=== PATIENT | male | born 1945 | race Caucasian/White ===

== ENCOUNTER → 2020-08-04 11:26 | Outpatient (CLI) | payer OTHER, SELFPAY ==
--- NOTE | ~2020-08-04 | XR_ITS ---
XR knee RT 2V, XR knee LT 2V 08/04/2020 11:50 Indication: Bilateral knee pain Procedure: 2 views of each knee Comparison: No prior studies for comparison. Findings: There is moderate-severe bilateral tricompartment osteoarthritis, most advanced in the medi al compartments. No acute fracture or traumatic malalignment. No significant joint effusion. No radio paque foreign bodies. Impression: 1: Moderate-severe bilateral tricompartment osteoarthritis of the knees. Reviewed, dictated and finalized at location B. Impression: 1: Moderate-severe bilateral tricompartment osteoarthritis of the knees. Impression: 1: Moderate-severe bilateral tricompartment osteoarthritis of the knees.
== END ==
PROVIDERS: PCP Internal Medicine; Visit Provider Internal Medicine
DX: M17.0 Bilateral primary osteoarthritis of knee (principal)
CPT/HCPCS: 73560

== ENCOUNTER 2021-02-13 09:23 | Outpatient (CLI) | payer OTHER, SELFPAY ==
--- NOTE | 2021-02-13 | ECHO_ITS ---
Patient Info Name: Juan Alberto Herndon Age: 75 years : 1945 Gender: Male Ht: 69 in Wt: 192 lbs BSA: 2.08 m2 HR: 73 bpm BP: 129 / 65 mmHg Heart Rhythm: Sinus Rhythm Technical Quality: Good Exam Date: 02/13/2021 10:00 AM Exam Location: [facility] Patient Status: Outpatient Admit Date: 02/13/2021 Staff Ordering Physician: Víctor, Veda Montero MD Auto Design Detailer: Sary Titus RDCS Attending Provider: Víctor, Veda Montero MD Referring Physician: Víctor PANIAGUA; Exam Type: CA echo doppler color flow Study Info Indications - SOB Complete two-dimensional, color flow and Doppler transthoracic echocardiogram is performed. Summary 1. Complete two-dimensional, color flow and Doppler transthoracic echocardiogram is performed. 2. Left ventricular chamber dimension is normal. 3. Left ventricular systolic function is normal, estimated at 50-55%. 4. The left ventricular diastolic function is grade II diastolic dysfunction. 5. Left atrial chamber dimension is mildly enlarged. 6. There is mild to moderate aortic valve stenosis with a peak velocity of 264 cm/s, mean gradient of 16 mmHg, and aortic valve area of 1.4 cm2. Left Ventricle Left ventricular chamber dimension is normal. Left ventricular systolic function is normal, estimated at 50-55%. There is mild concentric increased left ventricular wall thickness. The left ventricular diastolic function is grade II diastolic dysfunction. Right Ventricle Right ventricular chamber dimension is normal. Left Atria Left atrial chamber dimension is mildly enlarged. Right Atria Right atrial chamber dimension is normal. Aortic Valve The aortic valve is trileaflet. There is moderate aortic valve sclerosis. There is mild to moderate aortic valve stenosis with a peak velocity of 264 cm/s, mean gradient of 16 mmHg, and aortic valve area of 1.4 cm2. Pulmonic Valve The pulmonic valve is not well visualized. Mitral Valve The mitral valve has normal leaflets. The mitral valve annulus is mildly calcified. Tricuspid Valve The tricuspid valve leaflets are normal. Pericardium/Pleural The pericardium appears normal. Aorta The aortic root size at the sinus of Valsalva is normal. Left Ventricular Outflow Tract Name Value Normal LVOT 2D LVOT Diameter 2.0 cm LVOT Doppler LVOT Peak Gradient 6 mmHg LVOT Mean Gradient 4 mmHg LVOT VTI 29 cm LVOT VTI/AV VTI Ratio 0.5 LVOT Stroke Volume 87 ml LVOT CO 17.5 l/min LVOT CI 8.4 l/min/m2 Pulmonic Valve Name Value Normal PV Doppler PV Peak Gradient 3 mmHg Mitral Valve
== END 2021-02-13 09:24 | disposition home or self-care (01) ==
PROVIDERS: PCP Internal Medicine; Visit Provider Internal Medicine
DX: R06.02 Shortness of breath (principal)
CPT/HCPCS: 93306

== ENCOUNTER 2024-10-21 17:27 | Inpatient (IN) | payer OTHER, SELFPAY ==
[2024-10-21] VITALS (17 sets, daily range): BP systolic 90–135; BP diastolic 46–98; PULSE 46–67; RESP 16–20; TEMP 35.7–36.4; O2SAT 7–100; BMI 25.7
--- NOTE | ~2024-10-21 | XR_ITS ---
EXAMINATION: XR chest 1V portable DATE: 10/25/2024 05:45 INDICATION: Respiratory failure. TECHNIQUE: A single frontal view of the chest was obtained. COMPARISON: Chest single view 10/24/24 FINDINGS: There is no pneumonia, pleural effusion, or pneumothorax. The heart size is normal. The augustin ogastric tube tip is in the stomach. The endotracheal tube tip is 3.1 cm above the clovis. A right in ternal jugular central venous catheter is seen with tip in the superior vena cava. There is a pacer l ead in right ventricle. IMPRESSION: 1. No acute cardiopulmonary disease. Reviewed, dictated and finalized at location A. ASOUND TECHNOL
--- NOTE | ~2024-10-21 | XR_ITS ---
Portable chest x-ray Comparison: 10/28/2024 Clinical History: Fever Findings: Right IJ line in place. Possible minimal central pulmonary edema unchanged. No consolidati on or pleural effusion otherwise. Cardiomediastinal silhouette is stable. Bones and soft tissues are unremarkable. Impression: Possible minimal central pulmonary edema. Right IJ line. Reviewed, dictated and finalized at [facility]. ATCHER SERVICE CHIEF Impression: Possible minimal central pulmonary edema. Right IJ line.
--- NOTE | ~2024-10-21 | XR_ITS ---
EXAMINATION: XR chest 1V portable DATE: 10/24/2024 05:21 INDICATION: Respiratory failure. TECHNIQUE: A single frontal view of the chest was obtained. COMPARISON: Chest single view 10/23/2024 FINDINGS: A calcified left lung nodule is consistent with old granulomatous disease. No pleural effus ion or pneumothorax. Cardiomegaly is noted. The endotracheal tube tip is 6.2 cm above the clovis. The nasogastric tube tip is in the stomach. There is a pacer wire in right ventricle. A right internal j ugular central venous catheter is seen with tip in the superior vena cava. IMPRESSION: 1. Cardiomegaly. Reviewed, dictated and finalized at location A. ROBE CONSULTANT IMPRESSION: 1. Cardiomegaly.
--- NOTE | ~2024-10-21 | XR_ITS ---
XR abdomen gastric tube rechec Ordering provider: Koko Diaz MD History: . NG tube placement . Comparison: None. FINDINGS/impression: BOWEL: Nasogastric and ET tube and the gastroesophageal junction. Advancement advised. Nonobstructive bowel gas pattern. Reviewed, dictated and finalized at location A. DRIER
--- NOTE | ~2024-10-21 | XR_ITS ---
EXAMINATION: XR chest 1V portable DATE: 10/31/2024 11:48 INDICATION: Shortness of breath TECHNIQUE: frontal view of the chest was obtained. COMPARISON: Chest radiograph dated 10/29/2024 FINDINGS: Eventration along the right hemidiaphragm. Small calcified nodule at the lateral left lower lung zone consistent with old granulomatous disease. No other airspace opacities, pulmonary edema, pleural eff usion or pneumothorax. Heart size is normal accounting for AP technique with small left pericardial f at pad. IMPRESSION: 1. No acute cardiopulmonary disease. Reviewed, dictated and finalized at location A. T SHIPPER
--- NOTE | ~2024-10-21 | XR_ITS ---
XR chest ET placement Ordering provider: Koko Diaz MD History: 79 years Male with . ETT placement . Comparison: None. FINDINGS: MEDIASTINUM: The cardiac silhouette is slightly enlarged. Endotracheal tube is seen with the tip abov e the clovis by about 1.4 cm. Retraction by 2 cm is advised. Nasogastric tube is seen with the tip at the gastroesophageal junction. Advancement is advised. Prominent kim. LUNGS: No effusions or pneumothorax. Prominent bronchovascular markings in the lower lobes which may indicate atelectasis versus pneumonia. Follow-up advised. OTHER: No free air under the diaphragm. Degenerative changes of the spine. IMPRESSION: Endotracheal tube needs to be retracted by about 2 cm. Nasogastric tube needs to be advanced. Bibasilar prominent bronchovascular markings which may indicate atelectasis versus early pneumonia. F ollow-up advised. Reviewed, dictated and finalized at location A. ENT ACCOUNT REPRESENTATIVE IMPRESSION: Endotracheal tube needs to be retracted by about 2 cm. Nasogastric tube needs t o be advanced. Bibasilar prominent bronchovascular markings which may indicate atelectasis kory stefania early pneumonia. Follow-up advised.
--- NOTE | ~2024-10-21 | XR_ITS ---
XR chest port-a-cath/central Ordering provider: Koko Diaz MD History: 79 years Male with . Central line placement . Comparison: None. FINDINGS: MEDIASTINUM: The cardiac silhouette is slightly enlarged. Endotracheal tube and nasogastric tube are in good position. Right central line with the tip overlying superior vena cava. LUNGS: No effusions or pneumothorax. Bibasilar Opacification with bilateral interstitial changes. OTHER: No free air under the diaphragm. IMPRESSION: Support lines in good position. Bibasilar opacification with bilateral interstitial changes. Reviewed, dictated and finalized at location A. RAL OFFICE WORKER
--- NOTE | ~2024-10-21 | CT_ITS ---
CT brain wo con Ordering provider: Nuno Moser MD History: 79 years Male with . AMS . Comparison: October 21, 2024 Technique: CT of the head without contrast. Radiation reduction technique utilized.The dose-length pr oduct was 681 mGy-cm. FINDINGS: Endotracheal tube is seen. BRAIN PARENCHYMA AND CSF SPACES: Severe leukoaraiosis and diffuse cortical atrophy. Severe atheromato us disease. No midline shift, mass effect or hemorrhage. The brain parenchyma and CSF spaces are otherwise norm al. VISUALIZED PARANASAL SINUSES: Well aerated. MASTOIDS: Well aerated. BONES: The bones appear intact. SOFT TISSUES: Visualized nasopharynx is normal. Superficial soft tissues are normal. IMPRESSION: No acute intracranial findings. Reviewed, dictated and finalized at location A. ETARIUM SKY SHOW TECHNICIAN
--- NOTE | ~2024-10-21 | CT_ITS ---
CT brain wo con Ordering provider: Koko Diaz MD History: 79 years Male with . Cardiac arrest . Comparison: None. Technique: CT of the head without contrast. Radiation reduction technique utilized. The dose-length p roduct was 756.67 mGy-cm. FINDINGS: BRAIN PARENCHYMA AND CSF SPACES: Moderate leukoaraiosis and diffuse cortical atrophy. Moderate athero matous disease. No midline shift, mass effect or hemorrhage. The brain parenchyma and CSF spaces are otherwise normal. VISUALIZED PARANASAL SINUSES: Well aerated. MASTOIDS: Well aerated. BONES: The bones appear intact. SOFT TISSUES: Visualized nasopharynx is normal. Superficial soft tissues are normal. IMPRESSION: No acute intracranial findings. Reviewed, dictated and finalized at location A. SHER HAND
--- NOTE | ~2024-10-21 | XR_ITS ---
Portable chest x-ray Comparison: 10/21/2024 Clinical History: Tube placement Findings: Endotracheal tube, NG tube, and right IJ line are in satisfactory positions. Possible mini mal central congestive change. Lungs are otherwise clear. Cardiomediastinal silhouette is stable. [place] jose and soft tissues are unremarkable. Impression: Support tubes, as above. Possible minimal central congestive change. Reviewed, dictated and finalized at location . SING ROOM ATTENDANT Impression: Support tubes, as above. Possible minimal central congestive change.
--- NOTE | ~2024-10-21 | US_ITS ---
BILATERAL LOWER EXTREMITY VENOUS ULTRASOUND Ordering provider: Jesus Mclean MD History: . fevers . Comparison: None. FINDINGS: RIGHT LOWER EXTREMITY VEINS: --COMMON FEMORAL: Patent and free of thrombus. Normal compressibility, phasic flow and augmentation. --PROXIMAL SUPERFICIAL FEMORAL: Patent and free of thrombus. Normal compressibility, phasic flow and augmentation. --DISTAL SUPERFICIAL FEMORAL: Patent and free of thrombus. Normal compressibility, phasic flow and au gmentation. --POPLITEAL: Patent and free of thrombus. Normal compressibility, phasic flow and augmentation. --POSTERIOR TIBIAL: Patent and free of thrombus. Normal compressibility, phasic flow and augmentation . LEFT LOWER EXTREMITY VEINS: --COMMON FEMORAL: Patent and free of thrombus. Normal compressibility, phasic flow and augmentation. --PROXIMAL SUPERFICIAL FEMORAL: Patent and free of thrombus. Normal compressibility, phasic flow and augmentation. --DISTAL SUPERFICIAL FEMORAL: Patent and free of thrombus. Normal compressibility, phasic flow and au gmentation. --POPLITEAL: Patent and free of thrombus. Normal compressibility, phasic flow and augmentation. --POSTERIOR TIBIAL: Patent and free of thrombus. Normal compressibility, phasic flow and augmentation . IMPRESSION: Negative bilateral lower extremity venous US. No deep vein thrombosis. Reviewed, dictated and finalized at location A. TRUCTION SAFETY MANAGER
--- NOTE | ~2024-10-21 | XR_ITS ---
Portable chest x-ray Comparison: 10/22/2024 Clinical History: Tube placement Findings: Endotracheal tube, NG tube, and right IJ line remain in place. Lungs are clear, without fo lilli consolidation or pleural effusion. Cardiomediastinal silhouette is stable. Bones and soft tissue s are unremarkable. Impression: Clear lungs. Support tubes, as above. Reviewed, dictated and finalized at location M. INTEGRATED Impression: Clear lungs. Support tubes, as above.
--- NOTE | ~2024-10-21 | XR_ITS ---
Portable chest x-ray Comparison: 10/25/2024 Clinical History: Respiratory failure Findings: Endotracheal tube, NG tube, and right IJ line are in place. Lungs are clear, without focal consolidation or pleural effusion. Cardiomediastinal silhouette is stable. Bones and soft tissues a re unremarkable. Impression: Clear lungs. Support tubes, as above. Reviewed, dictated and finalized at location . HELPER Impression: Clear lungs. Support tubes, as above.
--- NOTE | ~2024-10-21 | XR_ITS ---
MODIFIED ESOPHAGRAM HISTORY: Aspiration TECHNIQUE: Modified barium esophagram was performed on 10/29/2024. I administered fluoroscopy and per formed the exam with speech pathologist. Patient was seated for lateral fluoroscopic imaging for ing estion of thin liquids, pudding, solids and quantified amounts, followed by thin liquids in uncontrol led amounts. This was recorded on tape. A single fluoroscopic spot image was also recorded. The DAP f or this procedure was 1.513 Gycm2. The amount of fluoroscopy time used during this procedure was 2.2 minutes. FINDINGS: Oral stage: Adequate function. Pharyngeal stage: There is reduced laryngeal elevation and adduction. Is also markedly reduced tongue base retraction. There is residue in the piriform sinuses and longer duration at the vallecula. Ther e is laryngeal penetration with silent aspiration. Cervical/esophageal stage: Adequate function. IMPRESSION: Pharyngeal dysphagia with silent laryngeal penetration and aspiration. Please correlate with speech pathologist findings and specific feeding recommendations. Reviewed, dictated and finalized at location A. EL TRUCK DRIVER IMPRESSION: Pharyngeal dysphagia with silent laryngeal penetration and aspirati on. Please correlate with speech pathologist findings and specific feeding rec ommendations.
--- NOTE | ~2024-10-21 | XR_ITS ---
XR abdomen gastric tube insert Ordering provider: Koko Diaz MD History: . OG PLACEMENT . Comparison: None. FINDINGS impression: BOWEL: Nasogastric tube is seen with the tip in the stomach. Nonobstructive bowel gas pattern. Reviewed, dictated and finalized at location A. TRICAL MAINTENANCE TECHNICIAN
--- NOTE | ~2024-10-21 | XR_ITS ---
XR chest ET placement Ordering provider: Koko Diaz MD History: 79 years Male with . ETT placement . Comparison: October 21, 2024 FINDINGS: MEDIASTINUM: The cardiac silhouette is slightly enlarged. Endotracheal tube is seen above the clovis by about 4 cm. Nasogastric tube seen with the tip in the stomach. Right central line with the tip overlying the superior vena cava. LUNGS: No effusions or pneumothorax. Minimal opacification the lung bases. OTHER: No free air under the diaphragm. IMPRESSION: Support lines are in good position. Bibasilar opacification unchanged. Reviewed, dictated and finalized at location A. STILL OPERATOR
--- NOTE | ~2024-10-21 | XR_ITS ---
XR abdomen gastric tube insert Ordering provider: Koko Diaz MD History: . OG PLACEMENT . Comparison: None. FINDINGS: BOWEL: Nasogastric tube with the tip at the gastroesophageal junction. Advancement is advised. Nonobs tructive bowel gas pattern. ORGANOMEGALY: None. SIGNIFICANT PATHOLOGIC CALCIFICATIONS: None. OTHER: No free air is seen under the diaphragm. Degenerative the spine. IMPRESSION: NO ACUTE ABDOMINAL FINDINGS. Nasogastric tube needs to be advanced. Reviewed, dictated and finalized at location A. ME POLISHER
--- NOTE | 2024-10-21 17:45 | PC.NURSE ---
MD Diaz at bedside preparing for central line placement. No consent required d/t emergent procedure.
--- NOTE | 2024-10-21 17:47 | PC.NURSE ---
MD Diaz at bedside performing Right IJ central line. Patient, procedure and site confirmed. Timeout completed prior to procedure.
--- NOTE | 2024-10-21 18:01 | ECG_ITS ---
Test Date: 2024-10-21 17:29:51 Measurements Intervals [place] Rate: 75 P: 0 [place]: 0 QRS: 6 QRSD: 94 T: 0 QT: 405 QTc: 453 Interpretive Statements Sinus Rhythm with 3rd degree AVB JUNCTIONAL ESCAPE RHYTHM NONSPECIFIC ST & T-WAVE ABNORMALITY ABNORMAL RHYTHM ECG No previous ECG available for comparison Electronically Signed On 10-22-2024 09:49:09 [employer] by Bowen Camarillo M.D.
--- NOTE | 2024-10-21 18:11 | PCCCNOTE ---
[id number]-Spoke with the , gained the pt's identification. Stated they were at [employer] in [facility] and almost done eating when the pt just lost consciousness and fell over in his chair. Stated the pt has had an RI before, LISA. Shared this information with the treating provider. is outreaching the family for transportation options if not CM will provider taxi to the home if needed. is unable to drive herself and is very tearful.-adam.
--- NOTE | 2024-10-21 18:12 | ECG_ITS ---
Test Date: 2024-10-21 18:43:13 Measurements Intervals [place] Rate: 46 P: 0 [place]: 0 QRS: -2 QRSD: 116 T: 88 QT: 476 QTc: 418 Interpretive Statements SINUS RHYTHM COMPLETE AV BLOCK, A-RATE JUNCTIONAL ESCAPE RHYTHM NONSPECIFIC ST & T-WAVE ABNORMALITY ABNORMAL RHYTHM ECG Compared to ECG 10/21/2024 17:29:51 Intraventricular conduction delay now present Sinus rhythm no longer present Junctional rhythm no longer present T-wave abnormality still present Electronically Signed On 10-22-2024 09:50:04 [employer] by Bowen Camarillo M.D.
[2024-10-21 18:15] LABS: Alveolar/Arterial O2 Gradient 185.4 mmHg; Arterial Blood Gas PEEP 5 cmH2O; Arterial Blood Gas Tidal Volume 450 ml; Arterial Blood Gas Vent Mode CMV; Arterial Blood Gas Ventilator rate 20 /MIN; Base Excess ABG -6.2 mEq/l (+/-2.0); Device VENTILATOR; Fractional Inspired Oxygen 100 %; HCO3 ABG 18.6 mEq/l (22.0-26.0); Oxygen Saturation ABG 99.9 % (95.0-100.0); Oxyhemoglobin 99.3 % THb (90.0-100.0); PCO2 ABG 34.5 mmHg (35.0-45.0); PO2 ABG 493.1 mmHg (80.0-100.0); PO2 FiO2 Ratio Arterial Blood 4.93 %; Site Drawn LEFT BRACHIAL; Total Hemoglobin 11.2 g/dL (12.0-18.0)
[2024-10-21 18:23] LABS: Basophils Absolute Auto 0.1 K/mm3 (0.0-0.1); Basophils Percent Auto 0.6 % (0.2-1.2); Eosinophils Absolute Auto 0.1 K/mm3 (0-0.3); Eosinophils Percent Auto 0.8 % (0-4.4); Hematocrit 36.4 % (42.0-52.0); Hemoglobin 11.8 g/dL (14.0-18.0); Immature Granulocyte Absolute 0.28 K/mm3 (0.00-0.031); Immature Granulocyte Percent A 1.7 % (0-0.5); Lymphocytes Absolute Auto 5.31 K/mm3 (0.9-3.2); Lymphocytes Percent Auto 32.9 % (18.3-44.2); Mean Corpuscular HGB Conc 32.4 g/dl (32-36); Mean Corpuscular Hemoglobin 30.4 pg (26-34); Mean Corpuscular Volume 93.8 fl (80-100); Mean Platelet Volume 11.2 fl (7.4-10.4); Monocytes Absolute Auto 0.6 K/mm3 (0.1-0.6); Monocytes Percent Auto 3.5 % (2.6-8.5); Neutrophils Absolute Auto 9.8 K/mm3 (1.3-6.7); Neutrophils Percent Auto 60.5 % (45.5-73.1); Platelet Count Result 321 k/mm3 (150-375); Red Blood Count 3.88 M/mm3 (4.6-6.20); Red Cell Distribution Width 15.1 % (11.5-14.5); White Blood Count 16.1 K/mm3 (4.5-10.0)
[2024-10-21 18:35] LABS: Alanine Aminotransferase 115 U/L (6-50); Albumin Level 3.5 g/dL (3.5-5.1); Alkaline Phosphatase 88 U/L (38-126); Anion Gap 13 mmol/L (4-12); Aspartate Amino Transferase 262 U/L (17-59); Bilirubin,Total 0.9 mg/dL (0.2-1.3); Blood Urea Nitrogen 10 mg/dL (9-20); Calcium 8.1 mg/dL (8.4-10.2); Carbon Dioxide 18 mmol/L (22-30); Chloride 110 mmol/L (98-107); Estimated Glomerular Filt Rate 49; Glucose 216 mg/dL (65-110); Magnesium 2.1 mg/dL (1.6-2.3); Sodium 141 mmol/L (137-145)
[2024-10-21 18:38] LABS: Lactic Acid Reflex 7.7 mmol/L (0.7-2.0)
--- NOTE | 2024-10-21 18:41 | PCCCNOTE ---
184-Updated the pt's POLST form to full code. Pt's daughter is now in the room and will provide transportation to the .-adam.
[2024-10-21 18:45] LABS: Troponin I 0.023 ng/mL (0.000-0.034)
[2024-10-21 18:46] LABS: Acetaminophen < 10 ug/mL (10-30); Ethanol < 10 mg/dL (<10); Salicylate 1.8 mg/dL (2-20)
--- NOTE | 2024-10-21 18:49 | PC.NURSE ---
Pt. and daughter brought to bedside. Care coordination at bedside. All questions answered.
--- NOTE | 2024-10-21 18:53 | ED_ITS ---
HPI - CPR General Chief Complaint: Cardiac Arrest/CPR Stated Complaint: cardiac arrest Source: family and EMS Mode of arrival: EMS Limitations: clinical condition History of Present Illness HPI narrative: HPI limited due to patient's critical condition This is an 79-year-old male, with reported history of coronary artery disease, brought in by EMS from a local restaurant after cardiac arrest. EMS reports the patient was eating and lost consciousness. CPR was started at the scene. On arrival initial rhythm was reported as PE a. EMS reports they gave 2 amps of epinephrine and shocked twice for VFib followed by a 300 mg a IV dose of amiodarone. Afterwards they states they achieved ROSC with an initial blood pressure in the 110s. Fingerstick glucose reported in the 200s. The patient was intubated in the field. Related Data Home Medications Medication Instructions Recorded Confirmed albuterol sulfate 90 mcg/actuation 1 inh inhalation Q4-6H PRN 02/26/22 10/21/24 breath activated powder inhaler allopurinol 100 mg tablet 100 mg PO DAILY 02/26/22 10/21/24 amlodipine 10 mg tablet 10 mg PO DAILY 02/26/22 10/21/24 atorvastatin 20 mg tablet 20 mg PO DAILY 02/26/22 10/21/24 ondansetron HCl 4 mg tablet 4 mg PO Q6H PRN nausea and vomiting 02/26/22 10/21/24 pantoprazole 40 mg tablet,delayed 40 mg PO QAM 02/26/22 10/21/24 release buprenorphine HCl 75 mcg buccal 75 mcg buccal Q12H 10/21/24 10/21/24 film (Belbuca) doxazosin 2 mg tablet 2 mg PO QHS 10/21/24 10/21/24 finasteride 5 mg tablet 5 mg PO DAILY 10/21/24 10/21/24 gabapentin 300 mg capsule 300 mg PO BID 10/21/24 10/21/24 losartan 50 mg tablet 50 mg PO DAILY 10/21/24 10/21/24 montelukast 10 mg tablet 10 mg PO DAILY 10/21/24 10/21/24 tadalafil 20 mg tablet 20 mg PO DAILY PRN 10/21/24 10/21/24 trazodone 100 mg tablet 100 mg PO QHS PRN 10/21/24 10/21/24 Allergies Allergy/AdvReac Type Severity Reaction Status Date / Time aspirin Allergy Unknown Dizziness Verified 10/21/24 14:02 metoclopramide Allergy Unknown unknown Verified 10/21/24 14:02 Review of Systems Review of Systems: ROS unobtainable: Yes unobtainable due to medical condition PMFSH Past Medical History Medical History Anemia Anxiety Arthritis Constipation Degenerative joint disease of knee Dizziness DJD of left shoulder Hearing loss Hypertension Kidney stones Left shoulder pain Osteoarthritis of left knee Osteoarthritis of right knee Rectal cancer Rotator cuff arthropathy Sleep disorder SOB (shortness of breath) Surgical History Surgical History History of rectal surgery Family History Family History Father Diabetes mellitus Mother Esophageal cancer Social History Social History Years smoked: 16 Smoking status: Former smoker Smoking end date: 11/18/01 Alcohol intake: never Exam Narrative: GENERAL: Well-developed, well-nourished, Unresponsive, intubated with bagging ongoing HEAD: Normocephalic, atraumatic. EYES: Pupils 3 mm and sluggishly reactive bilaterally ENT: Nares clear, no rhinorrhea or epistaxis. Mucous membranes moist. endotracheal tube in place NECK: Supple. CHEST: Clear to auscultation with bilateral breath sounds on bagging. tra nsmitted upper airway sounds HEART: bradycardic with regular rhythm. No murmur heard. Normal peripheral pulses. ABDOMEN: Soft, nondistended, normal active bowel sounds. EXTREMITIES: There is an IO in place in the right tibia No edema. SKIN: Warm, dry, no rash. NEURO: unresponsive, no spontaneous movement noted= Course Course Emergency Course: 17:45 - Bedside ultrasound performed by me demonstrates good ePSS with no noted pericardial fluid. There are no noted B-lines. Right IJ central line placed by me. EKG was not concerning for ischemia, though demonstrates changes consistent with third-degree heart block. Will place pacers and begin epinephrine for pressors. During central line placement, the patient was seen when sitting. He has also seen chewing at the ET tube. 18:25 - I discussed the current findings and processes with the patient's spouse who voiced understanding. She wishes the patient to remain full code. 18:59 - The patient's ET tube was retracted 2 cm at recommendation of from a radiology. NG tube was advanced and was found to be in good position. Central l ine appears to be in appropriate position with no noted pneumothorax. Chemistries demonstrate hypokalemia potassium of 3.0, creatinine elevation of 1.4 mild lactic acid elevation of 7.7 and hypocalcemia with calcium of 8.1. Magnesium within normal limits. Initial troponin negative at 0.023. ABG d emonstrates normal pH with pCO2 of 34.5 and PO2 of 493 with a 5-100%. Respiratory therapy to decrease this to 60%. CBC demonstrates white blood cell count elevation of 16.1 with hemoglobin of 11.8 and platelets of 321. 19:06 - I discussed the patient with drupal developer, Dr. Camarillo who request activation of the ballistics laboratory gunsmith for emergent pacemaker placement. Vital Signs Vital signs: Vital Signs Temperature 97.6 F 10/21/24 17:23 Pulse Rate 67 10/21/24 17:23 Respiratory Rate 20 10/21/24 17:23 Blood Pressure 122/64 10/21/24 17:23 Pulse Oximetry 100 10/21/24 17:23 Oxygen Delivery Mechanical Ventilation 10/21/24 17:23 Temperature 97.6 F 10/21/24 17:23 Pulse Rate 46 L 10/21/24 19:03 Respiratory Rate 20 10/21/24 19:03 Blood Pressure 110/46 L 10/21/24 19:03 Pulse Oximetry 100 10/21/24 19:03 Oxygen Delivery Mechanical Ventilation 10/21/24 18:27 Fraction of Inspired Oxygen 60 10/21/24 18:27 Procedures Central Line Placement Right IJ: Central Line Date: 10/21/24 Central Line Time: 17:45 Performed Emergently - Given emergent patient condition, temporal constraints may have precluded informed consent.: Yes Time Out Performed: Yes Patient Placed on Monitor/Pulse Ox: Yes Max. Sterile Barrier Technique: Caps, large sterile sheet and hand hygiene Central Line Prep: 2% chlorhexidine scrub Technique: US-Guided Local Anesthetic: none Ultrasound Used for Placement: Yes Central Line Lumen Inserted: triple Post Procedure: sutured in place, good blood return, all ports aspirated, flushed, capped and sterile dressing applied Post Procedure X-Ray: tip of catheter in good position and no pneumothorax seen Patient Tolerated Procedure: no complications Complications: none MDM - Cardiac Arrest/CPR MDM Narrative Medical decision making narrative: Plan: ACLS, EKG, central line placement, vasopressors, labs, IV fluids, imaging, reassess Differential Diagnosis Differential diagnosis: Likely other ( ACS, arrhythmia, metabolic abnormality, sepsis, drug/alcohol intoxication, hypothyroidism) Lab Data 10/21/24 18:15 10/21/24 18:15 Labs: Lab Results 10/21/24 10/21/24 10/21/24 Range/Units 18:03 18:10 18:15 WBC 16.1 H (4.5-10.0) K/mm3 RBC 3.88 L (4.6-6.20) M/mm3 Hgb 11.8 L (14.0-18.0) g/dL Hct 36.4 L (42.0-52.0) % MCV 93.8 (80-100) fl MCH 30.4 (26-34) pg MCHC 32.4 (32-36) g/dl RDW 15.1 H (11.5-14.5) % Plt Count 321 (150-375) k/mm3 MPV 11.2 H (7.4-10.4) fl Immature Gran % (Auto) 1.7 H (0-0.5) % Neut % (Auto) 60.5 (45.5-73.1) % Lymph % (Auto) 32.9 (18.3-44.2) % [place] % (Auto) 3.5 (2.6-8.5) % Eos % (Auto) 0.8 (0-4.4) % Baso % (Auto) 0.6 (0.2-1.2) % Lymph # (Auto) 5.31 H (0.9-3.2) K/mm3 [place] # (Auto) 0.6 (0.1-0.6) K/mm3 Eos # (Auto) 0.1 (0-0.3) K/mm3 Baso # (Auto) 0.1 (0.0-0.1) K/mm3 Abs Immat Gran (auto) 0.28 H (0.00-0.031) K/mm3 Absolute Neuts (auto) 9.8 H (1.3-6.7) K/mm3 Absolute Nucleated RBC 0.000 (0.0-0.012) K/mm3 Nucleated RBC % 0.0 (0.0-0.2) % Minute Volume Not Reportable Vent Mode Cmv Tidal Volume 450 ml PEEP 5 cmH2O Peak Inspir Pressure Not Reportable Pressure Support Not Reportable Sodium 141 (137-145) mmol/L Potassium 3.0 L (3.4-5.0) mmol/L Chloride 110 H (98-107) mmol/L Carbon Dioxide 18 L (22-30) mmol/L Anion Gap 13 H (4-12) mmol/L BUN 10 (9-20) mg/dL Creatinine 1.40 H (0.7-1.3) mg/dL Estim Creat Clear Calc Not Reportable Estimated GFR 49 L (59 - ) Glucose 216 H (65-110) mg/dL Lactic Acid 7.7 H* (0.7-2.0) mmol/L Calcium 8.1 L (8.4-10.2) mg/dL Magnesium 2.1 (1.6-2.3) mg/dL Total Bilirubin 0.9 (0.2-1.3) mg/dL AST 262 H (17-59) U/L ALT 115 H (6-50) U/L Alkaline Phosphatase 88 (38-126) U/L Troponin I 0.023 (0.000-0.034) ng/mL Total Protein 6.0 L (6.3-8.2) g/dL Albumin 3.5 (3.5-5.1) g/dL TSH 7.230 H (0.465-4.680) uIU/mL Salicylates 1.8 L (2-20) mg/dL Acetaminophen < 10 L (10-30) ug/mL Ethyl Alcohol < 10 (<10) mg/dL ABG Data ABG results: 10/21/24 18:03 Puncture Site Left brachial ABG pH 7.350 ABG pCO2 34.5 L ABG pO2 493.1 H ABG PO2/FiO2 Ratio 4.93 ABG HCO3 18.6 L ABG O2 Saturation 99.9 ABG O2 Content 17.0 ABG Base Excess -6.2 A-a Gradient 185.4 Oxyhemoglobin 99.3 Total Hemoglobin 11.2 L O2 Delivery Device Ventilator O2 Liters/Min Not Reportable Vent Rate 20 FiO2 100 ECG Data EKG #1: Attestation: I personally reviewed and interpreted this ECG as follows: ECG completion date: 10/21/24 ECG completion time: 17:29 Prior ECG tracings: not available for review Interpretation: third-degree AV block, ventricular rate 75, normal axis, no ST segment elevations concerning for ischemia, T-wave flattening in lead 1, lead 2, aVL otherwise normal intervals with QTC of 434. EKG #2: Attestation: I personally reviewed and interpreted this ECG as follows: ECG completion date: 10/21/24 ECG completion time: 18:43 Prior ECG tracings: available for review Interpretation: Third-degree AV block, rate 46, normal axis, no ST segment elevations concerning for ischemia, T-wave flattening in lead 1, lead 2 and aVL. Otherwise normal intervals with QTC of 418. Compared to EKG done at 17:29, the patient's heart rate has decreased. Critical Care Time Critical Care Time Critical Care Time: Yes Total Critical Care Time: 60 Discharge Plan Discharge Clinical Impression: Cardiac arrest, Heart block AV third degree, Acute hypokalemia, Hypocalcemia Patient Disposition: Still a Patient Condition: Critical Prescriptions: No Action doxazosin 2 mg tablet 2 mg PO QHS finasteride 5 mg tablet 5 mg PO DAILY gabapentin 300 mg capsule 300 mg PO BID losartan 50 mg tablet 50 mg PO DAILY montelukast 10 mg tablet 10 mg PO DAILY tadalafil 20 mg tablet 20 mg PO DAILY PRN Rx Instructions: administer approximately 30min before sexual activity; do not use more than 1 dose per 24hrs trazodone 100 mg tablet 100 mg PO QHS PRN methocarbamol 500 mg tablet 500 mg PO QHS Qty: 30 0RF buprenorphine HCl [Belbuca] 75 mcg film 75 mcg buccal Q12H amlodipine 10 mg tablet 10 mg PO DAILY ondansetron HCl 4 mg tablet 4 mg PO Q6H PRN (Reason: nausea and vomiting) allopurinol 100 mg tablet 100 mg PO DAILY pantoprazole 40 mg tablet,delayed release (DR/EC) 40 mg PO QAM atorvastatin 20 mg tablet 20 mg PO DAILY albuterol sulfate 90 mcg/actuation aerosol powdr breath activated 1 inh inhalation Q4-6H PRN Follow-up/Referrals: Hannah Sabillon DO [Primary Care Provider] - Time of Disposition: 19:07
[2024-10-21] MEDS: EPINEPHrine INJ 1 MG in DEXTROSE 5% IN WATER 250 ML 15.06 MG IV CONT (19:01)
--- NOTE | 2024-10-21 19:03 | PC.NURSE ---
Per MD Diaz, start epi infusion.
--- NOTE | 2024-10-21 19:18 | PC.NURSE ---
Pt. to CT on a monitor and [place] with this RN and RT at bedside.
--- NOTE | 2024-10-21 19:38 | P.HP_ITS ---
H&P: HPI History of Present Illness Date/Time: 10/21/24 19:38 Chief Complaint: Cardiac Arrest with ROSC Narrative: 79-year-old male patient past history of coronary artery disease admitted to the ICU after out of hospital cardiac arrest. EMS was able to regain [place] after 2 rounds of epinephrine 2 shocks for VFib and 300 mg amiodarone. EMS intubated patient in the field. On arrival to the emergency department EKG showed third- degree heart block without a STEMI. Patient was taken by Cardiology to the cardiac quality lab technician for emergent placement of transvenous pacer through the right groin. Prior to this procedure patient was hypotensive and on an epinephrine drip which failed to increase heart rate enough to forego pacing at this time. On arrival to the ICU patient is intubated nonresponsive. Family no longer present at the hospital for further information. HPI based on ER notes and report from ICU nursing staff. ROS unable to be obtained Review of Systems Review of Systems: ROS unobtainable: Yes unobtainable due to endotracheal tube, unobtainable due to medical condition and unobtainable due to mental status PMFSH Past Medical History Medical History Anemia Anxiety Arthritis Constipation Degenerative joint disease of knee Dizziness DJD of left shoulder Hearing loss Hypertension Kidney stones Left shoulder pain Osteoarthritis of left knee Osteoarthritis of right knee Rectal cancer Rotator cuff arthropathy Sleep disorder SOB (shortness of breath) Surgical History Surgical History History of rectal surgery Family History Family History Father Diabetes mellitus Mother Esophageal cancer Social History Social History Years smoked: 16 Smoking status: Former smoker Smoking end date: 11/18/01 Alcohol intake: never Meds Home Medications and Allergies Home Medications Medication Instructions Recorded Confirmed Type albuterol sulfate 90 mcg/actuation 1 inh inhalation Q4-6H PRN 02/26/22 10/21/24 History breath activated powder inhaler allopurinol 100 mg tablet 100 mg PO DAILY 02/26/22 10/21/24 History amlodipine 10 mg tablet 10 mg PO DAILY 02/26/22 10/21/24 History atorvastatin 20 mg tablet 20 mg PO DAILY 02/26/22 10/21/24 History pantoprazole 40 mg tablet,delayed 40 mg PO QAM 02/26/22 10/21/24 History release buprenorphine HCl 75 mcg buccal 75 mcg buccal Q12H 10/21/24 10/21/24 History film ([place]) doxazosin 2 mg tablet 2 mg PO QHS 10/21/24 10/21/24 History finasteride 5 mg tablet 5 mg PO DAILY 10/21/24 10/21/24 History gabapentin 300 mg capsule 300 mg PO BID 10/21/24 10/21/24 History losartan 50 mg tablet 50 mg PO DAILY 10/21/24 10/21/24 History methocarbamol 500 mg tablet 500 mg PO Q8H PRN Spasms 10/21/24 10/21/24 History montelukast 10 mg tablet 10 mg PO DAILY 10/21/24 10/21/24 History trazodone 100 mg tablet 100 mg PO QHS PRN Insomnia 10/21/24 10/21/24 History Allergies Allergy/AdvReac Type Severity Reaction Status Date / Time aspirin Allergy Unknown Dizziness Verified 10/21/24 14:02 metoclopramide Allergy Unknown unknown Verified 10/21/24 14:02 Vital Signs Vital Signs - 24 hr 10/21/24 17:25 10/21/24 18:12 10/21/24 18:27 Pulse Rate 63 Respiratory Rate Blood Pressure Pulse Oximetry 100 100 Oxygen Delivery Mechanical Ventilation Mechanical Ventilation Mechanical Ventilation Fraction of Inspired Oxygen 100 100 60 10/21/24 18:17 10/21/24 18:51 10/21/24 19:01 Pulse Rate 47 L 48 L Respiratory Rate 20 Blood Pressure 90/71 L 110/46 L Pulse Oximetry 100 100 Oxygen Delivery Mechanical Ventilation Fraction of Inspired Oxygen 100 10/21/24 19:03 Pulse Rate 46 L Respiratory Rate 20 Blood Pressure 110/46 L Pulse Oximetry 100 Oxygen Delivery Fraction of Inspired Oxygen Exam Narrative: GENERAL: Well-developed, well-nourished, Unresponsive and intubated without sedation HEAD: Normocephalic, atraumatic. EYES: Pupils 1-2 mm and eyes roving back and forth in rhythmic pattern ENT: Nares clear, no rhinorrhea or epistaxis. Mucous membranes moist. Endotracheal tube in place and OG tube in place NECK: Supple. CHEST: Clear to auscultation with bilateral breath sounds on ventilator HEART: Paced regular rhythm. No murmur heard. Normal peripheral pulses. ABDOMEN: Soft, nondistended, normal active bowel sounds. EXTREMITIES: Sporadically twitching, no purposeful movement. No edema. SKIN: Cool, dry, pale NEURO: unresponsive, eyes looking rhythmically back and forth with small pupils H&P: Results Labs Labs: Short CBC 10/21/24 Range/Units 18:15 WBC 16.1 H (4.5-10.0) K/mm3 Hgb 11.8 L (14.0-18.0) g/dL Hct 36.4 L (42.0-52.0) % Plt Count 321 (150-375) k/mm3 BMP 10/21/24 18:15 Sodium 141 Potassium 3.0 L Chloride 110 H Carbon Dioxide 18 L BUN 10 Creatinine 1.40 H Glucose 216 H Calcium 8.1 L Cardiac Enzymes 10/21/24 Range/Units 18:15 Troponin I 0.023 (0.000-0.034) ng/mL Liver Function 10/21/24 Range/Units 18:15 Total Bilirubin 0.9 (0.2-1.3) mg/dL AST 262 H (17-59) U/L ALT 115 H (6-50) U/L Alkaline Phosphatase 88 (38-126) U/L Albumin 3.5 (3.5-5.1) g/dL ABG ABG results: PH 7.328 pCO2 33.0 PO2 63.2 HC03 16.9 ABG O2 saturation 91% and base excess of - 8. Settings: FiO2 40 tidal volume 450 peep of 5, 20 respirations per minute. Interpretation: Incompletely compensated metabolic acidosis ECG Attestation: I personally reviewed and interpreted this ECG as follows: ECG completion date: 10/21/24 ECG completion time: 18:43 Prior ECG tracings: not available for review Interpretation: Third-degree heart block rate of 46 QRS duration 116 QTC 418 QRS axis -2? no STEMI Imaging Chest x-ray: Radiologist's impression: XR chest port-a-cath/central Ordering provider: Koko Diaz MD History: 79 years Male with . Central line placement . Comparison: None. FINDINGS: MEDIASTINUM: The cardiac silhouette is slightly enlarged. Endotracheal tube and nasogastric tube are in good position. Right central line with the tip overlying superior vena cava. LUNGS: No effusions or pneumothorax. Bibasilar Opacification with bilateral interstitial changes. OTHER: No free air under the diaphragm. IMPRESSION: Support lines in good position. Bibasilar opacification with bilateral interstitial changes. Reviewed, dictated and finalized at location [facility] Abdominal x-ray: Radiologist's impression: XR abdomen gastric tube insert Ordering provider: Koko Diaz MD History: . OG PLACEMENT . Comparison: None. FINDINGS impression: BOWEL: Nasogastric tube is seen with the tip in the stomach. Nonobstructive bowel gas pattern. Reviewed, dictated and finalized at location [facility] CT scan - head: Radiologist's impression: CT brain wo con Ordering provider: Koko Diaz MD History: 79 years Male with . Cardiac arrest . Comparison: None. Technique: CT of the head without contrast. Radiation reduction technique utilized. The dose-length product was 756.67 mGy-cm. FINDINGS: BRAIN PARENCHYMA AND CSF SPACES: Moderate leukoaraiosis and diffuse cortical atrophy. Moderate atheromatous disease. No midline shift, mass effect or hemorrhage. The brain parenchyma and CSF spaces are otherwise normal. VISUALIZED PARANASAL SINUSES: Well aerated. MASTOIDS: Well aerated. BONES: The bones appear intact. SOFT TISSUES: Visualized nasopharynx is normal. Superficial soft tissues are normal. IMPRESSION: No acute intracranial findings. Reviewed, dictated and finalized at location [facility] Assessment and Plan Assessment and plan (1) Cardiac arrest: Code(s): I46.9 - Cardiac arrest, cause unspecified Status: Acute Assessment and Plan: -EMS obtained ROSC after CPR, 2 shocks, 2 epinephrine and 150 mg of amiodarone -Report of sudden arrest while out to dinner, CPR by bystander before EMS arrival -Initial rhythm reported PEA then V-fib then Complete Heart Block -Was hypotensive so on epinephrine drip prior to quality lab technician -Patient to [facility]inking Machine Operator for insertion of Transvenous Pacer then to ICU -Not requiring sedation at time of exam, Cooling initiated. -Epinephrine drip off on arrival to ICU (2) Acute hypoxic respiratory failure: Code(s): J96.01 - Acute respiratory failure with hypoxia Status: Acute Assessment and Plan: -Intubated by EMS, repositioned in ER after initial CXR -Titrating down FiO2 -Repeat ABG at 2200 and 0600 (3) Heart block AV third degree: Code(s): I44.2 - Atrioventricular block, complete Status: Acute Assessment and Plan: -Post arrest ROSC with Third Degree Heart Block with junctional escape beats -IV epinephrine drip at 1 mcg/min did not help heart rate -Dr. Camarillo took patient to [facility] for insertion of Transvenous Pacer, right groin (4) Acute hypokalemia: Code(s): E87.6 - Hypokalemia Status: Acute Assessment and Plan: -Potassium 3.0 on ER labs, IV replacement ordered but never started in ER -Potassium 3.5 in ICU (5) Hypocalcemia: Code(s): E83.51 - Hypocalcemia Status: Acute Assessment and Plan: -Calcium 8.1 in ER, patient received 1 gram IV Calcium Gluconate and on repeat r emains 8.1 -Monitor with labs (6) Hyperglycemia: Code(s): R73.9 - Hyperglycemia, unspecified Status: Acute Assessment and Plan: -Noted blood sugar 216 in ER and 193 in ICU -No personal history of diabetes, likely stress response -Run A1c with next labs (7) Metabolic acidosis: Code(s): E87.20 - Acidosis, unspecified Status: Acute Assessment and Plan: -2200 ABG showed HCO3 of 16.9 with pH 7.328 -Base excess was -8 -Ordered 1 liter bolus LR plus LR at 100 mL/hr -Consider sodium bicarb if no improvement or continued worsening -Lactic acidosis has resolved, likely pyruvic acidosis from decreased blood flow in Cardiac arrest state Plan Per patient's , Full Code status Initiate Cooling protocol as patient has not regained purposeful neurologic status Quality VTE Prophylaxis VTE prophylaxis: mechanical ordered Due to a high probability of clinically significant, life threatening deterioration, the patient required my highest level of preparedness to intervene emergently and I personally spent this critical care time directly and personally managing the patient. This critical care time included obtaining a history; examining the patient; pulse oximetry; ordering and review of studies; arranging urgent treatment with development of a management plan; evaluation of patient's response to treatment; frequent reassessment; and discussions with other providers. It was exclusive of separately billable procedures and treating other patients and teaching time. Please see Assessment and Plan section and the rest of the note for further information on patient assessment and treatment. Critical Care time: 75 minutes Hospitalist MIPS Advance Care Plan I have confirmed that the patient's Advanced Care Plan is present, code status is documented, or surrogate decision maker is listed in patient medical record.: Yes Medication Reconciliation I have utilized all available resources to obtain, update and review the patients current medications (includes all prescriptions, OTC, herbals, cannabis, and nutritional supplements).: Yes
--- NOTE | 2024-10-21 19:42 | PC.NURSE ---
Pt. returned to room from CT. No change in pt. condition during scan.
--- NOTE | 2024-10-21 20:06 | PC.NURSE ---
1723: Pt. arrives to ED. Femoral pulse present. Pt intubated en route with a 7.0 ETT, 24 at the lip. 1727: Pt. placed on monitor and AED pads. 172: EKG performed. 1735: N.S. 1,000 mg bolus started. 18 turkmen OG placed. vitals: BP 116/62, RR 23, HR 69, 02 100% on vent at 60% 1805: Per x-ray results and MD Diaz, OG not inserted far enough. OG removed and replaced d/t difficulty advancing. 1825: Per x-ray, ETT retracted to 23 at the lip by Md Diaz. BP 105/65, HR 48, 02 100% on vent at 60%, RR 20
--- NOTE | 2024-10-21 20:13 | WPDHPUPDATE1 ---
History and Physical Update Update Date/Time: 10/21/24 20:13 History and Physical has been reviewed, including an updated exam of the patient. There are NO changes in the patient's condition. Risks, benefits, and alternatives have been discussed and questions answered with patient's decision maker as he is intubated. Patient's decision maker agrees to proceed with procedure.
--- NOTE | 2024-10-21 20:14 | P.SEDATION_ITS ---
Moderate Sedation Note-Pt Data Patient Data Allergies Allergy/AdvReac Type Severity Reaction Status Date / Time aspirin Allergy Unknown Dizziness Verified 10/21/24 14:02 metoclopramide Allergy Unknown unknown Verified 10/21/24 14:02 Home Medications Medication Instructions Recorded Confirmed Type albuterol sulfate 90 mcg/actuation 1 inh inhalation Q4-6H PRN 02/26/22 10/21/24 History breath activated powder inhaler allopurinol 100 mg tablet 100 mg PO DAILY 02/26/22 10/21/24 History amlodipine 10 mg tablet 10 mg PO DAILY 02/26/22 10/21/24 History atorvastatin 20 mg tablet 20 mg PO DAILY 02/26/22 10/21/24 History ondansetron HCl 4 mg tablet 4 mg PO Q6H PRN nausea and vomiting 02/26/22 10/21/24 History pantoprazole 40 mg tablet,delayed 40 mg PO QAM 02/26/22 10/21/24 History release buprenorphine HCl 75 mcg buccal 75 mcg buccal Q12H 10/21/24 10/21/24 History film ([place]) doxazosin 2 mg tablet 2 mg PO QHS 10/21/24 10/21/24 History finasteride 5 mg tablet 5 mg PO DAILY 10/21/24 10/21/24 History gabapentin 300 mg capsule 300 mg PO BID 10/21/24 10/21/24 History losartan 50 mg tablet 50 mg PO DAILY 10/21/24 10/21/24 History methocarbamol 500 mg tablet 500 mg PO QHS #30 tabs 10/21/24 10/21/24 Rx montelukast 10 mg tablet 10 mg PO DAILY 10/21/24 10/21/24 History tadalafil 20 mg tablet 20 mg PO DAILY PRN 10/21/24 10/21/24 History trazodone 100 mg tablet 100 mg PO QHS PRN 10/21/24 10/21/24 History Current Medications: Active Medications Acetaminophen (Acetaminophen 650 Mg Suppository) 650 mg RECTAL Q6H PRN PRN Reason: Mild Pain (1-3) or Fever Epinephrine HCl 1 mg/ Dextrose 251 mls @ 15.06 mls/hr IV CONT .[id number] STA; Protocol Stop: 10/22/24 10:19 Last Admin: 10/21/24 19:01 Dose: 1 mcg/min, 15.06 mls/hr Potassium Chloride (Kcl 40 Meq/Water 100 Ml) 100 mls @ 25 mls/hr IVPB ONCE STA Stop: 10/21/24 23:14 Pantoprazole Sodium (Pantoprazole Sodium Iv 40 Mg Vial) 40 mg IV PUSH Q12HR ALEJANDRO Sedation/Anesthesia: No previous sedation/anesthesia problems (including family history). [facility] Past Medical History Medical History Anemia Anxiety Arthritis Constipation Degenerative joint disease of knee Dizziness DJD of left shoulder Hearing loss Hypertension Kidney stones Left shoulder pain Osteoarthritis of left knee Osteoarthritis of right knee Rectal cancer Rotator cuff arthropathy Sleep disorder SOB (shortness of breath) Surgical History Surgical History History of rectal surgery Family History Family History Father Diabetes mellitus Mother Esophageal cancer Social History Social History Years smoked: 16 Smoking status: Former smoker Smoking end date: 11/18/01 Alcohol intake: never Mod Sed Physical Exam Physical Exam Pre Procedural Exam: Variation: Heart Rate Hours since solid foods: 8 Hours since liquid intake: 8 Mallampati Classification: class II Internal Medicine - PN: Obj Da Vital Signs Vital Signs: Vital Signs - 24 hr 10/21/24 17:25 10/21/24 18:12 10/21/24 18:27 Temperature Pulse Rate 63 Respiratory Rate Blood Pressure Pulse Oximetry 100 100 Oxygen Delivery Mechanical Ventilation Mechanical Ventilation Mechanical Ventilation Fraction of Inspired Oxygen 100 100 60 10/21/24 18:17 10/21/24 18:51 10/21/24 19:01 Temperature Pulse Rate 47 L 48 L Respiratory Rate 20 Blood Pressure 90/71 L 110/46 L Pulse Oximetry 100 100 Oxygen Delivery Mechanical Ventilation Fraction of Inspired Oxygen 100 10/21/24 19:03 10/21/24 17:23 Temperature 36.4 C Pulse Rate 46 L 67 Respiratory Rate 20 20 Blood Pressure 110/46 L 122/64 Pulse Oximetry 100 100 Oxygen Delivery Mechanical Ventilation Fraction of Inspired Oxygen Meds/Results Medications: Active Medications Generic Name Dose Route Start Last Admin Trade Name Freq PRN Reason Stop Dose Admin Acetaminophen 650 mg 10/21/24 19:26 Acetaminophen 650 Mg Suppository RECTAL Q6H PRN Mild Pain (1-3) or Fever Epinephrine HCl 1 mg/ Dextrose 251 mls @ 15.06 mls/hr 10/21/24 17:40 10/21/24 19:01 IV CONT 10/22/24 10:19 1 mcg/min .[id number] STA 15.06 mls/hr Administration Protocol 1 MCG/MIN Potassium Chloride 100 mls @ 25 mls/hr 10/21/24 19:15 Kcl 40 Meq/Water 100 Ml IVPB 10/21/24 23:14 ONCE STA Pantoprazole Sodium 40 mg 10/21/24 21:00 Pantoprazole Sodium Iv 40 Mg Vial IV PUSH Q12HR ALEJANDRO Radiology Results: ITS Impressions Chest X-Ray 10/21/24 19:04 IMPRESSION: Support lines in good position. Bibasilar opacification with bilateral interstitial changes. Head CT 10/21/24 19:53 IMPRESSION: No acute intracranial findings. Labs 10/21/24 18:15 10/21/24 18:15 Labs: Laboratory Results - last 24 hr 10/21/24 10/21/24 10/21/24 18:03 18:10 18:15 WBC 16.1 H RBC 3.88 L Hgb 11.8 L Hct 36.4 L MCV 93.8 MCH 30.4 MCHC 32.4 RDW 15.1 H Plt Count 321 MPV 11.2 H Immature Gran % (Auto) 1.7 H Neut % (Auto) 60.5 Lymph % (Auto) 32.9 [place] % (Auto) 3.5 Eos % (Auto) 0.8 Baso % (Auto) 0.6 Lymph # (Auto) 5.31 H [place] # (Auto) 0.6 Eos # (Auto) 0.1 Baso # (Auto) 0.1 Abs Immat Gran (auto) 0.28 H Absolute Neuts (auto) 9.8 H Absolute Nucleated RBC 0.000 Nucleated RBC % 0.0 Puncture Site Left brachial ABG pH 7.350 ABG pCO2 34.5 L ABG pO2 493.1 H ABG PO2/FiO2 Ratio 4.93 ABG HCO3 18.6 L ABG O2 Saturation 99.9 ABG O2 Content 17.0 ABG Base Excess -6.2 A-a Gradient 185.4 Oxyhemoglobin 99.3 Total Hemoglobin 11.2 L O2 Delivery Device Ventilator O2 Liters/Min Not Reportable Minute Volume Not Reportable Vent Rate 20 Vent Mode Cmv FiO2 100 Tidal Volume 450 PEEP 5 Peak Inspir Pressure Not Reportable Pressure Support Not Reportable Sodium 141 Potassium 3.0 L Chloride 110 H Carbon Dioxide 18 L Anion Gap 13 H BUN 10 Creatinine 1.40 H Estim Creat Clear Calc Not Reportable Estimated GFR 49 L Glucose 216 H Lactic Acid 7.7 H* Calcium 8.1 L Magnesium 2.1 Total Bilirubin 0.9 AST 262 H ALT 115 H Alkaline Phosphatase 88 Troponin I 0.023 Total Protein 6.0 L Albumin 3.5 TSH 7.230 H Salicylates 1.8 L Acetaminophen < 10 L Ethyl Alcohol < 10 ASA Classification/Sedation ASA Classification/Sedation ASA Class: III Emergent: Yes Risks: Risks, benefits and alternatives explained and patient/family accepted plan for sedation. Patient re-evaluated immediately prior to sedation.
--- NOTE | 2024-10-21 20:17 | P.CONCA_ITS ---
Assessment and Plan Assessment and plan (1) Heart block AV third degree: Code(s): I44.2 - Atrioventricular block, complete Status: Acute (2) Cardiac arrest: Code(s): I46.9 - Cardiac arrest, cause unspecified Status: Acute Plan 79-year-old man with CAD, hypertension, and hyperlipidemia who presented to the emergency room post cardiac arrest post ROSC 3rd degree AV block with junctional escape rhythm - given patient's requirement for epinephrine drip as well as initial lactate of 7.7, transvenous pacing was off for to the patient's decision maker who agreed to proceed forward as patient is full code - obtain transthoracic echocardiogram the patient has meaningful neurological recovery, then consider permanent pacemaker discussion at that time Hypertension - currently requiring epinephrine drip with electrical instability - continue holding antihypertensives Hyperlipidemia - atorvastatin 20mg qhs History of Present Illness History of Present Illness Consult date/time: 10/21/24 20:17 Requesting physician: Koko Diaz MD Reason For Visit: Cardiac arrest Narrative: 79-year-old man with CAD, hypertension, and hyperlipidemia who presented to the emergency room post cardiac arrest post ROSC. History was obtained from chart review and discussion with the emergency room as well as telephone interview with the patient's significant other Jennyfer Berumen. He reportedly lost consciousness without any preceding symptoms of chest pain. Moderate EMS arrival, he was found to have a rhythm of PEA for which he was given 2 amps of epinephrine and subsequently his rhythm deteriorated to ventricular fibrillation for which she received 2 defibrillations followed by 300 mg IV amiodarone. In addition he was intubated in the field for airway protection. Currently he is not responsive on epinephrine drip of 1 elsa per minute which was initiated for decreasing blood pressure. His initial EKG showed sinus rhythm with complete heart block with a junctional escape rhythm. His initial lactate was 7.7 Review of Systems Review of Systems: ROS unobtainable: Yes unobtainable due to endotracheal tube PMFSH Past Medical History Medical History Anemia Anxiety Arthritis Constipation Degenerative joint disease of knee Dizziness DJD of left shoulder Hearing loss Hypertension Kidney stones Left shoulder pain Osteoarthritis of left knee Osteoarthritis of right knee Rectal cancer Rotator cuff arthropathy Sleep disorder SOB (shortness of breath) Surgical History Surgical History History of rectal surgery Family History Family History Father Diabetes mellitus Mother Esophageal cancer Social History Social History Years smoked: 16 Smoking status: Former smoker Smoking end date: 11/18/01 Alcohol intake: never Meds Home Medications and Allergies Home Medications Medication Instructions Recorded Confirmed Type albuterol sulfate 90 mcg/actuation 1 inh inhalation Q4-6H PRN 02/26/22 10/21/24 History breath activated powder inhaler allopurinol 100 mg tablet 100 mg PO DAILY 02/26/22 10/21/24 History amlodipine 10 mg tablet 10 mg PO DAILY 02/26/22 10/21/24 History atorvastatin 20 mg tablet 20 mg PO DAILY 02/26/22 10/21/24 History ondansetron HCl 4 mg tablet 4 mg PO Q6H PRN nausea and vomiting 02/26/22 10/21/24 History pantoprazole 40 mg tablet,delayed 40 mg PO QAM 02/26/22 10/21/24 History release buprenorphine HCl 75 mcg buccal 75 mcg buccal Q12H 10/21/24 10/21/24 History film ([place]) doxazosin 2 mg tablet 2 mg PO QHS 10/21/24 10/21/24 History finasteride 5 mg tablet 5 mg PO DAILY 10/21/24 10/21/24 History gabapentin 300 mg capsule 300 mg PO BID 10/21/24 10/21/24 History losartan 50 mg tablet 50 mg PO DAILY 10/21/24 10/21/24 History methocarbamol 500 mg tablet 500 mg PO QHS #30 tabs 10/21/24 10/21/24 Rx montelukast 10 mg tablet 10 mg PO DAILY 10/21/24 10/21/24 History tadalafil 20 mg tablet 20 mg PO DAILY PRN 10/21/24 10/21/24 History trazodone 100 mg tablet 100 mg PO QHS PRN 10/21/24 10/21/24 History Allergies Allergy/AdvReac Type Severity Reaction Status Date / Time aspirin Allergy Unknown Dizziness Verified 10/21/24 14:02 metoclopramide Allergy Unknown unknown Verified 10/21/24 14:02 Vital Signs Vital Signs - 24 hr 10/21/24 17:25 10/21/24 18:12 10/21/24 18:27 Temperature Pulse Rate 63 Respiratory Rate Blood Pressure Pulse Oximetry 100 100 Oxygen Delivery Mechanical Ventilation Mechanical Ventilation Mechanical Ventilation Fraction of Inspired Oxygen 100 100 60 10/21/24 18:17 10/21/24 18:51 10/21/24 19:01 Temperature Pulse Rate 47 L 48 L Respiratory Rate 20 Blood Pressure 90/71 L 110/46 L Pulse Oximetry 100 100 Oxygen Delivery Mechanical Ventilation Fraction of Inspired Oxygen 100 10/21/24 19:03 10/21/24 17:23 Temperature 36.4 C Pulse Rate 46 L 67 Respiratory Rate 20 20 Blood Pressure 110/46 L 122/64 Pulse Oximetry 100 100 Oxygen Delivery Mechanical Ventilation Fraction of Inspired Oxygen Exam Const: Other: intubated and unresponsive Eyes: Other: pupils are equal Neck: Neck: no JVD GI: GI Palp: Yes Soft to palpation Results Labs and Meds 10/21/24 18:15 10/21/24 18:15 Lab results: Cardiac Enzymes 10/21/24 Range/Units 18:15 AST 262 H (17-59) U/L Troponin I 0.023 (0.000-0.034) ng/mL CBC 10/21/24 Range/Units 18:15 WBC 16.1 H (4.5-10.0) K/mm3 RBC 3.88 L (4.6-6.20) M/mm3 Hgb 11.8 L (14.0-18.0) g/dL Hct 36.4 L (42.0-52.0) % Plt Count 321 (150-375) k/mm3 Lymph # (Auto) 5.31 H (0.9-3.2) K/mm3 [place] # (Auto) 0.6 (0.1-0.6) K/mm3 Eos # (Auto) 0.1 (0-0.3) K/mm3 Baso # (Auto) 0.1 (0.0-0.1) K/mm3 Comprehensive Metabolic Panel 10/21/24 Range/Units 18:15 Sodium 141 (137-145) mmol/L Potassium 3.0 L (3.4-5.0) mmol/L Chloride 110 H (98-107) mmol/L Carbon Dioxide 18 L (22-30) mmol/L BUN 10 (9-20) mg/dL Creatinine 1.40 H (0.7-1.3) mg/dL Glucose 216 H (65-110) mg/dL Calcium 8.1 L (8.4-10.2) mg/dL AST 262 H (17-59) U/L ALT 115 H (6-50) U/L Alkaline Phosphatase 88 (38-126) U/L Total Protein 6.0 L (6.3-8.2) g/dL Albumin 3.5 (3.5-5.1) g/dL Patient Weight 10/21/24 23:59 Weight 83 kg
--- NOTE | 2024-10-21 20:19 | PC.NURSE ---
Report called to Rigoberto EQUINE DENTIST. All questions answered.
--- NOTE | 2024-10-21 20:28 | WPDCARDPROC ---
Cardiac Cath Procedure Note Date of procedure:: 10/21/24 Performing physician:: A 6French sheath was advanced into the femoral vein under ultrasound guidance via modified seldinger technique and through the sheath, a 5Fr transvenous pacer was advanced under fluoroscopy into the right ventricular septal wall. Pacemaker Test Threshold: 1mA Sensitivitiy: 3mV Pacer settings: Mode: VVI 60bpm Output: 6mA Sensitivity: 3mV Recommendations: Turn off epinephrine drip If there is meaningful neurological recovery, will consider PPM Obtain TTE
--- NOTE | 2024-10-21 20:38 | PCRCNOTE ---
STAT Abg ordered in ER at 19:48 not completed due to patient being transported to CT then to [employer] for a pacemaker insertion.
[2024-10-21 21:15] LABS: Hematocrit 35.2 % (42.0-52.0); Hemoglobin 11.6 g/dL (14.0-18.0); Mean Corpuscular Hemoglobin 30.1 pg (26-34); Mean Corpuscular Volume 91.4 fl (80-100); Mean Platelet Volume 10.4 fl (7.4-10.4); Platelet Count Result 327 k/mm3 (150-375); Red Blood Count 3.85 M/mm3 (4.6-6.20)
[2024-10-21 21:19] LABS: Reflex Lactic Acid Yes or No Add Lactic
[2024-10-21 21:28] LABS: Alanine Aminotransferase 138 U/L (6-50); Albumin Level 3.5 g/dL (3.5-5.1); Alkaline Phosphatase 98 U/L (38-126); Anion Gap 4 mmol/L (4-12); Aspartate Amino Transferase 268 U/L (17-59); Bilirubin,Total 1.1 mg/dL (0.2-1.3); Blood Urea Nitrogen 13 mg/dL (9-20); Calcium 8.1 mg/dL (8.4-10.2); Carbon Dioxide 24 mmol/L (22-30); Chloride 111 mmol/L (98-107); Estimated Glomerular Filt Rate 49; Glucose 193 mg/dL (65-110); Magnesium 1.9 mg/dL (1.6-2.3); Phosphorus 3.4 mg/dL (2.5-4.5); Potassium 3.5 mmol/L (3.4-5.0); Sodium 139 mmol/L (137-145)
[2024-10-21 21:42] LABS: Troponin I 0.546 ng/mL (0.000-0.034)
[2024-10-21 22:26] LABS: Alveolar/Arterial O2 Gradient 184.1 mmHg; Carboxyhemoglobin 0.4 % THb (0-2.0); Fractional Inspired Oxygen 40 %; HCO3 ABG 16.9 mEq/l (22.0-26.0); Methemoglobin ABG 0.2 %THb (0-1.5); Oxygen Content ABG 16.9 %vol (16.0-22.0); Oxyhemoglobin 92.2 % THb (90.0-100.0); PO2 ABG 63.2 mmHg (80.0-100.0); PO2 FiO2 Ratio Arterial Blood 1.58 %; Reduced Hemoglobin 7.2 %THb (0-5.0); pH ABG 7.328 (7.350-7.450)
[2024-10-21] MEDS: PANTOPRAZOLE SODIUM IV 40 MG VIAL IV PUSH (22:30)
[2024-10-21] MEDS: ATORVASTATIN 20 MG TABLET FEED TUBE (22:30)
[2024-10-21 22:34] LABS: Arterial Blood Gas PEEP 5 cmH2O; Arterial Blood Gas Tidal Volume 450 ml; Arterial Blood Gas Vent Mode CMV; Arterial Blood Gas Ventilator rate 20 /MIN; Device VENTILATOR; Site Drawn LEFT BRACHIAL
[2024-10-21] MEDS: FENTANYL 2,500MCG/NS250ML(*CRX 2,500 MCG/250 ML BAG IV CONT (23:15)
[2024-10-21] MEDS: MIDAZOLAM 100MG/NS 100ML(*CRX) 100 MG/100 ML BAG IV CONT (23:15)
[2024-10-21] MEDS: LACTATED RINGERS 1,000 ML 999 ML IV CONT (23:20)
[2024-10-21 23:48] LABS: Creatine Kinase 220 U/L (55-170)
[2024-10-22] VITALS (42 sets, daily range): BP systolic 108–180; BP diastolic 45–95; PULSE 53–106; RESP 16–20; TEMP 34.7–36.9; O2SAT 97–100; BMI 25.7
--- NOTE | 2024-10-22 | ECHO_ITS ---
Patient Info Name: Juan Alberto Herndon Age: 79 years : 1945 Gender: Male Ht: 69 in Wt: 173 lbs BSA: 1.96 m2 HR: 79 bpm BP: 168 / 70 mmHg Technical Quality: Good Exam Date: 10/22/2024 12:16 PM Exam Location: Echo Lab Exam Room: ICU 9 Patient Status: Inpatient Admit Date: 10/21/2024 Staff Ordering Physician: Nuno Moser MD Heavy Equipment Sales Manager: Attending Provider: Jed Villegas MD Exam Type: CA echo doppler color flow Study Info Complete two-dimensional, color flow and Doppler transthoracic echocardiogram is performed. Summary 1. Complete two-dimensional, color flow and Doppler transthoracic echocardiogram is performed. 2. Technically difficult study with limited views. 3. The left ventricle is normal in size with mildly reduced systolic function. The left ventricular ejection fraction is visually estimated to be 40-45%. 4. The aortic valve is not well visualized however did gradients across the valve suggests moderate aortic stenosis. 5. There is small pericardial effusion. 6. Dilated inferior vena cava with <50% collapse upon inspiration consistent with significantly elevated right atrial pressure, 15 mmHg. Left Ventricle The left ventricle is normal in size with mildly reduced systolic function. The left ventricular ejection fraction is visually estimated to be 40-45%. Right Ventricle The right ventricle is normal in size and systolic function. Left Atria The left atrial is mildly dilated. Right Atria The right atria is normal size. Atrial Septum The atrial septum is not well visualized. Aortic Valve The aortic valve is not well visualized however did gradients across the valve suggests moderate aortic stenosis. Pulmonic Valve The pulmonic valve is not well visualized. Mitral Valve The mitral valve is sclerotic. There is trace mitral regurgitation. Tricuspid Valve The tricuspid valve is grossly normal. There is trace tricuspid regurgitation. Pericardium/Pleural There is small pericardial effusion. Inferior Vena Cava Dilated inferior vena cava with <50% collapse upon inspiration consistent with significantly elevated right atrial pressure, 15 mmHg. Aorta The aortic root at the level of the sinus of Valsalva measures 3.0 cm in diameter. Left Ventricular Outflow Tract Name Value Normal LVOT 2D LVOT Diameter 2.2 cm LVOT Doppler LVOT Peak Gradient 5 mmHg LVOT Mean Gradient 3 mmHg LVOT VTI 28 cm LVOT VTI/AV VTI Ratio 0.4 LVOT Stroke Volume 103 ml LVOT CO 6.9 l/min LVOT CI 3.5 l/min/m2 Pulmonic Valve Name Value Normal PV Doppler PV Peak Gradient 5 mmHg Mitral Valve Name Value Normal MV Doppler MV Peak Gradient 7 mmHg MV Mean Gradient 2 mmHg MV Decel [place] 292 cm/s2 MV PHT 73 ms MV Area (PHT) 3.0 cm2 4.0-5.0 MV Area (Cont Eq VTI) 2.3 cm2 MV Regurgitation Doppler MR Peak Gradient 100 mmHg MV Diastolic Function MV E Peak Velocity 74 cm/s MV A Peak Velocity 122 cm/s MV E/A 0.6 MV Decel Time 253 ms MV Annular TDI MV E/e' (Septal) 16.8 <=8.0 MV E/e' (Lateral) 12.6 <=8.0 MV E/e' (Average) 14.7 Tricuspid Valve Name Value Normal TV Regurgitation Doppler TR Peak Velocity 342 cm/s TR Peak Gradient 47 mmHg Estimated PAP/RSVP RA Pressure 15 mmHg <=5 PA Systolic Pressure 62 mmHg <36 RV Systolic Pressure 62 mmHg <36 Aorta Name Value Normal Ascending Aorta Ao Root Diameter (MM) 3.4 cm Ao Root Diam Index (MM) 1.7 cm/m2 Ao Root Diameter (2D) 3.3 cm Ao Root Diam Index (2D) 1.7 cm/m2 Aortic Valve Name Value Normal AV Doppler AV Peak Velocity 285 cm/s AV Peak Gradient 27 mmHg AV Mean Gradient 15 mmHg AV VTI 66 cm AV Area (Cont Eq VTI) 1.6 cm2 >=3.0 AV Area (Cont Eq [place]) 1.1 cm2 AV Regurgitation 2D LVOT Area 3.7 cm2 AV Regurgitation Doppler AR Decel Time 1,915 ms AR Decel [place] 97 cm/s2 AR PHT 555 ms Ventricles Name Value Normal LV Dimensions 2D/MM IVS Diastolic Thickness (2D) 0.9 cm 0.6-1.0 LVID Diastole (2D) 5.7 cm 4.2-5.8 LVIW Diastolic Thickness (2D) 0.8 cm 0.6-1.0 LVID Systole (2D) 4.3 cm 2.5-4.0 LVOT Diameter 2.2 cm LV Mass (2D Cubed) 178.68 g 88.00-224.00 LV Mass Index (2D Cubed) 91 g/m2 49-115 Relative Wall Thickness (2D) 0.29 LV Fractional Shortening/Ejection Fraction 2D/MM LV Fractional Shortening (2D) 25 % 25-43 LV EF (2D Teicholz) 48 % 52-72 LV Diastolic Volume (4C MOD) 101 ml LV EF (4C MOD) 29 % LV Diastolic Volume (2C MOD) 147 ml LV EF (2C MOD) 55 % LV Diastolic Volume (BP MOD) 124 ml 62-150 LV Diastolic Volume Index (BP MOD) 63 ml/m2 34-74 LV Systolic Volume (BP MOD) 70 ml 21-61 LV Systolic Volume Index (BP MOD) 36 ml/m2 11-31 LV EF (BP MOD) 44 % 52-72 LV Diastolic Length (4C) 8.0 cm LV Systolic Length (4C) 7.3 cm LV Stroke Volume (4C MOD) 30 ml Atria Name Value Normal LA Dimensions LA Dimension (2D) 4.4 cm 3.0-4.1 LA Dimen Index (2D) 2.2 cm/m2 LA Dimension (MM) 4.3 cm 3.0-4.1 LA Volume (4C A-L) 64 ml LA Volume (BP A-L) 63 ml RA Dimensions RA Area (4C) 17.0 cm2 <=18.0 Report Signatures
[2024-10-22 00:04] LABS: Add Urine Microscopic? YES; Appearance Urine Turbid (Clear); Bacteria Urine 1+ /hpf; Bilirubin Urine Negative (Negative); Blood Urine 3+ (Negative); Color Urine Dark Yellow (Yellow); Glucose Urine UA Negative (Negative); Ketones Urine Negative (Negative); Leukocyte Esterase Ur 2+ LEU/UL (Negative); Need Manual Microscopic Reviewed; Nitrate Urine Negative (Negative); Non Pathogenic Casts >20; Protein Urine 3+ mg/dL (Negative); RBC Urine >100 /hpf (0-2); Specific Grav Ur 1.022 (1.001-1.035); Squamous Epithelial Cell Urine Moderate /hpf (Few); WBC Urine >100 /hpf (0-3)
[2024-10-22 00:05] LABS: Barbiturate Screen Urine Negative (Negative); Benzodiazepines Screen Urine Negative (Negative)
[2024-10-22 00:06] LABS: Amphetamine Screen Urine Negative (Negative); Cannabinoid Screen Urine Negative (Negative); Cocaine Screen Urine Negative (Negative); Methadone Screen Urine Negative (Negative); Opiate Screen Urine Negative (Negative)
[2024-10-22 00:24] LABS: Phencyclidine Screen Urine Negative (Negative)
[2024-10-22] MEDS: LACTATED RINGERS 1,000 ML 125 ML IV CONT (01:39)
[2024-10-22 03:22] LABS: Basophils Absolute Auto 0.1 K/mm3 (0.0-0.1); Basophils Percent Auto 0.2 % (0.2-1.2); Hematocrit 36.5 % (42.0-52.0); Hemoglobin 11.8 g/dL (14.0-18.0); Immature Granulocyte Absolute 0.22 K/mm3 (0.00-0.031); Immature Granulocyte Percent A 0.7 % (0-0.5); Lymphocytes Absolute Auto 1.13 K/mm3 (0.9-3.2); Lymphocytes Percent Auto 3.6 % (18.3-44.2); Mean Corpuscular HGB Conc 32.3 g/dl (32-36); Mean Corpuscular Volume 92.9 fl (80-100); Mean Platelet Volume 10.2 fl (7.4-10.4); Monocytes Absolute Auto 2.1 K/mm3 (0.1-0.6); Monocytes Percent Auto 6.8 % (2.6-8.5); Neutrophils Absolute Auto 27.6 K/mm3 (1.3-6.7); Neutrophils Percent Auto 88.7 % (45.5-73.1); Platelet Count Result 339 k/mm3 (150-375); Red Blood Count 3.93 M/mm3 (4.6-6.20); White Blood Count 31.1 K/mm3 (4.5-10.0)
[2024-10-22 03:25] LABS: Hemoglobin A1C 5.2 % (<5.7)
[2024-10-22 03:37] LABS: Albumin Level 3.8 g/dL (3.5-5.1); Alkaline Phosphatase 80 U/L (38-126); Anion Gap 11 mmol/L (4-12); Aspartate Amino Transferase 234 U/L (17-59); Bilirubin,Total 1.7 mg/dL (0.2-1.3); Blood Urea Nitrogen 14 mg/dL (9-20); Calcium 8.6 mg/dL (8.4-10.2); Carbon Dioxide 21 mmol/L (22-30); Chloride 111 mmol/L (98-107); Creatine Kinase 561 U/L (55-170); Estimated CRCL calculation 40 ml/min; Estimated Glomerular Filt Rate 53; Glucose 185 mg/dL (65-110); Magnesium 1.8 mg/dL (1.6-2.3); Phosphorus 4.7 mg/dL (2.5-4.5); Potassium 4.2 mmol/L (3.4-5.0); Sodium 143 mmol/L (137-145)
--- NOTE | 2024-10-22 03:46 | ECG_ITS ---
Test Date: 2024-10-22 03:46:12 Measurements Intervals [place] Rate: 98 P: 0 PA: 0 QRS: 99 QRSD: 127 T: -80 QT: 369 QTc: 472 Interpretive Statements SUSPECT SINUS RHYTHM WITH FREQUENT ECTOPY, PVCS INTRAVENTRICULAR CONDUCTION DELAY WARNING: DATA QUALITY MAY AFFECT INTERPRETATION Compared to ECG 10/21/2024 18:43:13 AV block, complete (third-degree) no longer present Electronically Signed On 10-23-2024 12:24:00 SENIOR TREASURY ANALYST by Matthew Cabrera M.D.
[2024-10-22 03:48] LABS: Alanine Aminotransferase 122 U/L (6-50)
[2024-10-22 03:51] LABS: Troponin I 0.848 ng/mL (0.000-0.034)
[2024-10-22] MEDS: CISATRACURIUM BESYLATE 20 MG/10 ML VIAL 12.5 MG IV PUSH (03:57)
[2024-10-22] MEDS: MAGNESIUM SULF 1 GM/D5W 100 ML 1 GM/100 ML BAG IVPB (03:57)
[2024-10-22] MEDS: CISATRACURIUM BESYLATE 200 MG in DEXTROSE 5% 80 ML 7.47 ML IV CONT (04:03)
--- NOTE | 2024-10-22 04:15 | ADMGEN ---
This patient, Juan Alberto Herndon, was admitted to Intensive Care Unit-9. Patient/family oriented to hospital policies and general routines including ID bracelet, bed and alarms, visiting hours, pain management, procedures, bathroom and other care routines, personal items, smoking policy, room service/diet, and visiting hours. Information on how to activate the Rapid Response Team has been discussed. Patient/Family are encouraged to report perceived risks to care and to ask questions if they do not understand what they are told or what they should do.
[2024-10-22 04:32] LABS: MRSA (PCR) NOT DETECTED (NOT DETECTE)
[2024-10-22 05:20] LABS: Alveolar/Arterial O2 Gradient 114.4 mmHg; Base Excess ABG -4.1 mEq/l (+/-2.0); Fractional Inspired Oxygen 40 %; HCO3 ABG 18.3 mEq/l (22.0-26.0); Oxygen Saturation ABG 99.1 % (95.0-100.0); Oxyhemoglobin 98.9 % THb (90.0-100.0); PCO2 ABG 26.2 mmHg (35.0-45.0); PO2 ABG 151.2 mmHg (80.0-100.0); PO2 FiO2 Ratio Arterial Blood 3.78 %; pH ABG 7.463 (7.350-7.450)
[2024-10-22 05:24] LABS: Device VENTILATOR; Modified Allen's Test Pass; Site Drawn LEFT RADIAL
[2024-10-22 05:25] LABS: Arterial Blood Gas PEEP 5 cmH2O; Arterial Blood Gas Tidal Volume 450 ml; Arterial Blood Gas Vent Mode CMV; Arterial Blood Gas Ventilator rate 20 /MIN
[2024-10-22 05:51] LABS: Glucose Point of Care 202 mg/dl (65-105)
[2024-10-22] MEDS: INSULIN ASPART (*BKC) 100 UNITS/ML SUB-Q (06:06)
[2024-10-22] MEDS: PIPERACILLIN/TAZ 2.25G/NS 50ML 2.25 GM/50 ML BAG IVPB ×2 (06:06)
[2024-10-22] MEDS: fentaNYL CITRATE INJ (*CRX) 100 MCG/2 ML VIAL (06:15)
[2024-10-22] MEDS: MIDAZOLAM HCL (*CRX) 2 MG/2 ML VIAL (06:15)
--- NOTE | 2024-10-22 08:00 | PC.NURSE ---
Dr. Camarillo at bedside; decreased rate on temporary pacer to 50
[2024-10-22] MEDS: PANTOPRAZOLE SODIUM IV 40 MG VIAL IV PUSH ×2 (08:49→20:43)
[2024-10-22] MEDS: MAGNESIUM SULF 2 GM/WATER 50ML 2 GM/50 ML BAG IVPB (08:49)
[2024-10-22] MEDS: ENOXAPARIN 40 MG/0.4 ML SYRINGE SUB-Q (08:49)
[2024-10-22] MEDS: MINERAL OIL/WHITE PETROLATUM OINTMENT 1 APPLIC EACH EYE ×2 (08:49→20:43)
--- NOTE | 2024-10-22 08:50 | PM.PNCARD ---
Progress Note: A&P Assessment and Plan (1) Heart block AV third degree: Code(s): I44.2 - Atrioventricular block, complete Status: Acute Plan 79-year-old man with CAD, hypertension, and hyperlipidemia who presented to the emergency room post cardiac arrest post ROSC 3rd degree AV block with junctional escape rhythm -status post TVP -requires backup pacing for the majority of evening -backup pacing lowered to 50 beats per minute -appears to have high-degree AV block on lower back up pacing -currently on hypothermic protocol Subjective Date/time seen: 10/22/24 08:50 Interval history: Patient placed on hypothermia protocol and is currently sedated and paralyzed Review of Systems Review of Systems: ROS unobtainable: Yes unobtainable due to endotracheal tube Exam Const: Other: Intubated, sedated, paralyzed Neck: Neck: no JVD Resp: Auscultation: rhonchi Cardio: Rate: regular rate Rhythm: regular rhythm Heart sounds: no murmurs GI: GI Palp: Yes Soft to palpation Objective Data Vital Signs Vital Signs: Vital Signs - 24 hr 10/21/24 17:25 10/21/24 18:12 10/21/24 18:27 Temperature Pulse Rate 63 Respiratory Rate Blood Pressure Pulse Oximetry 100 100 Oxygen Delivery Mechanical Ventilation Mechanical Ventilation Mechanical Ventilation Fraction of Inspired Oxygen 100 100 60 10/21/24 18:17 10/21/24 18:51 10/21/24 19:01 Temperature Pulse Rate 47 L 48 L Respiratory Rate 20 Blood Pressure 90/71 L 110/46 L Pulse Oximetry 100 100 Oxygen Delivery Mechanical Ventilation Fraction of Inspired Oxygen 100 10/21/24 19:03 10/21/24 17:23 10/21/24 19:30 Temperature 36.4 C Pulse Rate 46 L 67 55 L Respiratory Rate 20 20 Blood Pressure 110/46 L 122/64 Pulse Oximetry 100 100 100 Oxygen Delivery Mechanical Ventilation Mechanical Ventilation Fraction of Inspired Oxygen 60 10/21/24 21:15 10/21/24 22:00 10/21/24 22:48 Temperature 35.7 C L 35.7 C L Pulse Rate 65 61 60 Respiratory Rate 16 20 Blood Pressure 133/98 H 135/68 Pulse Oximetry 100 97 97 Oxygen Delivery Mechanical Ventilation Fraction of Inspired Oxygen 60 10/21/24 22:48 10/21/24 22:00 10/21/24 22:15 Temperature 35.7 C L 35.7 C L Pulse Rate 61 61 Respiratory Rate 20 20 Blood Pressure 129/74 133/98 H Pulse Oximetry 97 7 L Oxygen Delivery Fraction of Inspired Oxygen 60 10/21/24 23:00 10/22/24 00:00 10/22/24 00:00 Temperature 35.7 C L 36.2 C L Pulse Rate 61 60 60 Respiratory Rate 20 20 20 Blood Pressure 124/49 L 129/59 L Pulse Oximetry 99 98 98 Oxygen Delivery Mechanical Ventilation Fraction of Inspired Oxygen 60 10/22/24 00:00 10/22/24 00:00 10/22/24 00:00 Temperature 36.3 C L Pulse Rate 60 60 Respiratory Rate 20 Blood Pressure 126/59 L Pulse Oximetry 98 Oxygen Delivery Fraction of Inspired Oxygen 60 10/21/24 22:30 10/21/24 23:30 10/22/24 01:00 Temperature 35.7 C L 35.7 C L 36.6 C Pulse Rate 61 61 65 Respiratory Rate 20 20 20 Blood Pressure 114/86 135/92 H 143/45 H Pulse Oximetry 98 98 97 Oxygen Delivery Fraction of Inspired Oxygen 10/21/24 23:15 10/21/24 23:15 10/22/24 00:00 Temperature Pulse Rate 61 61 60 Respiratory Rate 20 20 20 Blood Pressure Pulse Oximetry Oxygen Delivery Fraction of Inspired Oxygen 10/22/24 00:00 10/22/24 02:00 10/22/24 02:00 Temperature 36.6 C Pulse Rate 60 68 65 Respiratory Rate 20 20 Blood Pressure 130/81 Pulse Oximetry Oxygen Delivery Fraction of Inspired Oxygen 10/22/24 02:00 10/22/24 02:10 10/21/24 23:10 Temperature Pulse Rate 68 68 61 Respiratory Rate 20 20 Blood Pressure Pulse Oximetry 91 Oxygen Delivery Mechanical Ventilation Fraction of Inspired Oxygen 40 10/22/24 02:15 10/22/24 03:00 10/22/24 04:03 Temperature 36.1 C L Pulse Rate 83 90 103 H Respiratory Rate 20 20 Blood Pressure 151/94 H 163/58 H Pulse Oximetry 98 98 Oxygen Delivery Mechanical Ventilation Fraction of Inspired Oxygen 40 10/22/24 04:17 10/22/24 04:18 10/22/24 04:00 Temperature 35.3 C L Pulse Rate 104 H 104 H 104 H Respiratory Rate 20 20 20 Blood Pressure 163/58 H Pulse Oximetry 100 Oxygen Delivery Fraction of Inspired Oxygen 10/22/24 04:00 10/22/24 04:00 10/22/24 04:00 Temperature Pulse Rate 104 H 104 H Respiratory Rate 20 Blood Pressure Pulse Oximetry 99 Oxygen Delivery Mechanical Ventilation Fraction of Inspired Oxygen 40 40 10/22/24 04:00 10/22/24 03:45 10/22/24 05:15 Temperature 35.3 C L 35.3 C L Pulse Rate 104 H 106 H 60 Respiratory Rate 20 20 Blood Pressure 163/58 H 157/68 H Pulse Oximetry 99 99 99 Oxygen Delivery Mechanical Ventilation Mechanical Ventilation Fraction of Inspired Oxygen 40 10/22/24 05:00 10/22/24 05:00 10/22/24 06:00 Temperature 36.1 C L 36.1 C L Pulse Rate 65 65 95 Respiratory Rate 20 20 20 Blood Pressure 141/54 H 141/54 H 180/93 H Pulse Oximetry 99 99 Oxygen Delivery Fraction of Inspired Oxygen 10/22/24 06:00 10/22/24 06:00 10/22/24 06:00 Temperature 36.1 C L Pulse Rate 95 85 93 Respiratory Rate 20 20 20 Blood Pressure 180/93 H Pulse Oximetry 100 Oxygen Delivery Fraction of Inspired Oxygen 10/22/24 06:00 10/22/24 06:30 10/22/24 06:15 Temperature 36.1 C L Pulse Rate 85 73 89 Respiratory Rate 20 20 Blood Pressure 152/71 H Pulse Oximetry 100 Oxygen Delivery Fraction of Inspired Oxygen 10/22/24 07:15 10/22/24 08:07 10/22/24 08:00 Temperature 35.4 C L Pulse Rate 89 67 61 Respiratory Rate 20 20 Blood Pressure 132/65 Pulse Oximetry 100 100 Oxygen Delivery Mechanical Ventilation Fraction of Inspired Oxygen 40 Intake/Output Intake/Output: Intake & Output 10/19/24 10/20/24 10/21/24 10/22/24 23:59 23:59 23:59 23:59 Intake Total 1259.9 Output Total 600 440 Balance -600 819.9 Meds/Results Medications: Active Medications Generic Name Dose Route Start Last Admin Trade Name Freq PRN Reason Stop Dose Admin Acetaminophen 650 mg 10/21/24 19:26 Acetaminophen 650 Mg Suppository RECTAL Q6H PRN Mild Pain (1-3) or Fever Albuterol/Ipratropium 3 ml 10/22/24 08:35 Ipratropium 0.5 Mg/Albuterol Sulfate 2.5 Mg Ampul.Neb 3 Ml INHALATION Q6HRT PRN Wheezing Atorvastatin Calcium 20 mg 10/21/24 21:40 10/21/24 22:30 Atorvastatin 20 Mg Tablet FEED TUBE 20 mg HS ALEJANDRO Administration Dextrose 12.5 gm 10/21/24 22:44 Dextrose 50% 25 Gm/50 Ml Syringe IV PUSH PRN PRN Hypoglycemia Protocol Enoxaparin Sodium 40 mg 10/22/24 09:00 10/22/24 08:49 Enoxaparin 40 Mg/0.4 Ml Syringe SUB-Q 40 mg DAILY ALEJANDRO Administration Glucagon 1 mg 10/21/24 22:44 Glucagon For Inj 1 Mg Vial IM PRN PRN Hypoglycemia Protocol Glucose 15 gm 10/21/24 22:44 Glucose Oral Gel 15 Gm Of Glucse In 37.5 Gm Tube PO PRN PRN Hypoglycemia Protocol Fentanyl Citrate 2,500 mcg in 250 mls @ 7.5 mls/hr 10/21/24 22:35 10/22/24 07:15 Fentanyl 2,500 Mcg/Ns 250 Ml IV CONT 75 mcg/hr .[id number] ALEJANDRO 7.5 mls/hr Titration Protocol 75 MCG/HR Midazolam HCl 100 mg in 100 mls @ 3 mls/hr 10/21/24 22:35 10/22/24 06:15 Versed 100 Mg/Ns 100 Ml IV CONT 3 mg/hr .[id number] ALEJANDRO 3 mls/hr Titration Protocol 3 MG/HR Dextrose 1,000 mls @ 100 mls/hr 10/21/24 22:44 Dextrose 5% 1,000 Ml IVPB PRN PRN Hypoglycemia Protocol Cisatracurium Besylate 200 mg/ 100 mls @ 4.98 mls/hr 10/22/24 03:25 10/22/24 06:00 Dextrose IV CONT 2 mcg/kg/min .[id number] ALEJANDRO 4.98 mls/hr Titration Protocol 2 MCG/KG/MIN Piperacillin/Tazobactam/Dextrose 3.375 gm in 50 mls @ 100 mls/hr 10/22/24 12:00 Zosyn 3.375 Gm/Ns 50 Ml IVPB Q6HR ALEJANDRO Magnesium Sulfate 2 gm in 50 mls @ 25 mls/hr 10/22/24 08:31 10/22/24 08:49 Magnesium Sulf 2 Gm/Water 50ml IVPB 10/22/24 10:30 25 mls/hr ONCE ONE Administration Insulin Aspart 2 - 5 units 10/22/24 06:00 10/22/24 06:06 Insulin Aspart (*Bkc) 100 Units/Ml SUB-Q 2 units Q6HR ALEJANDRO Administration Protocol Multi-Ingred Cream/Lotion/Oil/Oint 1 applic 10/22/24 09:00 10/22/24 08:49 Mineral Oil/White Petrolatum Ointment EACH EYE 1 applic Q12HR ALEJANDRO Administration Pantoprazole Sodium 40 mg 10/21/24 21:00 10/22/24 08:49 Pantoprazole Sodium Iv 40 Mg Vial IV PUSH 40 mg Q12HR ALEJANDRO Administration Perflutren Lipid Microsphere 0 ml 10/22/24 08:36 Perflutren Lipid Microspheres 1.5 Ml Vial Diluted To 10 Ml Total Volume IV PUSH 10/25/24 08:36 ONCE PRN adequate visualization Protocol Sodium Chloride 10 ml 10/22/24 14:00 Central Line Flush IV PUSH Q8HR ALEJANDRO Sodium Chloride 20 ml 10/22/24 07:50 Central Line Flush IV PUSH PRN PRN after blood draws Radiology Results: ITS Impressions Head CT 10/21/24 19:53 IMPRESSION: No acute intracranial findings. Chest X-Ray 10/22/24 07:13 Impression: Support tubes, as above. Possible minimal central congestive change. Labs Labs: Laboratory Results - last 24 hr 10/21/24 10/21/24 10/21/24 18:03 18:10 18:15 WBC 16.1 H RBC 3.88 L Hgb 11.8 L Hct 36.4 L MCV 93.8 MCH 30.4 MCHC 32.4 RDW 15.1 H Plt Count 321 MPV 11.2 H Immature Gran % (Auto) 1.7 H Neut % (Auto) 60.5 Lymph % (Auto) 32.9 [place] % (Auto) 3.5 Eos % (Auto) 0.8 Baso % (Auto) 0.6 Lymph # (Auto) 5.31 H [place] # (Auto) 0.6 Eos # (Auto) 0.1 Baso # (Auto) 0.1 Abs Immat Gran (auto) 0.28 H Absolute Neuts (auto) 9.8 H Absolute Nucleated RBC 0.000 Nucleated RBC % 0.0 Puncture Site Left brachial ABG pH 7.350 ABG pCO2 34.5 L ABG pO2 493.1 H ABG PO2/FiO2 Ratio 4.93 ABG HCO3 18.6 L ABG O2 Saturation 99.9 ABG O2 Content 17.0 ABG Base Excess -6.2 A-a Gradient 185.4 Oxyhemoglobin 99.3 Carboxyhemoglobin Methemoglobin Reduced Hemoglobin Total Hemoglobin 11.2 L O2 Delivery Device Ventilator O2 Liters/Min Not Reportable Minute Volume Not Reportable Vent Rate 20 Vent Mode Cmv FiO2 100 Tidal Volume 450 PEEP 5 Peak Inspir Pressure Not Reportable Pressure Support Not Reportable Sodium 141 Potassium 3.0 L Chloride 110 H Carbon Dioxide 18 L Anion Gap 13 H BUN 10 Creatinine 1.40 H Estim Creat Clear Calc Not Reportable Estimated GFR 49 L Glucose 216 H POC Capillary Glucose Hemoglobin A1c Lactic Acid 7.7 H* Calcium 8.1 L Phosphorus Magnesium 2.1 Total Bilirubin 0.9 AST 262 H ALT 115 H Alkaline Phosphatase 88 Total Creatine Kinase Troponin I 0.023 Total Protein 6.0 L Albumin 3.5 TSH 7.230 H Urine Color Urine Appearance Urine pH Ur Specific [place] Urine Protein Urine Glucose (UA) Urine Ketones Ur Blood (Man) Urine Nitrate Urine Bilirubin Urine Urobilinogen Add Ur Microanalysis Leukocyte Esterase Rfl Urine RBC Urine WBC Ur Squamous Epith Cells Urine Bacteria Urine Casts Nasal MRSA (PCR) Salicylates 1.8 L Urine Opiates Screen Urine Methadone Screen Acetaminophen < 10 L Ur Barbiturates Screen Ur Phencyclidine Scrn Ur Amphetamine Screen U Benzodiazepines Scrn Urine Cocaine Screen U Cannabinoids Screen Ethyl Alcohol < 10 10/21/24 10/21/24 10/21/24 21:07 22:16 23:31 WBC 23.0 H RBC 3.85 L Hgb 11.6 L Hct 35.2 L MCV 91.4 MCH 30.1 MCHC 33.0 RDW 15.0 H Plt Count 327 MPV 10.4 Immature Gran % (Auto) Neut % (Auto) Lymph % (Auto) [place] % (Auto) Eos % (Auto) Baso % (Auto) Lymph # (Auto) [place] # (Auto) Eos # (Auto) Baso # (Auto) Abs Immat Gran (auto) Absolute Neuts (auto) Absolute Nucleated RBC Nucleated RBC % Puncture Site Left brachial ABG pH 7.328 L ABG pCO2 33.0 L ABG pO2 63.2 L ABG PO2/FiO2 Ratio 1.58 ABG HCO3 16.9 L ABG O2 Saturation 91.0 L ABG O2 Content 16.9 ABG Base Excess -8.0 A-a Gradient 184.1 Oxyhemoglobin 92.2 Carboxyhemoglobin 0.4 Methemoglobin 0.2 Reduced Hemoglobin 7.2 H Total Hemoglobin 13.0 O2 Delivery Device Ventilator O2 Liters/Min Not Reportable Minute Volume Not Reportable Vent Rate 20 Vent Mode Cmv FiO2 40 [place]idal Volume 450 PEEP 5 Peak Inspir Pressure Not Reportable Pressure Support Not Reportable Sodium 139 Potassium 3.5 Chloride 111 H Carbon Dioxide 24 Anion Gap 4 BUN 13 Creatinine 1.40 H Estim Creat Clear Calc Not Reportable Estimated GFR 49 L Glucose 193 H POC Capillary Glucose Hemoglobin A1c 5.2 Lactic Acid 2.0 Calcium 8.1 L Phosphorus 3.4 Magnesium 1.9 Total Bilirubin 1.1 AST 268 H ALT 138 H Alkaline Phosphatase 98 Total Creatine Kinase 220 H Troponin I 0.546 H* D Total Protein 6.0 L Albumin 3.5 TSH Urine Color Dark yellow Urine Appearance Turbid H Urine pH 5.0 Ur Specific [place] 1.022 Urine Protein 3+ H Urine Glucose (UA) Negative Urine Ketones Negative Ur Blood (Man) 3+ H Urine Nitrate Negative Urine Bilirubin Negative Urine Urobilinogen 1.0 Add Ur Microanalysis Reviewed Leukocyte Esterase Rfl 2+ H Urine RBC >100 H Urine WBC >100 H Ur Squamous Epith Cells Moderate Urine Bacteria 1+ H Urine Casts >20 Nasal MRSA (PCR) Salicylates Urine Opiates Screen Negative Urine Methadone Screen Negative Acetaminophen Ur Barbiturates Screen Negative Ur Phencyclidine Scrn Negative Ur Amphetamine Screen Negative U Benzodiazepines Scrn Negative Urine Cocaine Screen Negative U Cannabinoids Screen Negative Ethyl Alcohol 10/22/24 10/22/24 10/22/24 03:14 05:10 05:48 WBC 31.1 H RBC 3.93 L Hgb 11.8 L Hct 36.5 L MCV 92.9 MCH 30.0 MCHC 32.3 RDW 15.0 H Plt Count 339 MPV 10.2 Immature Gran % (Auto) 0.7 H Neut % (Auto) 88.7 H Lymph % (Auto) 3.6 L [place] % (Auto) 6.8 Eos % (Auto) 0.0 Baso % (Auto) 0.2 Lymph # (Auto) 1.13 [place] # (Auto) 2.1 H Eos # (Auto) 0.0 Baso # (Auto) 0.1 Abs Immat Gran (auto) 0.22 H Absolute Neuts (auto) 27.6 H Absolute Nucleated RBC 0.000 Nucleated RBC % 0.0 Puncture Site Left radial ABG pH 7.463 H ABG pCO2 26.2 L ABG pO2 151.2 H ABG PO2/FiO2 Ratio 3.78 ABG HCO3 18.3 L ABG O2 Saturation 99.1 ABG O2 Content 17.0 ABG Base Excess -4.1 A-a Gradient 114.4 Oxyhemoglobin 98.9 Carboxyhemoglobin Methemoglobin Reduced Hemoglobin Total Hemoglobin 12.0 O2 Delivery Device Ventilator O2 Liters/Min Not Reportable Minute Volume Not Reportable Vent Rate 20 Vent Mode Cmv FiO2 40 Tidal Volume 450 PEEP 5 Peak Inspir Pressure Not Reportable Pressure Support Not Reportable Sodium 143 Potassium 4.2 Chloride 111 H Carbon Dioxide 21 L Anion Gap 11 BUN 14 Creatinine 1.30 Estim Creat Clear Calc 40 Estimated GFR 53 L Glucose 185 H POC Capillary Glucose 202 H Hemoglobin A1c Lactic Acid Calcium 8.6 Phosphorus 4.7 H Magnesium 1.8 Total Bilirubin 1.7 H AST 234 H ALT 122 H Alkaline Phosphatase 80 Total Creatine Kinase 561 H Troponin I 0.848 H* D Total Protein 7.0 Albumin 3.8 TSH Urine Color Urine Appearance Urine pH Ur Specific [place] Urine Protein Urine Glucose (UA) Urine Ketones Ur Blood (Man) Urine Nitrate Urine Bilirubin Urine Urobilinogen Add Ur Microanalysis Leukocyte Esterase Rfl Urine RBC Urine WBC Ur Squamous Epith Cells Urine Bacteria Urine Casts Nasal MRSA (PCR) Not detected Salicylates Urine Opiates Screen Urine Methadone Screen Acetaminophen Ur Barbiturates Screen Ur Phencyclidine Scrn Ur Amphetamine Screen U Benzodiazepines Scrn Urine Cocaine Screen U Cannabinoids Screen Ethyl Alcohol
--- NOTE | 2024-10-22 09:16 | P.CONIN_ITS ---
Assessment and Plan Assessment and plan (1) Acute respiratory failure: Code(s): J96.00 - Acute respiratory failure, unspecified whether with hypoxia or hypercapnia Status: Acute Assessment and Plan: Acute Respiratory failure secondary to cardiac arrest, pulmonary edema, questionable aspiration pneumonia Continue full mechanical ventilation support to prevent hypoxemia/hypercarbia and end organ damage. ABG reviewed. Decrease rate to 16 Chest x-ray reviewed Low tidal volume ventilation strategy to prevent volutrauma Weaning will depend on improvement in neurological cardiac status Add Bronchodilators (2) Cardiac arrest: Code(s): I46.9 - Cardiac arrest, cause unspecified Status: Acute Assessment and Plan: PE a cardiac arrest which converted to VFib and later patient was and complete heart block Status post temporary transvenous pacemaker placement Mild elevation of troponin likely secondary to cardiac arrest and respiratory failure Continue statin. Patient is allergic to aspirin. Will discuss with patient's family regarding nature of allergy Echo is ordered and pending Cardiology is following Hold ARB due to low blood pressure (3) Sepsis: Code(s): A41.9 - Sepsis, unspecified organism Status: Acute Assessment and Plan: Patient met criteria for sepsis. Chest x-ray was clear and did not show any sign of aspiration. CT scan has been delayed due to patient being unstable on presentation His UA was abnormal Blood and urine cultures have been ordered and are pending Continue Zosyn at this time empirically to cover for aspiration pneumonia and UTI (4) Heart block AV third degree: Code(s): I44.2 - Atrioventricular block, complete Status: Acute Assessment and Plan: Status post transvenous pacemaker placement (5) Anoxic brain injury: Code(s): G93.1 - Anoxic brain damage, not elsewhere classified Status: Acute Assessment and Plan: Patient was comatose post resuscitation Head CT was negative for any acute intracranial change Patient had a PEA arrest which later converted to VFib and on arrival was bradycardic and hypotensive Patient started on TTM protocol and reached target temperature at 9:30 p.m. will continue for 24 hours Currently sedated and chemically paralyzed for excessive shivering Patient will be re-evaluated once off of sedation paralytics (6) Acute hypokalemia: Code(s): E87.6 - Hypokalemia Status: Acute Assessment and Plan: Potassium was replaced and now in normal range (7) Congestive heart failure: Code(s): I50.9 - Heart failure, unspecified Status: Acute Assessment and Plan: Bilateral pitting edema on exam. Check BNP and echo Hold diuretics at this time due to hypotension (8) Hypotension: Code(s): I95.9 - Hypotension, unspecified Status: Acute Assessment and Plan: Patient was initially hypertensive likely secondary to bradycardia and was on epinephrine drip which was weaned off. Continue to monitor Patient received IV fluids but will hold either fluids further at this point due to concern of congestive heart failure patient has bilateral pitting edema (9) Metabolic acidosis: Code(s): E87.20 - Acidosis, unspecified Status: Acute Assessment and Plan: Hyperchloremic metabolic acidosis. Will discontinue LR (10) Hyperglycemia: Code(s): R73.9 - Hyperglycemia, unspecified Status: Acute Assessment and Plan: Sliding scale insulin ordered (11) Hypertension: Code(s): I10 - Essential (primary) hypertension Status: Acute Assessment and Plan: Patient has history of hypertension but now blood pressure is soft on sedation. Hold antihypertensive medications Plan DVT prophylaxis -Lovenox Stress ulcer prophylaxis -PPI Nutrition - npo Code Status - Full Code Total Critical Care Time - 40 minutes Due to a high probability of clinically significant, life threatening deterioration, the patient required my highest level of preparedness to intervene emergently and I personally spent this critical care time directly and personally managing the patient. This critical care time included obtaining a history; examining the patient; pulse oximetry; ordering and review of studies; arranging urgent treatment with development of a management plan; evaluation of patient's response to treatment; frequent reassessment; and discussions with other providers. It was exclusive of separately billable procedures and treating other patients and teaching time. Please see Assessment and Plan section and the rest of the note for further information on patient assessment and treatment Forwarder Operator Consult Note Consult date: 10/22/24 Reason for consult: Cardiac arrest, acute respiratory failure, bradycardia, shock HPI: Juan Alberto Herndon is a 79 year old male with past medical history of hypertension and coronary disease was brought by EMS from a local restaurant after sustaining a cardiac arrest while eating food. As per reports given to the ER patient was eating and then immediately lost consciousness. CPR was started the seen by the bystanders. On arrival of EMS patient was in PEA. Patient received 2 amps of epinephrine along with CPR and went into VFib and was defibrillated twice and was given IV amiodarone and ROSC was achieved. Patient was brought into the ER being ventilated with Ambu bag. His blood sugar was adequate at the time. In ER patient was intubated. EKG showed patient was in complete heart block and bradycardia. UTI was suggestive of UTI. Patient was hypotensive and started on an epinephrine infusion. Patient was taken to cardiac catheterization lab and a transvenous pacemaker was placed. After intubation patient was comatose and once patient arrived to ICU after transvenous pacemaker he was started on TTM protocol. This leads to tachycardia and hypertension and patient was started on sedation. Despite sedation patient was having tachycardia ectopic and shivering and patient was started on neuromuscular sheree. This morning on my evaluation patient is now off of vasopressors but is sedated and chemically paralyzed. He is being paced intermittently. History was obtained from ER physician sign-out and chart review. Patient unable to provide any further history Review of Systems Review of Systems: ROS unobtainable: Yes unobtainable due to endotracheal tube, unobtainable due to medical condition and unobtainable due to mental status [facility] Past Medical History Medical History (Updated 10/22/24 @ 09:22 by Nuno Moser MD) Anemia Anxiety Arthritis Constipation Degenerative joint disease of knee Dizziness DJD of left shoulder Hearing loss Hypertension Kidney stones Left shoulder pain Osteoarthritis of left knee Osteoarthritis of right knee Rectal cancer Rotator cuff arthropathy Sleep disorder SOB (shortness of breath) Surgical History Surgical History History of rectal surgery Family History Family History Father Diabetes mellitus Mother Esophageal cancer Social History Social History Smoking packs per day: 1 Smoking cigarettes per day: 20.0 Years smoked: 16 Smoking pack-years: 16.00 Smoking status: Former smoker Tobacco type: cigarettes Smoking end date: 11/18/01 Alcohol intake: former Substance use: never Spiritual care concerns: No Meds Home Medications and Allergies Home Medications Medication Instructions Recorded Confirmed Type albuterol sulfate 90 mcg/actuation 1 inh inhalation Q4-6H PRN 02/26/22 10/22/24 History breath activated powder inhaler Shortness Of Breath Or Wheezing allopurinol 100 mg tablet 100 mg PO DAILY 02/26/22 10/21/24 History amlodipine 10 mg tablet 10 mg PO DAILY 02/26/22 10/22/24 History atorvastatin 20 mg tablet 20 mg PO DAILY 02/26/22 10/21/24 History pantoprazole 40 mg tablet,delayed 40 mg PO QAM 02/26/22 10/21/24 History release buprenorphine HCl 75 mcg buccal 75 mcg buccal Q12H 10/21/24 10/21/24 History film ([place]) finasteride 5 mg tablet 5 mg PO DAILY 10/21/24 10/21/24 History gabapentin 300 mg capsule 300 mg PO BID 10/21/24 10/21/24 History losartan 50 mg tablet 50 mg PO DAILY 10/21/24 10/21/24 History methocarbamol 500 mg tablet 500 mg PO Q8H PRN Spasms 10/21/24 10/21/24 History montelukast 10 mg tablet 10 mg PO DAILY 10/21/24 10/21/24 History trazodone 100 mg tablet 100 mg PO QHS PRN Insomnia 10/21/24 10/21/24 History doxazosin 2 mg tablet 2 mg PO QHS 10/22/24 10/22/24 History Allergies Allergy/AdvReac Type Severity Reaction Status Date / Time aspirin Allergy Unknown Dizziness Verified 10/21/24 14:02 metoclopramide Allergy Unknown unknown Verified 10/21/24 14:02 Vital Signs Vital Signs - 24 hr 10/21/24 17:25 10/21/24 18:12 10/21/24 18:27 Temperature Pulse Rate 63 Respiratory Rate Blood Pressure Pulse Oximetry 100 100 Oxygen Delivery Mechanical Ventilation Mechanical Ventilation Mechanical Ventilation Fraction of Inspired Oxygen 100 100 60 10/21/24 18:17 10/21/24 18:51 10/21/24 19:01 Temperature Pulse Rate 47 L 48 L Respiratory Rate 20 Blood Pressure 90/71 L 110/46 L Pulse Oximetry 100 100 Oxygen Delivery Mechanical Ventilation Fraction of Inspired Oxygen 100 10/21/24 19:03 10/21/24 17:23 10/21/24 19:30 Temperature 36.4 C Pulse Rate 46 L 67 55 L Respiratory Rate 20 20 Blood Pressure 110/46 L 122/64 Pulse Oximetry 100 100 100 Oxygen Delivery Mechanical Ventilation Mechanical Ventilation Fraction of Inspired Oxygen 60 10/21/24 21:15 10/21/24 22:00 10/21/24 22:48 Temperature 35.7 C L 35.7 C L Pulse Rate 65 61 60 Respiratory Rate 16 20 Blood Pressure 133/98 H 135/68 Pulse Oximetry 100 97 97 Oxygen Delivery Mechanical Ventilation Fraction of Inspired Oxygen 60 10/21/24 22:48 10/21/24 22:00 10/21/24 22:15 Temperature 35.7 C L 35.7 C L Pulse Rate 61 61 Respiratory Rate 20 20 Blood Pressure 129/74 133/98 H Pulse Oximetry 97 7 L Oxygen Delivery Fraction of Inspired Oxygen 60 10/21/24 23:00 10/22/24 00:00 10/22/24 00:00 Temperature 35.7 C L 36.2 C L Pulse Rate 61 60 60 Respiratory Rate 20 20 20 Blood Pressure 124/49 L 129/59 L Pulse Oximetry 99 98 98 Oxygen Delivery Mechanical Ventilation Fraction of Inspired Oxygen 60 10/22/24 00:00 10/22/24 00:00 10/22/24 00:00 Temperature 36.3 C L Pulse Rate 60 60 Respiratory Rate 20 Blood Pressure 126/59 L Pulse Oximetry 98 Oxygen Delivery Fraction of Inspired Oxygen 60 10/21/24 22:30 10/21/24 23:30 10/22/24 01:00 Temperature 35.7 C L 35.7 C L 36.6 C Pulse Rate 61 61 65 Respiratory Rate 20 20 20 Blood Pressure 114/86 135/92 H 143/45 H Pulse Oximetry 98 98 97 Oxygen Delivery Fraction of Inspired Oxygen 10/21/24 23:15 10/21/24 23:15 10/22/24 00:00 Temperature Pulse Rate 61 61 60 Respiratory Rate 20 20 20 Blood Pressure Pulse Oximetry Oxygen Delivery Fraction of Inspired Oxygen 10/22/24 00:00 10/22/24 02:00 10/22/24 02:00 Temperature 36.6 C Pulse Rate 60 68 65 Respiratory Rate 20 20 Blood Pressure 130/81 Pulse Oximetry Oxygen Delivery Fraction of Inspired Oxygen 10/22/24 02:00 10/22/24 02:10 10/21/24 23:10 Temperature Pulse Rate 68 68 61 Respiratory Rate 20 20 Blood Pressure Pulse Oximetry 91 Oxygen Delivery Mechanical Ventilation Fraction of Inspired Oxygen 40 10/22/24 02:15 10/22/24 03:00 10/22/24 04:03 Temperature 36.1 C L Pulse Rate 83 90 103 H Respiratory Rate 20 20 Blood Pressure 151/94 H 163/58 H Pulse Oximetry 98 98 Oxygen Delivery Mechanical Ventilation Fraction of Inspired Oxygen 40 10/22/24 04:17 10/22/24 04:18 10/22/24 04:00 Temperature 35.3 C L Pulse Rate 104 H 104 H 104 H Respiratory Rate 20 20 20 Blood Pressure 163/58 H Pulse Oximetry 100 Oxygen Delivery Fraction of Inspired Oxygen 10/22/24 04:00 10/22/24 04:00 10/22/24 04:00 Temperature Pulse Rate 104 H 104 H Respiratory Rate 20 Blood Pressure Pulse Oximetry 99 Oxygen Delivery Mechanical Ventilation Fraction of Inspired Oxygen 40 40 10/22/24 04:00 10/22/24 03:45 10/22/24 05:15 Temperature 35.3 C L 35.3 C L Pulse Rate 104 H 106 H 60 Respiratory Rate 20 20 Blood Pressure 163/58 H 157/68 H Pulse Oximetry 99 99 99 Oxygen Delivery Mechanical Ventilation Mechanical Ventilation Fraction of Inspired Oxygen 40 10/22/24 05:00 10/22/24 05:00 10/22/24 06:00 Temperature 36.1 C L 36.1 C L Pulse Rate 65 65 95 Respiratory Rate 20 20 20 Blood Pressure 141/54 H 141/54 H 180/93 H Pulse Oximetry 99 99 Oxygen Delivery Fraction of Inspired Oxygen 10/22/24 06:00 10/22/24 06:00 10/22/24 06:00 Temperature 36.1 C L Pulse Rate 95 85 93 Respiratory Rate 20 20 20 Blood Pressure 180/93 H Pulse Oximetry 100 Oxygen Delivery Fraction of Inspired Oxygen 10/22/24 06:00 10/22/24 06:30 10/22/24 06:15 Temperature 36.1 C L Pulse Rate 85 73 89 Respiratory Rate 20 20 Blood Pressure 152/71 H Pulse Oximetry 100 Oxygen Delivery Fraction of Inspired Oxygen 10/22/24 07:15 10/22/24 08:07 10/22/24 08:00 Temperature 35.4 C L Pulse Rate 89 67 61 Respiratory Rate 20 20 Blood Pressure 132/65 Pulse Oximetry 100 100 Oxygen Delivery Mechanical Ventilation Fraction of Inspired Oxygen 40 Exam Narrative: General: Pt is sedated, intubated, chemically paralyzed and on mechanical ventilation Lungs/Chest: Trachea central clear BS B/L, No crackles or wheezing. Cardiac: RRR. Normal S1 S2. No murmurs Circulation: Pedal pulses are intact and symmetrical but weak Abdomen: Present bowel sounds. Soft. NT. ND. Rectal tube in place Extremities: No clubbing, cyanosis, Warm. Bilateral pitting edema present : Romero in place Neurologic: Unable to assess due to sedation and chemical paralysis. PERRL Results Labs 10/22/24 03:14 10/22/24 03:14 Labs: Impressions Chest X-Ray 10/21/24 18:05 IMPRESSION: Endotracheal tube needs to be retracted by about 2 cm. Nasogastric tube needs to be advanced. Bibasilar prominent bronchovascular markings which may indicate atelectasis versus early pneumonia. Follow-up advised. Abdomen X-Ray 10/21/24 18:09 IMPRESSION: NO ACUTE ABDOMINAL FINDINGS. Nasogastric tube needs to be advanced. Chest X-Ray 10/21/24 19:02 IMPRESSION: Support lines are in good position. Bibasilar opacification unchanged. Chest X-Ray 10/21/24 19:04 IMPRESSION: Support lines in good position. Bibasilar opacification with bilateral interstitial changes. Head CT 10/21/24 19:53 IMPRESSION: No acute intracranial findings. Chest X-Ray 10/22/24 07:13 Impression: Support tubes, as above. Possible minimal central congestive change. Short CBC 10/21/24 10/21/24 10/22/24 Range/Units 18:15 21:07 03:14 WBC 16.1 H 23.0 H 31.1 H (4.5-10.0) K/mm3 Hgb 11.8 L 11.6 L 11.8 L (14.0-18.0) g/dL Hct 36.4 L 35.2 L 36.5 L (42.0-52.0) % Plt Count 321 327 339 (150-375) k/mm3 BMP 10/21/24 10/21/24 10/22/24 18:15 21:07 03:14 Sodium 141 139 143 Potassium 3.0 L 3.5 4.2 Chloride 110 H 111 H 111 H Carbon Dioxide 18 L 24 21 L BUN 10 13 14 Creatinine 1.40 H 1.40 H 1.30 Glucose 216 H 193 H 185 H Calcium 8.1 L 8.1 L 8.6 Cardiac Enzymes 10/21/24 10/21/24 10/22/24 Range/Units 18:15 21:07 03:14 Total Creatine Kinase 220 H 561 H (55-170) U/L Troponin I 0.023 0.546 H* D 0.848 H* D (0.000-0.034) ng/mL Liver Function 10/21/24 10/21/24 10/22/24 Range/Units 18:15 21:07 03:14 Total Bilirubin 0.9 1.1 1.7 H (0.2-1.3) mg/dL AST 262 H 268 H 234 H (17-59) U/L ALT 115 H 138 H 122 H (6-50) U/L Alkaline Phosphatase 88 98 80 (38-126) U/L Albumin 3.5 3.5 3.8 (3.5-5.1) g/dL Urine 10/21/24 Range/Units 23:31 Urine Color Dark yellow (Yellow) Urine Appearance Turbid H (Clear) Urine pH 5.0 (5.0-9.0) Ur Specific [place] 1.022 (1.001-1.035) Urine Protein 3+ H (Negative) mg/dL Urine Glucose (UA) Negative (Negative) mg/dL ECG Interpretation: Bradycardia with complete heart block Hospitalist MIPS Advance Care Plan I have confirmed that the patient's Advanced Care Plan is present, code status is documented, or surrogate decision maker is listed in patient medical record.: Yes Medication Reconciliation I have utilized all available resources to obtain, update and review the patients current medications (includes all prescriptions, OTC, herbals, cannabis, and nutritional supplements).: Yes
--- NOTE | 2024-10-22 09:29 | PC.NURSE ---
Dr. Moser increased rate of temporary pacer back to 60
[2024-10-22 10:34] LABS: NT Pro B Type Natriuretic Pept 7340 pg/mL (19.9-100)
[2024-10-22 12:10] LABS: Glucose Point of Care 143 mg/dl (65-105)
[2024-10-22] MEDS: PIPERACILLN/TAZ 3.375GM/NS50ML 3.375 GM/50 ML BAG IVPB ×2 (13:17→18:00)
[2024-10-22] MEDS: CENTRAL LINE FLUSH 10 ML IV PUSH ×2 (13:18→20:43)
[2024-10-22 16:34] LABS: Alanine Aminotransferase 112 U/L (6-50); Albumin Level 3.3 g/dL (3.5-5.1); Alkaline Phosphatase 81 U/L (38-126); Anion Gap 4 mmol/L (4-12); Aspartate Amino Transferase 125 U/L (17-59); Bilirubin,Total 1.9 mg/dL (0.2-1.3); Blood Urea Nitrogen 12 mg/dL (9-20); Calcium 8.4 mg/dL (8.4-10.2); Carbon Dioxide 26 mmol/L (22-30); Chloride 110 mmol/L (98-107); Estimated CRCL calculation 56 ml/min; Estimated Glomerular Filt Rate > 60; Glucose 110 mg/dL (65-110); Magnesium 2.4 mg/dL (1.6-2.3); Potassium 3.4 mmol/L (3.4-5.0); Sodium 140 mmol/L (137-145)
[2024-10-22 18:20] LABS: Glucose Point of Care 109 mg/dl (65-105)
[2024-10-22] MEDS: ATORVASTATIN 20 MG TABLET FEED TUBE (21:16)
[2024-10-22 21:36] LABS: Alanine Aminotransferase 103 U/L (6-50); Albumin Level 3.3 g/dL (3.5-5.1); Alkaline Phosphatase 75 U/L (38-126); Anion Gap 6 mmol/L (4-12); Aspartate Amino Transferase 113 U/L (17-59); Bilirubin,Total 2.2 mg/dL (0.2-1.3); Blood Urea Nitrogen 13 mg/dL (9-20); Calcium 8.2 mg/dL (8.4-10.2); Carbon Dioxide 25 mmol/L (22-30); Chloride 108 mmol/L (98-107); Estimated CRCL calculation 56 ml/min; Estimated Glomerular Filt Rate > 60; Glucose 106 mg/dL (65-110); Magnesium 2.3 mg/dL (1.6-2.3); Potassium 3.4 mmol/L (3.4-5.0); Sodium 139 mmol/L (137-145)
[2024-10-23] VITALS (36 sets, daily range): BP systolic 118–186; BP diastolic 53–107; PULSE 69–111; RESP 16–26; TEMP 35.2–38.6; O2SAT 74–100
[2024-10-23 00:23] LABS: Glucose Point of Care 130 mg/dl (65-105)
[2024-10-23] MEDS: CISATRACURIUM BESYLATE 200 MG in DEXTROSE 5% 80 ML IV CONT (00:23)
[2024-10-23] MEDS: PIPERACILLN/TAZ 3.375GM/NS50ML 3.375 GM/50 ML BAG IVPB ×4 (00:28→17:56)
[2024-10-23 05:05] LABS: Hematocrit 37.8 % (42.0-52.0); Hemoglobin 12.8 g/dL (14.0-18.0); Mean Corpuscular HGB Conc 33.9 g/dl (32-36); Mean Corpuscular Hemoglobin 30.2 pg (26-34); Mean Corpuscular Volume 89.2 fl (80-100); Mean Platelet Volume 10.5 fl (7.4-10.4); Platelet Count Result 281 k/mm3 (150-375); Red Blood Count 4.24 M/mm3 (4.6-6.20); Red Cell Distribution Width 15.6 % (11.5-14.5); White Blood Count 21.8 K/mm3 (4.5-10.0)
[2024-10-23 05:16] LABS: Alveolar/Arterial O2 Gradient 90.9 mmHg; Base Excess ABG -2.2 mEq/l (+/-2.0); Carboxyhemoglobin 0.2 % THb (0-2.0); Fractional Inspired Oxygen 40 %; HCO3 ABG 21.2 mEq/l (22.0-26.0); Methemoglobin ABG 0.1 %THb (0-1.5); Oxygen Saturation ABG 99.2 % (95.0-100.0); Oxyhemoglobin 99.1 % THb (90.0-100.0); PCO2 ABG 32.2 mmHg (35.0-45.0); PO2 ABG 170.9 mmHg (80.0-100.0); PO2 FiO2 Ratio Arterial Blood 4.27 %; Reduced Hemoglobin 0.6 %THb (0-5.0); Total Hemoglobin 13.4 g/dL (12.0-18.0); pH ABG 7.436 (7.350-7.450)
[2024-10-23 05:18] LABS: Alanine Aminotransferase 103 U/L (6-50); Albumin Level 3.5 g/dL (3.5-5.1); Alkaline Phosphatase 82 U/L (38-126); Anion Gap 5 mmol/L (4-12); Aspartate Amino Transferase 96 U/L (17-59); Bilirubin,Total 2.2 mg/dL (0.2-1.3); Blood Urea Nitrogen 12 mg/dL (9-20); Calcium 8.4 mg/dL (8.4-10.2); Carbon Dioxide 25 mmol/L (22-30); Chloride 108 mmol/L (98-107); Creatine Kinase 564 U/L (55-170); Estimated CRCL calculation 56 ml/min; Estimated Glomerular Filt Rate > 60; Glucose 124 mg/dL (65-110); Magnesium 2.2 mg/dL (1.6-2.3); Phosphorus 3.1 mg/dL (2.5-4.5); Potassium 3.6 mmol/L (3.4-5.0); Sodium 138 mmol/L (137-145)
[2024-10-23 05:22] LABS: Device VENTILATOR; Modified Allen's Test Pass; Site Drawn LEFT RADIAL
[2024-10-23 05:23] LABS: Arterial Blood Gas PEEP 5 cmH2O; Arterial Blood Gas Tidal Volume 450 ml; Arterial Blood Gas Vent Mode CMV; Arterial Blood Gas Ventilator rate 16 /MIN
[2024-10-23] MEDS: CENTRAL LINE FLUSH 10 ML IV PUSH ×3 (06:38→21:29)
[2024-10-23] MEDS: ENOXAPARIN 40 MG/0.4 ML SYRINGE SUB-Q (08:28)
[2024-10-23] MEDS: MINERAL OIL/WHITE PETROLATUM OINTMENT 1 APPLIC EACH EYE ×2 (08:28→21:21)
[2024-10-23] MEDS: PANTOPRAZOLE SODIUM IV 40 MG VIAL IV PUSH ×2 (08:28→21:18)
[2024-10-23] MEDS: POTASSIUM BICARBONATE 25 MEQ TABEF 50 MEQ FEED TUBE (08:28)
--- NOTE | 2024-10-23 10:53 | P.PNCA_ITS ---
Progress Note: A&P Assessment and Plan (1) Heart block AV third degree: Code(s): I44.2 - Atrioventricular block, complete Status: Acute Assessment and Plan: S/p transvenous pacer placement on 10/21. Will need to assess his neurologic status once his sedation and paralytics have been off. If he has meaningful neurological recovery, then will consider permanent pacemaker at that time. Will keep Dr. Alonzo updated in regards to patient's case and need for possible permanent pacemaker placement. (2) Cardiac arrest: Code(s): I46.9 - Cardiac arrest, cause unspecified Status: Acute Assessment and Plan: Had PEA cardiac arrest which propagated to VFIB and then subsequently was in complete heart block. S/p transvenous pacer placement on 10/21. Complete hypothermia protocol on 10/22 at 9:30PM. (3) Acute hypoxic respiratory failure: Code(s): J96.01 - Acute respiratory failure with hypoxia Status: Acute Assessment and Plan: Remains on mechanical ventilation. Ventilator management as per ICU team. (4) Sepsis: Code(s): A41.9 - Sepsis, unspecified organism Status: Acute Assessment and Plan: Management as per ICU team. (5) Anoxic brain injury: Code(s): G93.1 - Anoxic brain damage, not elsewhere classified Status: Acute Assessment and Plan: Concern for possible anoxic brain injury as he was noted to be comatose post resuscitation. Will need to re-evaluate his neurologic status once he is off s edation and paralytics. (6) Congestive heart failure: Code(s): I50.9 - Heart failure, unspecified Status: Acute Assessment and Plan: Echocardiogram shows LVEF 40-45%, which appears to be a new diagnosis of cardiomyopathy for the patient. In setting of PEA cardiac arrest. Will need to optimize heart failure GDMT once he is more clinically stable. (7) Hypertension: Code(s): I10 - Essential (primary) hypertension Status: Acute Assessment and Plan: Stable. Plan Recommendations and plan discussed with [employer]. Subjective Date/time seen: 10/23/24 10:53 Interval history: Reason for visit: PEA cardiac arrest, complete heart block HPI: 79-year-old man with CAD, hypertension, and hyperlipidemia who presented to the emergency room post cardiac arrest post ROSC. History was obtained from chart review and discussion with the emergency room as well as telephone interview with the patient's significant other Jennyfer Berumen. He reportedly lost consciousness without any preceding symptoms of chest pain. Moderate EMS arrival, he was found to have a rhythm of PEA for which he was given 2 amps of epinephrine and subsequently his rhythm deteriorated to ventricular fibrillation for which she received 2 defibrillations followed by 300 mg IV amiodarone. In addition he was intubated in the field for airway protection. Currently he is not responsive on epinephrine drip of 1 elsa per minute which was initiated for decreasing blood pressure. His initial EKG showed sinus rhythm with complete heart block with a junctional escape rhythm. His initial lactate was 7.7 Date of service 10/22: Patient placed on hypothermia protocol and is currently sedated and paralyzed. Date of service 10/23: Sedation and paralytics stopped this morning. Telemetry shows sinus rhythm with frequent ectopy. Transvenous pacer set at a rate of 60bpm. No family at bedside. Review of Systems Review of Systems: All systems reviewed & are unremarkable except as noted in HPI and below (HPI) Exam Const: Other: Elderly male, intubated. HENMT: Other: OETT in place Resp: Other: On mechanical ventilation Cardio: Rate: regular rate Rhythm: regular rhythm and abnormal rhythm with ectopic beats Skin: General skin exam: normal color Objective Data Vital Signs Vital Signs: Vital Signs - 24 hr 10/22/24 11:00 10/22/24 11:00 10/22/24 11:52 Temperature 36.9 C Pulse Rate 60 60 68 Respiratory Rate 16 16 Blood Pressure 149/57 H 149/57 H Pulse Oximetry 100 99 Oxygen Delivery Mechanical Ventilation Fraction of Inspired Oxygen 40 10/22/24 12:00 10/22/24 12:00 10/22/24 12:00 Temperature 36.2 C L Pulse Rate 71 71 71 Respiratory Rate 16 16 16 Blood Pressure 171/68 H 171/68 H Pulse Oximetry 100 Oxygen Delivery Fraction of Inspired Oxygen 10/22/24 12:00 10/22/24 12:00 10/22/24 12:00 Temperature Pulse Rate 71 84 Respiratory Rate 16 Blood Pressure Pulse Oximetry 100 Oxygen Delivery Mechanical Ventilation Fraction of Inspired Oxygen 40 10/22/24 12:00 10/22/24 13:00 10/22/24 13:00 Temperature 35.2 C L Pulse Rate 81 79 Respiratory Rate 16 16 Blood Pressure 174/72 H 174/72 H Pulse Oximetry 100 Oxygen Delivery Fraction of Inspired Oxygen 40 10/22/24 14:00 10/22/24 13:43 10/22/24 14:00 Temperature Pulse Rate 64 73 64 Respiratory Rate 16 16 Blood Pressure 137/56 L Pulse Oximetry 100 Oxygen Delivery Mechanical Ventilation Fraction of Inspired Oxygen 40 10/22/24 14:00 10/22/24 14:00 10/22/24 14:00 Temperature 34.7 C L Pulse Rate 64 64 64 Respiratory Rate 16 16 Blood Pressure 137/56 L Pulse Oximetry 100 Oxygen Delivery Fraction of Inspired Oxygen 10/22/24 15:00 10/22/24 15:00 10/22/24 16:00 Temperature 35.3 C L 35.5 C L Pulse Rate 68 68 73 Respiratory Rate 16 16 16 Blood Pressure 161/85 H 161/85 H 150/86 H Pulse Oximetry 100 100 Oxygen Delivery Fraction of Inspired Oxygen 10/22/24 16:00 10/22/24 16:00 10/22/24 16:00 Temperature Pulse Rate 73 73 73 Respiratory Rate 16 16 16 Blood Pressure 150/86 H Pulse Oximetry Oxygen Delivery Fraction of Inspired Oxygen 10/22/24 16:00 10/22/24 16:00 10/22/24 16:00 Temperature Pulse Rate 71 Respiratory Rate Blood Pressure Pulse Oximetry 100 Oxygen Delivery Mechanical Ventilation Fraction of Inspired Oxygen 40 40 10/22/24 17:00 10/22/24 17:00 10/22/24 17:48 Temperature 35.4 C L Pulse Rate 70 70 66 Respiratory Rate 16 16 Blood Pressure 145/63 H 145/63 H Pulse Oximetry 100 100 Oxygen Delivery Mechanical Ventilation Fraction of Inspired Oxygen 40 10/22/24 18:00 10/22/24 18:00 10/22/24 18:00 Temperature 35.4 C L Pulse Rate 64 64 64 Respiratory Rate 16 16 Blood Pressure 145/70 H Pulse Oximetry 100 Oxygen Delivery Fraction of Inspired Oxygen 10/22/24 18:00 10/22/24 18:00 10/22/24 19:00 Temperature 35.6 C L Pulse Rate 64 64 68 Respiratory Rate 16 16 16 Blood Pressure 145/70 H 154/66 H Pulse Oximetry 100 Oxygen Delivery Fraction of Inspired Oxygen 10/22/24 19:59 10/22/24 20:00 10/22/24 20:00 Temperature 35.7 C L 35.7 C L Pulse Rate 80 72 72 Respiratory Rate 16 16 Blood Pressure 142/69 H 142/69 H Pulse Oximetry 100 99 99 Oxygen Delivery Mechanical Ventilation Fraction of Inspired Oxygen 40 10/22/24 19:00 10/22/24 20:00 10/22/24 20:00 Temperature Pulse Rate 68 72 72 Respiratory Rate 16 16 16 Blood Pressure 154/66 H 142/69 H Pulse Oximetry Oxygen Delivery Fraction of Inspired Oxygen 10/22/24 20:00 10/22/24 19:00 10/22/24 19:00 Temperature Pulse Rate 72 68 68 Respiratory Rate 16 16 16 Blood Pressure Pulse Oximetry Oxygen Delivery Fraction of Inspired Oxygen 10/22/24 21:00 10/22/24 21:00 10/22/24 21:00 Temperature Pulse Rate 81 81 81 Respiratory Rate 16 16 16 Blood Pressure 168/67 H Pulse Oximetry Oxygen Delivery Fraction of Inspired Oxygen 10/22/24 21:00 10/22/24 20:00 10/22/24 20:00 Temperature 35.9 C L Pulse Rate 81 Respiratory Rate 16 Blood Pressure 168/67 H Pulse Oximetry 98 Oxygen Delivery Mechanical Ventilation Fraction of Inspired Oxygen 40 40 10/22/24 22:00 10/22/24 22:00 10/22/24 22:00 Temperature 35.2 C L Pulse Rate 79 79 79 Respiratory Rate 16 16 16 Blood Pressure 159/74 H 159/74 H Pulse Oximetry 99 Oxygen Delivery Fraction of Inspired Oxygen 10/22/24 22:00 10/22/24 21:30 10/22/24 20:00 Temperature 35.7 C L Pulse Rate 79 87 62 Respiratory Rate 16 16 Blood Pressure 162/95 H Pulse Oximetry 98 Oxygen Delivery Fraction of Inspired Oxygen 10/22/24 23:00 10/22/24 22:00 10/22/24 23:00 Temperature 35.1 C L 35.1 C L Pulse Rate 73 79 73 Respiratory Rate 16 16 Blood Pressure 134/65 134/65 Pulse Oximetry 99 99 Oxygen Delivery Fraction of Inspired Oxygen 10/22/24 23:00 10/22/24 23:00 10/22/24 23:00 Temperature Pulse Rate 73 73 73 Respiratory Rate 16 16 16 Blood Pressure 134/65 Pulse Oximetry Oxygen Delivery Fraction of Inspired Oxygen 10/22/24 23:17 10/23/24 00:00 10/23/24 00:00 Temperature 36.2 C L 36.2 C L Pulse Rate 73 69 69 Respiratory Rate 16 16 Blood Pressure 181/71 H 181/71 H Pulse Oximetry 99 97 99 Oxygen Delivery Mechanical Ventilation Fraction of Inspired Oxygen 40 10/23/24 00:00 10/23/24 00:00 10/23/24 00:00 Temperature Pulse Rate 69 69 69 Respiratory Rate 16 16 16 Blood Pressure 181/71 H Pulse Oximetry Oxygen Delivery Fraction of Inspired Oxygen 10/23/24 00:23 10/23/24 00:23 10/23/24 01:00 Temperature 36.4 C L Pulse Rate 80 80 95 Respiratory Rate 16 16 16 Blood Pressure 153/74 H 153/74 H 165/90 H Pulse Oximetry 99 Oxygen Delivery Fraction of Inspired Oxygen 10/23/24 01:00 10/23/24 00:00 10/23/24 01:00 Temperature 36.4 C L Pulse Rate 95 95 Respiratory Rate 16 16 Blood Pressure 165/90 H Pulse Oximetry 99 Oxygen Delivery Fraction of Inspired Oxygen 40 10/23/24 01:00 10/23/24 01:00 10/23/24 02:11 Temperature Pulse Rate 95 95 84 Respiratory Rate 16 16 Blood Pressure 165/90 H Pulse Oximetry 100 Oxygen Delivery Mechanical Ventilation Fraction of Inspired Oxygen 40 10/23/24 00:00 10/23/24 00:00 10/23/24 02:00 Temperature 35.2 C L Pulse Rate 88 82 Respiratory Rate 16 Blood Pressure 160/77 H Pulse Oximetry 99 Oxygen Delivery Mechanical Ventilation Fraction of Inspired Oxygen 40 10/23/24 02:00 10/23/24 02:00 10/23/24 02:00 Temperature 35.2 C L Pulse Rate 82 82 82 Respiratory Rate 16 16 Blood Pressure 160/77 H Pulse Oximetry 99 Oxygen Delivery Fraction of Inspired Oxygen 10/23/24 03:00 10/23/24 02:00 10/23/24 02:00 Temperature Pulse Rate 71 82 82 Respiratory Rate 16 16 16 Blood Pressure 160/77 H Pulse Oximetry Oxygen Delivery Fraction of Inspired Oxygen 10/23/24 03:00 10/23/24 03:00 10/23/24 03:00 Temperature 35.8 C L Pulse Rate 71 71 71 Respiratory Rate 16 16 16 Blood Pressure 118/81 118/81 Pulse Oximetry 100 Oxygen Delivery Fraction of Inspired Oxygen 10/23/24 03:00 10/23/24 04:00 10/23/24 04:00 Temperature 35.8 C L Pulse Rate 71 90 90 Respiratory Rate 16 16 16 Blood Pressure 118/81 Pulse Oximetry 100 Oxygen Delivery Fraction of Inspired Oxygen 10/23/24 04:00 10/23/24 04:00 10/23/24 04:00 Temperature 36.6 C 36.6 C Pulse Rate 90 90 90 Respiratory Rate 16 16 16 Blood Pressure 152/87 H 152/87 H 152/87 H Pulse Oximetry 99 99 Oxygen Delivery Fraction of Inspired Oxygen 10/23/24 04:00 10/23/24 04:00 10/23/24 05:10 Temperature Pulse Rate 88 Respiratory Rate Blood Pressure Pulse Oximetry 99 Oxygen Delivery Mechanical Ventilation Mechanical Ventilation Fraction of Inspired Oxygen 40 40 40 10/23/24 05:33 10/23/24 05:00 10/23/24 05:00 Temperature 35.6 C L 35.6 C L Pulse Rate 88 85 85 Respiratory Rate 16 16 Blood Pressure 167/73 H 167/73 H Pulse Oximetry 99 99 99 Oxygen Delivery Mechanical Ventilation Fraction of Inspired Oxygen 30 10/23/24 06:00 10/23/24 05:00 10/23/24 06:00 Temperature 35.2 C L Pulse Rate 83 85 83 Respiratory Rate 16 16 16 Blood Pressure 151/70 H Pulse Oximetry 98 Oxygen Delivery Fraction of Inspired Oxygen 10/23/24 05:00 10/23/24 06:00 10/23/24 05:00 Temperature Pulse Rate 85 83 85 Respiratory Rate 16 16 16 Blood Pressure 167/73 H Pulse Oximetry Oxygen Delivery Fraction of Inspired Oxygen 10/23/24 06:00 10/23/24 06:00 10/23/24 07:00 Temperature 35.2 C L 35.3 C L Pulse Rate 83 83 74 Respiratory Rate 16 16 16 Blood Pressure 151/70 H 151/70 H 139/68 Pulse Oximetry 98 74 L Oxygen Delivery Fraction of Inspired Oxygen 10/23/24 07:21 10/23/24 04:00 10/23/24 06:00 Temperature Pulse Rate 82 88 88 Respiratory Rate Blood Pressure Pulse Oximetry 98 Oxygen Delivery Mechanical Ventilation Fraction of Inspired Oxygen 30 10/23/24 07:57 10/23/24 07:00 10/23/24 08:00 Temperature 35.3 C L 35.6 C L Pulse Rate 86 81 83 Respiratory Rate 16 17 18 Blood Pressure 150/78 H 139/68 143/87 H Pulse Oximetry 98 98 Oxygen Delivery Fraction of Inspired Oxygen 10/23/24 08:00 10/23/24 08:00 10/23/24 08:30 Temperature Pulse Rate 87 87 82 Respiratory Rate 16 16 16 Blood Pressure Pulse Oximetry Oxygen Delivery Fraction of Inspired Oxygen 10/23/24 08:30 10/23/24 08:00 10/23/24 09:12 Temperature Pulse Rate 87 111 H Respiratory Rate 16 Blood Pressure Pulse Oximetry 97 Oxygen Delivery Mechanical Ventilation Fraction of Inspired Oxygen 40 30 10/23/24 10:00 10/23/24 08:00 10/23/24 10:00 Temperature 37.2 C Pulse Rate 79 86 79 Respiratory Rate 18 Blood Pressure 156/55 H Pulse Oximetry 96 Oxygen Delivery Fraction of Inspired Oxygen Intake/Output Intake/Output: Intake & Output 10/20/24 10/21/24 10/22/24 10/23/24 23:59 23:59 23:59 23:59 Intake Total 2584.5 263.9 Output Total 600 2760 815 Balance -600 -175.5 -551.1 Meds/Results Medications: Active Medications Generic Name Dose Route Start Last Admin Trade Name Freq PRN Reason Stop Dose Admin Acetaminophen 650 mg 10/21/24 19:26 Acetaminophen 650 Mg Suppository RECTAL Q6H PRN Mild Pain (1-3) or Fever Albuterol/Ipratropium 3 ml 10/22/24 08:35 Ipratropium 0.5 Mg/Albuterol Sulfate 2.5 Mg Ampul.Neb 3 Ml INHALATION Q6HRT PRN Wheezing Atorvastatin Calcium 20 mg 10/21/24 21:40 10/22/24 21:16 Atorvastatin 20 Mg Tablet FEED TUBE 20 mg HS ALEJANDRO Administration Dextrose 12.5 gm 10/21/24 22:44 Dextrose 50% 25 Gm/50 Ml Syringe IV PUSH PRN PRN Hypoglycemia Protocol Enoxaparin Sodium 40 mg 10/22/24 09:00 10/23/24 08:28 Enoxaparin 40 Mg/0.4 Ml Syringe SUB-Q 40 mg DAILY ALEJANDRO Administration Glucagon 1 mg 10/21/24 22:44 Glucagon For Inj 1 Mg Vial IM PRN PRN Hypoglycemia Protocol Glucose 15 gm 10/21/24 22:44 Glucose Oral Gel 15 Gm Of Glucse In 37.5 Gm Tube PO PRN PRN Hypoglycemia Protocol Fentanyl Citrate 2,500 mcg in 250 mls @ 0 mls/hr 10/21/24 22:35 10/23/24 08:30 Fentanyl 2,500 Mcg/Ns 250 Ml IV CONT 0 mcg/hr .Q0M ALEJANDRO 0 mls/hr Titration Protocol Midazolam HCl 100 mg in 100 mls @ 0 mls/hr 10/21/24 22:35 10/23/24 08:30 Versed 100 Mg/Ns 100 Ml IV CONT 0 mg/hr .Q0M ALEJANDRO 0 mls/hr Titration Protocol Dextrose 1,000 mls @ 100 mls/hr 10/21/24 22:44 Dextrose 5% 1,000 Ml IVPB PRN PRN Hypoglycemia Protocol Cisatracurium Besylate 200 mg/ 100 mls @ 0 mls/hr 10/22/24 03:25 10/23/24 07:57 Dextrose IV CONT 0 mcg/kg/min .Q0M ALEJANDRO 0 mls/hr Titration Protocol Piperacillin/Tazobactam/Dextrose 3.375 gm in 50 mls @ 100 mls/hr 10/22/24 12:00 10/23/24 07:06 Zosyn 3.375 Gm/Ns 50 Ml IVPB Infused Q6HR [facility] Infusion Insulin Aspart 2 - 5 units 10/22/24 06:00 10/23/24 06:38 Insulin Aspart (*Bkc) 100 Units/Ml SUB-Q Not Given Q6HR [facility] Protocol Multi-Ingred Cream/Lotion/Oil/Oint 1 applic 10/22/24 09:00 10/23/24 08:28 Mineral Oil/White Petrolatum Ointment EACH EYE 1 applic Q12HR ALEJANDRO Administration Pantoprazole Sodium 40 mg 10/21/24 21:00 10/23/24 08:28 Pantoprazole Sodium Iv 40 Mg Vial IV PUSH 40 mg Q12HR ALEJANDRO Administration Perflutren Lipid Microsphere 0 ml 10/22/24 08:36 Perflutren Lipid Microspheres 1.5 Ml Vial Diluted To 10 Ml Total Volume IV PUSH 10/25/24 08:36 ONCE PRN adequate visualization Protocol Sodium Chloride 10 ml 10/22/24 14:00 10/23/24 06:38 Central Line Flush IV PUSH 10 ml Q8HR ALEJANDRO Administration Sodium Chloride 20 ml 10/22/24 07:50 Central Line Flush IV PUSH PRN PRN after blood draws Radiology Results: ITS Impressions Head CT 10/21/24 19:53 IMPRESSION: No acute intracranial findings. Chest X-Ray 10/23/24 06:46 Impression: Clear lungs. Support tubes, as above. Labs Labs: Laboratory Results - last 24 hr 10/22/24 10/22/24 10/22/24 09:55 12:05 16:14 WBC RBC Hgb Hct MCV MCH MCHC RDW Plt Count MPV Puncture Site ABG pH ABG pCO2 ABG pO2 ABG PO2/FiO2 Ratio ABG HCO3 ABG O2 Saturation ABG O2 Content ABG Base Excess A-a Gradient Oxyhemoglobin Carboxyhemoglobin Methemoglobin Reduced Hemoglobin Total Hemoglobin O2 Delivery Device O2 Liters/Min Minute Volume Vent Rate Vent Mode FiO2 Tidal Volume PEEP Peak Inspir Pressure Pressure Support Sodium 140 Potassium 3.4 Chloride 110 H Carbon Dioxide 26 Anion Gap 4 BUN 12 Creatinine 0.90 Estim Creat Clear Calc 56 Estimated GFR > 60 Glucose 110 POC Capillary Glucose 143 H Calcium 8.4 Phosphorus Magnesium 2.4 H Total Bilirubin 1.9 H AST 125 H ALT 112 H Alkaline Phosphatase 81 Total Creatine Kinase Total Protein 6.0 L Albumin 3.3 L Free T4 1.30 10/22/24 10/22/24 10/23/24 17:57 20:53 00:15 WBC RBC Hgb Hct MCV MCH MCHC RDW Plt Count MPV Puncture Site ABG pH ABG pCO2 ABG pO2 ABG PO2/FiO2 Ratio ABG HCO3 ABG O2 Saturation ABG O2 Content ABG Base Excess A-a Gradient Oxyhemoglobin Carboxyhemoglobin Methemoglobin Reduced Hemoglobin Total Hemoglobin O2 Delivery Device O2 Liters/Min Minute Volume Vent Rate Vent Mode FiO2 Tidal Volume PEEP Peak Inspir Pressure Pressure Support Sodium 139 Potassium 3.4 Chloride 108 H Carbon Dioxide 25 Anion Gap 6 BUN 13 Creatinine 0.90 Estim Creat Clear Calc 56 Estimated GFR > 60 Glucose 106 POC Capillary Glucose 109 H 130 H Calcium 8.2 L Phosphorus Magnesium 2.3 Total Bilirubin 2.2 H AST 113 H ALT 103 H Alkaline Phosphatase 75 Total Creatine Kinase Total Protein 7.0 Albumin 3.3 L Free T4 10/23/24 04:53 WBC 21.8 H RBC 4.24 L Hgb 12.8 L Hct 37.8 L MCV 89.2 MCH 30.2 MCHC 33.9 RDW 15.6 H Plt Count 281 MPV 10.5 H Puncture Site Left radial ABG pH 7.436 ABG pCO2 32.2 L ABG pO2 170.9 H ABG PO2/FiO2 Ratio 4.27 ABG HCO3 21.2 L ABG O2 Saturation 99.2 ABG O2 Content 19.0 ABG Base Excess -2.2 A-a Gradient 90.9 Oxyhemoglobin 99.1 Carboxyhemoglobin 0.2 Methemoglobin 0.1 Reduced Hemoglobin 0.6 Total Hemoglobin 13.4 O2 Delivery Device Ventilator O2 Liters/Min Not Reportable Minute Volume Not Reportable Vent Rate 16 Vent Mode Cmv FiO2 40 Tidal Volume 450 PEEP 5 Peak Inspir Pressure Not Reportable Pressure Support Not Reportable Sodium 138 Potassium 3.6 Chloride 108 H Carbon Dioxide 25 Anion Gap 5 BUN 12 Creatinine 0.90 Estim Creat Clear Calc 56 Estimated GFR > 60 Glucose 124 H POC Capillary Glucose Calcium 8.4 Phosphorus 3.1 Magnesium 2.2 Total Bilirubin 2.2 H AST 96 H ALT 103 H Alkaline Phosphatase 82 Total Creatine Kinase 564 H Total Protein 7.0 Albumin 3.5 Free T4
--- NOTE | 2024-10-23 10:59 | P.PNINT_ITS ---
Progress Note: A&P Assessment and Plan (1) Acute respiratory failure: Code(s): J96.00 - Acute respiratory failure, unspecified whether with hypoxia or hypercapnia Status: Acute Assessment and Plan: Acute Respiratory failure secondary to cardiac arrest, pulmonary edema, questionable aspiration pneumonia Continue full mechanical ventilation support to prevent hypoxemia/hypercarbia and end organ damage. ABG reviewed. Decrease tidal volume to 400 Chest x-ray reviewed Low tidal volume ventilation strategy to prevent volutrauma Weaning will depend on improvement in neurological cardiac status Add Bronchodilators (2) Cardiac arrest: Code(s): I46.9 - Cardiac arrest, cause unspecified Status: Acute Assessment and Plan: PE a cardiac arrest which converted to VFib and later patient was and complete heart block Status post temporary transvenous pacemaker placement Mild elevation of troponin likely secondary to cardiac arrest and respiratory failure Continue statin. Patient is allergic to aspirin. Will discuss with patient's family regarding nature of allergy Echo reviewed Cardiology is following Hold ARB due to low blood pressure (3) Sepsis: Code(s): A41.9 - Sepsis, unspecified organism Status: Acute Assessment and Plan: Patient met criteria for sepsis. Chest x-ray was clear and did not show any sign of aspiration. CT scan has been delayed due to patient being unstable on presentation His UA was abnormal Blood and urine cultures have been ordered and are pending Continue Zosyn at this time empirically to cover for aspiration pneumonia and UTI (4) Heart block AV third degree: Code(s): I44.2 - Atrioventricular block, complete Status: Acute Assessment and Plan: Status post transvenous pacemaker placement which is currently on standby patient's rate is above set pacemaker rate (5) Anoxic brain injury: Code(s): G93.1 - Anoxic brain damage, not elsewhere classified Status: Acute Assessment and Plan: Patient was comatose post resuscitation Head CT was negative for any acute intracranial change Patient had a PEA arrest which later converted to VFib and on arrival was bradycardic and hypotensive Patient started on TTM protocol has completed 24 hours. He was started rewarming last night and is now the wound I have discontinued Nimbex infusion and sedation this morning Continue neurological monitoring and exam (6) Acute hypokalemia: Code(s): E87.6 - Hypokalemia Status: Acute Assessment and Plan: Potassium replacement ordered (7) Congestive heart failure: Code(s): I50.9 - Heart failure, unspecified Status: Acute Assessment and Plan: Bilateral pitting edema on exam. Hold diuretics at this time due to hypotension Summary 1. Complete two-dimensional, color flow and Doppler transthoracic echocardiogram is performed. 2. Technically difficult study with limited views. 3. The left ventricle is normal in size with mildly reduced systolic function. The left ventricular ejection fraction is visually estimated to be 40-45%. 4. The aortic valve is not well visualized however did gradients across the valve suggests moderate aortic stenosis. 5. There is small pericardial effusion. 6. Dilated inferior vena cava with <50% collapse upon inspiration consistent with significantly elevated right atrial pressure, 15 mmHg. (8) Hypotension: Code(s): I95.9 - Hypotension, unspecified Status: Acute Assessment and Plan: Patient was initially hypertensive likely secondary to bradycardia and was on epinephrine drip which was weaned off. Continue to monitor Patient received IV fluids but will hold either fluids further at this point due to concern of congestive heart failure patient has bilateral pitting edema (9) Metabolic acidosis: Code(s): E87.20 - Acidosis, unspecified Status: Acute Assessment and Plan: Hyperchloremic metabolic acidosis. Off IV fluids now (10) Hyperglycemia: Code(s): R73.9 - Hyperglycemia, unspecified Status: Acute Assessment and Plan: Sliding scale insulin ordered (11) Hypertension: Code(s): I10 - Essential (primary) hypertension Status: Acute Assessment and Plan: Patient has history of hypertension but now blood pressure is soft on sedation. Hold antihypertensive medications Plan DVT prophylaxis -Lovenox Stress ulcer prophylaxis -PPI Nutrition -start tube feeds today Code Status - Full Code I spoke to patient's stepdaughter Olivia by phone and updated her with patient's current status including respiratory failure, cardiac arrest, complete heart block requiring transvenous pacemaker, anoxic brain injury. I also answer question updated with current treatment plan including holding sedation and re- evaluating his neurological status over next 24-48 hours. She is going to discuss with her mother regarding goals of care and code status. She told me that patient does not have any biological children and his has limited cognitive ability due to dementia Total Critical Care Time - 40 minutes Due to a high probability of clinically significant, life threatening deterioration, the patient required my highest level of preparedness to inte rvene emergently and I personally spent this critical care time directly and personally managing the patient. This critical care time included obtaining a history; examining the patient; pulse oximetry; ordering and review of studies; arranging urgent treatment with development of a management plan; evaluation of patient's response to treatment; frequent reassessment; and discussions with other providers. It was exclusive of separately billable procedures and treating other patients and teaching time. Please see Assessment and Plan section and the rest of the note for further information on patient assessment and treatment Subjective Date/time seen: 10/23/24 Overnight events reviewed. Patient completed his hypothermia last night and was removed overnight Continues to be on mechanical ventilation 30% FiO2 Off vasopressors He had a bowel movement Continues to be sedated with Versed fentanyl and paralyzed with Nimbex infusion Other Vitals acceptable Telemetry shows sinus rhythm with intermittent paced beats Good urine output npo Review of Systems Review of Systems: ROS unobtainable: Yes unobtainable due to endotracheal tube, unobtainable due to medical condition and unobtainable due to mental status Exam Narrative: General: Pt is sedated, intubated, chemically paralyzed and on mechanical ventilation Lungs/Chest: Trachea central clear BS B/L, No crackles or wheezing. Cardiac: RRR. Normal S1 S2. No murmurs Circulation: Pedal pulses are intact and symmetrical but weak Abdomen: Present bowel sounds. Soft. NT. ND. Rectal tube in place Extremities: No clubbing, cyanosis, Warm. Bilateral pitting edema present : Romero in place Neurologic: Unable to assess due to sedation and chemical paralysis. PERRL Objective Data Vital Signs Vital Signs: Vital Signs - 24 hr 10/22/24 11:00 10/22/24 11:00 10/22/24 11:52 Temperature 36.9 C Pulse Rate 60 60 68 Respiratory Rate 16 16 Blood Pressure 149/57 H 149/57 H Pulse Oximetry 100 99 Oxygen Delivery Mechanical Ventilation Fraction of Inspired Oxygen 40 10/22/24 12:00 10/22/24 12:00 10/22/24 12:00 Temperature 36.2 C L Pulse Rate 71 71 71 Respiratory Rate 16 16 16 Blood Pressure 171/68 H 171/68 H Pulse Oximetry 100 Oxygen Delivery Fraction of Inspired Oxygen 10/22/24 12:00 10/22/24 12:00 10/22/24 12:00 Temperature Pulse Rate 71 84 Respiratory Rate 16 Blood Pressure Pulse Oximetry 100 Oxygen Delivery Mechanical Ventilation Fraction of Inspired Oxygen 40 10/22/24 12:00 10/22/24 13:00 10/22/24 13:00 Temperature 35.2 C L Pulse Rate 81 79 Respiratory Rate 16 16 Blood Pressure 174/72 H 174/72 H Pulse Oximetry 100 Oxygen Delivery Fraction of Inspired Oxygen 40 10/22/24 14:00 10/22/24 13:43 10/22/24 14:00 Temperature Pulse Rate 64 73 64 Respiratory Rate 16 16 Blood Pressure 137/56 L Pulse Oximetry 100 Oxygen Delivery Mechanical Ventilation Fraction of Inspired Oxygen 40 10/22/24 14:00 10/22/24 14:00 10/22/24 14:00 Temperature 34.7 C L Pulse Rate 64 64 64 Respiratory Rate 16 16 Blood Pressure 137/56 L Pulse Oximetry 100 Oxygen Delivery Fraction of Inspired Oxygen 10/22/24 15:00 10/22/24 15:00 10/22/24 16:00 Temperature 35.3 C L 35.5 C L Pulse Rate 68 68 73 Respiratory Rate 16 16 16 Blood Pressure 161/85 H 161/85 H 150/86 H Pulse Oximetry 100 100 Oxygen Delivery Fraction of Inspired Oxygen 10/22/24 16:00 10/22/24 16:00 10/22/24 16:00 Temperature Pulse Rate 73 73 73 Respiratory Rate 16 16 16 Blood Pressure 150/86 H Pulse Oximetry Oxygen Delivery Fraction of Inspired Oxygen 10/22/24 16:00 10/22/24 16:00 10/22/24 16:00 Temperature Pulse Rate 71 Respiratory Rate Blood Pressure Pulse Oximetry 100 Oxygen Delivery Mechanical Ventilation Fraction of Inspired Oxygen 40 40 10/22/24 17:00 10/22/24 17:00 10/22/24 17:48 Temperature 35.4 C L Pulse Rate 70 70 66 Respiratory Rate 16 16 Blood Pressure 145/63 H 145/63 H Pulse Oximetry 100 100 Oxygen Delivery Mechanical Ventilation Fraction of Inspired Oxygen 40 10/22/24 18:00 10/22/24 18:00 10/22/24 18:00 Temperature 35.4 C L Pulse Rate 64 64 64 Respiratory Rate 16 16 Blood Pressure 145/70 H Pulse Oximetry 100 Oxygen Delivery Fraction of Inspired Oxygen 10/22/24 18:00 10/22/24 18:00 10/22/24 19:00 Temperature 35.6 C L Pulse Rate 64 64 68 Respiratory Rate 16 16 16 Blood Pressure 145/70 H 154/66 H Pulse Oximetry 100 Oxygen Delivery Fraction of Inspired Oxygen 10/22/24 19:59 10/22/24 20:00 10/22/24 20:00 Temperature 35.7 C L 35.7 C L Pulse Rate 80 72 72 Respiratory Rate 16 16 Blood Pressure 142/69 H 142/69 H Pulse Oximetry 100 99 99 Oxygen Delivery Mechanical Ventilation Fraction of Inspired Oxygen 40 10/22/24 19:00 10/22/24 20:00 10/22/24 20:00 Temperature Pulse Rate 68 72 72 Respiratory Rate 16 16 16 Blood Pressure 154/66 H 142/69 H Pulse Oximetry Oxygen Delivery Fraction of Inspired Oxygen 10/22/24 20:00 10/22/24 19:00 10/22/24 19:00 Temperature Pulse Rate 72 68 68 Respiratory Rate 16 16 16 Blood Pressure Pulse Oximetry Oxygen Delivery Fraction of Inspired Oxygen 10/22/24 21:00 10/22/24 21:00 10/22/24 21:00 Temperature Pulse Rate 81 81 81 Respiratory Rate 16 16 16 Blood Pressure 168/67 H Pulse Oximetry Oxygen Delivery Fraction of Inspired Oxygen 10/22/24 21:00 10/22/24 20:00 10/22/24 20:00 Temperature 35.9 C L Pulse Rate 81 Respiratory Rate 16 Blood Pressure 168/67 H Pulse Oximetry 98 Oxygen Delivery Mechanical Ventilation Fraction of Inspired Oxygen 40 40 10/22/24 22:00 10/22/24 22:00 10/22/24 22:00 Temperature 35.2 C L Pulse Rate 79 79 79 Respiratory Rate 16 16 16 Blood Pressure 159/74 H 159/74 H Pulse Oximetry 99 Oxygen Delivery Fraction of Inspired Oxygen 10/22/24 22:00 10/22/24 21:30 10/22/24 20:00 Temperature 35.7 C L Pulse Rate 79 87 62 Respiratory Rate 16 16 Blood Pressure 162/95 H Pulse Oximetry 98 Oxygen Delivery Fraction of Inspired Oxygen 10/22/24 23:00 10/22/24 22:00 10/22/24 23:00 Temperature 35.1 C L 35.1 C L Pulse Rate 73 79 73 Respiratory Rate 16 16 Blood Pressure 134/65 134/65 Pulse Oximetry 99 99 Oxygen Delivery Fraction of Inspired Oxygen 10/22/24 23:00 10/22/24 23:00 10/22/24 23:00 Temperature Pulse Rate 73 73 73 Respiratory Rate 16 16 16 Blood Pressure 134/65 Pulse Oximetry Oxygen Delivery Fraction of Inspired Oxygen 10/22/24 23:17 10/23/24 00:00 10/23/24 00:00 Temperature 36.2 C L 36.2 C L Pulse Rate 73 69 69 Respiratory Rate 16 16 Blood Pressure 181/71 H 181/71 H Pulse Oximetry 99 97 99 Oxygen Delivery Mechanical Ventilation Fraction of Inspired Oxygen 40 10/23/24 00:00 10/23/24 00:00 10/23/24 00:00 Temperature Pulse Rate 69 69 69 Respiratory Rate 16 16 16 Blood Pressure 181/71 H Pulse Oximetry Oxygen Delivery Fraction of Inspired Oxygen 10/23/24 00:23 10/23/24 00:23 10/23/24 01:00 Temperature 36.4 C L Pulse Rate 80 80 95 Respiratory Rate 16 16 16 Blood Pressure 153/74 H 153/74 H 165/90 H Pulse Oximetry 99 Oxygen Delivery Fraction of Inspired Oxygen 10/23/24 01:00 10/23/24 00:00 10/23/24 01:00 Temperature 36.4 C L Pulse Rate 95 95 Respiratory Rate 16 16 Blood Pressure 165/90 H Pulse Oximetry 99 Oxygen Delivery Fraction of Inspired Oxygen 40 10/23/24 01:00 10/23/24 01:00 10/23/24 02:11 Temperature Pulse Rate 95 95 84 Respiratory Rate 16 16 Blood Pressure 165/90 H Pulse Oximetry 100 Oxygen Delivery Mechanical Ventilation Fraction of Inspired Oxygen 40 10/23/24 00:00 10/23/24 00:00 10/23/24 02:00 Temperature 35.2 C L Pulse Rate 88 82 Respiratory Rate 16 Blood Pressure 160/77 H Pulse Oximetry 99 Oxygen Delivery Mechanical Ventilation Fraction of Inspired Oxygen 40 10/23/24 02:00 10/23/24 02:00 10/23/24 02:00 Temperature 35.2 C L Pulse Rate 82 82 82 Respiratory Rate 16 16 Blood Pressure 160/77 H Pulse Oximetry 99 Oxygen Delivery Fraction of Inspired Oxygen 10/23/24 03:00 10/23/24 02:00 10/23/24 02:00 Temperature Pulse Rate 71 82 82 Respiratory Rate 16 16 16 Blood Pressure 160/77 H Pulse Oximetry Oxygen Delivery Fraction of Inspired Oxygen 10/23/24 03:00 10/23/24 03:00 10/23/24 03:00 Temperature 35.8 C L Pulse Rate 71 71 71 Respiratory Rate 16 16 16 Blood Pressure 118/81 118/81 Pulse Oximetry 100 Oxygen Delivery Fraction of Inspired Oxygen 10/23/24 03:00 10/23/24 04:00 10/23/24 04:00 Temperature 35.8 C L Pulse Rate 71 90 90 Respiratory Rate 16 16 16 Blood Pressure 118/81 Pulse Oximetry 100 Oxygen Delivery Fraction of Inspired Oxygen 10/23/24 04:00 10/23/24 04:00 10/23/24 04:00 Temperature 36.6 C 36.6 C Pulse Rate 90 90 90 Respiratory Rate 16 16 16 Blood Pressure 152/87 H 152/87 H 152/87 H Pulse Oximetry 99 99 Oxygen Delivery Fraction of Inspired Oxygen 10/23/24 04:00 10/23/24 04:00 10/23/24 05:10 Temperature Pulse Rate 88 Respiratory Rate Blood Pressure Pulse Oximetry 99 Oxygen Delivery Mechanical Ventilation Mechanical Ventilation Fraction of Inspired Oxygen 40 40 40 10/23/24 05:33 10/23/24 05:00 10/23/24 05:00 Temperature 35.6 C L 35.6 C L Pulse Rate 88 85 85 Respiratory Rate 16 16 Blood Pressure 167/73 H 167/73 H Pulse Oximetry 99 99 99 Oxygen Delivery Mechanical Ventilation Fraction of Inspired Oxygen 30 10/23/24 06:00 10/23/24 05:00 10/23/24 06:00 Temperature 35.2 C L Pulse Rate 83 85 83 Respiratory Rate 16 16 16 Blood Pressure 151/70 H Pulse Oximetry 98 Oxygen Delivery Fraction of Inspired Oxygen 10/23/24 05:00 10/23/24 06:00 10/23/24 05:00 Temperature Pulse Rate 85 83 85 Respiratory Rate 16 16 16 Blood Pressure 167/73 H Pulse Oximetry Oxygen Delivery Fraction of Inspired Oxygen 10/23/24 06:00 10/23/24 06:00 10/23/24 07:00 Temperature 35.2 C L 35.3 C L Pulse Rate 83 83 74 Respiratory Rate 16 16 16 Blood Pressure 151/70 H 151/70 H 139/68 Pulse Oximetry 98 74 L Oxygen Delivery Fraction of Inspired Oxygen 10/23/24 07:21 10/23/24 04:00 10/23/24 06:00 Temperature Pulse Rate 82 88 88 Respiratory Rate Blood Pressure Pulse Oximetry 98 Oxygen Delivery Mechanical Ventilation Fraction of Inspired Oxygen 30 10/23/24 07:57 12/06/24 07:00 10/23/24 08:00 Temperature 35.3 C L 35.6 C L Pulse Rate 86 81 83 Respiratory Rate 16 17 18 Blood Pressure 150/78 H 139/68 143/87 H Pulse Oximetry 98 98 Oxygen Delivery Fraction of Inspired Oxygen 10/23/24 08:00 10/23/24 08:00 10/23/24 08:30 Temperature Pulse Rate 87 87 82 Respiratory Rate 16 16 16 Blood Pressure Pulse Oximetry Oxygen Delivery Fraction of Inspired Oxygen 10/23/24 08:30 10/23/24 08:00 10/23/24 09:12 Temperature Pulse Rate 87 111 H Respiratory Rate 16 Blood Pressure Pulse Oximetry 97 Oxygen Delivery Mechanical Ventilation Fraction of Inspired Oxygen 40 30 10/23/24 10:00 10/23/24 08:00 10/23/24 10:00 Temperature 37.2 C Pulse Rate 79 86 79 Respiratory Rate 18 Blood Pressure 156/55 H Pulse Oximetry 96 Oxygen Delivery Fraction of Inspired Oxygen Intake/Output Intake/Output: Intake & Output 10/20/24 10/21/24 10/22/24 10/23/24 23:59 23:59 23:59 23:59 Intake Total 2584.5 263.9 Output Total 600 2760 815 Balance -600 -175.5 -551.1 Meds/Results Medications: Active Medications Generic Name Dose Route Start Last Admin Trade Name Freq PRN Reason Stop Dose Admin Acetaminophen 650 mg 10/21/24 19:26 Acetaminophen 650 Mg Suppository RECTAL Q6H PRN Mild Pain (1-3) or Fever Albuterol/Ipratropium 3 ml 10/22/24 08:35 Ipratropium 0.5 Mg/Albuterol Sulfate 2.5 Mg Ampul.Neb 3 Ml INHALATION Q6HRT PRN Wheezing Atorvastatin Calcium 20 mg 10/21/24 21:40 10/22/24 21:16 Atorvastatin 20 Mg Tablet FEED TUBE 20 mg HS ALEJANDRO Administration Dextrose 12.5 gm 10/21/24 22:44 Dextrose 50% 25 Gm/50 Ml Syringe IV PUSH PRN PRN Hypoglycemia Protocol Enoxaparin Sodium 40 mg 10/22/24 09:00 10/23/24 08:28 Enoxaparin 40 Mg/0.4 Ml Syringe SUB-Q 40 mg DAILY ALEJANDRO Administration Glucagon 1 mg 10/21/24 22:44 Glucagon For Inj 1 Mg Vial IM PRN PRN Hypoglycemia Protocol Glucose 15 gm 10/21/24 22:44 Glucose Oral Gel 15 Gm Of Glucse In 37.5 Gm Tube PO PRN PRN Hypoglycemia Protocol Fentanyl Citrate 2,500 mcg in 250 mls @ 0 mls/hr 10/21/24 22:35 10/23/24 08:30 Fentanyl 2,500 Mcg/Ns 250 Ml IV CONT 0 mcg/hr .Q0M ALEJANDRO 0 mls/hr Titration Protocol Midazolam HCl 100 mg in 100 mls @ 0 mls/hr 10/21/24 22:35 10/23/24 08:30 Versed 100 Mg/Ns 100 Ml IV CONT 0 mg/hr .Q0M ALEJANDRO 0 mls/hr Titration Protocol Dextrose 1,000 mls @ 100 mls/hr 10/21/24 22:44 Dextrose 5% 1,000 Ml IVPB PRN PRN Hypoglycemia Protocol Cisatracurium Besylate 200 mg/ 100 mls @ 0 mls/hr 10/22/24 03:25 10/23/24 07:57 Dextrose IV CONT 0 mcg/kg/min .Q0M ALEJANDRO 0 mls/hr Titration Protocol Piperacillin/Tazobactam/Dextrose 3.375 gm in 50 mls @ 100 mls/hr 10/22/24 12:00 10/23/24 07:06 Zosyn 3.375 Gm/Ns 50 Ml IVPB Infused Q6HR ALEJANDRO Infusion Insulin Aspart 2 - 5 units 10/22/24 06:00 10/23/24 06:38 Insulin Aspart (*Bkc) 100 Units/Ml SUB-Q Not Given Q6HR [facility] Protocol Multi-Ingred Cream/Lotion/Oil/Oint 1 applic 10/22/24 09:00 10/23/24 08:28 Mineral Oil/White Petrolatum Ointment EACH EYE 1 applic Q12HR ALEJANDRO Administration Pantoprazole Sodium 40 mg 10/21/24 21:00 10/23/24 08:28 Pantoprazole Sodium Iv 40 Mg Vial IV PUSH 40 mg Q12HR ALEJANDRO Administration Perflutren Lipid Microsphere 0 ml 10/22/24 08:36 Perflutren Lipid Microspheres 1.5 Ml Vial Diluted To 10 Ml Total Volume IV PUSH 10/25/24 08:36 ONCE PRN adequate visualization Protocol Sodium Chloride 10 ml 10/22/24 14:00 12/06/24 06:38 Central Line Flush IV PUSH 10 ml Q8HR ALEJANDRO Administration Sodium Chloride 20 ml 10/22/24 07:50 Central Line Flush IV PUSH PRN PRN after blood draws Radiology Results: ITS Impressions Head CT 10/21/24 19:53 IMPRESSION: No acute intracranial findings. Chest X-Ray 10/23/24 06:46 Impression: Clear lungs. Support tubes, as above. Labs Labs: Laboratory Results - last 24 hr 10/22/24 10/22/24 10/22/24 09:55 12:05 16:14 WBC RBC Hgb Hct MCV MCH MCHC RDW Plt Count MPV Puncture Site ABG pH ABG pCO2 ABG pO2 ABG PO2/FiO2 Ratio ABG HCO3 ABG O2 Saturation ABG O2 Content ABG Base Excess A-a Gradient Oxyhemoglobin Carboxyhemoglobin Methemoglobin Reduced Hemoglobin Total Hemoglobin O2 Delivery Device O2 Liters/Min Minute Volume Vent Rate Vent Mode FiO2 Tidal Volume PEEP Peak Inspir Pressure Pressure Support Sodium 140 Potassium 3.4 Chloride 110 H Carbon Dioxide 26 Anion Gap 4 BUN 12 Creatinine 0.90 Estim Creat Clear Calc 56 Estimated GFR > 60 Glucose 110 POC Capillary Glucose 143 H Calcium 8.4 Phosphorus Magnesium 2.4 H Total Bilirubin 1.9 H AST 125 H ALT 112 H Alkaline Phosphatase 81 Total Creatine Kinase Total Protein 6.0 L Albumin 3.3 L Free T4 1.30 10/22/24 10/22/24 10/23/24 17:57 20:53 00:15 WBC RBC Hgb Hct MCV MCH MCHC RDW Plt Count MPV Puncture Site ABG pH ABG pCO2 ABG pO2 ABG PO2/FiO2 Ratio ABG HCO3 ABG O2 Saturation ABG O2 Content ABG Base Excess A-a Gradient Oxyhemoglobin Carboxyhemoglobin Methemoglobin Reduced Hemoglobin Total Hemoglobin O2 Delivery Device O2 Liters/Min Minute Volume Vent Rate Vent Mode FiO2 Tidal Volume PEEP Peak Inspir Pressure Pressure Support Sodium 139 Potassium 3.4 Chloride 108 H Carbon Dioxide 25 Anion Gap 6 BUN 13 Creatinine 0.90 Estim Creat Clear Calc 56 Estimated GFR > 60 Glucose 106 POC Capillary Glucose 109 H 130 H Calcium 8.2 L Phosphorus Magnesium 2.3 Total Bilirubin 2.2 H AST 113 H ALT 103 H Alkaline Phosphatase 75 Total Creatine Kinase Total Protein 7.0 Albumin 3.3 L Free T4 12/06/24 04:53 WBC 21.8 H RBC 4.24 L Hgb 12.8 L Hct 37.8 L MCV 89.2 MCH 30.2 MCHC 33.9 RDW 15.6 H Plt Count 281 MPV 10.5 H Puncture Site Left radial ABG pH 7.436 ABG pCO2 32.2 L ABG pO2 170.9 H ABG PO2/FiO2 Ratio 4.27 ABG HCO3 21.2 L ABG O2 Saturation 99.2 ABG O2 Content 19.0 ABG Base Excess -2.2 A-a Gradient 90.9 Oxyhemoglobin 99.1 Carboxyhemoglobin 0.2 Methemoglobin 0.1 Reduced Hemoglobin 0.6 Total Hemoglobin 13.4 O2 Delivery Device Ventilator O2 Liters/Min Not Reportable Minute Volume Not Reportable Vent Rate 16 Vent Mode Cmv FiO2 40 Tidal Volume 450 PEEP 5 Peak Inspir Pressure Not Reportable Pressure Support Not Reportable Sodium 138 Potassium 3.6 Chloride 108 H Carbon Dioxide 25 Anion Gap 5 BUN 12 Creatinine 0.90 Estim Creat Clear Calc 56 Estimated GFR > 60 Glucose 124 H POC Capillary Glucose Calcium 8.4 Phosphorus 3.1 Magnesium 2.2 Total Bilirubin 2.2 H AST 96 H ALT 103 H Alkaline Phosphatase 82 Total Creatine Kinase 564 H Total Protein 7.0 Albumin 3.5 Free T4
--- NOTE | 2024-10-23 11:29 | PCNFU ---
Nutrition Follow-Up Complete: Suboptimal Energy Intake as related to mechanical ventilation as evidenced by NPO. Goal: Meet estimated nutritional needs. Patient is progressing towards goal. We will continue current goal. Pt current nutrition is Vital AF 1.2. Nutrition recommendation: 20 ml/hr advance by 10 ml q 4 hours to goal rate of 55 ml/hr. Last recorded weight is 78.9 kg, stable Bowel Motility:FMS Labs Reviewed:Glu 124, Hct 37.8, Hgb 12.8 Meds Noted:Lovenox, Protonix, Zosyn Skin: WNL Additional Notes: Patient remains on mechanical vent. Tube feedings are being started today of Vital AF at 20 ml/hr. Goal rate at 55 ml/hr providing 1452 kcal/91 gm protein/ 981 ml water. Flush 30 ml q 4 hours. Tube feedings meeting 74% kcal needs at 25 kcal/kg and 96% protein needs at 1.2-1.4 gm/kg. Agree with diet orders at this time. Will monitor weight, labs, skin, oral intake, meds every Saturday and Saturday.
[2024-10-23 11:51] LABS: Glucose Point of Care 123 mg/dl (65-105)
[2024-10-23] MEDS: ACETAMINOPHEN ELIXIR 325 MG/10.15 ML UDC 650 MG PO (12:01)
[2024-10-23 17:55] LABS: Glucose Point of Care 125 mg/dl (65-105)
[2024-10-23] MEDS: ATORVASTATIN 20 MG TABLET FEED TUBE (21:18)
[2024-10-24] VITALS (36 sets, daily range): BP systolic 140–181; BP diastolic 51–84; PULSE 73–101; RESP 20–28; TEMP 38.1–38.8; O2SAT 94–100
[2024-10-24] MEDS: PIPERACILLN/TAZ 3.375GM/NS50ML 3.375 GM/50 ML BAG IVPB ×4 (00:19→17:41)
[2024-10-24 04:42] LABS: Glucose Point of Care 146 mg/dl (65-105)
[2024-10-24 05:12] LABS: Alveolar/Arterial O2 Gradient 74.4 mmHg; Base Excess ABG 1.2 mEq/l (+/-2.0); Carboxyhemoglobin 0.2 % THb (0-2.0); Fractional Inspired Oxygen 30 %; HCO3 ABG 24.7 mEq/l (22.0-26.0); Methemoglobin ABG 0.1 %THb (0-1.5); Oxygen Content ABG 17.6 %vol (16.0-22.0); Oxygen Saturation ABG 97.8 % (95.0-100.0); Oxyhemoglobin 97.7 % THb (90.0-100.0); PCO2 ABG 35.6 mmHg (35.0-45.0); PO2 ABG 97.7 mmHg (80.0-100.0); PO2 FiO2 Ratio Arterial Blood 3.26 %; Total Hemoglobin 12.7 g/dL (12.0-18.0); pH ABG 7.459 (7.350-7.450)
[2024-10-24 05:13] LABS: Device VENTILATOR; Modified Allen's Test Pass; Site Drawn RIGHT RADIAL
[2024-10-24 05:14] LABS: Arterial Blood Gas PEEP 5 cmH2O; Arterial Blood Gas Tidal Volume 400 ml; Arterial Blood Gas Vent Mode CMV; Arterial Blood Gas Ventilator rate 16 /MIN
[2024-10-24 05:34] LABS: T3 Free 2.9 pg/mL (2.3-4.2)
[2024-10-24 06:22] LABS: Hematocrit 35.8 % (42.0-52.0); Hemoglobin 11.7 g/dL (14.0-18.0); Mean Corpuscular HGB Conc 32.7 g/dl (32-36); Mean Corpuscular Hemoglobin 30.1 pg (26-34); Platelet Count Result 322 k/mm3 (150-375); Red Blood Count 3.89 M/mm3 (4.6-6.20); Red Cell Distribution Width 15.8 % (11.5-14.5); White Blood Count 25.5 K/mm3 (4.5-10.0)
[2024-10-24 06:34] LABS: Alanine Aminotransferase 62 U/L (6-50); Albumin Level 3.5 g/dL (3.5-5.1); Alkaline Phosphatase 78 U/L (38-126); Anion Gap 5 mmol/L (4-12); Aspartate Amino Transferase 58 U/L (17-59); Bilirubin,Total 1.4 mg/dL (0.2-1.3); Blood Urea Nitrogen 25 mg/dL (9-20); Calcium 8.7 mg/dL (8.4-10.2); Carbon Dioxide 27 mmol/L (22-30); Chloride 108 mmol/L (98-107); Creatine Kinase 520 U/L (55-170); Estimated CRCL calculation 40 ml/min; Estimated Glomerular Filt Rate 53; Glucose 144 mg/dL (65-110); Magnesium 2.4 mg/dL (1.6-2.3); Phosphorus 3.1 mg/dL (2.5-4.5); Sodium 140 mmol/L (137-145)
[2024-10-24] MEDS: CENTRAL LINE FLUSH 10 ML IV PUSH ×3 (06:38→20:04)
[2024-10-24 08:31] LABS: Triglycerides 122 mg/dL (<150)
[2024-10-24] MEDS: LACTATED RINGERS 1,000 ML 100 ML IV CONT (08:31)
[2024-10-24] MEDS: PANTOPRAZOLE SODIUM IV 40 MG VIAL IV PUSH ×2 (08:31→20:04)
[2024-10-24] MEDS: MINERAL OIL/WHITE PETROLATUM OINTMENT 1 APPLIC EACH EYE ×2 (08:32→20:05)
[2024-10-24] MEDS: ENOXAPARIN 40 MG/0.4 ML SYRINGE SUB-Q (08:32)
[2024-10-24] MEDS: PROPOFOL IV EMULSION 100 ML 2.33 MG IV CONT (08:32)
--- NOTE | 2024-10-24 08:54 | P.PNINT_ITS ---
Progress Note: A&P Assessment and Plan (1) Acute respiratory failure: Code(s): J96.00 - Acute respiratory failure, unspecified whether with hypoxia or hypercapnia Status: Acute Assessment and Plan: Acute Respiratory failure secondary to cardiac arrest, pulmonary edema, questionable aspiration pneumonia Continue full mechanical ventilation support to prevent hypoxemia/hypercarbia and end organ damage. ABG reviewed. Chest x-ray reviewed. Advance ET tube by 2 cm Low tidal volume ventilation strategy to prevent volutrauma Weaning will depend on improvement in neurological cardiac status Add Bronchodilators (2) Cardiac arrest: Code(s): I46.9 - Cardiac arrest, cause unspecified Status: Acute Assessment and Plan: PE a cardiac arrest which converted to VFib and later patient was and complete heart block Status post temporary transvenous pacemaker placement Mild elevation of troponin likely secondary to cardiac arrest and respiratory failure Continue statin. Patient is allergic to aspirin. No information available from family regarding the nature of allergy Echo reviewed Cardiology is following Hold ARB due to low blood pressure (3) Sepsis: Code(s): A41.9 - Sepsis, unspecified organism Status: Acute Assessment and Plan: Patient met criteria for sepsis. Chest x-ray was clear and did not show any sign of aspiration. CT scan has been delayed due to patient being unstable on presentation His UA was abnormal Blood and urine cultures have been ordered and are pending Continue Zosyn at this time empirically to cover for aspiration pneumonia and UTI (4) Heart block AV third degree: Code(s): I44.2 - Atrioventricular block, complete Status: Acute Assessment and Plan: Status post transvenous pacemaker placement which is currently on standby patient's rate is above set pacemaker rate (5) Anoxic brain injury: Code(s): G93.1 - Anoxic brain damage, not elsewhere classified Status: Acute Assessment and Plan: Patient was comatose post resuscitation Head CT was negative for any acute intracranial change Patient had a PEA arrest which later converted to VFib and on arrival was bradycardic and hypotensive Patient started on TTM protocol has completed 24 hours. He was has been rewa rming He has been off of sedation for last 24 hours At this time patient is tachypneic and asynchronous with the ventilator. Exam as above. I will start low-dose propofol for safe mechanical ventilation and periodically reassess patient by holding propofol Continue neurological monitoring and exam Will order further workup including EEG and repeat CT scanned pending on how he progresses (6) Acute hypokalemia: Code(s): E87.6 - Hypokalemia Status: Acute Assessment and Plan: Potassium improved after placement (7) Congestive heart failure: Code(s): I50.9 - Heart failure, unspecified Status: Acute Assessment and Plan: Bilateral pitting edema on exam. Hold diuretics at this time Summary 1. Complete two-dimensional, color flow and Doppler transthoracic echocardiogram is performed. 2. Technically difficult study with limited views. 3. The left ventricle is normal in size with mildly reduced systolic function. The left ventricular ejection fraction is visually estimated to be 40-45%. 4. The aortic valve is not well visualized however did gradients across the valve suggests moderate aortic stenosis. 5. There is small pericardial effusion. 6. Dilated inferior vena cava with <50% collapse upon inspiration consistent with significantly elevated right atrial pressure, 15 mmHg. (8) Hypotension: Code(s): I95.9 - Hypotension, unspecified Status: Acute Assessment and Plan: Patient was initially hypertensive likely secondary to bradycardia and was on epinephrine drip which was weaned off. Continue to monitor (9) Metabolic acidosis: Code(s): E87.20 - Acidosis, unspecified Status: Acute Assessment and Plan: Hyperchloremic metabolic acidosis. Improving. Monitor (10) Hyperglycemia: Code(s): R73.9 - Hyperglycemia, unspecified Status: Acute Assessment and Plan: Sliding scale insulin ordered (11) Hypertension: Code(s): I10 - Essential (primary) hypertension Status: Acute Assessment and Plan: Patient has history of hypertension but now blood pressure is soft on sedation. Hold antihypertensive medications Plan DVT prophylaxis -Lovenox Stress ulcer prophylaxis -PPI Nutrition -continue tube feeds Code Status - Full Code 10/23 I spoke to patient's stepdaughter Olivia by phone and updated her with erna weber's current status including respiratory failure, cardiac arrest, complete heart block requiring transvenous pacemaker, anoxic brain injury. I also answer question updated with current treatment plan including holding sedation and re- evaluating his neurological status over next 24-48 hours. She is going to discuss with her mother regarding goals of care and code status. She told me that patient does not have any biological children and his has limited cognitive ability due to dementia Total Critical Care Time - 32 minutes Due to a high probability of clinically significant, life threatening deterioration, the patient required my highest level of preparedness to intervene emergently and I personally spent this critical care time directly and personally managing the patient. This critical care time included obtaining a history; examining the patient; pulse oximetry; ordering and review of studies; arranging urgent treatment with development of a management plan; evaluation of patient's response to treatment; frequent reassessment; and discussions with other providers. It was exclusive of separately billable procedures and treating other patients and teaching time. Please see Assessment and Plan section and the rest of the note for further information on patient assessment and treatment Subjective Date/time seen: 10/24/24 Overnight events reviewed. febrile Continues to be on mechanical ventilation 30% FiO2 Off of pressors and sedatives Acceptable Tolerating tube feeds Eyes are open, he withdraws to pain, he has cough and gag reflex but is not responsive to commands or regards examiner Ventilated Sinus rhythm with intermittent pacing Review of Systems Review of Systems: ROS unobtainable: Yes unobtainable due to endotracheal tube, unobtainable due to medical condition and unobtainable due to mental status Exam Narrative: General: Pt is sedated, intubated, chemically paralyzed and on mechanical ventilation Lungs/Chest: Trachea central clear BS B/L, No crackles or wheezing. Cardiac: RRR. Normal S1 S2. No murmurs Circulation: Pedal pulses are intact and symmetrical but weak Abdomen: Present bowel sounds. Soft. NT. ND. Rectal tube in place Extremities: No clubbing, cyanosis, Warm. Bilateral pitting edema present : Romero in place Neurologic: Eyes are open, he withdraws to pain, he has cough and gag reflex but is not responsive to commands or regards examiner PERRL Objective Data Vital Signs Vital Signs: Vital Signs - 24 hr 10/23/24 09:12 10/23/24 10:00 10/23/24 10:00 Temperature 37.2 C Pulse Rate 111 H 79 79 Respiratory Rate 18 Blood Pressure 156/55 H Pulse Oximetry 97 96 Oxygen Delivery Mechanical Ventilation Fraction of Inspired Oxygen 30 10/23/24 10:00 10/23/24 10:00 10/23/24 11:12 Temperature Pulse Rate 79 79 80 Respiratory Rate 18 18 Blood Pressure Pulse Oximetry 97 Oxygen Delivery Mechanical Ventilation Fraction of Inspired Oxygen 30 10/23/24 12:01 10/23/24 12:00 10/23/24 13:01 Temperature 38.3 C H 38.3 C H 38.5 C H Pulse Rate 82 Respiratory Rate 20 Blood Pressure 161/107 H Pulse Oximetry 97 Oxygen Delivery Fraction of Inspired Oxygen 10/23/24 12:00 10/23/24 12:00 10/23/24 12:00 Temperature Pulse Rate 82 82 Respiratory Rate 20 20 Blood Pressure Pulse Oximetry Oxygen Delivery Mechanical Ventilation Fraction of Inspired Oxygen 30 10/23/24 12:00 10/23/24 12:00 10/23/24 14:00 Temperature Pulse Rate 88 89 Respiratory Rate Blood Pressure Pulse Oximetry Oxygen Delivery Fraction of Inspired Oxygen 40 10/23/24 14:00 10/23/24 14:00 10/23/24 14:00 Temperature 38.5 C H Pulse Rate 89 89 89 Respiratory Rate 26 H 26 H 26 H Blood Pressure 149/59 H Pulse Oximetry 98 Oxygen Delivery Fraction of Inspired Oxygen 10/23/24 13:53 10/23/24 16:00 10/23/24 16:00 Temperature 38.6 C H Pulse Rate 86 87 87 Respiratory Rate 19 18 Blood Pressure 160/83 H Pulse Oximetry 97 97 Oxygen Delivery Mechanical Ventilation Fraction of Inspired Oxygen 30 10/23/24 16:00 10/23/24 16:00 10/23/24 16:00 Temperature Pulse Rate 87 Respiratory Rate 18 Blood Pressure Pulse Oximetry Oxygen Delivery Mechanical Ventilation Fraction of Inspired Oxygen 30 40 10/23/24 16:00 10/23/24 18:00 10/23/24 18:04 Temperature Pulse Rate 89 93 93 Respiratory Rate 20 20 Blood Pressure Pulse Oximetry Oxygen Delivery Fraction of Inspired Oxygen 10/23/24 18:00 10/23/24 17:04 10/23/24 18:00 Temperature 38.4 C H Pulse Rate 87 92 93 Respiratory Rate 20 Blood Pressure 169/92 H Pulse Oximetry 97 96 Oxygen Delivery Mechanical Ventilation Fraction of Inspired Oxygen 30 10/23/24 20:40 10/23/24 21:31 10/23/24 22:48 Temperature 38.4 C H Pulse Rate 96 87 90 Respiratory Rate 20 Blood Pressure 161/53 H Pulse Oximetry 97 95 97 Oxygen Delivery Mechanical Ventilation Mechanical Ventilation Fraction of Inspired Oxygen 30 30 10/23/24 20:00 10/23/24 22:01 10/23/24 22:31 Temperature 38.4 C H 38.4 C H Pulse Rate 92 105 H Respiratory Rate 20 24 H Blood Pressure 186/58 H 175/71 H Pulse Oximetry 95 96 Oxygen Delivery Fraction of Inspired Oxygen 40 10/23/24 23:01 10/23/24 20:00 10/23/24 20:00 Temperature 38.5 C H Pulse Rate 81 105 H Respiratory Rate 20 Blood Pressure 173/58 H Pulse Oximetry 96 Oxygen Delivery Mechanical Ventilation Fraction of Inspired Oxygen 30 10/23/24 22:00 10/24/24 02:34 10/24/24 00:00 Temperature Pulse Rate 91 90 95 Respiratory Rate 22 H Blood Pressure Pulse Oximetry 95 96 Oxygen Delivery Mechanical Ventilation Mechanical Ventilation Fraction of Inspired Oxygen 30 30 10/24/24 00:00 10/24/24 00:00 10/24/24 00:00 Temperature 38.4 C H Pulse Rate 95 95 Respiratory Rate 22 H Blood Pressure 170/84 H Pulse Oximetry 96 Oxygen Delivery Fraction of Inspired Oxygen 30 10/24/24 02:00 10/24/24 01:01 10/24/24 02:02 Temperature 38.3 C H 38.4 C H Pulse Rate 93 99 93 Respiratory Rate 28 H 24 H Blood Pressure 181/83 H 173/53 H Pulse Oximetry 99 98 Oxygen Delivery Fraction of Inspired Oxygen 10/24/24 03:01 10/24/24 04:05 10/24/24 05:06 Temperature 38.4 C H 38.3 C H Pulse Rate 100 101 H 94 Respiratory Rate 24 H 20 Blood Pressure 174/51 H 180/69 H Pulse Oximetry 95 97 Oxygen Delivery Mechanical Ventilation Fraction of Inspired Oxygen 30 10/24/24 04:00 10/24/24 04:00 10/24/24 04:00 Temperature Pulse Rate 101 H 101 H Respiratory Rate 20 Blood Pressure Pulse Oximetry 95 Oxygen Delivery Mechanical Ventilation Fraction of Inspired Oxygen 30 30 10/24/24 06:00 10/24/24 06:00 10/24/24 08:14 Temperature 38.4 C H Pulse Rate 100 73 Respiratory Rate 27 H Blood Pressure 172/59 H Pulse Oximetry 94 97 Oxygen Delivery Mechanical Ventilation Fraction of Inspired Oxygen 30 10/24/24 08:32 10/24/24 08:00 Temperature 38.5 C H Pulse Rate 98 90 Respiratory Rate 28 H 27 H Blood Pressure 164/69 H Pulse Oximetry 95 Oxygen Delivery Fraction of Inspired Oxygen Intake/Output Intake/Output: Intake & Output 12/0410/22/24 10/23/24 10/24/24 23:59 23:59 23:59 23:59 Intake Total 2584.5 789.9 693 Output Total 600 2760 1015 700 Balance -600 -175.5 -225.1 -7 Meds/Results Medications: Active Medications Generic Name Dose Route Start Last Admin Trade Name Freq PRN Reason Stop Dose Admin Acetaminophen 650 mg 10/23/24 11:38 10/23/24 12:01 Acetaminophen Elixir 325 Mg/10.15 Ml Udc PO 650 mg Q6H PRN Administration Mild Pain (1-3) or Fever Albuterol/Ipratropium 3 ml 10/22/24 08:35 Ipratropium 0.5 Mg/Albuterol Sulfate 2.5 Mg Ampul.Neb 3 Ml INHALATION Q6HRT PRN Wheezing Atorvastatin Calcium 20 mg 10/21/24 21:40 10/23/24 21:18 Atorvastatin 20 Mg Tablet FEED TUBE 20 mg HS ALEJANDRO Administration Dextrose 12.5 gm 10/21/24 22:44 Dextrose 50% 25 Gm/50 Ml Syringe IV PUSH PRN PRN Hypoglycemia Protocol Enoxaparin Sodium 40 mg 10/22/24 09:00 10/24/24 08:32 Enoxaparin 40 Mg/0.4 Ml Syringe SUB-Q 40 mg DAILY ALEJANDRO Administration Glucagon 1 mg 10/21/24 22:44 Glucagon For Inj 1 Mg Vial IM PRN PRN Hypoglycemia Protocol Glucose 15 gm 10/21/24 22:44 Glucose Oral Gel 15 Gm Of Glucse In 37.5 Gm Tube PO PRN PRN Hypoglycemia Protocol Dextrose 1,000 mls @ 100 mls/hr 10/21/24 22:44 Dextrose 5% 1,000 Ml IVPB PRN PRN Hypoglycemia Protocol Piperacillin/Tazobactam/Dextrose 3.375 gm in 50 mls @ 100 mls/hr 10/22/24 12:00 10/24/24 07:03 Zosyn 3.375 Gm/Ns 50 Ml IVPB Infused Q6HR ALEJANDRO Infusion Lactated Ringer's 1,000 mls @ 100 mls/hr 10/24/24 08:00 10/24/24 08:31 Lr - Lactated Ringers Iv IV CONT 10/24/24 17:59 100 mls/hr .Q10H ALEJANDRO Administration Propofol 100 mls @ 2.331 mls/hr 10/24/24 08:00 10/24/24 08:32 Diprivan IV CONT 5 mcg/kg/min .[id number] ALEJANDRO 2.33 mls/hr Administration Protocol 5 MCG/KG/MIN Insulin Aspart 2 - 5 units 10/22/24 06:00 10/24/24 06:39 Insulin Aspart (*Bkc) 100 Units/Ml SUB-Q Not Given Q6HR ALEJANDRO Protocol Multi-Ingred Cream/Lotion/Oil/Oint 1 applic 10/22/24 09:00 10/24/24 08:32 Mineral Oil/White Petrolatum Ointment EACH EYE 1 applic Q12HR ALEJANDRO Administration Pantoprazole Sodium 40 mg 10/21/24 21:00 10/24/24 08:31 Pantoprazole Sodium Iv 40 Mg Vial IV PUSH 40 mg Q12HR ALEJANDRO Administration Perflutren Lipid Microsphere 0 ml 10/22/24 08:36 Perflutren Lipid Microspheres 1.5 Ml Vial Diluted To 10 Ml Total Volume IV PUSH 10/25/24 08:36 ONCE PRN adequate visualization Protocol Sodium Chloride 10 ml 10/22/24 14:00 10/24/24 06:38 Central Line Flush IV PUSH 10 ml Q8HR ALEJANDRO Administration Sodium Chloride 20 ml 10/22/24 07:50 Central Line Flush IV PUSH PRN PRN after blood draws Radiology Results: ITS Impressions Head CT 10/21/24 19:53 IMPRESSION: No acute intracranial findings. Chest X-Ray 10/24/24 05:51 IMPRESSION: 1. Cardiomegaly. Labs Labs: Laboratory Results - last 24 hr 10/22/24 10/23/24 10/23/24 09:55 11:45 17:50 WBC RBC Hgb Hct MCV MCH MCHC RDW Plt Count MPV Puncture Site ABG pH ABG pCO2 ABG pO2 ABG PO2/FiO2 Ratio ABG HCO3 ABG O2 Saturation ABG O2 Content ABG Base Excess A-a Gradient Oxyhemoglobin Carboxyhemoglobin Methemoglobin Reduced Hemoglobin Total Hemoglobin O2 Delivery Device O2 Liters/Min Minute Volume Vent Rate Vent Mode FiO2 Tidal Volume PEEP Peak Inspir Pressure Pressure Support Sodium Potassium Chloride Carbon Dioxide Anion Gap BUN Creatinine Estim Creat Clear Calc Estimated GFR Glucose POC Capillary Glucose 123 H 125 H Calcium Phosphorus Magnesium Total Bilirubin AST ALT Alkaline Phosphatase Total Creatine Kinase Total Protein Albumin Triglycerides Free T3 pg/mL 2.9 10/24/24 10/24/24 10/24/24 00:06 04:59 06:05 WBC 25.5 H RBC 3.89 L Hgb 11.7 L Hct 35.8 L MCV 92.0 MCH 30.1 MCHC 32.7 RDW 15.8 H Plt Count 322 MPV 11.0 H Puncture Site Right radial ABG pH 7.459 H ABG pCO2 35.6 ABG pO2 97.7 ABG PO2/FiO2 Ratio 3.26 ABG HCO3 24.7 ABG O2 Saturation 97.8 ABG O2 Content 17.6 ABG Base Excess 1.2 A-a Gradient 74.4 Oxyhemoglobin 97.7 Carboxyhemoglobin 0.2 Methemoglobin 0.1 Reduced Hemoglobin 2.0 Total Hemoglobin 12.7 O2 Delivery Device Ventilator O2 Liters/Min Not Reportable Minute Volume Not Reportable Vent Rate 16 Vent Mode Cmv FiO2 30 Tidal Volume 400 PEEP 5 Peak Inspir Pressure Not Reportable Pressure Support Not Reportable Sodium 140 Potassium 4.0 Chloride 108 H Carbon Dioxide 27 Anion Gap 5 BUN 25 H D Creatinine 1.30 Estim Creat Clear Calc 40 Estimated GFR 53 L Glucose 144 H POC Capillary Glucose 146 H Calcium 8.7 Phosphorus 3.1 Magnesium 2.4 H Total Bilirubin 1.4 H AST 58 ALT 62 H Alkaline Phosphatase 78 Total Creatine Kinase 520 H Total Protein 7.0 Albumin 3.5 Triglycerides 122 Free T3 pg/mL Quality VTE Prophylaxis VTE prophylaxis: mechanical ordered
[2024-10-24] MEDS: ACETAMINOPHEN ELIXIR 325 MG/10.15 ML UDC 650 MG PO ×2 (09:20→16:13)
[2024-10-24 13:08] LABS: Glucose Point of Care 134 mg/dl (65-105)
[2024-10-24 17:46] LABS: Glucose Point of Care 142 mg/dl (65-105)
--- NOTE | 2024-10-24 18:26 | PM.IMPN ---
Progress Note: A&P Assessment and Plan (1) Cardiac arrest: Code(s): I46.9 - Cardiac arrest, cause unspecified Status: Acute Assessment and Plan: Patient admitted to the ICU after out of hospital cardiac arrest. EMS was able to regain [place] after 2 rounds of epi then 2 shocks for VFib and 300 mg amiodarone. Patient intubated patient in the field. In the ED, EKG showed third-degree AVB. Patient was HoTN and epinephrine drip started but he remained bradycardic. Patient taken to the cardiac geophysical laboratory director for emergent placement of transvenous pacer through the right groin. Status post temporary transvenous pacemaker placement but now on hold since HR above threshold and not capturing well Mild elevation of troponin likely secondary to cardiac arrest and respiratory failure Echo was technically difficult with normal LV size but reduced EF 40-45%, moderate , small pericardial effusion and eelvated RAP. Cardiology consulted and appreciate their input. Holding ARB due to low blood pressure Continue statin. Patient is allergic to aspirin. Consider Plavix but permanent PM being considered. (2) Acute respiratory failure: Code(s): J96.00 - Acute respiratory failure, unspecified whether with hypoxia or hypercapnia Status: Acute Assessment and Plan: Patient with cardiac arrest and subsequent acute respiratory failure requiring intubation in the filed. CXR (10/21) showing bibasilar prominent bronchovascular markings which may indicate atelectasis versus early PNA ABG on admission 7.35/35/493 on MV. Continue full mechanical ventilation support. Weaning will depend on improvement in neurological cardiac status Appreciate travel ticketing reviewer input. (3) Sepsis: Code(s): A41.9 - Sepsis, unspecified organism Status: Acute Assessment and Plan: Patient met criteria for sepsis. Admission CXR as above. Repeat CXR today was clear Continued to have fevers. MRSA nasal swab negative. WBC elevated on admission and was up to 31K. WBC now up/down. BCx NGTD UCx growing enterococcus >100K colonies sensitive to Ampicillin. Zosyn started. Sepsis related to UTI? Cerebral event? Check for influenza. Continue Zosyn. Consider adding broader coverage with meropenem if continues to have fevers. Check PCT and CRP. (4) Heart block AV third degree: Code(s): I44.2 - Atrioventricular block, complete Status: Acute Assessment and Plan: As above. Patient with 3rd degree AVB status post transvenous pacemaker placement 10/21. Patient's heart rate was exceeding the set rate and also not capturing so turning off. Sheath stil in place. Being managed by cardiology. PM was being being considered but may hold if heart rate remains stable. Has AFib/Flutter now. Add anticoagulation when more stable. (5) Anoxic brain injury: Code(s): G93.1 - Anoxic brain damage, not elsewhere classified Status: Acute Assessment and Plan: Patient was comatose post resuscitation. Head CT was negative for any acute intracranial change Patient had a PEA arrest which later converted to VFib and on arrival was bradycardic due to heart block and hypotensive Patient was started on TTM protocol. He completed 24 hours and was rewarmed Sedation held and he became tachypneic and asynchronous with the ventilator. Propofol added Continue neurological monitoring and exam Will order further workup including EEG and repeat CT scanned pending on how he progresses (6) Hypotension: Code(s): I95.9 - Hypotension, unspecified Status: Acute Assessment and Plan: Patient was initially hypotensive likely secondary to bradycardia and was placed on epinephrine drip. Epi drip has since been weaned off. Patient has become hypertensive at times Continue to monitor (7) Congestive heart failure: Code(s): I50.9 - Heart failure, unspecified Status: Acute Assessment and Plan: Patient with bilateral pitting edema on exam. Echo as above. Low EF and mild edema related to cardiac arrrest. CXR clear. He will need GDMT when/if able. (8) Hyperglycemia: Code(s): R73.9 - Hyperglycemia, unspecified Status: Acute Assessment and Plan: A1c 5.2%. Patient hyperglycemic related to above. Sliding scale insulin ordered (9) Hypertension: Code(s): I10 - Essential (primary) hypertension Status: Acute Assessment and Plan: Patient has history of hypertension. As above Monitor Plan DVT prophylaxis -Lovenox Stress ulcer prophylaxis -PPI Nutrition -continue tube feeds Code Status - Full Code Subjective Date/time seen: 10/24/24 18:26 Interval history: 79yo male with hx of HTN, CAD and rectal cancer admitted to the ICU after out of hospital cardiac arrest. Assuming care. Chart reviewed. Patient is intubated and sedated. PM not capturing so turned off earlier today. Noted to have increased secretions. On 30%, PEEP 5. Sedation held and he became more responsive but not following commands. Review of Systems Review of Systems: ROS unobtainable: Yes unobtainable due to endotracheal tube Exam Narrative: Tm 102 100.8 145/55 77 25 99% MV Gen - intubated and sedated HEENT - PERRL. ETT and OGT secured Neck - Rt IJ TLC in place. no surrounding crepitus Chest - clear anteriorly CV - irregularly iregular. Rate controlled. Tele showing AFib/AFlutter Abd - Soft, ND, +BS - Romero secured draining clear yellow urine. Fecal cont system secured with brown liquid stool in bag Ext - periankle pedal edema Neuro - opens eyes to voice but does not regard. Psych - unable to assess Skin - Warm and dry Objective Data Vital Signs Vital Signs: Vital Signs - 24 hr 10/23/24 20:40 10/23/24 21:31 10/23/24 22:48 Temperature 101.1 F H Pulse Rate 96 87 90 Pulse Rate [Bilateral Pedal (Dorsalis Pedis) Palpation] Respiratory Rate 20 Blood Pressure 161/53 H Pulse Oximetry 97 95 97 Oxygen Delivery Mechanical Ventilation Mechanical Ventilation Fraction of Inspired Oxygen 30 30 10/23/24 20:00 10/23/24 22:01 10/23/24 22:31 Temperature 101.1 F H 101.2 F H Pulse Rate 92 105 H Pulse Rate [Bilateral Pedal (Dorsalis Pedis) Palpation] Respiratory Rate 20 24 H Blood Pressure 186/58 H 175/71 H Pulse Oximetry 95 96 Oxygen Delivery Fraction of Inspired Oxygen 40 10/23/24 23:01 10/23/24 20:00 10/23/24 20:00 Temperature 101.3 F H Pulse Rate 81 105 H Pulse Rate [Bilateral Pedal (Dorsalis Pedis) Palpation] Respiratory Rate 20 Blood Pressure 173/58 H Pulse Oximetry 96 Oxygen Delivery Mechanical Ventilation Fraction of Inspired Oxygen 30 10/23/24 22:00 10/24/24 02:34 10/24/24 00:00 Temperature Pulse Rate 91 90 95 Pulse Rate [Bilateral Pedal (Dorsalis Pedis) Palpation] Respiratory Rate 22 H Blood Pressure Pulse Oximetry 95 96 Oxygen Delivery Mechanical Ventilation Mechanical Ventilation Fraction of Inspired Oxygen 30 30 10/24/24 00:00 10/24/24 00:00 10/24/24 00:00 Temperature 101.1 F H Pulse Rate 95 95 Pulse Rate [Bilateral Pedal (Dorsalis Pedis) Palpation] Respiratory Rate 22 H Blood Pressure 170/84 H Pulse Oximetry 96 Oxygen Delivery Fraction of Inspired Oxygen 30 10/24/24 02:00 10/24/24 01:01 10/24/24 02:02 Temperature 101.0 F H 101.1 F H Pulse Rate 93 99 93 Pulse Rate [Bilateral Pedal (Dorsalis Pedis) Palpation] Respiratory Rate 28 H 24 H Blood Pressure 181/83 H 173/53 H Pulse Oximetry 99 98 Oxygen Delivery Fraction of Inspired Oxygen 10/24/24 03:01 10/24/24 04:05 10/24/24 05:06 Temperature 101.1 F H 101.0 F H Pulse Rate 100 101 H 94 Pulse Rate [Bilateral Pedal (Dorsalis Pedis) Palpation] Respiratory Rate 24 H 20 Blood Pressure 174/51 H 180/69 H Pulse Oximetry 95 97 Oxygen Delivery Mechanical Ventilation Fraction of Inspired Oxygen 30 10/24/24 04:00 10/24/24 04:00 10/24/24 04:00 Temperature Pulse Rate 101 H 101 H Pulse Rate [Bilateral Pedal (Dorsalis Pedis) Palpation] Respiratory Rate 20 Blood Pressure Pulse Oximetry 95 Oxygen Delivery Mechanical Ventilation Fraction of Inspired Oxygen 30 30 10/24/24 06:00 10/24/24 06:00 10/24/24 08:14 Temperature 101.1 F H Pulse Rate 100 73 Pulse Rate [Bilateral Pedal (Dorsalis Pedis) Palpation] Respiratory Rate 27 H Blood Pressure 172/59 H Pulse Oximetry 94 97 Oxygen Delivery Mechanical Ventilation Fraction of Inspired Oxygen 30 10/24/24 08:32 10/24/24 08:00 10/24/24 09:20 Temperature 101.3 F H 101.8 F H Pulse Rate 98 90 Pulse Rate [Bilateral Pedal (Dorsalis Pedis) Palpation] Respiratory Rate 28 H 27 H Blood Pressure 164/69 H Pulse Oximetry 95 Oxygen Delivery Fraction of Inspired Oxygen 10/24/24 08:40 10/24/24 08:00 10/24/24 08:00 Temperature Pulse Rate 90 Pulse Rate [Bilateral Pedal (Dorsalis Pedis) Palpation] 91 Respiratory Rate 27 H Blood Pressure Pulse Oximetry Oxygen Delivery Fraction of Inspired Oxygen 30 10/24/24 11:36 10/24/24 12:00 10/24/24 14:38 Temperature Pulse Rate 88 80 Pulse Rate [Bilateral Pedal (Dorsalis Pedis) Palpation] Respiratory Rate Blood Pressure Pulse Oximetry 98 98 Oxygen Delivery Mechanical Ventilation Mechanical Ventilation Fraction of Inspired Oxygen 30 30 30 10/24/24 16:12 10/24/24 16:13 10/24/24 09:00 Temperature 101.8 F H 101.2 F H Pulse Rate 78 Pulse Rate [Bilateral Pedal (Dorsalis Pedis) Palpation] Respiratory Rate 24 H Blood Pressure Pulse Oximetry Oxygen Delivery Fraction of Inspired Oxygen 10/24/24 10:00 10/24/24 11:00 10/24/24 12:00 Temperature Pulse Rate 80 88 89 Pulse Rate [Bilateral Pedal (Dorsalis Pedis) Palpation] Respiratory Rate 24 H 26 H 24 H Blood Pressure Pulse Oximetry Oxygen Delivery Fraction of Inspired Oxygen 10/24/24 14:00 10/24/24 16:00 10/24/24 10:00 Temperature 102 F H Pulse Rate 76 77 80 Pulse Rate [Bilateral Pedal (Dorsalis Pedis) Palpation] Respiratory Rate 20 25 H 24 H Blood Pressure 143/78 H Pulse Oximetry 97 Oxygen Delivery Fraction of Inspired Oxygen 10/24/24 12:00 10/24/24 14:00 10/24/24 16:00 Temperature 101.4 F H 101.2 F H 101.2 F H Pulse Rate 89 76 77 Pulse Rate [Bilateral Pedal (Dorsalis Pedis) Palpation] Respiratory Rate 24 H 20 25 H Blood Pressure 140/65 151/66 H 161/69 H Pulse Oximetry 97 96 99 Oxygen Delivery Fraction of Inspired Oxygen 10/24/24 12:30 10/24/24 16:00 10/24/24 08:00 Temperature Pulse Rate 98 Pulse Rate [Bilateral Pedal (Dorsalis Pedis) Palpation] 85 Respiratory Rate Blood Pressure Pulse Oximetry Oxygen Delivery Fraction of Inspired Oxygen 30 10/24/24 10:00 10/24/24 12:00 10/24/24 14:00 Temperature Pulse Rate 84 82 82 Pulse Rate [Bilateral Pedal (Dorsalis Pedis) Palpation] Respiratory Rate Blood Pressure Pulse Oximetry Oxygen Delivery Fraction of Inspired Oxygen 10/24/24 16:00 10/24/24 08:00 10/24/24 12:00 Temperature Pulse Rate 92 Pulse Rate [Bilateral Pedal (Dorsalis Pedis) Palpation] Respiratory Rate Blood Pressure Pulse Oximetry 95 97 Oxygen Delivery Mechanical Ventilation Mechanical Ventilation Fraction of Inspired Oxygen 30 30 10/24/24 16:00 10/24/24 16:00 10/24/24 17:18 Temperature Pulse Rate 74 Pulse Rate [Bilateral Pedal (Dorsalis Pedis) Palpation] 77 Respiratory Rate Blood Pressure Pulse Oximetry 99 98 Oxygen Delivery Mechanical Ventilation Mechanical Ventilation Fraction of Inspired Oxygen 30 30 10/24/24 17:13 10/24/24 17:42 10/24/24 18:00 Temperature 100.9 F H Pulse Rate 80 74 Pulse Rate [Bilateral Pedal (Dorsalis Pedis) Palpation] Respiratory Rate 26 H Blood Pressure Pulse Oximetry Oxygen Delivery Fraction of Inspired Oxygen 10/24/24 18:00 Temperature 100.8 F H Pulse Rate 77 Pulse Rate [Bilateral Pedal (Dorsalis Pedis) Palpation] Respiratory Rate 25 H Blood Pressure 145/55 H Pulse Oximetry 99 Oxygen Delivery Fraction of Inspired Oxygen Intake/Output Intake/Output: Intake & Output 10/21/24 10/22/24 10/23/24 10/24/24 23:59 23:59 23:59 23:59 Intake Total 2584.5 789.9 805.8 Output Total 600 2760 1015 700 Balance -600 -175.5 -225.1 105.8 Meds/Results Medications: Active Medications Generic Name Dose Route Start Last Admin Trade Name Freq PRN Reason Stop Dose Admin Acetaminophen 650 mg 10/23/24 11:38 10/24/24 16:13 Acetaminophen Elixir 325 Mg/10.15 Ml Udc PO 650 mg Q6H PRN Administration Mild Pain (1-3) or Fever Albuterol/Ipratropium 3 ml 10/22/24 08:35 Ipratropium 0.5 Mg/Albuterol Sulfate 2.5 Mg Ampul.Neb 3 Ml INHALATION Q6HRT PRN Wheezing Atorvastatin Calcium 20 mg 10/21/24 21:40 10/23/24 21:18 Atorvastatin 20 Mg Tablet FEED TUBE 20 mg HS ALEJANDRO Administration Dextrose 12.5 gm 10/21/24 22:44 Dextrose 50% 25 Gm/50 Ml Syringe IV PUSH PRN PRN Hypoglycemia Protocol Enoxaparin Sodium 40 mg 10/22/24 09:00 10/24/24 08:32 Enoxaparin 40 Mg/0.4 Ml Syringe SUB-Q 40 mg DAILY ALEJANDRO Administration Glucagon 1 mg 10/21/24 22:44 Glucagon For Inj 1 Mg Vial IM PRN PRN Hypoglycemia Protocol Glucose 15 gm 10/21/24 22:44 Glucose Oral Gel 15 Gm Of Glucse In 37.5 Gm Tube PO PRN PRN Hypoglycemia Protocol Dextrose 1,000 mls @ 100 mls/hr 10/21/24 22:44 Dextrose 5% 1,000 Ml IVPB PRN PRN Hypoglycemia Protocol Piperacillin/Tazobactam/Dextrose 3.375 gm in 50 mls @ 100 mls/hr 10/22/24 12:00 10/24/24 17:41 Zosyn 3.375 Gm/Ns 50 Ml IVPB 100 mls/hr Q6HR LAEJANDRO Administration Propofol 100 mls @ 9.324 mls/hr 10/24/24 08:00 10/24/24 17:42 Diprivan IV CONT 20 mcg/kg/min .[id number] ALEJANDRO 9.32 mls/hr Titration Protocol 20 MCG/KG/MIN Insulin Aspart 2 - 5 units 10/22/24 06:00 10/24/24 17:41 Insulin Aspart (*Bkc) 100 Units/Ml SUB-Q Not Given Q6HR ALEJANDRO Protocol Multi-Ingred Cream/Lotion/Oil/Oint 1 applic 10/22/24 09:00 10/24/24 08:32 Mineral Oil/White Petrolatum Ointment EACH EYE 1 applic Q12HR ALEJANDRO Administration Pantoprazole Sodium 40 mg 10/21/24 21:00 10/24/24 08:31 Pantoprazole Sodium Iv 40 Mg Vial IV PUSH 40 mg Q12HR ALEJANDRO Administration Perflutren Lipid Microsphere 0 ml 10/22/24 08:36 Perflutren Lipid Microspheres 1.5 Ml Vial Diluted To 10 Ml Total Volume IV PUSH 10/25/24 08:36 ONCE PRN adequate visualization Protocol Sodium Chloride 10 ml 10/22/24 14:00 10/24/24 13:05 Central Line Flush IV PUSH 10 ml Q8HR ALEJANDRO Administration Sodium Chloride 20 ml 10/22/24 07:50 Central Line Flush IV PUSH PRN PRN after blood draws Radiology Results: ITS Impressions Head CT 10/21/24 19:53 IMPRESSION: No acute intracranial findings. Chest X-Ray 10/24/24 05:51 IMPRESSION: 1. Cardiomegaly. Labs Labs: Laboratory Results - last 24 hr 10/22/24 10/24/24 10/24/24 09:55 00:06 04:59 WBC RBC Hgb Hct MCV MCH MCHC RDW Plt Count MPV Puncture Site Right radial ABG pH 7.459 H ABG pCO2 35.6 ABG pO2 97.7 ABG PO2/FiO2 Ratio 3.26 ABG HCO3 24.7 ABG O2 Saturation 97.8 ABG O2 Content 17.6 ABG Base Excess 1.2 A-a Gradient 74.4 Oxyhemoglobin 97.7 Carboxyhemoglobin 0.2 Methemoglobin 0.1 Reduced Hemoglobin 2.0 Total Hemoglobin 12.7 O2 Delivery Device Ventilator O2 Liters/Min Not Reportable Minute Volume Not Reportable Vent Rate 16 Vent Mode Cmv FiO2 30 Tidal Volume 400 PEEP 5 Peak Inspir Pressure Not Reportable Pressure Support Not Reportable Sodium Potassium Chloride Carbon Dioxide Anion Gap BUN Creatinine Estim Creat Clear Calc Estimated GFR Glucose POC Capillary Glucose 146 H Calcium Phosphorus Magnesium Total Bilirubin AST ALT Alkaline Phosphatase Total Creatine Kinase Total Protein Albumin Triglycerides Free T3 pg/mL 2.9 10/24/24 10/24/24 10/24/24 06:05 13:03 17:39 WBC 25.5 H RBC 3.89 L Hgb 11.7 L Hct 35.8 L MCV 92.0 MCH 30.1 MCHC 32.7 RDW 15.8 H Plt Count 322 MPV 11.0 H Puncture Site ABG pH ABG pCO2 ABG pO2 ABG PO2/FiO2 Ratio ABG HCO3 ABG O2 Saturation ABG O2 Content ABG Base Excess A-a Gradient Oxyhemoglobin Carboxyhemoglobin Methemoglobin Reduced Hemoglobin Total Hemoglobin O2 Delivery Device O2 Liters/Min Minute Volume Vent Rate Vent Mode FiO2 Tidal Volume PEEP Peak Inspir Pressure Pressure Support Sodium 140 Potassium 4.0 Chloride 108 H Carbon Dioxide 27 Anion Gap 5 BUN 25 H D Creatinine 1.30 Estim Creat Clear Calc 40 Estimated GFR 53 L Glucose 144 H POC Capillary Glucose 134 H 142 H Calcium 8.7 Phosphorus 3.1 Magnesium 2.4 H Total Bilirubin 1.4 H AST 58 ALT 62 H Alkaline Phosphatase 78 Total Creatine Kinase 520 H Total Protein 7.0 Albumin 3.5 Triglycerides 122 Free T3 pg/mL
[2024-10-24] MEDS: PROPOFOL IV EMULSION 100 ML 9.32 MG IV CONT (19:52)
[2024-10-24] MEDS: ATORVASTATIN 20 MG TABLET FEED TUBE (20:04)
[2024-10-24 21:04] LABS: Influenza A QL RT-PCR Negative (Negative); Influenza B QL RT-PCR Negative (Negative); RSV RNA, RT-PCR Negative (Negative); SARS-CoV-2 RNA PCR Negative (Negative)
[2024-10-25] VITALS (38 sets, daily range): BP systolic 147–176; BP diastolic 47–95; PULSE 66–112; RESP 24–59; TEMP 37.9–38.4; O2SAT 94–100
[2024-10-25 00:37] LABS: Glucose Point of Care 126 mg/dl (65-105)
[2024-10-25] MEDS: PIPERACILLN/TAZ 3.375GM/NS50ML 3.375 GM/50 ML BAG IVPB ×5 (00:57→23:29)
[2024-10-25] MEDS: ACETAMINOPHEN ELIXIR 325 MG/10.15 ML UDC 650 MG PO ×3 (01:49→19:15)
[2024-10-25 03:59] LABS: Hemoglobin 10.5 g/dL (14.0-18.0); Mean Corpuscular HGB Conc 32.8 g/dl (32-36); Mean Corpuscular Volume 91.4 fl (80-100); Mean Platelet Volume 10.4 fl (7.4-10.4); Platelet Count Result 300 k/mm3 (150-375); Red Cell Distribution Width 15.6 % (11.5-14.5); White Blood Count 21.2 K/mm3 (4.5-10.0)
[2024-10-25 04:12] LABS: Alanine Aminotransferase 43 U/L (6-50); Albumin Level 3.1 g/dL (3.5-5.1); Alkaline Phosphatase 68 U/L (38-126); Anion Gap 3 mmol/L (4-12); Aspartate Amino Transferase 45 U/L (17-59); Blood Urea Nitrogen 25 mg/dL (9-20); CRP 8.3 mg/dL (<1.0); Calcium 8.5 mg/dL (8.4-10.2); Carbon Dioxide 29 mmol/L (22-30); Chloride 111 mmol/L (98-107); Creatine Kinase 252 U/L (55-170); Estimated CRCL calculation 43 ml/min; Estimated Glomerular Filt Rate 58; Glucose 126 mg/dL (65-110); Magnesium 2.4 mg/dL (1.6-2.3); Phosphorus 3.2 mg/dL (2.5-4.5); Potassium 3.8 mmol/L (3.4-5.0); Sodium 143 mmol/L (137-145)
[2024-10-25 04:47] LABS: Procalcitonin 0.2 ng/mL
[2024-10-25 05:21] LABS: Alveolar/Arterial O2 Gradient 61.4 mmHg; Base Excess ABG 1.6 mEq/l (+/-2.0); Carboxyhemoglobin 0.3 % THb (0-2.0); Device VENTILATOR; Fractional Inspired Oxygen 30 %; HCO3 ABG 25.1 mEq/l (22.0-26.0); Modified Allen's Test Pass; Oxygen Content ABG 16.2 %vol (16.0-22.0); Oxygen Saturation ABG 98.3 % (95.0-100.0); Oxyhemoglobin 98.2 % THb (90.0-100.0); PCO2 ABG 35.8 mmHg (35.0-45.0); PO2 ABG 110.4 mmHg (80.0-100.0); PO2 FiO2 Ratio Arterial Blood 3.68 %; Reduced Hemoglobin 1.5 %THb (0-5.0); Site Drawn RIGHT RADIAL; Total Hemoglobin 11.6 g/dL (12.0-18.0); pH ABG 7.464 (7.350-7.450)
[2024-10-25 05:22] LABS: Arterial Blood Gas PEEP 5 cmH2O; Arterial Blood Gas Tidal Volume 400 ml; Arterial Blood Gas Vent Mode CMV; Arterial Blood Gas Ventilator rate 16 /MIN
[2024-10-25] MEDS: CENTRAL LINE FLUSH 10 ML IV PUSH ×3 (05:35→20:06)
[2024-10-25] MEDS: PROPOFOL IV EMULSION 100 ML 9.32 MG IV CONT (05:42)
[2024-10-25 05:52] LABS: Glucose Point of Care 140 mg/dl (65-105)
[2024-10-25] MEDS: MINERAL OIL/WHITE PETROLATUM OINTMENT 1 APPLIC EACH EYE ×2 (08:44→20:05)
[2024-10-25] MEDS: ENOXAPARIN 40 MG/0.4 ML SYRINGE SUB-Q (08:44)
[2024-10-25] MEDS: PANTOPRAZOLE SODIUM IV 40 MG VIAL IV PUSH ×2 (08:44→20:05)
--- NOTE | 2024-10-25 08:48 | P.PNINT_ITS ---
Progress Note: A&P Assessment and Plan (1) Acute respiratory failure: Code(s): J96.00 - Acute respiratory failure, unspecified whether with hypoxia or hypercapnia Status: Acute Assessment and Plan: Acute Respiratory failure secondary to cardiac arrest, pulmonary edema, questionable aspiration pneumonia Continue full mechanical ventilation support to prevent hypoxemia/hypercarbia and end organ damage. ABG reviewed. Decrease tidal volume to 360 Chest x-ray reviewed. Low tidal volume ventilation strategy to prevent volutrauma Weaning will depend on improvement in neurological cardiac status Add Bronchodilators (2) Cardiac arrest: Code(s): I46.9 - Cardiac arrest, cause unspecified Status: Acute Assessment and Plan: PE a cardiac arrest which converted to VFib and later patient was and complete heart block Status post temporary transvenous pacemaker placement Mild elevation of troponin likely secondary to cardiac arrest and respiratory failure Continue statin. Patient is allergic to aspirin. No information available from family regarding the nature of allergy Echo reviewed Cardiology is following Resume ARB Patient not requiring pacing at this time. (3) Sepsis: Code(s): A41.9 - Sepsis, unspecified organism Status: Acute Assessment and Plan: Patient met criteria for sepsis. Chest x-ray was clear and did not show any sign of aspiration. CT scan has been delayed due to patient being unstable on presentation His UA was abnormal Blood cultures negative Urine culture is growing Enterococcus which is pansensitive Continue Zosyn at this time empirically to cover for aspiration pneumonia and UTI (4) Heart block AV third degree: Code(s): I44.2 - Atrioventricular block, complete Status: Acute Assessment and Plan: Status post transvenous pacemaker placement which is currently on standby patient's rate is above set pacemaker rate (5) Anoxic brain injury: Code(s): G93.1 - Anoxic brain damage, not elsewhere classified Status: Acute Assessment and Plan: Patient was comatose post resuscitation Head CT was negative for any acute intracranial change Patient had a PEA arrest which later converted to VFib and on arrival was bradycardic and hypotensive Patient completed TTM protocol and now has been reviewed 09/24 patient was tachypneic and asynchronous with the ventilator. He was started low-dose propofol for safe mechanical ventilation 09/25 on holding sedation patient is still not following commands or doing purposeful movements. He does withdraw to pain. He turns around this had and has a blank stare. Continue to hold sedation and monitor neurological status Check EEG Consult neurology (6) Acute hypokalemia: Code(s): E87.6 - Hypokalemia Status: Acute Assessment and Plan: Potassium replacement ordered (7) Congestive heart failure: Code(s): I50.9 - Heart failure, unspecified Status: Acute Assessment and Plan: Bilateral pitting edema on exam. Good urine output Summary 1. Complete two-dimensional, color flow and Doppler transthoracic echocardiogram is performed. 2. Technically difficult study with limited views. 3. The left ventricle is normal in size with mildly reduced systolic function. The left ventricular ejection fraction is visually estimated to be 40-45%. 4. The aortic valve is not well visualized however did gradients across the valve suggests moderate aortic stenosis. 5. There is small pericardial effusion. 6. Dilated inferior vena cava with <50% collapse upon inspiration consistent with significantly elevated right atrial pressure, 15 mmHg. (8) Hypotension: Code(s): I95.9 - Hypotension, unspecified Status: Acute Assessment and Plan: Patient was initially hypertensive likely secondary to bradycardia and was on epinephrine drip which was weaned off. Continue to monitor (9) Metabolic acidosis: Code(s): E87.20 - Acidosis, unspecified Status: Acute Assessment and Plan: Hyperchloremic metabolic acidosis. Improving. Monitor (10) Hyperglycemia: Code(s): R73.9 - Hyperglycemia, unspecified Status: Acute Assessment and Plan: Sliding scale insulin ordered (11) Hypertension: Code(s): I10 - Essential (primary) hypertension Status: Acute Assessment and Plan: Patient has history of hypertension but now blood pressure is soft on sedation. P.r.n. hydralazine Plan DVT prophylaxis -Lovenox Stress ulcer prophylaxis -PPI Nutrition -continue tube feeds Code Status - Full Code 10/23 I spoke to patient's stepdaughter Olivia by phone and updated her with jackie anderson's current status including respiratory failure, cardiac arrest, complete heart block requiring transvenous pacemaker, anoxic brain injury. I also answer question updated with current treatment plan including holding sedation and re- evaluating his neurological status over next 24-48 hours. She is going to discuss with her mother regarding goals of care and code status. She told me that patient does not have any biological children and his has limited cognitive ability due to dementia Total Critical Care Time - 32 minutes Due to a high probability of clinically significant, life threatening deterioration, the patient required my highest level of preparedness to intervene emergently and I personally spent this critical care time directly and personally managing the patient. This critical care time included obtaining a history; examining the patient; pulse oximetry; ordering and review of studies; arranging urgent treatment with development of a management plan; evaluation of patient's response to treatment; frequent reassessment; and discussions with other providers. It was exclusive of separately billable procedures and treating other patients and teaching time. Please see Assessment and Plan section and the rest of the note for further information on patient assessment and treatment Subjective Date/time seen: 10/25/24 Overnight events reviewed. febrile Continues to be on mechanical ventilation 30% FiO2 Not on any vasopressors Continues to be sedated with propofol Good urine output. Tolerating tube feeds Review of Systems Review of Systems: ROS unobtainable: Yes unobtainable due to endotracheal tube, unobtainable due to medical condition and unobtainable due to mental status Exam Narrative: General: Pt is sedated, intubated, chemically paralyzed and on mechanical ventilation Lungs/Chest: Trachea central clear BS B/L, No crackles or wheezing. Tachypneic of sedation Cardiac: RRR. Normal S1 S2. No murmurs Circulation: Pedal pulses are intact and symmetrical but weak Abdomen: Present bowel sounds. Soft. NT. ND. Rectal tube in place Extremities: No clubbing, cyanosis, Warm. Bilateral pitting edema present : Romero in place Neurologic: On holding sedation his Eyes are open and he turns his head to either side with a blank stare, he withdraws to pain, he has cough and gag reflex but is not responsive to commands or regards examiner PERRL Objective Data Vital Signs Vital Signs: Vital Signs - 24 hr 10/24/24 09:20 10/24/24 11:36 10/24/24 12:00 Temperature 38.8 C H Pulse Rate 88 Pulse Rate [Bilateral Pedal (Dorsalis Pedis) Palpation] Respiratory Rate Blood Pressure Pulse Oximetry 98 Oxygen Delivery Mechanical Ventilation Fraction of Inspired Oxygen 30 30 10/24/24 14:38 10/24/24 16:12 10/24/24 16:13 Temperature 38.8 C H 38.4 C H Pulse Rate 80 Pulse Rate [Bilateral Pedal (Dorsalis Pedis) Palpation] Respiratory Rate Blood Pressure Pulse Oximetry 98 Oxygen Delivery Mechanical Ventilation Fraction of Inspired Oxygen 30 10/24/24 09:00 10/24/24 10:00 10/24/24 11:00 Temperature Pulse Rate 78 80 88 Pulse Rate [Bilateral Pedal (Dorsalis Pedis) Palpation] Respiratory Rate 24 H 24 H 26 H Blood Pressure Pulse Oximetry Oxygen Delivery Fraction of Inspired Oxygen 10/24/24 12:00 10/24/24 14:00 10/24/24 16:00 Temperature Pulse Rate 89 76 77 Pulse Rate [Bilateral Pedal (Dorsalis Pedis) Palpation] Respiratory Rate 24 H 20 25 H Blood Pressure Pulse Oximetry Oxygen Delivery Fraction of Inspired Oxygen 10/24/24 10:00 10/24/24 12:00 10/24/24 14:00 Temperature 38.8 C H 38.6 C H 38.4 C H Pulse Rate 80 89 76 Pulse Rate [Bilateral Pedal (Dorsalis Pedis) Palpation] Respiratory Rate 24 H 24 H 20 Blood Pressure 143/78 H 140/65 151/66 H Pulse Oximetry 97 97 96 Oxygen Delivery Fraction of Inspired Oxygen 10/24/24 16:00 10/24/24 12:30 10/24/24 16:00 Temperature 38.4 C H Pulse Rate 77 Pulse Rate [Bilateral Pedal (Dorsalis Pedis) Palpation] 85 Respiratory Rate 25 H Blood Pressure 161/69 H Pulse Oximetry 99 Oxygen Delivery Fraction of Inspired Oxygen 30 10/24/24 10:00 10/24/24 12:00 10/24/24 14:00 Temperature Pulse Rate 84 82 82 Pulse Rate [Bilateral Pedal (Dorsalis Pedis) Palpation] Respiratory Rate Blood Pressure Pulse Oximetry Oxygen Delivery Fraction of Inspired Oxygen 10/24/24 16:00 10/24/24 12:00 10/24/24 16:00 Temperature Pulse Rate 92 Pulse Rate [Bilateral Pedal (Dorsalis Pedis) Palpation] Respiratory Rate Blood Pressure Pulse Oximetry 97 99 Oxygen Delivery Mechanical Ventilation Mechanical Ventilation Fraction of Inspired Oxygen 30 30 10/24/24 16:00 10/24/24 17:18 10/24/24 17:13 Temperature 38.3 C H Pulse Rate 74 Pulse Rate [Bilateral Pedal (Dorsalis Pedis) Palpation] 77 Respiratory Rate Blood Pressure Pulse Oximetry 98 Oxygen Delivery Mechanical Ventilation Fraction of Inspired Oxygen 30 10/24/24 17:42 10/24/24 18:00 10/24/24 18:00 Temperature 38.2 C H Pulse Rate 80 74 77 Pulse Rate [Bilateral Pedal (Dorsalis Pedis) Palpation] Respiratory Rate 26 H 25 H Blood Pressure 145/55 H Pulse Oximetry 99 Oxygen Delivery Fraction of Inspired Oxygen 10/24/24 19:52 10/24/24 19:52 10/24/24 20:00 Temperature Pulse Rate 76 76 76 Pulse Rate [Bilateral Pedal (Dorsalis Pedis) Palpation] Respiratory Rate 24 H 24 H 26 H Blood Pressure Pulse Oximetry Oxygen Delivery Fraction of Inspired Oxygen 10/24/24 20:00 10/24/24 20:00 10/24/24 20:00 Temperature 38.1 C H Pulse Rate 76 Pulse Rate [Bilateral Pedal (Dorsalis Pedis) Palpation] 76 Respiratory Rate 26 H Blood Pressure 159/68 H Pulse Oximetry 98 Oxygen Delivery Fraction of Inspired Oxygen 30 10/24/24 20:00 10/24/24 20:33 10/24/24 20:00 Temperature Pulse Rate 74 83 Pulse Rate [Bilateral Pedal (Dorsalis Pedis) Palpation] Respiratory Rate Blood Pressure Pulse Oximetry 98 100 Oxygen Delivery Mechanical Ventilation Mechanical Ventilation Fraction of Inspired Oxygen 30 30 10/24/24 20:55 10/24/24 22:47 10/25/24 00:00 Temperature Pulse Rate 74 84 Pulse Rate [Bilateral Pedal (Dorsalis Pedis) Palpation] 81 Respiratory Rate 28 H Blood Pressure Pulse Oximetry 99 Oxygen Delivery Mechanical Ventilation Fraction of Inspired Oxygen 30 10/24/24 22:00 10/25/24 00:00 10/25/24 00:30 Temperature Pulse Rate 80 81 89 Pulse Rate [Bilateral Pedal (Dorsalis Pedis) Palpation] Respiratory Rate 24 H 24 H 36 H Blood Pressure Pulse Oximetry Oxygen Delivery Fraction of Inspired Oxygen 10/24/24 22:00 10/24/24 22:00 10/25/24 00:00 Temperature 38.1 C H 38.2 C H Pulse Rate 80 80 81 Pulse Rate [Bilateral Pedal (Dorsalis Pedis) Palpation] Respiratory Rate 24 H 24 H Blood Pressure 162/66 H 147/95 H Pulse Oximetry 98 98 Oxygen Delivery Fraction of Inspired Oxygen 10/25/24 00:00 10/25/24 00:00 10/25/24 00:00 Temperature Pulse Rate 82 Pulse Rate [Bilateral Pedal (Dorsalis Pedis) Palpation] Respiratory Rate Blood Pressure Pulse Oximetry 98 Oxygen Delivery Mechanical Ventilation Fraction of Inspired Oxygen 30 30 10/25/24 01:49 10/25/24 02:00 10/25/24 02:00 Temperature 38.4 C H 38.3 C H Pulse Rate 91 78 Pulse Rate [Bilateral Pedal (Dorsalis Pedis) Palpation] Respiratory Rate 24 H Blood Pressure 165/72 H Pulse Oximetry 100 Oxygen Delivery Fraction of Inspired Oxygen 10/25/24 02:00 10/25/24 02:14 10/25/24 03:25 Temperature 38.3 C H Pulse Rate 90 82 Pulse Rate [Bilateral Pedal (Dorsalis Pedis) Palpation] Respiratory Rate 24 H Blood Pressure Pulse Oximetry 100 Oxygen Delivery Mechanical Ventilation Fraction of Inspired Oxygen 30 10/25/24 04:00 10/25/24 04:00 10/25/24 05:27 Temperature 38.2 C H Pulse Rate 81 81 Pulse Rate [Bilateral Pedal (Dorsalis Pedis) Palpation] Respiratory Rate 24 H 24 H Blood Pressure 158/84 H Pulse Oximetry 100 97 Oxygen Delivery Mechanical Ventilation Fraction of Inspired Oxygen 30 10/25/24 05:42 10/25/24 05:42 10/25/24 04:00 Temperature Pulse Rate 94 94 Pulse Rate [Bilateral Pedal (Dorsalis Pedis) Palpation] 87 Respiratory Rate 28 H 28 H Blood Pressure Pulse Oximetry Oxygen Delivery Fraction of Inspired Oxygen 10/25/24 04:00 10/25/24 06:00 10/25/24 04:00 Temperature Pulse Rate 87 75 Pulse Rate [Bilateral Pedal (Dorsalis Pedis) Palpation] Respiratory Rate Blood Pressure Pulse Oximetry Oxygen Delivery Fraction of Inspired Oxygen 30 10/25/24 06:00 10/25/24 04:00 10/25/24 07:50 Temperature 38.0 C H Pulse Rate 89 94 Pulse Rate [Bilateral Pedal (Dorsalis Pedis) Palpation] Respiratory Rate 30 H 31 H Blood Pressure 157/87 H Pulse Oximetry 99 99 Oxygen Delivery Mechanical Ventilation Fraction of Inspired Oxygen 30 Intake/Output Intake/Output: Intake & Output 10/22/24 10/23/24 10/24/24 10/25/24 23:59 23:59 23:59 23:59 Intake Total 2584.5 789.9 2500.3 961.8 Output Total 2760 1015 1350 750 Balance -175.5 -225.1 1150.3 211.8 Meds/Results Medications: Active Medications Generic Name Dose Route Start Last Admin Trade Name Freq PRN Reason Stop Dose Admin Acetaminophen 650 mg 10/23/24 11:38 10/25/24 01:49 Acetaminophen Elixir 325 Mg/10.15 Ml Udc PO 650 mg Q6H PRN Administration Mild Pain (1-3) or Fever Albuterol/Ipratropium 3 ml 10/22/24 08:35 Ipratropium 0.5 Mg/Albuterol Sulfate 2.5 Mg Ampul.Neb 3 Ml INHALATION Q6HRT PRN Wheezing Atorvastatin Calcium 20 mg 10/21/24 21:40 10/24/24 20:04 Atorvastatin 20 Mg Tablet FEED TUBE 20 mg HS ALEJANDRO Administration Dextrose 12.5 gm 10/21/24 22:44 Dextrose 50% 25 Gm/50 Ml Syringe IV PUSH PRN PRN Hypoglycemia Protocol Enoxaparin Sodium 40 mg 10/22/24 09:00 10/25/24 08:44 Enoxaparin 40 Mg/0.4 Ml Syringe SUB-Q 40 mg DAILY ALEJANDRO Administration Glucagon 1 mg 10/21/24 22:44 Glucagon For Inj 1 Mg Vial IM PRN PRN Hypoglycemia Protocol Glucose 15 gm 10/21/24 22:44 Glucose Oral Gel 15 Gm Of Glucse In 37.5 Gm Tube PO PRN PRN Hypoglycemia Protocol Dextrose 1,000 mls @ 100 mls/hr 10/21/24 22:44 Dextrose 5% 1,000 Ml IVPB PRN PRN Hypoglycemia Protocol Piperacillin/Tazobactam/Dextrose 3.375 gm in 50 mls @ 100 mls/hr 10/22/24 12:00 10/25/24 06:05 Zosyn 3.375 Gm/Ns 50 Ml IVPB Infused Q6HR ALEJANDRO Infusion Propofol 100 mls @ 0 mls/hr 10/24/24 08:00 10/25/24 07:50 Diprivan IV CONT 0 mcg/kg/min .Q0M ALEJANDRO 0 mls/hr Titration Protocol 0 MCG/KG/MIN Insulin Aspart 2 - 5 units 10/22/24 06:00 10/25/24 05:34 Insulin Aspart (*Bkc) 100 Units/Ml SUB-Q Not Given Q6HR ALEJANDRO Protocol Multi-Ingred Cream/Lotion/Oil/Oint 1 applic 10/22/24 09:00 10/25/24 08:44 Mineral Oil/White Petrolatum Ointment EACH EYE 1 applic Q12HR ALEJANDRO Administration Pantoprazole Sodium 40 mg 10/21/24 21:00 10/25/24 08:44 Pantoprazole Sodium Iv 40 Mg Vial IV PUSH 40 mg Q12HR ALEJANDRO Administration Sodium Chloride 10 ml 10/22/24 14:00 10/25/24 05:35 Central Line Flush IV PUSH 10 ml Q8HR ALEJANDRO Administration Sodium Chloride 20 ml 10/22/24 07:50 Central Line Flush IV PUSH PRN PRN after blood draws Radiology Results: ITS Impressions Head CT 10/21/24 19:53 IMPRESSION: No acute intracranial findings. Chest X-Ray 10/25/24 06:22 IMPRESSION: 1. No acute cardiopulmonary disease. Labs Labs: Laboratory Results - last 24 hr 10/24/24 10/24/24 10/24/24 13:03 17:39 20:13 WBC RBC Hgb Hct MCV MCH MCHC RDW Plt Count MPV Puncture Site ABG pH ABG pCO2 ABG pO2 ABG PO2/FiO2 Ratio ABG HCO3 ABG O2 Saturation ABG O2 Content ABG Base Excess A-a Gradient Oxyhemoglobin Carboxyhemoglobin Methemoglobin Reduced Hemoglobin Total Hemoglobin O2 Delivery Device O2 Liters/Min Minute Volume Vent Rate Vent Mode FiO2 Tidal Volume PEEP Peak Inspir Pressure Pressure Support Sodium Potassium Chloride Carbon Dioxide Anion Gap BUN Creatinine Estim Creat Clear Calc Estimated GFR Glucose POC Capillary Glucose 134 H 142 H Calcium Phosphorus Magnesium Total Bilirubin AST ALT Alkaline Phosphatase Total Creatine Kinase C-Reactive Protein Total Protein Albumin Procalcitonin Influenza A (RT-PCR) Negative Influenza B (RT-PCR) Negative RSV (RT-PCR) Negative SARS-CoV-2 RNA (RT-PCR) Negative 10/25/24 10/25/24 10/25/24 00:27 03:55 05:06 WBC 21.2 H RBC 3.50 L Hgb 10.5 L Hct 32.0 L MCV 91.4 MCH 30.0 MCHC 32.8 RDW 15.6 H Plt Count 300 MPV 10.4 Puncture Site Right radial ABG pH 7.464 H ABG pCO2 35.8 ABG pO2 110.4 H ABG PO2/FiO2 Ratio 3.68 ABG HCO3 25.1 ABG O2 Saturation 98.3 ABG O2 Content 16.2 ABG Base Excess 1.6 A-a Gradient 61.4 Oxyhemoglobin 98.2 Carboxyhemoglobin 0.3 Methemoglobin 0.0 Reduced Hemoglobin 1.5 Total Hemoglobin 11.6 L O2 Delivery Device Ventilator O2 Liters/Min Not Reportable Minute Volume Not Reportable Vent Rate 16 Vent Mode Cmv FiO2 30 Tidal Volume 400 PEEP 5 Peak Inspir Pressure Not Reportable Pressure Support Not Reportable Sodium 143 Potassium 3.8 Chloride 111 H Carbon Dioxide 29 Anion Gap 3 L BUN 25 H Creatinine 1.20 Estim Creat Clear Calc 43 Estimated GFR 58 L Glucose 126 H POC Capillary Glucose 126 H Calcium 8.5 Phosphorus 3.2 Magnesium 2.4 H Total Bilirubin 1.0 AST 45 ALT 43 Alkaline Phosphatase 68 Total Creatine Kinase 252 H C-Reactive Protein 8.3 H Total Protein 6.0 L Albumin 3.1 L Procalcitonin 0.2 Influenza A (RT-PCR) Influenza B (RT-PCR) RSV (RT-PCR) SARS-CoV-2 RNA (RT-PCR) 10/25/24 05:33 WBC RBC Hgb Hct MCV MCH MCHC RDW Plt Count MPV Puncture Site ABG pH ABG pCO2 ABG pO2 ABG PO2/FiO2 Ratio ABG HCO3 ABG O2 Saturation ABG O2 Content ABG Base Excess A-a Gradient Oxyhemoglobin Carboxyhemoglobin Methemoglobin Reduced Hemoglobin Total Hemoglobin O2 Delivery Device O2 Liters/Min Minute Volume Vent Rate Vent Mode FiO2 Tidal Volume PEEP Peak Inspir Pressure Pressure Support Sodium Potassium Chloride Carbon Dioxide Anion Gap BUN Creatinine Estim Creat Clear Calc Estimated GFR Glucose POC Capillary Glucose 140 H Calcium Phosphorus Magnesium Total Bilirubin AST ALT Alkaline Phosphatase Total Creatine Kinase C-Reactive Protein Total Protein Albumin Procalcitonin Influenza A (RT-PCR) Influenza B (RT-PCR) RSV (RT-PCR) SARS-CoV-2 RNA (RT-PCR)
[2024-10-25] MEDS: POTASSIUM BICARBONATE 25 MEQ TABEF FEED TUBE (09:15)
[2024-10-25] MEDS: LOSARTAN POTASSIUM 25 MG TABLET FEED TUBE (09:15)
[2024-10-25 12:17] LABS: Glucose Point of Care 126 mg/dl (65-105)
--- NOTE | 2024-10-25 14:05 | PM.PNCARD ---
Progress Note: A&P Assessment and Plan (1) Heart block AV third degree: Code(s): I44.2 - Atrioventricular block, complete Status: Acute Plan Is status post cardiac arrest including PA and V5 Transient complete heart block after recovery from cardiac arrest requiring trans venous pacemaker has not been needed for last 24 hours Acute respiratory failure and anoxic encephalopathy currently intubated Plan Continue temporary transvenous for today and if no need for pacing by total remove it Workup for etiology of cardiac arrest when the patient showed signs of neurological recovery Management of ventilator remainder of the care per ICU team Subjective Date/time seen: 10/25/24 14:05 Interval history: no acute events Tele: SR with PVCs Review of Systems Review of Systems: ROS unobtainable: Yes unobtainable due to endotracheal tube Exam Narrative: General: Pt is sedated, intubated, Lungs/Chest: CTAB Cardiac: RRR. Normal S1 S2. No murmurs Circulation: Pedal pulses are intact and symmetrical but weak Abdomen: Present bowel sounds. Soft. NT. ND. Rectal tube in place Extremities: No clubbing, cyanosis, Warm. Bilateral pitting edema present : Romero in place Objective Data Vital Signs Vital Signs: Vital Signs - 24 hr 10/24/24 14:38 10/24/24 16:12 10/24/24 16:13 Temperature 38.8 C H 38.4 C H Pulse Rate 80 Pulse Rate [Bilateral Pedal (Dorsalis Pedis) Palpation] Respiratory Rate Blood Pressure Pulse Oximetry 98 Oxygen Delivery Mechanical Ventilation Fraction of Inspired Oxygen 30 10/24/24 16:00 10/24/24 16:00 10/24/24 16:00 Temperature 38.4 C H Pulse Rate 77 77 Pulse Rate [Bilateral Pedal (Dorsalis Pedis) Palpation] Respiratory Rate 25 H 25 H Blood Pressure 161/69 H Pulse Oximetry 99 Oxygen Delivery Fraction of Inspired Oxygen 30 10/24/24 16:00 10/24/24 16:00 10/24/24 16:00 Temperature Pulse Rate 92 Pulse Rate [Bilateral Pedal (Dorsalis Pedis) Palpation] 77 Respiratory Rate Blood Pressure Pulse Oximetry 99 Oxygen Delivery Mechanical Ventilation Fraction of Inspired Oxygen 30 10/24/24 17:18 10/24/24 17:13 10/24/24 17:42 Temperature 38.3 C H Pulse Rate 74 80 Pulse Rate [Bilateral Pedal (Dorsalis Pedis) Palpation] Respiratory Rate 26 H Blood Pressure Pulse Oximetry 98 Oxygen Delivery Mechanical Ventilation Fraction of Inspired Oxygen 30 10/24/24 18:00 10/24/24 18:00 10/24/24 19:52 Temperature 38.2 C H Pulse Rate 74 77 76 Pulse Rate [Bilateral Pedal (Dorsalis Pedis) Palpation] Respiratory Rate 25 H 24 H Blood Pressure 145/55 H Pulse Oximetry 99 Oxygen Delivery Fraction of Inspired Oxygen 10/24/24 19:52 10/24/24 20:00 10/24/24 20:00 Temperature 38.1 C H Pulse Rate 76 76 76 Pulse Rate [Bilateral Pedal (Dorsalis Pedis) Palpation] Respiratory Rate 24 H 26 H 26 H Blood Pressure 159/68 H Pulse Oximetry 98 Oxygen Delivery Fraction of Inspired Oxygen 10/24/24 20:00 10/24/24 20:00 10/24/24 20:00 Temperature Pulse Rate Pulse Rate [Bilateral Pedal (Dorsalis Pedis) Palpation] 76 Respiratory Rate Blood Pressure Pulse Oximetry 98 Oxygen Delivery Mechanical Ventilation Fraction of Inspired Oxygen 30 30 10/24/24 20:33 10/24/24 20:00 10/24/24 20:55 Temperature Pulse Rate 74 83 74 Pulse Rate [Bilateral Pedal (Dorsalis Pedis) Palpation] Respiratory Rate 28 H Blood Pressure Pulse Oximetry 100 Oxygen Delivery Mechanical Ventilation Fraction of Inspired Oxygen 30 10/24/24 22:47 10/25/24 00:00 10/24/24 22:00 Temperature Pulse Rate 84 80 Pulse Rate [Bilateral Pedal (Dorsalis Pedis) Palpation] 81 Respiratory Rate 24 H Blood Pressure Pulse Oximetry 99 Oxygen Delivery Mechanical Ventilation Fraction of Inspired Oxygen 30 10/25/24 00:00 10/25/24 00:30 10/24/24 22:00 Temperature Pulse Rate 81 89 80 Pulse Rate [Bilateral Pedal (Dorsalis Pedis) Palpation] Respiratory Rate 24 H 36 H Blood Pressure Pulse Oximetry Oxygen Delivery Fraction of Inspired Oxygen 10/24/24 22:00 10/25/24 00:00 10/25/24 00:00 Temperature 38.1 C H 38.2 C H Pulse Rate 80 81 Pulse Rate [Bilateral Pedal (Dorsalis Pedis) Palpation] Respiratory Rate 24 H 24 H Blood Pressure 162/66 H 147/95 H Pulse Oximetry 98 98 Oxygen Delivery Fraction of Inspired Oxygen 30 10/25/24 00:00 10/25/24 00:00 10/25/24 01:49 Temperature 38.4 C H Pulse Rate 82 Pulse Rate [Bilateral Pedal (Dorsalis Pedis) Palpation] Respiratory Rate Blood Pressure Pulse Oximetry 98 Oxygen Delivery Mechanical Ventilation Fraction of Inspired Oxygen 30 10/25/24 02:00 10/25/24 02:00 10/25/24 02:00 Temperature 38.3 C H Pulse Rate 91 78 90 Pulse Rate [Bilateral Pedal (Dorsalis Pedis) Palpation] Respiratory Rate 24 H 24 H Blood Pressure 165/72 H Pulse Oximetry 100 Oxygen Delivery Fraction of Inspired Oxygen 10/25/24 02:14 10/25/24 03:25 10/25/24 04:00 Temperature 38.3 C H 38.2 C H Pulse Rate 82 81 Pulse Rate [Bilateral Pedal (Dorsalis Pedis) Palpation] Respiratory Rate 24 H Blood Pressure 158/84 H Pulse Oximetry 100 100 Oxygen Delivery Mechanical Ventilation Fraction of Inspired Oxygen 30 10/25/24 04:00 10/25/24 05:27 10/25/24 05:42 Temperature Pulse Rate 81 94 Pulse Rate [Bilateral Pedal (Dorsalis Pedis) Palpation] Respiratory Rate 24 H 28 H Blood Pressure Pulse Oximetry 97 Oxygen Delivery Mechanical Ventilation Fraction of Inspired Oxygen 30 10/25/24 05:42 10/25/24 04:00 10/25/24 04:00 Temperature Pulse Rate 94 87 Pulse Rate [Bilateral Pedal (Dorsalis Pedis) Palpation] 87 Respiratory Rate 28 H Blood Pressure Pulse Oximetry Oxygen Delivery Fraction of Inspired Oxygen 10/25/24 06:00 10/25/24 04:00 10/25/24 06:00 Temperature 38.0 C H Pulse Rate 75 89 Pulse Rate [Bilateral Pedal (Dorsalis Pedis) Palpation] Respiratory Rate 30 H Blood Pressure 157/87 H Pulse Oximetry 99 Oxygen Delivery Fraction of Inspired Oxygen 30 10/25/24 04:00 10/25/24 07:50 10/25/24 09:00 Temperature Pulse Rate 94 77 Pulse Rate [Bilateral Pedal (Dorsalis Pedis) Palpation] Respiratory Rate 31 H Blood Pressure Pulse Oximetry 99 98 Oxygen Delivery Mechanical Ventilation Mechanical Ventilation Fraction of Inspired Oxygen 30 30 10/25/24 08:00 10/25/24 08:00 10/25/24 08:00 Temperature Pulse Rate Pulse Rate [Bilateral Pedal (Dorsalis Pedis) Palpation] 90 Respiratory Rate Blood Pressure Pulse Oximetry 98 Oxygen Delivery Mechanical Ventilation Fraction of Inspired Oxygen 30 30 10/25/24 09:40 10/25/24 08:00 10/25/24 08:00 Temperature 37.9 C H Pulse Rate 112 H 80 84 Pulse Rate [Bilateral Pedal (Dorsalis Pedis) Palpation] Respiratory Rate 49 H 28 H Blood Pressure 176/72 H Pulse Oximetry 94 Oxygen Delivery Fraction of Inspired Oxygen 10/25/24 10:00 10/25/24 10:28 10/25/24 10:00 Temperature 38.1 C H Pulse Rate 90 86 86 Pulse Rate [Bilateral Pedal (Dorsalis Pedis) Palpation] Respiratory Rate 55 H 48 H 59 H Blood Pressure 162/69 H Pulse Oximetry 98 Oxygen Delivery Fraction of Inspired Oxygen 10/25/24 10:00 10/25/24 10:50 10/25/24 12:00 Temperature Pulse Rate 89 70 69 Pulse Rate [Bilateral Pedal (Dorsalis Pedis) Palpation] Respiratory Rate 26 H Blood Pressure Pulse Oximetry 100 Oxygen Delivery Mechanical Ventilation Fraction of Inspired Oxygen 30 10/25/24 12:00 10/25/24 12:58 10/25/24 12:00 Temperature 38.3 C H Pulse Rate Pulse Rate [Bilateral Pedal (Dorsalis Pedis) Palpation] Respiratory Rate Blood Pressure Pulse Oximetry 98 Oxygen Delivery Mechanical Ventilation Fraction of Inspired Oxygen 30 30 10/25/24 12:00 10/25/24 12:00 Temperature 38.3 C H Pulse Rate 75 78 Pulse Rate [Bilateral Pedal (Dorsalis Pedis) Palpation] Respiratory Rate 31 H Blood Pressure 163/74 H Pulse Oximetry 98 Oxygen Delivery Fraction of Inspired Oxygen Intake/Output Intake/Output: Intake & Output 10/22/24 10/23/24 10/24/24 10/25/24 23:59 23:59 23:59 23:59 Intake Total 2584.5 789.9 2500.3 1041.8 Output Total 2760 1015 1350 750 Balance -175.5 -225.1 1150.3 291.8 Meds/Results Medications: Active Medications Generic Name Dose Route Start Last Admin Trade Name Freq PRN Reason Stop Dose Admin Acetaminophen 650 mg 10/23/24 11:38 10/25/24 12:58 Acetaminophen Elixir 325 Mg/10.15 Ml Udc PO 650 mg Q6H PRN Administration Mild Pain (1-3) or Fever Albuterol/Ipratropium 3 ml 10/22/24 08:35 Ipratropium 0.5 Mg/Albuterol Sulfate 2.5 Mg Ampul.Neb 3 Ml INHALATION Q6HRT PRN Wheezing Atorvastatin Calcium 20 mg 10/21/24 21:40 10/24/24 20:04 Atorvastatin 20 Mg Tablet FEED TUBE 20 mg HS ALEJANDRO Administration Dextrose 12.5 gm 10/21/24 22:44 Dextrose 50% 25 Gm/50 Ml Syringe IV PUSH PRN PRN Hypoglycemia Protocol Enoxaparin Sodium 40 mg 10/22/24 09:00 10/25/24 08:44 Enoxaparin 40 Mg/0.4 Ml Syringe SUB-Q 40 mg DAILY ALEJANDRO Administration Glucagon 1 mg 10/21/24 22:44 Glucagon For Inj 1 Mg Vial IM PRN PRN Hypoglycemia Protocol Glucose 15 gm 10/21/24 22:44 Glucose Oral Gel 15 Gm Of Glucse In 37.5 Gm Tube PO PRN PRN Hypoglycemia Protocol Dextrose 1,000 mls @ 100 mls/hr 10/21/24 22:44 Dextrose 5% 1,000 Ml IVPB PRN PRN Hypoglycemia Protocol Piperacillin/Tazobactam/Dextrose 3.375 gm in 50 mls @ 100 mls/hr 10/22/24 12:00 10/25/24 13:13 Zosyn 3.375 Gm/Ns 50 Ml IVPB Infused Q6HR ALEJANDRO Infusion Propofol 100 mls @ 11.655 mls/hr 10/24/24 08:00 10/25/24 12:00 Diprivan IV CONT 25 mcg/kg/min .Q8H35M ALEJANDRO 11.66 mls/hr Titration Protocol 25 MCG/KG/MIN Insulin Aspart 2 - 5 units 10/22/24 06:00 10/25/24 12:15 Insulin Aspart (*Bkc) 100 Units/Ml SUB-Q Not Given Q6HR ALEJANDRO Protocol Losartan Potassium 25 mg 10/25/24 09:00 10/25/24 09:15 Losartan Potassium 25 Mg Tablet FEED TUBE 25 mg DAILY ALEJANDRO Administration Multi-Ingred Cream/Lotion/Oil/Oint 1 applic 10/22/24 09:00 10/25/24 08:44 Mineral Oil/White Petrolatum Ointment EACH EYE 1 applic Q12HR ALEJANDRO Administration Pantoprazole Sodium 40 mg 10/21/24 21:00 10/25/24 08:44 Pantoprazole Sodium Iv 40 Mg Vial IV PUSH 40 mg Q12HR ALEJANDRO Administration Sodium Chloride 10 ml 10/22/24 14:00 10/25/24 12:59 Central Line Flush IV PUSH 10 ml Q8HR ALEJANDRO Administration Sodium Chloride 20 ml 10/22/24 07:50 Central Line Flush IV PUSH PRN PRN after blood draws Radiology Results: ITS Impressions Head CT 10/21/24 19:53 IMPRESSION: No acute intracranial findings. Chest X-Ray 10/25/24 06:22 IMPRESSION: 1. No acute cardiopulmonary disease. Labs Labs: Laboratory Results - last 24 hr 10/24/24 10/24/24 10/25/24 17:39 20:13 00:27 WBC RBC Hgb Hct MCV MCH MCHC RDW Plt Count MPV Puncture Site ABG pH ABG pCO2 ABG pO2 ABG PO2/FiO2 Ratio ABG HCO3 ABG O2 Saturation ABG O2 Content ABG Base Excess A-a Gradient Oxyhemoglobin Carboxyhemoglobin Methemoglobin Reduced Hemoglobin Total Hemoglobin O2 Delivery Device O2 Liters/Min Minute Volume Vent Rate Vent Mode FiO2 Tidal Volume PEEP Peak Inspir Pressure Pressure Support Sodium Potassium Chloride Carbon Dioxide Anion Gap BUN Creatinine Estim Creat Clear Calc Estimated GFR Glucose POC Capillary Glucose 142 H 126 H Calcium Phosphorus Magnesium Total Bilirubin AST ALT Alkaline Phosphatase Total Creatine Kinase C-Reactive Protein Total Protein Albumin Procalcitonin Influenza A (RT-PCR) Negative Influenza B (RT-PCR) Negative RSV (RT-PCR) Negative SARS-CoV-2 RNA (RT-PCR) Negative 10/25/24 10/25/24 10/25/24 03:55 05:06 05:33 WBC 21.2 H RBC 3.50 L Hgb 10.5 L Hct 32.0 L MCV 91.4 MCH 30.0 MCHC 32.8 RDW 15.6 H Plt Count 300 MPV 10.4 Puncture Site Right radial ABG pH 7.464 H ABG pCO2 35.8 ABG pO2 110.4 H ABG PO2/FiO2 Ratio 3.68 ABG HCO3 25.1 ABG O2 Saturation 98.3 ABG O2 Content 16.2 ABG Base Excess 1.6 A-a Gradient 61.4 Oxyhemoglobin 98.2 Carboxyhemoglobin 0.3 Methemoglobin 0.0 Reduced Hemoglobin 1.5 Total Hemoglobin 11.6 L O2 Delivery Device Ventilator O2 Liters/Min Not Reportable Minute Volume Not Reportable Vent Rate 16 Vent Mode Cmv FiO2 30 Tidal Volume 400 PEEP 5 Peak Inspir Pressure Not Reportable Pressure Support Not Reportable Sodium 143 Potassium 3.8 Chloride 111 H Carbon Dioxide 29 Anion Gap 3 L BUN 25 H Creatinine 1.20 Estim Creat Clear Calc 43 Estimated GFR 58 L Glucose 126 H POC Capillary Glucose 140 H Calcium 8.5 Phosphorus 3.2 Magnesium 2.4 H Total Bilirubin 1.0 AST 45 ALT 43 Alkaline Phosphatase 68 Total Creatine Kinase 252 H C-Reactive Protein 8.3 H Total Protein 6.0 L Albumin 3.1 L Procalcitonin 0.2 Influenza A (RT-PCR) Influenza B (RT-PCR) RSV (RT-PCR) SARS-CoV-2 RNA (RT-PCR) 10/25/24 12:13 WBC RBC Hgb Hct MCV MCH MCHC RDW Plt Count MPV Puncture Site ABG pH ABG pCO2 ABG pO2 ABG PO2/FiO2 Ratio ABG HCO3 ABG O2 Saturation ABG O2 Content ABG Base Excess A-a Gradient Oxyhemoglobin Carboxyhemoglobin Methemoglobin Reduced Hemoglobin Total Hemoglobin O2 Delivery Device O2 Liters/Min Minute Volume Vent Rate Vent Mode FiO2 Tidal Volume PEEP Peak Inspir Pressure Pressure Support Sodium Potassium Chloride Carbon Dioxide Anion Gap BUN Creatinine Estim Creat Clear Calc Estimated GFR Glucose POC Capillary Glucose 126 H Calcium Phosphorus Magnesium Total Bilirubin AST ALT Alkaline Phosphatase Total Creatine Kinase C-Reactive Protein Total Protein Albumin Procalcitonin Influenza A (RT-PCR) Influenza B (RT-PCR) RSV (RT-PCR) SARS-CoV-2 RNA (RT-PCR)
[2024-10-25] MEDS: PROPOFOL IV EMULSION 100 ML 11.66 MG IV CONT (15:20)
[2024-10-25 16:49] LABS: Anion Gap 5 mmol/L (4-12); Blood Urea Nitrogen 27 mg/dL (9-20); Calcium 8.6 mg/dL (8.4-10.2); Carbon Dioxide 28 mmol/L (22-30); Chloride 112 mmol/L (98-107); Estimated CRCL calculation 47 ml/min; Estimated Glomerular Filt Rate > 60; Glucose 127 mg/dL (65-110); Magnesium 2.4 mg/dL (1.6-2.3); Phosphorus 3.3 mg/dL (2.5-4.5); Potassium 3.8 mmol/L (3.4-5.0); Sodium 145 mmol/L (137-145)
[2024-10-25] MEDS: ATORVASTATIN 20 MG TABLET FEED TUBE (20:05)
[2024-10-25] MEDS: PROPOFOL IV EMULSION 100 ML 13.99 MG IV CONT (23:26)
[2024-10-25 23:33] LABS: Glucose Point of Care 136 mg/dl (65-105)
[2024-10-26] VITALS (31 sets, daily range): BP systolic 144–185; BP diastolic 60–91; PULSE 56–88; RESP 22–48; TEMP 37.8–38.4; O2SAT 96–100
[2024-10-26] MEDS: ACETAMINOPHEN ELIXIR 325 MG/10.15 ML UDC 650 MG PO ×2 (03:12→21:35)
[2024-10-26 03:32] LABS: Hematocrit 31.8 % (42.0-52.0); Hemoglobin 10.4 g/dL (14.0-18.0); Mean Corpuscular HGB Conc 32.7 g/dl (32-36); Mean Corpuscular Hemoglobin 30.5 pg (26-34); Mean Corpuscular Volume 93.3 fl (80-100); Mean Platelet Volume 10.3 fl (7.4-10.4); Platelet Count Result 335 k/mm3 (150-375); Red Blood Count 3.41 M/mm3 (4.6-6.20); Red Cell Distribution Width 15.7 % (11.5-14.5); White Blood Count 19.5 K/mm3 (4.5-10.0)
[2024-10-26 03:49] LABS: Triglycerides 193 mg/dL (<150)
[2024-10-26 04:01] LABS: Alanine Aminotransferase 32 U/L (6-50); Albumin Level 3.1 g/dL (3.5-5.1); Alkaline Phosphatase 73 U/L (38-126); Anion Gap 6 mmol/L (4-12); Aspartate Amino Transferase 46 U/L (17-59); Bilirubin,Total 0.8 mg/dL (0.2-1.3); Blood Urea Nitrogen 28 mg/dL (9-20); Calcium 8.6 mg/dL (8.4-10.2); Carbon Dioxide 27 mmol/L (22-30); Chloride 113 mmol/L (98-107); Creatine Kinase 196 U/L (55-170); Estimated CRCL calculation 43 ml/min; Estimated Glomerular Filt Rate 58; Glucose 111 mg/dL (65-110); Magnesium 2.4 mg/dL (1.6-2.3); Phosphorus 3.5 mg/dL (2.5-4.5); Potassium 3.6 mmol/L (3.4-5.0); Sodium 146 mmol/L (137-145)
[2024-10-26] MEDS: PIPERACILLN/TAZ 3.375GM/NS50ML 3.375 GM/50 ML BAG IVPB ×3 (05:14→17:23)
[2024-10-26 05:15] LABS: Glucose Point of Care 109 mg/dl (65-105)
[2024-10-26] MEDS: CENTRAL LINE FLUSH 10 ML IV PUSH ×3 (05:15→21:35)
[2024-10-26] MEDS: PROPOFOL IV EMULSION 100 ML 11.66 MG IV CONT (05:16)
[2024-10-26 05:29] LABS: Alveolar/Arterial O2 Gradient 34.7 mmHg; Base Excess ABG -0.3 mEq/l (+/-2.0); Fractional Inspired Oxygen 30 %; HCO3 ABG 24.5 mEq/l (22.0-26.0); Methemoglobin ABG 0.1 %THb (0-1.5); Oxygen Content ABG 17.6 %vol (16.0-22.0); Oxygen Saturation ABG 98.6 % (95.0-100.0); Oxyhemoglobin 98.7 % THb (90.0-100.0); PCO2 ABG 40.7 mmHg (35.0-45.0); PO2 ABG 131.4 mmHg (80.0-100.0); PO2 FiO2 Ratio Arterial Blood 4.38 %; Reduced Hemoglobin 1.2 %THb (0-5.0); Total Hemoglobin 12.5 g/dL (12.0-18.0); pH ABG 7.397 (7.350-7.450)
[2024-10-26 05:34] LABS: Device VENTILATOR; Modified Allen's Test Pass; Site Drawn RIGHT RADIAL
[2024-10-26 05:35] LABS: Arterial Blood Gas Vent Mode CMV; Arterial Blood Gas Ventilator rate 16 /MIN
[2024-10-26 05:36] LABS: Arterial Blood Gas PEEP 5 cmH2O; Arterial Blood Gas Tidal Volume 360 ml
[2024-10-26] MEDS: LOSARTAN POTASSIUM 25 MG TABLET FEED TUBE (09:04)
[2024-10-26] MEDS: MINERAL OIL/WHITE PETROLATUM OINTMENT 1 APPLIC EACH EYE ×2 (09:04→21:35)
[2024-10-26] MEDS: PANTOPRAZOLE SODIUM IV 40 MG VIAL IV PUSH ×2 (09:04→21:35)
[2024-10-26] MEDS: ENOXAPARIN 40 MG/0.4 ML SYRINGE SUB-Q (09:04)
--- NOTE | 2024-10-26 09:12 | P.PNINT_ITS ---
Progress Note: A&P Assessment and Plan (1) Acute respiratory failure: Code(s): J96.00 - Acute respiratory failure, unspecified whether with hypoxia or hypercapnia Status: Acute Assessment and Plan: Acute Respiratory failure secondary to cardiac arrest, pulmonary edema, questionable aspiration pneumonia Continue full mechanical ventilation support to prevent hypoxemia/hypercarbia and end organ damage. ABG reviewed. Continue tidal volume to 360 rate 16 FiO2 30% peep of 5 Chest x-ray reviewed. Low tidal volume ventilation strategy to prevent volutrauma Weaning will depend on improvement in neurological cardiac status Add Bronchodilators (2) Cardiac arrest: Code(s): I46.9 - Cardiac arrest, cause unspecified Status: Acute Assessment and Plan: PE a cardiac arrest which converted to VFib and later patient was and complete heart block Status post temporary transvenous pacemaker placement Mild elevation of troponin likely secondary to cardiac arrest and respiratory failure Continue statin. Patient is allergic to aspirin. No information available from family regarding the nature of allergy Echo reviewed Cardiology is following Resume ARB Transvenous pacemaker is in place. Patient not requiring pacing at this time. (3) Sepsis: Code(s): A41.9 - Sepsis, unspecified organism Status: Acute Assessment and Plan: Patient met criteria for sepsis. Chest x-ray was clear and did not show any sign of aspiration. CT scan has been delayed due to patient being unstable on presentation His UA was abnormal Blood cultures negative Urine culture is growing Enterococcus which is pansensitive Continue Zosyn at this time empirically to cover for aspiration pneumonia and UTI (4) Heart block AV third degree: Code(s): I44.2 - Atrioventricular block, complete Status: Acute Assessment and Plan: Status post transvenous pacemaker placement which is currently on standby patient's rate is above set pacemaker rate (5) Anoxic brain injury: Code(s): G93.1 - Anoxic brain damage, not elsewhere classified Status: Acute Assessment and Plan: Patient was comatose post resuscitation Head CT was negative for any acute intracranial change Patient had a PEA arrest which later converted to VFib and on arrival was bradycardic and hypotensive Patient completed TTM protocol and now has been reviewed 09/24 patient was tachypneic and asynchronous with the ventilator. He was started low-dose propofol for safe mechanical ventilation 09/25 on holding sedation patient is still not following commands or doing purposeful movements. He does withdraw to pain. He turns around this had and has a blank stare. 09/26 sedation holiday. No significant change in neurological exam Will repeat head CT today EEG is being done at this time.. Neurology consulted Continue to hold sedation and monitor neurological status (6) Acute hypokalemia: Code(s): E87.6 - Hypokalemia Status: Acute Assessment and Plan: Potassium replacement ordered (7) Congestive heart failure: Code(s): I50.9 - Heart failure, unspecified Status: Acute Assessment and Plan: Bilateral pitting edema on exam which is improving Good urine output Summary 1. Complete two-dimensional, color flow and Doppler transthoracic echocardiogram is performed. 2. Technically difficult study with limited views. 3. The left ventricle is normal in size with mildly reduced systolic function. The left ventricular ejection fraction is visually estimated to be 40-45%. 4. The aortic valve is not well visualized however did gradients across the valve suggests moderate aortic stenosis. 5. There is small pericardial effusion. 6. Dilated inferior vena cava with <50% collapse upon inspiration consistent with significantly elevated right atrial pressure, 15 mmHg. (8) Hypotension: Code(s): I95.9 - Hypotension, unspecified Status: Acute Assessment and Plan: Patient was initially hypertensive likely secondary to bradycardia and was on epinephrine drip which was weaned off. Continue to monitor (9) Metabolic acidosis: Code(s): E87.20 - Acidosis, unspecified Status: Acute Assessment and Plan: Hyperchloremic metabolic acidosis. Improving. Monitor Increase free water flush (10) Hyperglycemia: Code(s): R73.9 - Hyperglycemia, unspecified Status: Acute Assessment and Plan: Sliding scale insulin ordered (11) Hypertension: Code(s): I10 - Essential (primary) hypertension Status: Acute Assessment and Plan: Patient has history of hypertension but now blood pressure is soft on sedation. P.r.n. hydralazine Continue losartan. Will increase dose to 50 Plan DVT prophylaxis -Lovenox Stress ulcer prophylaxis -PPI Nutrition -continue tube feeds Code Status - Full Code 10/23 I spoke to patient's stepdaughter Olivia by phone and updated her with patient's current status including respiratory failure, cardiac arrest, complete heart block requiring transvenous pacemaker, anoxic brain injury. I also answer question updated with current treatment plan including holding sedation and re- evaluating his neurological status over next 24-48 hours. She is going to discuss with her mother regarding goals of care and code status. She told me that patient does not have any biological children and his has limited cognitive ability Total Critical Care Time - 32 minutes Due to a high probability of clinically significant, life threatening deterioration, the patient required my highest level of preparedness to intervene emergently and I personally spent this critical care time directly and personally managing the patient. This critical care time included obtaining a history; examining the patient; pulse oximetry; ordering and review of studies; arranging urgent treatment with development of a management plan; evaluation of patient's response to treatment; frequent reassessment; and discussions with other providers. It was exclusive of separately billable procedures and treating other patients and teaching time. Please see Assessment and Plan section and the rest of the note for further information on patient assessment and treatment Subjective Date/time seen: 10/26/24 Overnight events reviewed. febrile Continues to be on mechanical ventilation 30% FiO2 Not on any vasopressors Continues to be sedated with propofol. No change in neurological status on holding sedation Good urine output. Tolerating tube feeds Review of Systems Review of Systems: ROS unobtainable: Yes unobtainable due to endotracheal tube, unobtainable due to medical condition and unobtainable due to mental status Exam Narrative: General: Pt is sedated, intubated, chemically paralyzed and on mechanical ventilation Lungs/Chest: Trachea central clear BS B/L, No crackles or wheezing. Tachypneic of sedation Cardiac: RRR. Normal S1 S2. No murmurs Circulation: Pedal pulses are intact and symmetrical but weak Abdomen: Present bowel sounds. Soft. NT. ND. Rectal tube in place Extremities: No clubbing, cyanosis, Warm. Bilateral pitting edema present : Romero in place Neurologic: On holding sedation his Eyes are open and he turns his head to either side with a blank stare, he withdraws to pain, he has cough and gag reflex but is not responsive to commands or regards examiner PERRL he becomes tachypneic and asynchronous with the ventilator Objective Data Vital Signs Vital Signs: Vital Signs - 24 hr 10/25/24 09:40 10/25/24 10:00 10/25/24 10:28 Temperature Pulse Rate 112 H 90 86 Pulse Rate [Bilateral Pedal (Dorsalis Pedis) Palpation] Respiratory Rate 49 H 55 H 48 H Blood Pressure Pulse Oximetry Oxygen Delivery Fraction of Inspired Oxygen 10/25/24 10:00 10/25/24 10:00 10/25/24 10:50 Temperature 38.1 C H Pulse Rate 86 89 70 Pulse Rate [Bilateral Pedal (Dorsalis Pedis) Palpation] Respiratory Rate 59 H Blood Pressure 162/69 H Pulse Oximetry 98 100 Oxygen Delivery Mechanical Ventilation Fraction of Inspired Oxygen 30 10/25/24 12:00 10/25/24 12:00 10/25/24 12:58 Temperature 38.3 C H Pulse Rate 69 Pulse Rate [Bilateral Pedal (Dorsalis Pedis) Palpation] Respiratory Rate 26 H Blood Pressure Pulse Oximetry Oxygen Delivery Fraction of Inspired Oxygen 30 10/25/24 12:00 10/25/24 12:00 10/25/24 12:00 Temperature 38.3 C H Pulse Rate 75 78 Pulse Rate [Bilateral Pedal (Dorsalis Pedis) Palpation] Respiratory Rate 31 H Blood Pressure 163/74 H Pulse Oximetry 98 98 Oxygen Delivery Mechanical Ventilation Fraction of Inspired Oxygen 30 10/25/24 14:15 10/25/24 14:00 10/25/24 14:22 Temperature 38.3 C H Pulse Rate 85 87 Pulse Rate [Bilateral Pedal (Dorsalis Pedis) Palpation] Respiratory Rate 31 H Blood Pressure Pulse Oximetry 99 Oxygen Delivery Mechanical Ventilation Fraction of Inspired Oxygen 30 10/25/24 14:00 10/25/24 14:00 10/25/24 15:20 Temperature 38.3 C H Pulse Rate 89 89 83 Pulse Rate [Bilateral Pedal (Dorsalis Pedis) Palpation] Respiratory Rate 31 H 30 H Blood Pressure 166/73 H Pulse Oximetry 99 Oxygen Delivery Fraction of Inspired Oxygen 10/25/24 15:20 10/25/24 16:01 10/25/24 16:00 Temperature Pulse Rate 83 89 Pulse Rate [Bilateral Pedal (Dorsalis Pedis) Palpation] Respiratory Rate 30 H 57 H Blood Pressure Pulse Oximetry 100 Oxygen Delivery Mechanical Ventilation Fraction of Inspired Oxygen 30 10/25/24 16:00 10/25/24 16:00 10/25/24 16:00 Temperature 38.3 C H Pulse Rate 80 77 Pulse Rate [Bilateral Pedal (Dorsalis Pedis) Palpation] Respiratory Rate 57 H Blood Pressure 170/78 H Pulse Oximetry 100 Oxygen Delivery Fraction of Inspired Oxygen 30 10/25/24 17:08 10/25/24 18:00 10/25/24 18:00 Temperature Pulse Rate 75 85 85 Pulse Rate [Bilateral Pedal (Dorsalis Pedis) Palpation] Respiratory Rate 30 H Blood Pressure Pulse Oximetry 98 Oxygen Delivery Mechanical Ventilation Fraction of Inspired Oxygen 30 10/25/24 18:00 10/25/24 18:48 10/25/24 19:57 Temperature 38.3 C H Pulse Rate 85 66 Pulse Rate [Bilateral Pedal (Dorsalis Pedis) Palpation] Respiratory Rate 30 H 25 H Blood Pressure 154/80 H Pulse Oximetry 99 Oxygen Delivery Fraction of Inspired Oxygen 30 10/25/24 19:58 10/25/24 19:59 10/25/24 20:00 Temperature 38.2 C H Pulse Rate 81 Pulse Rate [Bilateral Pedal (Dorsalis Pedis) Palpation] 88 Respiratory Rate 30 H Blood Pressure 167/66 H Pulse Oximetry 96 96 Oxygen Delivery Mechanical Ventilation Fraction of Inspired Oxygen 30 10/25/24 20:00 10/25/24 19:15 10/25/24 20:00 Temperature 38.3 C H Pulse Rate 81 80 Pulse Rate [Bilateral Pedal (Dorsalis Pedis) Palpation] Respiratory Rate 30 H Blood Pressure Pulse Oximetry 100 Oxygen Delivery Mechanical Ventilation Fraction of Inspired Oxygen 30 10/25/24 21:13 10/25/24 20:15 10/25/24 20:00 Temperature 38.2 C H Pulse Rate 74 78 Pulse Rate [Bilateral Pedal (Dorsalis Pedis) Palpation] Respiratory Rate 46 H Blood Pressure Pulse Oximetry Oxygen Delivery Fraction of Inspired Oxygen 10/25/24 21:54 10/25/24 22:00 10/25/24 22:00 Temperature 38.3 C H Pulse Rate 89 73 77 Pulse Rate [Bilateral Pedal (Dorsalis Pedis) Palpation] Respiratory Rate 32 H 26 H Blood Pressure 164/47 H Pulse Oximetry 96 Oxygen Delivery Fraction of Inspired Oxygen 10/25/24 22:00 10/25/24 23:13 10/25/24 23:26 Temperature Pulse Rate 75 74 77 Pulse Rate [Bilateral Pedal (Dorsalis Pedis) Palpation] Respiratory Rate 25 H 29 H Blood Pressure Pulse Oximetry 99 Oxygen Delivery Mechanical Ventilation Fraction of Inspired Oxygen 30 10/25/24 23:26 10/25/24 23:47 10/26/24 00:00 Temperature Pulse Rate 77 Pulse Rate [Bilateral Pedal (Dorsalis Pedis) Palpation] 66 Respiratory Rate 29 H Blood Pressure Pulse Oximetry Oxygen Delivery Fraction of Inspired Oxygen 30 10/26/24 00:00 10/26/24 00:07 10/26/24 00:14 Temperature 38.4 C H Pulse Rate 70 57 L 56 L Pulse Rate [Bilateral Pedal (Dorsalis Pedis) Palpation] Respiratory Rate 30 H 27 H 29 H Blood Pressure 160/64 H Pulse Oximetry 99 Oxygen Delivery Fraction of Inspired Oxygen 10/26/24 00:00 10/26/24 02:20 10/26/24 02:00 Temperature Pulse Rate 63 75 74 Pulse Rate [Bilateral Pedal (Dorsalis Pedis) Palpation] Respiratory Rate 31 H Blood Pressure Pulse Oximetry 100 Oxygen Delivery Mechanical Ventilation Fraction of Inspired Oxygen 30 10/26/24 02:44 10/26/24 02:00 10/26/24 02:00 Temperature 38.3 C H Pulse Rate 73 74 74 Pulse Rate [Bilateral Pedal (Dorsalis Pedis) Palpation] Respiratory Rate 48 H 31 H Blood Pressure 166/91 H Pulse Oximetry 99 Oxygen Delivery Fraction of Inspired Oxygen 10/26/24 03:12 10/26/24 04:00 10/26/24 04:00 Temperature 38.4 C H Pulse Rate Pulse Rate [Bilateral Pedal (Dorsalis Pedis) Palpation] 74 Respiratory Rate Blood Pressure Pulse Oximetry Oxygen Delivery Fraction of Inspired Oxygen 30 10/26/24 04:00 10/26/24 04:00 10/26/24 04:00 Temperature 38.2 C H Pulse Rate 72 76 Pulse Rate [Bilateral Pedal (Dorsalis Pedis) Palpation] Respiratory Rate 24 H Blood Pressure 160/88 H Pulse Oximetry 99 99 Oxygen Delivery Mechanical Ventilation Fraction of Inspired Oxygen 30 10/26/24 04:00 10/26/24 05:02 10/26/24 04:12 Temperature 38.1 C H Pulse Rate 76 65 Pulse Rate [Bilateral Pedal (Dorsalis Pedis) Palpation] Respiratory Rate 24 H Blood Pressure Pulse Oximetry 97 Oxygen Delivery Mechanical Ventilation Fraction of Inspired Oxygen 30 10/26/24 05:16 10/26/24 05:16 10/26/24 06:00 Temperature Pulse Rate 77 77 74 Pulse Rate [Bilateral Pedal (Dorsalis Pedis) Palpation] Respiratory Rate 22 H 22 H Blood Pressure Pulse Oximetry Oxygen Delivery Fraction of Inspired Oxygen 10/26/24 06:00 10/26/24 06:00 10/26/24 07:10 Temperature 37.9 C H Pulse Rate 74 74 64 Pulse Rate [Bilateral Pedal (Dorsalis Pedis) Palpation] Respiratory Rate 28 H 28 H Blood Pressure 158/70 H Pulse Oximetry 98 97 Oxygen Delivery Mechanical Ventilation Fraction of Inspired Oxygen 30 10/26/24 07:45 Temperature Pulse Rate 71 Pulse Rate [Bilateral Pedal (Dorsalis Pedis) Palpation] Respiratory Rate 28 H Blood Pressure Pulse Oximetry Oxygen Delivery Fraction of Inspired Oxygen Intake/Output Intake/Output: Intake & Output 10/23/24 10/24/24 10/25/24 10/26/24 23:59 23:59 23:59 23:59 Intake Total 789.9 2500.3 2277.0 1092.9 Output Total 1015 1350 2000 1500 Balance -225.1 1150.3 277.0 -407.1 Meds/Results Medications: Active Medications Generic Name Dose Route Start Last Admin Trade Name Freq PRN Reason Stop Dose Admin Acetaminophen 650 mg 10/23/24 11:38 10/26/24 03:12 Acetaminophen Elixir 325 Mg/10.15 Ml Udc PO 650 mg Q6H PRN Administration Mild Pain (1-3) or Fever Albuterol/Ipratropium 3 ml 10/22/24 08:35 Ipratropium 0.5 Mg/Albuterol Sulfate 2.5 Mg Ampul.Neb 3 Ml INHALATION Q6HRT PRN Wheezing Atorvastatin Calcium 20 mg 10/21/24 21:40 10/25/24 20:05 Atorvastatin 20 Mg Tablet FEED TUBE 20 mg HS ALEJANDRO Administration Dextrose 12.5 gm 10/21/24 22:44 Dextrose 50% 25 Gm/50 Ml Syringe IV PUSH PRN PRN Hypoglycemia Protocol Enoxaparin Sodium 40 mg 10/22/24 09:00 10/26/24 09:04 Enoxaparin 40 Mg/0.4 Ml Syringe SUB-Q 40 mg DAILY ALEJANDRO Administration Glucagon 1 mg 10/21/24 22:44 Glucagon For Inj 1 Mg Vial IM PRN PRN Hypoglycemia Protocol Glucose 15 gm 10/21/24 22:44 Glucose Oral Gel 15 Gm Of Glucse In 37.5 Gm Tube PO PRN PRN Hypoglycemia Protocol Dextrose 1,000 mls @ 100 mls/hr 10/21/24 22:44 Dextrose 5% 1,000 Ml IVPB PRN PRN Hypoglycemia Protocol Piperacillin/Tazobactam/Dextrose 3.375 gm in 50 mls @ 100 mls/hr 10/22/24 12:00 10/26/24 05:44 Zosyn 3.375 Gm/Ns 50 Ml IVPB Infused Q6HR ALEJANDRO Infusion Propofol 100 mls @ 0 mls/hr 10/24/24 08:00 10/26/24 07:45 Diprivan IV CONT 0 mcg/kg/min .Q0M ALEJANDRO 0 mls/hr Titration Protocol Insulin Aspart 2 - 5 units 10/22/24 06:00 10/26/24 05:15 Insulin Aspart (*Bkc) 100 Units/Ml SUB-Q Not Given Q6HR ALEJANDRO Protocol Losartan Potassium 25 mg 10/25/24 09:00 10/26/24 09:04 Losartan Potassium 25 Mg Tablet FEED TUBE 25 mg DAILY ALEJANDRO Administration Multi-Ingred Cream/Lotion/Oil/Oint 1 applic 10/22/24 09:00 10/26/24 09:04 Mineral Oil/White Petrolatum Ointment EACH EYE 1 applic Q12HR ALEJANDRO Administration Pantoprazole Sodium 40 mg 10/21/24 21:00 10/26/24 09:04 Pantoprazole Sodium Iv 40 Mg Vial IV PUSH 40 mg Q12HR ALEJANDRO Administration Sodium Chloride 10 ml 10/22/24 14:00 10/26/24 05:15 Central Line Flush IV PUSH 10 ml Q8HR ALEJANDRO Administration Sodium Chloride 20 ml 10/22/24 07:50 Central Line Flush IV PUSH PRN PRN after blood draws Radiology Results: ITS Impressions Head CT 10/21/24 19:53 IMPRESSION: No acute intracranial findings. Chest X-Ray 10/25/24 06:22 IMPRESSION: 1. No acute cardiopulmonary disease. Labs Labs: Laboratory Results - last 24 hr 10/25/24 10/25/24 10/25/24 12:13 16:33 23:28 WBC RBC Hgb Hct MCV MCH MCHC RDW Plt Count MPV Puncture Site ABG pH ABG pCO2 ABG pO2 ABG PO2/FiO2 Ratio ABG HCO3 ABG O2 Saturation ABG O2 Content ABG Base Excess A-a Gradient Oxyhemoglobin Carboxyhemoglobin Methemoglobin Reduced Hemoglobin Total Hemoglobin O2 Delivery Device O2 Liters/Min Minute Volume Vent Rate Vent Mode FiO2 Tidal Volume PEEP Peak Inspir Pressure Pressure Support Sodium 145 Potassium 3.8 Chloride 112 H Carbon Dioxide 28 Anion Gap 5 BUN 27 H Creatinine 1.10 Estim Creat Clear Calc 47 Estimated GFR > 60 Glucose 127 H POC Capillary Glucose 126 H 136 H Calcium 8.6 Phosphorus 3.3 Magnesium 2.4 H Total Bilirubin AST ALT Alkaline Phosphatase Total Creatine Kinase Total Protein Albumin Triglycerides 10/26/24 10/26/24 10/26/24 03:25 05:08 05:10 WBC 19.5 H RBC 3.41 L Hgb 10.4 L Hct 31.8 L MCV 93.3 MCH 30.5 MCHC 32.7 RDW 15.7 H Plt Count 335 MPV 10.3 Puncture Site Right radial ABG pH 7.397 ABG pCO2 40.7 ABG pO2 131.4 H ABG PO2/FiO2 Ratio 4.38 ABG HCO3 24.5 ABG O2 Saturation 98.6 ABG O2 Content 17.6 ABG Base Excess -0.3 A-a Gradient 34.7 Oxyhemoglobin 98.7 Carboxyhemoglobin 0.0 Methemoglobin 0.1 Reduced Hemoglobin 1.2 Total Hemoglobin 12.5 O2 Delivery Device Ventilator O2 Liters/Min Not Reportable Minute Volume Not Reportable Vent Rate 16 Vent Mode Cmv FiO2 30 Tidal Volume 360 PEEP 5 Peak Inspir Pressure Not Reportable Pressure Support Not Reportable Sodium 146 H Potassium 3.6 Chloride 113 H Carbon Dioxide 27 Anion Gap 6 BUN 28 H Creatinine 1.20 Estim Creat Clear Calc 43 Estimated GFR 58 L Glucose 111 H POC Capillary Glucose 109 H Calcium 8.6 Phosphorus 3.5 Magnesium 2.4 H Total Bilirubin 0.8 AST 46 ALT 32 Alkaline Phosphatase 73 Total Creatine Kinase 196 H Total Protein 6.0 L Albumin 3.1 L Triglycerides 193 H Quality VTE Prophylaxis VTE prophylaxis: mechanical ordered
[2024-10-26] MEDS: POTASSIUM BICARBONATE 25 MEQ TABEF 50 MEQ FEED TUBE (09:14)
--- NOTE | 2024-10-26 09:20 | WPDNEUROLOGY ---
Neurology EEG Report General Information Date of Study: 10/26/24 TEST electroencephalogram DIAGNOSIS Hypoxic ischemic encephalopathy CONDITION OF RECORDING bedside recording in ICU EEG NUMBER [id number] CLINICAL HISTORY status cardiac arrest. She is on ventilatory support and unresponsive EEG DESCRIPTION Background activity consists of predominantly theta activity at 6 hertz with an amplitude of 15-30 microvolts which appears mildly formed. Anteriorly low amplitude mixed frequency provided theta activity was seen. There is no significant anterior or posterior gradient. Hyperventilation or photic stimulation were not performed. IMPRESSION This is an abnormal EEG due to pacer diffuse background slowing suggestive of generalized encephalopathy. No focal or paroxysmal abnormalities were noted.
--- NOTE | 2024-10-26 11:17 | P.PNCROSS_ITS ---
Event Note Event Note Event Note: Patient's repeat CT scan does not show any new change. EEG shows diffuse encep halopathy. I also discussed with the neurologist. I spoke to patient's stepdaughter Olivia by phone. Olivia has been working daily and has unable to come to see the patient. She states that this was an patient's has been here and has seen the patient. I updated Olivia with patient's status including lack of meaningful neurological improvement over last few days. Results of EEG and CT findings. We also discussed goals of care and guarded prognosis and possibility of him needing trach and PEG. She told me that Ernestine has been visiting patient daily and is aware of patient's poor prognosis and is being supported by her sister Jossy who lives out of town. When he told me that patient's Jennyfer has a fairly good understanding of what is going on and she would like us to talk to her as she will not be able to make any decisions. I then called and spoke to Jennyfer by phone. Jennyfer told me that she understands the patient has had cardiac arrest and has brain injury and is not waking up. She feels that patient is critically ill and may not survive this hospitalization and has low chances of coming back home. She states that Jossy is also aware of patient current status. She states that she knows the patient would not want prolonged ventilation or going to a skilled nursing. She states that she feels she is going to eventually take him off the ventilator if he does not improve but at this point is not ready to make that decision. She states she needs more time to process this information and discuss with her sisters before she can make any phone final decision on goals of care. We also discussed code status going forward and she states that she is in agreement that patient would not want resuscitation further in the event of a new cardiac arrest in his current situation and if his heart stops we should 'let him go in peace'. She is going to be coming to see him later this afternoon and I will visit with her again and answered all any questions she has. She is also going to discuss with her sisters I have made patient DNR in the chart as per patient's 's assessment of patient's wishes. Will continue patient's neurological monitoring to see any signs of improvement. And will revisit goals of care over next few days. Additional time spent in coordinating care and advance care planning 40 minutes
--- NOTE | 2024-10-26 11:20 | PCFNICU ---
ICU Rounding Note: Pt current nutrition is Vital AF 1.2 @ goal rate 60 ml/h. 150 ml flushes q 4 hours Nutrition recommendation: Add Banatrol supplement BID for diarrhea Last recorded weight is 80.4 kg. Bowel Motility: Multiple liquid diarrhea Labs Reviewed: Hgb 10.4, Hct 31.8, Alb 3.1, BUN 28, Glu 111 Meds Noted: No sedation. Lovenox Skin: No pressure injuries Additional Notes: Discussed with RN, pt having diarrhea. Has been tolerating tube feedings with no issues. Goal rate at 55 ml/hr providing 1452 kcal/91 gm protein/ 981 ml water. Flush 30 ml q 4 hours. Tube feedings meeting 74% kcal needs at 25 kcal/kg and 96% protein needs at 1.2-1.4 gm/kg. Adding Banatrol BID to hopefully help diarrhea. Following daily in ICU rounds. Will monitor weight, labs, skin, oral intake, meds every Saturday and Saturday. .
[2024-10-26 11:42] LABS: Glucose Point of Care 126 mg/dl (65-105)
[2024-10-26 17:32] LABS: Glucose Point of Care 140 mg/dl (65-105)
--- NOTE | 2024-10-26 18:17 | WPDNEURCNPN ---
Assessment and Plan Assessment and plan (1) Hypoxic ischemic encephalopathy: Code(s): P91.60 - Hypoxic ischemic encephalopathy [HIE], unspecified Status: Acute Plan As I discussed with the quality control assistant and the nursing staff the patient is clearly not brain his prognosis is poor given the number of days past since the onset of his cardiac arrest. Supportive care is in place and should continue so long as the family wishes to do so.. Evaluation of neurologic status can be performed and we should be glad to follow him which point of view as needed. Consult date: 10/26/24 HPI: Juan Alberto Herndon is a 79 year old male Who underwent cardiac arrest on 10/21/2024 when he had went to fibrillation followed by ventricular asystole of bradycardia. He was this is sedated and intubated and has been on ventilator support ever since that time. He has been unresponsive. [employer] have been involved in his care he has undergone pacemaker and very supportive treatment. Since this morning he has not been on any sedating medications. An EEG was performed which shows moderate diffuse background slowing. No focal or paroxysmal epileptiform abnormality was seen. I have been asked to evaluate him from neurologic point of view. He has not had any seizures while undergoing intensive care. Review of Systems Review of Systems: ROS unobtainable: Yes unobtainable due to endotracheal tube and unobtainable due to medical condition PMFSH Past Medical History Medical History (Updated 10/26/24 @ 18:20 by Jenna Marsh MD) Anemia Anxiety Arthritis Constipation Degenerative joint disease of knee Dizziness DJD of left shoulder Hearing loss Hypertension Hypoxic ischemic encephalopathy Kidney stones Left shoulder pain Osteoarthritis of left knee Osteoarthritis of right knee Rectal cancer Rotator cuff arthropathy Sleep disorder SOB (shortness of breath) Surgical History Surgical History History of rectal surgery Family History Family History Father Diabetes mellitus Mother Esophageal cancer Social History Social History Smoking packs per day: 1 Smoking cigarettes per day: 20.0 Years smoked: 16 Smoking pack-years: 16.00 Smoking status: Former smoker Tobacco type: cigarettes Smoking end date: 11/18/01 Alcohol intake: former Substance use: never Spiritual care concerns: No Meds Home Medications and Allergies Home Medications Medication Instructions Recorded Confirmed Type albuterol sulfate 90 mcg/actuation 1 inh inhalation Q4-6H PRN 02/26/22 10/22/24 History breath activated powder inhaler Shortness Of Breath Or Wheezing allopurinol 100 mg tablet 100 mg PO DAILY 02/26/22 10/21/24 History amlodipine 10 mg tablet 10 mg PO DAILY 02/26/22 10/22/24 History atorvastatin 20 mg tablet 20 mg PO DAILY 02/26/22 10/21/24 History pantoprazole 40 mg tablet,delayed 40 mg PO QAM 02/26/22 10/21/24 History release buprenorphine HCl 75 mcg buccal 75 mcg buccal Q12H 10/21/24 10/21/24 History film ([place]) finasteride 5 mg tablet 5 mg PO DAILY 10/21/24 10/21/24 History gabapentin 300 mg capsule 300 mg PO BID 10/21/24 10/21/24 History losartan 50 mg tablet 50 mg PO DAILY 10/21/24 10/21/24 History methocarbamol 500 mg tablet 500 mg PO Q8H PRN Spasms 10/21/24 10/21/24 History montelukast 10 mg tablet 10 mg PO DAILY 10/21/24 10/21/24 History trazodone 100 mg tablet 100 mg PO QHS PRN Insomnia 10/21/24 10/21/24 History doxazosin 2 mg tablet 2 mg PO QHS 10/22/24 10/22/24 History Allergies Allergy/AdvReac Type Severity Reaction Status Date / Time metoclopramide Allergy Unknown unknown Verified 10/21/24 14:02 aspirin AdvReac Unknown Dizziness Verified 10/26/24 08:09 Vital Signs Vital Signs - 24 hr 10/25/24 18:48 10/25/24 19:57 10/25/24 19:58 Temperature Pulse Rate 66 Pulse Rate [Bilateral Pedal (Dorsalis Pedis) Palpation] 88 Respiratory Rate 25 H Blood Pressure Pulse Oximetry Oxygen Delivery Fraction of Inspired Oxygen 30 10/25/24 19:59 10/25/24 20:00 10/25/24 20:00 Temperature 100.8 F H Pulse Rate 81 81 Pulse Rate [Bilateral Pedal (Dorsalis Pedis) Palpation] Respiratory Rate 30 H 30 H Blood Pressure 167/66 H Pulse Oximetry 96 96 Oxygen Delivery Mechanical Ventilation Fraction of Inspired Oxygen 30 10/25/24 19:15 10/25/24 20:00 10/25/24 21:13 Temperature 101.0 F H Pulse Rate 80 74 Pulse Rate [Bilateral Pedal (Dorsalis Pedis) Palpation] Respiratory Rate 46 H Blood Pressure Pulse Oximetry 100 Oxygen Delivery Mechanical Ventilation Fraction of Inspired Oxygen 30 10/25/24 20:15 10/25/24 20:00 10/25/24 21:54 Temperature 100.7 F H Pulse Rate 78 89 Pulse Rate [Bilateral Pedal (Dorsalis Pedis) Palpation] Respiratory Rate 32 H Blood Pressure Pulse Oximetry Oxygen Delivery Fraction of Inspired Oxygen 10/25/24 22:00 10/25/24 22:00 10/25/24 22:00 Temperature 100.9 F H Pulse Rate 73 77 75 Pulse Rate [Bilateral Pedal (Dorsalis Pedis) Palpation] Respiratory Rate 26 H 25 H Blood Pressure 164/47 H Pulse Oximetry 96 Oxygen Delivery Fraction of Inspired Oxygen 10/25/24 23:13 10/25/24 23:26 10/25/24 23:26 Temperature Pulse Rate 74 77 77 Pulse Rate [Bilateral Pedal (Dorsalis Pedis) Palpation] Respiratory Rate 29 H 29 H Blood Pressure Pulse Oximetry 99 Oxygen Delivery Mechanical Ventilation Fraction of Inspired Oxygen 30 10/25/24 23:47 10/26/24 00:00 10/26/24 00:00 Temperature 101.2 F H Pulse Rate 70 Pulse Rate [Bilateral Pedal (Dorsalis Pedis) Palpation] 66 Respiratory Rate 30 H Blood Pressure 160/64 H Pulse Oximetry 99 Oxygen Delivery Fraction of Inspired Oxygen 30 10/26/24 00:07 10/26/24 00:14 10/26/24 00:00 Temperature Pulse Rate 57 L 56 L 63 Pulse Rate [Bilateral Pedal (Dorsalis Pedis) Palpation] Respiratory Rate 27 H 29 H Blood Pressure Pulse Oximetry Oxygen Delivery Fraction of Inspired Oxygen 10/26/24 02:20 10/26/24 02:00 10/26/24 02:44 Temperature Pulse Rate 75 74 73 Pulse Rate [Bilateral Pedal (Dorsalis Pedis) Palpation] Respiratory Rate 31 H 48 H Blood Pressure Pulse Oximetry 100 Oxygen Delivery Mechanical Ventilation Fraction of Inspired Oxygen 30 10/26/24 02:00 10/26/24 02:00 10/26/24 03:12 Temperature 101.0 F H 101.1 F H Pulse Rate 74 74 Pulse Rate [Bilateral Pedal (Dorsalis Pedis) Palpation] Respiratory Rate 31 H Blood Pressure 166/91 H Pulse Oximetry 99 Oxygen Delivery Fraction of Inspired Oxygen 10/26/24 04:00 10/26/24 04:00 10/26/24 04:00 Temperature Pulse Rate Pulse Rate [Bilateral Pedal (Dorsalis Pedis) Palpation] 74 Respiratory Rate Blood Pressure Pulse Oximetry 99 Oxygen Delivery Mechanical Ventilation Fraction of Inspired Oxygen 30 30 10/26/24 04:00 10/26/24 04:00 10/26/24 04:00 Temperature 100.7 F H Pulse Rate 72 76 76 Pulse Rate [Bilateral Pedal (Dorsalis Pedis) Palpation] Respiratory Rate 24 H 24 H Blood Pressure 160/88 H Pulse Oximetry 99 Oxygen Delivery Fraction of Inspired Oxygen 10/26/24 05:02 10/26/24 04:12 10/26/24 05:16 Temperature 100.6 F H Pulse Rate 65 77 Pulse Rate [Bilateral Pedal (Dorsalis Pedis) Palpation] Respiratory Rate 22 H Blood Pressure Pulse Oximetry 97 Oxygen Delivery Mechanical Ventilation Fraction of Inspired Oxygen 30 10/26/24 05:16 10/26/24 06:00 10/26/24 06:00 Temperature 100.3 F H Pulse Rate 77 74 74 Pulse Rate [Bilateral Pedal (Dorsalis Pedis) Palpation] Respiratory Rate 22 H 28 H Blood Pressure 158/70 H Pulse Oximetry 98 Oxygen Delivery Fraction of Inspired Oxygen 10/26/24 06:00 10/26/24 07:10 10/26/24 07:45 Temperature Pulse Rate 74 64 71 Pulse Rate [Bilateral Pedal (Dorsalis Pedis) Palpation] Respiratory Rate 28 H 28 H Blood Pressure Pulse Oximetry 97 Oxygen Delivery Mechanical Ventilation Fraction of Inspired Oxygen 30 10/26/24 10:30 10/26/24 10:00 10/26/24 08:00 Temperature 100.4 F H Pulse Rate 83 85 71 Pulse Rate [Bilateral Pedal (Dorsalis Pedis) Palpation] Respiratory Rate 30 H 28 H Blood Pressure 180/76 H Pulse Oximetry 98 99 Oxygen Delivery Mechanical Ventilation Fraction of Inspired Oxygen 30 10/26/24 10:00 10/26/24 08:00 10/26/24 10:00 Temperature 100.0 F H Pulse Rate 85 77 77 Pulse Rate [Bilateral Pedal (Dorsalis Pedis) Palpation] Respiratory Rate 30 H Blood Pressure 144/84 H Pulse Oximetry 99 Oxygen Delivery Fraction of Inspired Oxygen 10/26/24 08:00 10/26/24 08:00 10/26/24 13:03 Temperature Pulse Rate 75 Pulse Rate [Bilateral Pedal (Dorsalis Pedis) Palpation] Respiratory Rate Blood Pressure Pulse Oximetry 98 98 Oxygen Delivery Mechanical Ventilation Mechanical Ventilation Fraction of Inspired Oxygen 30 30 30 10/26/24 12:00 10/26/24 12:00 10/26/24 12:00 Temperature 100.0 F H Pulse Rate 76 73 Pulse Rate [Bilateral Pedal (Dorsalis Pedis) Palpation] Respiratory Rate 27 H Blood Pressure 150/60 H Pulse Oximetry 99 Oxygen Delivery Fraction of Inspired Oxygen 30 10/26/24 12:00 10/26/24 12:00 10/26/24 14:00 Temperature Pulse Rate 76 82 Pulse Rate [Bilateral Pedal (Dorsalis Pedis) Palpation] Respiratory Rate 27 H Blood Pressure Pulse Oximetry 99 Oxygen Delivery Mechanical Ventilation Fraction of Inspired Oxygen 30 10/26/24 14:00 10/26/24 16:00 10/26/24 14:00 Temperature 100.1 F H Pulse Rate 82 78 82 Pulse Rate [Bilateral Pedal (Dorsalis Pedis) Palpation] Respiratory Rate 30 H 30 H Blood Pressure 173/88 H Pulse Oximetry 99 98 Oxygen Delivery Mechanical Ventilation Fraction of Inspired Oxygen 30 10/26/24 16:00 10/26/24 16:00 10/26/24 16:00 Temperature Pulse Rate 80 88 Pulse Rate [Bilateral Pedal (Dorsalis Pedis) Palpation] Respiratory Rate 27 H Blood Pressure Pulse Oximetry 99 Oxygen Delivery Mechanical Ventilation Fraction of Inspired Oxygen 30 10/26/24 16:00 10/26/24 16:00 10/26/24 18:00 Temperature 100.1 F H Pulse Rate 80 75 Pulse Rate [Bilateral Pedal (Dorsalis Pedis) Palpation] Respiratory Rate 27 H Blood Pressure 177/65 H Pulse Oximetry 99 Oxygen Delivery Fraction of Inspired Oxygen 30 10/26/24 18:00 10/26/24 18:00 Temperature 100.2 F H Pulse Rate 75 75 Pulse Rate [Bilateral Pedal (Dorsalis Pedis) Palpation] Respiratory Rate 34 H 34 H Blood Pressure 174/61 H Pulse Oximetry 98 Oxygen Delivery Fraction of Inspired Oxygen Exam Narrative: Current intubated. Response to painful stimuli with withdrawal. Pupils were midsize reactive to light. Doll's eyes are present. Corneal reflex present. No decorticate or decerebrate posturing was noted. The tone appears symmetric on both sides in upper lower limbs. Both plantars were acute focal. No involuntary movements were seen. Results Labs 10/26/24 03:25 10/26/24 03:25 Labs: Short CBC 10/26/24 Range/Units 03:25 WBC 19.5 H (4.5-10.0) K/mm3 Hgb 10.4 L (14.0-18.0) g/dL Hct 31.8 L (42.0-52.0) % Plt Count 335 (150-375) k/mm3 BMP 10/26/24 03:25 Sodium 146 H Potassium 3.6 Chloride 113 H Carbon Dioxide 27 BUN 28 H Creatinine 1.20 Glucose 111 H Calcium 8.6 Cardiac Enzymes 10/26/24 Range/Units 03:25 Total Creatine Kinase 196 H (55-170) U/L Liver Function 10/26/24 Range/Units 03:25 Total Bilirubin 0.8 (0.2-1.3) mg/dL AST 46 (17-59) U/L ALT 32 (6-50) U/L Alkaline Phosphatase 73 (38-126) U/L Albumin 3.1 L (3.5-5.1) g/dL
--- NOTE | 2024-10-26 21:30 | PC.NURSE ---
Notified Dr. Moser regarding vomiting episode. Okay to hold tube feedings, restart at 2300 at full rate. Start propofol at 10mcg/kg/min. Okay for Hydralazine 20mg Q4hr PRN for SBP > 160 sustained.
[2024-10-26] MEDS: PROPOFOL IV EMULSION 100 ML 4.66 MG IV CONT (21:34)
[2024-10-26] MEDS: ATORVASTATIN 20 MG TABLET FEED TUBE (21:35)
[2024-10-27] VITALS (25 sets, daily range): BP systolic 127–181; BP diastolic 7–82; PULSE 61–94; RESP 18–29; TEMP 37.8–38.2; O2SAT 95–100
[2024-10-27 00:16] LABS: Glucose Point of Care 112 mg/dl (65-105)
[2024-10-27] MEDS: PIPERACILLN/TAZ 3.375GM/NS50ML 3.375 GM/50 ML BAG IVPB ×4 (00:36→17:50)
[2024-10-27] MEDS: CENTRAL LINE FLUSH 10 ML IV PUSH ×3 (05:00→20:46)
[2024-10-27 07:25] LABS: Hematocrit 32.3 % (42.0-52.0); Hemoglobin 10.2 g/dL (14.0-18.0); Mean Corpuscular HGB Conc 31.6 g/dl (32-36); Mean Corpuscular Hemoglobin 30.2 pg (26-34); Mean Corpuscular Volume 95.6 fl (80-100); Mean Platelet Volume 11.4 fl (7.4-10.4); Platelet Count Result 377 k/mm3 (150-375); Red Blood Count 3.38 M/mm3 (4.6-6.20); Red Cell Distribution Width 15.7 % (11.5-14.5); White Blood Count 17.6 K/mm3 (4.5-10.0)
[2024-10-27 07:35] LABS: Alveolar/Arterial O2 Gradient 66.2 mmHg; Base Excess ABG 1.9 mEq/l (+/-2.0); Carboxyhemoglobin 0.3 % THb (0-2.0); Fractional Inspired Oxygen 30 %; HCO3 ABG 25.7 mEq/l (22.0-26.0); Methemoglobin ABG 0.1 %THb (0-1.5); Oxygen Content ABG 15.1 %vol (16.0-22.0); Oxygen Saturation ABG 98.1 % (95.0-100.0); Oxyhemoglobin 97.8 % THb (90.0-100.0); PCO2 ABG 36.9 mmHg (35.0-45.0); PO2 ABG 104.3 mmHg (80.0-100.0); PO2 FiO2 Ratio Arterial Blood 3.48 %; Reduced Hemoglobin 1.8 %THb (0-5.0); Total Hemoglobin 10.9 g/dL (12.0-18.0)
[2024-10-27 08:06] LABS: Alanine Aminotransferase 30 U/L (6-50); Albumin Level 3.1 g/dL (3.5-5.1); Alkaline Phosphatase 87 U/L (38-126); Anion Gap 5 mmol/L (4-12); Aspartate Amino Transferase 55 U/L (17-59); Bilirubin,Total 0.8 mg/dL (0.2-1.3); Blood Urea Nitrogen 25 mg/dL (9-20); Calcium 8.8 mg/dL (8.4-10.2); Carbon Dioxide 27 mmol/L (22-30); Chloride 116 mmol/L (98-107); Creatine Kinase 75 U/L (55-170); Estimated CRCL calculation 47 ml/min; Estimated Glomerular Filt Rate > 60; Glucose 120 mg/dL (65-110); Magnesium 2.5 mg/dL (1.6-2.3); Phosphorus 3.4 mg/dL (2.5-4.5); Potassium 3.6 mmol/L (3.4-5.0); Sodium 148 mmol/L (137-145)
[2024-10-27 08:10] LABS: Arterial Blood Gas PEEP 5 cmH2O; Arterial Blood Gas Tidal Volume 360 ml; Arterial Blood Gas Vent Mode CMV; Arterial Blood Gas Ventilator rate 16 /MIN; Device VENTILATOR
[2024-10-27] MEDS: PANTOPRAZOLE SODIUM IV 40 MG VIAL IV PUSH ×2 (08:23→20:45)
[2024-10-27] MEDS: MINERAL OIL/WHITE PETROLATUM OINTMENT 1 APPLIC EACH EYE ×2 (08:23→20:46)
[2024-10-27] MEDS: ENOXAPARIN 40 MG/0.4 ML SYRINGE SUB-Q (08:23)
[2024-10-27] MEDS: LOSARTAN POTASSIUM 50 MG TABLET FEED TUBE (08:23)
[2024-10-27] MEDS: PROPOFOL IV EMULSION 100 ML 6.99 MG IV CONT (08:28)
--- NOTE | 2024-10-27 10:33 | P.PNCA_ITS ---
Progress Note: A&P Assessment and Plan (1) Heart block AV third degree: Code(s): I44.2 - Atrioventricular block, complete Status: Acute Assessment and Plan: S/p transvenous pacer placement on 10/21. Removed 10/27 as he has not required pacer for a few days now. If he has meaningful neurological recovery, then will consider permanent pacemaker at that time. (2) Cardiac arrest: Code(s): I46.9 - Cardiac arrest, cause unspecified Status: Acute Assessment and Plan: Had PEA cardiac arrest which propagated to VFIB and then subsequently was in complete heart block. S/p transvenous pacer placement on 10/21, which was removed 10/27. Complete hypothermia protocol on 10/22 at 9:30PM. (3) Acute hypoxic respiratory failure: Code(s): J96.01 - Acute respiratory failure with hypoxia Status: Acute Assessment and Plan: Remains on mechanical ventilation. Ventilator management as per ICU team. (4) Sepsis: Code(s): A41.9 - Sepsis, unspecified organism Status: Acute Assessment and Plan: Management as per ICU team. (5) Anoxic brain injury: Code(s): G93.1 - Anoxic brain damage, not elsewhere classified Status: Acute Assessment and Plan: Concern for possible anoxic brain injury as he was noted to be comatose post resuscitation. (6) Congestive heart failure: Code(s): I50.9 - Heart failure, unspecified Status: Acute Assessment and Plan: Echocardiogram shows LVEF 40-45%, which appears to be a new diagnosis of cardiomyopathy for the patient. In setting of PEA cardiac arrest. Will need to optimize heart failure GDMT once he is more clinically stable. (7) Hypertension: Code(s): I10 - Essential (primary) hypertension Status: Acute Assessment and Plan: Stable. Plan Recommendations and plan discussed with Supervisor Network Control Operators. Subjective Date/time seen: 10/27/24 10:33 Interval history: Reason for visit: PEA cardiac arrest, complete heart block HPI: 79-year-old man with CAD, hypertension, and hyperlipidemia who presented to the emergency room post cardiac arrest post ROSC. History was obtained from chart review and discussion with the emergency room as well as telephone interview with the patient's significant other Jennyfer Berumen. He reportedly lost consciousness without any preceding symptoms of chest pain. Moderate EMS arrival, he was found to have a rhythm of PEA for which he was given 2 amps of epinephrine and subsequently his rhythm deteriorated to ventricular fibrillation for which she received 2 defibrillations followed by 300 mg IV amiodarone. In addition he was intubated in the field for airway protection. Currently he is not responsive on epinephrine drip of 1 elsa per minute which was initiated for decreasing blood pressure. His initial EKG showed sinus rhythm with complete heart block with a junctional escape rhythm. His initial lactate was 7.7 Date of service 10/22: Patient placed on hypothermia protocol and is currently sedated and paralyzed. Date of service 10/23: Sedation and paralytics stopped this morning. Telemetry shows sinus rhythm with frequent ectopy. Transvenous pacer set at a rate of 60bpm. No family at bedside. Date of service 10/27: Has not needed transvenous pacer. Remains intubated. Has not been responsive. Review of Systems Review of Systems: ROS unobtainable: Yes unobtainable due to endotracheal tube and unobtainable due to mental status Exam Const: Other: Elderly male, intubated. HENMT: Other: OETT in place Resp: Other: On mechanical ventilation Cardio: Rate: regular rate Rhythm: regular rhythm and abnormal rhythm with ectopic beats Skin: General skin exam: normal color Objective Data Vital Signs Vital Signs: Vital Signs - 24 hr 10/26/24 12:00 10/26/24 12:00 10/26/24 12:00 Temperature 37.8 C H Pulse Rate 76 73 Pulse Rate [Bilateral Pedal (Dorsalis Pedis) Palpation] Respiratory Rate 27 H Blood Pressure 150/60 H Pulse Oximetry 99 Oxygen Delivery Fraction of Inspired Oxygen 30 10/26/24 12:00 10/26/24 12:00 10/26/24 13:03 Temperature Pulse Rate 76 75 Pulse Rate [Bilateral Pedal (Dorsalis Pedis) Palpation] Respiratory Rate 27 H Blood Pressure Pulse Oximetry 99 98 Oxygen Delivery Mechanical Ventilation Mechanical Ventilation Fraction of Inspired Oxygen 30 30 10/26/24 14:00 10/26/24 14:00 10/26/24 14:00 Temperature 37.8 C H Pulse Rate 82 82 82 Pulse Rate [Bilateral Pedal (Dorsalis Pedis) Palpation] Respiratory Rate 30 H 30 H Blood Pressure 173/88 H Pulse Oximetry 99 Oxygen Delivery Fraction of Inspired Oxygen 10/26/24 16:00 10/26/24 16:00 10/26/24 16:00 Temperature Pulse Rate 78 80 Pulse Rate [Bilateral Pedal (Dorsalis Pedis) Palpation] Respiratory Rate 27 H Blood Pressure Pulse Oximetry 98 99 Oxygen Delivery Mechanical Ventilation Mechanical Ventilation Fraction of Inspired Oxygen 30 30 10/26/24 16:00 10/26/24 16:00 10/26/24 16:00 Temperature 37.8 C H Pulse Rate 88 80 Pulse Rate [Bilateral Pedal (Dorsalis Pedis) Palpation] Respiratory Rate 27 H Blood Pressure 177/65 H Pulse Oximetry 99 Oxygen Delivery Fraction of Inspired Oxygen 30 10/26/24 18:00 10/26/24 18:00 10/26/24 18:00 Temperature 37.9 C H Pulse Rate 75 75 75 Pulse Rate [Bilateral Pedal (Dorsalis Pedis) Palpation] Respiratory Rate 34 H 34 H Blood Pressure 174/61 H Pulse Oximetry 98 Oxygen Delivery Fraction of Inspired Oxygen 10/26/24 19:21 10/26/24 20:00 10/26/24 20:00 Temperature Pulse Rate 79 Pulse Rate [Bilateral Pedal (Dorsalis Pedis) Palpation] 78 Respiratory Rate 30 H Blood Pressure Pulse Oximetry Oxygen Delivery Fraction of Inspired Oxygen 30 10/26/24 20:00 10/26/24 20:02 10/26/24 21:30 Temperature 38.1 C H Pulse Rate 81 77 71 Pulse Rate [Bilateral Pedal (Dorsalis Pedis) Palpation] Respiratory Rate 24 H 27 H Blood Pressure 185/86 H Pulse Oximetry 97 97 96 Oxygen Delivery Mechanical Ventilation Mechanical Ventilation Fraction of Inspired Oxygen 30 30 10/26/24 21:34 10/26/24 21:35 10/26/24 22:00 Temperature 38.1 C H Pulse Rate 85 79 Pulse Rate [Bilateral Pedal (Dorsalis Pedis) Palpation] Respiratory Rate 30 H Blood Pressure Pulse Oximetry Oxygen Delivery Fraction of Inspired Oxygen 10/26/24 22:00 10/26/24 22:00 10/26/24 22:35 Temperature 38.2 C H 38.4 C H Pulse Rate 70 71 Pulse Rate [Bilateral Pedal (Dorsalis Pedis) Palpation] Respiratory Rate 25 H 26 H Blood Pressure 152/65 H Pulse Oximetry 97 Oxygen Delivery Fraction of Inspired Oxygen 10/26/24 23:04 10/27/24 00:00 10/27/24 00:00 Temperature Pulse Rate 74 80 Pulse Rate [Bilateral Pedal (Dorsalis Pedis) Palpation] Respiratory Rate 28 H Blood Pressure Pulse Oximetry 98 Oxygen Delivery Mechanical Ventilation Fraction of Inspired Oxygen 30 30 10/27/24 00:00 10/27/24 00:00 10/27/24 00:00 Temperature 38.2 C H Pulse Rate 80 77 75 Pulse Rate [Bilateral Pedal (Dorsalis Pedis) Palpation] Respiratory Rate 26 H 25 H Blood Pressure 166/7 H Pulse Oximetry 98 97 Oxygen Delivery Mechanical Ventilation Fraction of Inspired Oxygen 30 10/27/24 01:00 10/27/24 02:00 10/27/24 02:00 Temperature 38.2 C H Pulse Rate 77 72 70 Pulse Rate [Bilateral Pedal (Dorsalis Pedis) Palpation] Respiratory Rate 24 H Blood Pressure 154/58 H 167/82 H Pulse Oximetry 95 Oxygen Delivery Fraction of Inspired Oxygen 10/27/24 02:00 10/27/24 02:10 10/27/24 04:00 Temperature 38.1 C H Pulse Rate 70 79 67 Pulse Rate [Bilateral Pedal (Dorsalis Pedis) Palpation] Respiratory Rate 25 H 22 H Blood Pressure 144/75 H Pulse Oximetry 96 95 Oxygen Delivery Mechanical Ventilation Fraction of Inspired Oxygen 30 10/27/24 04:00 10/27/24 04:00 10/27/24 04:00 Temperature Pulse Rate 67 69 Pulse Rate [Bilateral Pedal (Dorsalis Pedis) Palpation] Respiratory Rate 22 H Blood Pressure Pulse Oximetry 95 Oxygen Delivery Mechanical Ventilation Fraction of Inspired Oxygen 30 30 10/27/24 04:00 10/27/24 06:00 10/27/24 06:00 Temperature 38.0 C H Pulse Rate 67 82 72 Pulse Rate [Bilateral Pedal (Dorsalis Pedis) Palpation] Respiratory Rate 22 H 29 H Blood Pressure 179/68 H Pulse Oximetry 100 Oxygen Delivery Fraction of Inspired Oxygen 10/27/24 06:00 10/27/24 08:00 10/27/24 08:06 Temperature Pulse Rate 72 72 75 Pulse Rate [Bilateral Pedal (Dorsalis Pedis) Palpation] Respiratory Rate 29 H 26 H Blood Pressure Pulse Oximetry 100 Oxygen Delivery Mechanical Ventilation Fraction of Inspired Oxygen 30 10/27/24 08:28 10/27/24 08:28 Temperature Pulse Rate 61 61 Pulse Rate [Bilateral Pedal (Dorsalis Pedis) Palpation] Respiratory Rate 20 20 Blood Pressure Pulse Oximetry Oxygen Delivery Fraction of Inspired Oxygen Intake/Output Intake/Output: Intake & Output 10/24/24 10/25/24 10/26/24 10/27/24 23:59 23:59 23:59 23:59 Intake Total 2500.3 2277.0 2183.9 1198.6 Output Total 1350 2000 2700 1150 Balance 1150.3 277.0 -516.1 48.6 Meds/Results Medications: Active Medications Generic Name Dose Route Start Last Admin Trade Name Freq PRN Reason Stop Dose Admin Acetaminophen 650 mg 10/23/24 11:38 10/26/24 21:35 Acetaminophen Elixir 325 Mg/10.15 Ml Udc PO 650 mg Q6H PRN Administration Mild Pain (1-3) or Fever Albuterol/Ipratropium 3 ml 10/22/24 08:35 Ipratropium 0.5 Mg/Albuterol Sulfate 2.5 Mg Ampul.Neb 3 Ml INHALATION Q6HRT PRN Wheezing Atorvastatin Calcium 20 mg 10/21/24 21:40 10/26/24 21:35 Atorvastatin 20 Mg Tablet FEED TUBE 20 mg HS ALEJANDRO Administration Dextrose 12.5 gm 10/21/24 22:44 Dextrose 50% 25 Gm/50 Ml Syringe IV PUSH PRN PRN Hypoglycemia Protocol Enoxaparin Sodium 40 mg 10/22/24 09:00 10/27/24 08:23 Enoxaparin 40 Mg/0.4 Ml Syringe SUB-Q 40 mg DAILY ALEJANDRO Administration Glucagon 1 mg 10/21/24 22:44 Glucagon For Inj 1 Mg Vial IM PRN PRN Hypoglycemia Protocol Glucose 15 gm 10/21/24 22:44 Glucose Oral Gel 15 Gm Of Glucse In 37.5 Gm Tube PO PRN PRN Hypoglycemia Protocol Hydralazine HCl 20 mg 10/26/24 22:55 Hydralazine Hcl 20 Mg/Ml Vial IV PUSH Q4HR PRN SBP > 160 Dextrose 1,000 mls @ 100 mls/hr 10/21/24 22:44 Dextrose 5% 1,000 Ml IVPB PRN PRN Hypoglycemia Protocol Piperacillin/Tazobactam/Dextrose 3.375 gm in 50 mls @ 100 mls/hr 10/22/24 12:00 10/27/24 05:30 Zosyn 3.375 Gm/Ns 50 Ml IVPB Infused Q6HR ALEJANDRO Infusion Propofol 100 mls @ 6.993 mls/hr 10/24/24 08:00 10/27/24 08:28 Diprivan IV CONT 15 mcg/kg/min .[id number] ALEJANDRO 6.99 mls/hr Administration Protocol 15 MCG/KG/MIN Insulin Aspart 2 - 5 units 10/22/24 06:00 10/27/24 08:10 Insulin Aspart (*Bkc) 100 Units/Ml SUB-Q Not Given Q6HR ALEJANDRO Protocol Losartan Potassium 50 mg 10/27/24 09:00 10/27/24 08:23 Losartan Potassium 50 Mg Tablet FEED TUBE 50 mg DAILY ALEJANDRO Administration Multi-Ingred Cream/Lotion/Oil/Oint 1 applic 10/22/24 09:00 10/27/24 08:23 Mineral Oil/White Petrolatum Ointment EACH EYE 1 applic Q12HR ALEJANDRO Administration Pantoprazole Sodium 40 mg 10/21/24 21:00 10/27/24 08:23 Pantoprazole Sodium Iv 40 Mg Vial IV PUSH 40 mg Q12HR ALEJANDRO Administration Sodium Chloride 10 ml 10/22/24 14:00 10/27/24 05:00 Central Line Flush IV PUSH 10 ml Q8HR ALEJANDRO Administration Sodium Chloride 20 ml 10/22/24 07:50 Central Line Flush IV PUSH PRN PRN after blood draws Radiology Results: ITS Impressions Chest X-Ray 10/25/24 06:22 IMPRESSION: 1. No acute cardiopulmonary disease. Head CT 10/26/24 10:34 IMPRESSION: No acute intracranial findings. Labs Labs: Laboratory Results - last 24 hr 10/26/24 10/26/24 10/27/24 11:34 17:22 00:14 WBC RBC Hgb Hct MCV MCH MCHC RDW Plt Count MPV Puncture Site ABG pH ABG pCO2 ABG pO2 ABG PO2/FiO2 Ratio ABG HCO3 ABG O2 Saturation ABG O2 Content ABG Base Excess A-a Gradient Oxyhemoglobin Carboxyhemoglobin Methemoglobin Reduced Hemoglobin Total Hemoglobin O2 Delivery Device O2 Liters/Min Minute Volume Vent Rate Vent Mode FiO2 Tidal Volume PEEP Peak Inspir Pressure Pressure Support Sodium Potassium Chloride Carbon Dioxide Anion Gap BUN Creatinine Estim Creat Clear Calc Estimated GFR Glucose POC Capillary Glucose 126 H 140 H 112 H Calcium Phosphorus Magnesium Total Bilirubin AST ALT Alkaline Phosphatase Total Creatine Kinase Total Protein Albumin 1210/27/24 10/27/24 04:11 04:59 05:24 WBC 17.6 H RBC 3.38 L Hgb 10.2 L Hct 32.3 L MCV 95.6 MCH 30.2 MCHC 31.6 L RDW 15.7 H Plt Count 377 H MPV 11.4 H Puncture Site Not Reportable ABG pH 7.460 H ABG pCO2 36.9 ABG pO2 104.3 H ABG PO2/FiO2 Ratio 3.48 ABG HCO3 25.7 ABG O2 Saturation 98.1 ABG O2 Content 15.1 L ABG Base Excess 1.9 A-a Gradient 66.2 Oxyhemoglobin 97.8 Carboxyhemoglobin 0.3 Methemoglobin 0.1 Reduced Hemoglobin 1.8 Total Hemoglobin 10.9 L O2 Delivery Device Ventilator O2 Liters/Min Not Reportable Minute Volume Not Reportable Vent Rate 16 Vent Mode Cmv FiO2 30 Tidal Volume 360 PEEP 5 Peak Inspir Pressure Not Reportable Pressure Support Not Reportable Sodium 148 H Potassium 3.6 Chloride 116 H Carbon Dioxide 27 Anion Gap 5 BUN 25 H Creatinine 1.10 Estim Creat Clear Calc 47 Estimated GFR > 60 Glucose 120 H POC Capillary Glucose Calcium 8.8 Phosphorus 3.4 Magnesium 2.5 H Total Bilirubin 0.8 AST 55 ALT 30 Alkaline Phosphatase 87 Total Creatine Kinase 75 Total Protein 6.0 L Albumin 3.1 L
[2024-10-27 11:45] LABS: Glucose Point of Care 117 mg/dl (65-105)
--- NOTE | 2024-10-27 11:50 | PCNFU ---
Nutrition Follow-Up Complete: Suboptimal Energy Intake as related to mechanical ventilation as evidenced by NPO. Goal: Meet estimated nutritional needs. Patient is meeting goal. We will continue current goal. Pt current nutrition is Vital AF 1.2 at 55 ml/hr. Last recorded weight is 79.8 kg, up from 78.9kg on admit. Bowel Motility: FMS Labs Reviewed:Glu 120, BUN 25, Na 148, Mg 2.5, HCT 32.3, Hgb 10.2 Meds Noted:Lovenox, NovoLog, Protonix, Lipitor Skin: WNL Additional Notes: Patient remains on mechanical vent. No sedation at this time. Tube feedings of Vital AF 1.2 at 55 ml/hr. Episode of vomiting noted last night per nursing. Tube feedings restarted and are currently at 55 ml/hr providing 1452 kcal/91 gm protein/ 981 ml water. Meeting 74% kcal needs at 25 kcal/kg and 100% protein needs at 1.2-1.4 gm protein. Recommend to continue with current rate at this time and will continue monitor for tolerance. Will monitor weight, labs, skin, oral intake, meds every Saturday and Saturday.
[2024-10-27] MEDS: hydrALAZINE HCL 20 MG/ML VIAL IV PUSH (12:04)
--- NOTE | 2024-10-27 14:19 | P.PNINT_ITS ---
Progress Note: A&P Assessment and Plan (1) Acute respiratory failure: Code(s): J96.00 - Acute respiratory failure, unspecified whether with hypoxia or hypercapnia Status: Acute Assessment and Plan: Acute Respiratory failure secondary to cardiac arrest, pulmonary edema, questionable aspiration pneumonia Continue full mechanical ventilation support to prevent hypoxemia/hypercarbia and end organ damage. ABG reviewed. Continue tidal volume to 360 rate 16 FiO2 30% peep of 5 Chest x-ray reviewed. Low tidal volume ventilation strategy to prevent volutrauma Weaning will depend on improvement in neurological cardiac status Continue Bronchodilators (2) Cardiac arrest: Code(s): I46.9 - Cardiac arrest, cause unspecified Status: Acute Assessment and Plan: PE a cardiac arrest which converted to VFib and later patient was and complete heart block Status post temporary transvenous pacemaker placement Mild elevation of troponin likely secondary to cardiac arrest and respiratory failure Continue statin. Patient is allergic to aspirin. No information available from family regarding the nature of allergy Echo reviewed Cardiology is following Resume ARB 10/27: Cardiology removed Transvenous pacemaker since patient is not requiring any pacemaker support (3) Sepsis: Code(s): A41.9 - Sepsis, unspecified organism Status: Acute Assessment and Plan: Patient met criteria for sepsis. Chest x-ray was clear and did not show any sign of aspiration. CT scan has been delayed due to patient being unstable on presentation His UA was abnormal Blood cultures negative Urine culture is growing Enterococcus which is pansensitive Continue Zosyn at this time empirically to cover for aspiration pneumonia and UTI (4) Heart block AV third degree: Code(s): I44.2 - Atrioventricular block, complete Status: Acute Assessment and Plan: Status post transvenous pacemaker placement which is currently on standby patient's rate is above set pacemaker rate 10/27 pacemaker removed by Cardiology (5) Anoxic brain injury: Code(s): G93.1 - Anoxic brain damage, not elsewhere classified Status: Acute Assessment and Plan: Patient was comatose post resuscitation Head CT was negative for any acute intracranial change Patient had a PEA arrest which later converted to VFib and on arrival was bradycardic and hypotensive Patient completed TTM protocol and now has been reviewed 10/24 patient was tachypneic and asynchronous with the ventilator. He was started low-dose propofol for safe mechanical ventilation 10/25 on holding sedation patient is still not following commands or doing purposeful movements. He does withdraw to pain. He turns around this had and has a blank stare. 10/26 sedation holiday. No significant change in neurological exam 10/26: Head CT with no acute intracranial findings Continue to hold sedation and monitor neurological status -discontinue propofol, if patient needs to be sedated will start Precedex (6) Acute hypokalemia: Code(s): E87.6 - Hypokalemia Status: Acute Assessment and Plan: Potassium normalized of placement (7) Congestive heart failure: Code(s): I50.9 - Heart failure, unspecified Status: Acute Assessment and Plan: Bilateral pitting edema on exam which is improving Good urine output -cardiology following Summary 1. Complete two-dimensional, color flow and Doppler transthoracic echocardiogram is performed. 2. Technically difficult study with limited views. 3. The left ventricle is normal in size with mildly reduced systolic function. The left ventricular ejection fraction is visually estimated to be 40-45%. 4. The aortic valve is not well visualized however did gradients across the valve suggests moderate aortic stenosis. 5. There is small pericardial effusion. 6. Dilated inferior vena cava with <50% collapse upon inspiration consistent with significantly elevated right atrial pressure, 15 mmHg. (8) Hypotension: Code(s): I95.9 - Hypotension, unspecified Status: Acute Assessment and Plan: RESOLVED Patient was initially hypertensive likely secondary to bradycardia and was on epinephrine drip which was weaned off. Continue to monitor (9) Metabolic acidosis: Code(s): E87.20 - Acidosis, unspecified Status: Acute Assessment and Plan: Hyperchloremic metabolic acidosis. Improving. Monitor Hypernatremia: Increase free water flush (10) Hyperglycemia: Code(s): R73.9 - Hyperglycemia, unspecified Status: Acute Assessment and Plan: Sliding scale insulin and Accu-Cheks (11) Hypertension: Code(s): I10 - Essential (primary) hypertension Status: Acute Assessment and Plan: Patient has history of hypertension but now blood pressure is soft on sedation. P.r.n. hydralazine Continue losartan. Plan DVT prophylaxis -Lovenox Stress ulcer prophylaxis -PPI Nutrition -continue tube feeds Code Status - Full Code 10/23 I spoke to patient's stepdaughter Olivia by phone and updated her with patient's current status including respiratory failure, cardiac arrest, complete heart block requiring transvenous pacemaker, anoxic brain injury. I also answer question updated with current treatment plan including holding sedation and re- evaluating his neurological status over next 24-48 hours. She is going to discuss with her mother regarding goals of care and code status. She told me that patient does not have any biological children and his has limited cognitive ability Total Critical Care Time - 34 minutes Due to a high probability of clinically significant, life threatening deterioration, the patient required my highest level of preparedness to intervene emergently and I personally spent this critical care time directly and personally managing the patient. This critical care time included obtaining a history; examining the patient; pulse oximetry; ordering and review of studies; arranging urgent treatment with development of a management plan; evaluation of patient's response to treatment; frequent reassessment; and discussions with other providers. It was exclusive of separately billable procedures and treating other patients and teaching time. Please see Assessment and Plan section and the rest of the note for further information on patient assessment and treatment Subjective Date/time seen: 10/27/24 14:19 Interval history: Reason for consult: Cardiac arrest, acute respiratory failure, high-grade AV block, anoxic brain injury, 10/27/2024: Patient seen and examined the ICU, remains intubated on CMV mode of ventilation, peep of 5, 30% FiO2. Sedated with propofol, does open his eyes and blinks to threat but does not follow simple commands. Withdraws to pain in all extremities. Urine output has been adequate patient is febrile with a T-max of 101.1?. Hemodynamically stable. Review of Systems Review of Systems: ROS unobtainable: Yes unobtainable due to endotracheal tube, unobtainable due to medical condition and unobtainable due to mental status Exam Narrative: General: Pt is sedated, intubated, on mechanical ventilation, in no acute distress Lungs/Chest: Trachea central clear BS B/L, No crackles or wheezing. Cardiac: RRR. Normal S1 S2. No murmurs Circulation: Pedal pulses are intact and symmetrical but weak Abdomen: Present bowel sounds. Soft. NT. ND. Rectal tube in place Extremities: No clubbing, cyanosis, Warm. Bilateral pitting edema present : Romero in place Neurologic: Patient is intubated on propofol, an open his eyes but does not follow simple commands Objective Data Vital Signs Vital Signs: Vital Signs - 24 hr 10/26/24 16:00 10/26/24 16:00 10/26/24 16:00 Temperature Pulse Rate 78 80 Pulse Rate [Bilateral Pedal (Dorsalis Pedis) Palpation] Respiratory Rate 27 H Blood Pressure Pulse Oximetry 98 99 Oxygen Delivery Mechanical Ventilation Mechanical Ventilation Fraction of Inspired Oxygen 30 30 10/26/24 16:00 10/26/24 16:00 10/26/24 16:00 Temperature 100.1 F H Pulse Rate 88 80 Pulse Rate [Bilateral Pedal (Dorsalis Pedis) Palpation] Respiratory Rate 27 H Blood Pressure 177/65 H Pulse Oximetry 99 Oxygen Delivery Fraction of Inspired Oxygen 30 10/26/24 18:00 10/26/24 18:00 10/26/24 18:00 Temperature 100.2 F H Pulse Rate 75 75 75 Pulse Rate [Bilateral Pedal (Dorsalis Pedis) Palpation] Respiratory Rate 34 H 34 H Blood Pressure 174/61 H Pulse Oximetry 98 Oxygen Delivery Fraction of Inspired Oxygen 10/26/24 19:21 10/26/24 20:00 10/26/24 20:00 Temperature Pulse Rate 79 Pulse Rate [Bilateral Pedal (Dorsalis Pedis) Palpation] 78 Respiratory Rate 30 H Blood Pressure Pulse Oximetry Oxygen Delivery Fraction of Inspired Oxygen 30 10/26/24 20:00 10/26/24 20:02 10/26/24 21:30 Temperature 100.5 F H Pulse Rate 81 77 71 Pulse Rate [Bilateral Pedal (Dorsalis Pedis) Palpation] Respiratory Rate 24 H 27 H Blood Pressure 185/86 H Pulse Oximetry 97 97 96 Oxygen Delivery Mechanical Ventilation Mechanical Ventilation Fraction of Inspired Oxygen 30 30 10/26/24 21:34 10/26/24 21:35 10/26/24 22:00 Temperature 100.6 F H Pulse Rate 85 79 Pulse Rate [Bilateral Pedal (Dorsalis Pedis) Palpation] Respiratory Rate 30 H Blood Pressure Pulse Oximetry Oxygen Delivery Fraction of Inspired Oxygen 10/26/24 22:00 10/26/24 22:00 10/26/24 22:35 Temperature 100.8 F H 101.1 F H Pulse Rate 70 71 Pulse Rate [Bilateral Pedal (Dorsalis Pedis) Palpation] Respiratory Rate 25 H 26 H Blood Pressure 152/65 H Pulse Oximetry 97 Oxygen Delivery Fraction of Inspired Oxygen 10/26/24 23:04 10/27/24 00:00 10/27/24 00:00 Temperature Pulse Rate 74 80 Pulse Rate [Bilateral Pedal (Dorsalis Pedis) Palpation] Respiratory Rate 28 H Blood Pressure Pulse Oximetry 98 Oxygen Delivery Mechanical Ventilation Fraction of Inspired Oxygen 30 30 10/27/24 00:00 10/27/24 00:00 10/27/24 00:00 Temperature 100.7 F H Pulse Rate 80 77 75 Pulse Rate [Bilateral Pedal (Dorsalis Pedis) Palpation] Respiratory Rate 26 H 25 H Blood Pressure 166/7 H Pulse Oximetry 98 97 Oxygen Delivery Mechanical Ventilation Fraction of Inspired Oxygen 30 10/27/24 01:00 10/27/24 02:00 10/27/24 02:00 Temperature 100.7 F H Pulse Rate 77 72 70 Pulse Rate [Bilateral Pedal (Dorsalis Pedis) Palpation] Respiratory Rate 24 H Blood Pressure 154/58 H 167/82 H Pulse Oximetry 95 Oxygen Delivery Fraction of Inspired Oxygen 10/27/24 02:00 10/27/24 02:10 10/27/24 04:00 Temperature 100.5 F H Pulse Rate 70 79 67 Pulse Rate [Bilateral Pedal (Dorsalis Pedis) Palpation] Respiratory Rate 25 H 22 H Blood Pressure 144/75 H Pulse Oximetry 96 95 Oxygen Delivery Mechanical Ventilation Fraction of Inspired Oxygen 30 10/27/24 04:00 10/27/24 04:00 10/27/24 04:00 Temperature Pulse Rate 67 69 Pulse Rate [Bilateral Pedal (Dorsalis Pedis) Palpation] Respiratory Rate 22 H Blood Pressure Pulse Oximetry 95 Oxygen Delivery Mechanical Ventilation Fraction of Inspired Oxygen 30 30 10/27/24 04:00 10/27/24 06:00 10/27/24 06:00 Temperature 100.4 F H Pulse Rate 67 82 72 Pulse Rate [Bilateral Pedal (Dorsalis Pedis) Palpation] Respiratory Rate 22 H 29 H Blood Pressure 179/68 H Pulse Oximetry 100 Oxygen Delivery Fraction of Inspired Oxygen 10/27/24 06:00 10/27/24 08:00 10/27/24 08:00 Temperature 100.4 F H Pulse Rate 72 72 71 Pulse Rate [Bilateral Pedal (Dorsalis Pedis) Palpation] Respiratory Rate 29 H 26 H 26 H Blood Pressure 165/69 H Pulse Oximetry 100 Oxygen Delivery Fraction of Inspired Oxygen 10/27/24 08:06 10/27/24 08:28 10/27/24 08:28 Temperature Pulse Rate 75 61 61 Pulse Rate [Bilateral Pedal (Dorsalis Pedis) Palpation] Respiratory Rate 20 20 Blood Pressure Pulse Oximetry 100 Oxygen Delivery Mechanical Ventilation Fraction of Inspired Oxygen 30 10/27/24 09:00 10/27/24 10:00 10/27/24 11:29 Temperature 100.5 F H Pulse Rate 78 73 68 Pulse Rate [Bilateral Pedal (Dorsalis Pedis) Palpation] Respiratory Rate 22 H 24 H Blood Pressure 169/64 H Pulse Oximetry 99 100 Oxygen Delivery Mechanical Ventilation Fraction of Inspired Oxygen 30 10/27/24 12:00 10/27/24 14:00 10/27/24 14:03 Temperature 100.1 F H 100.2 F H Pulse Rate 80 91 82 Pulse Rate [Bilateral Pedal (Dorsalis Pedis) Palpation] Respiratory Rate 22 H 26 H Blood Pressure 181/73 H 159/77 H Pulse Oximetry 99 98 99 Oxygen Delivery Mechanical Ventilation Fraction of Inspired Oxygen 30 Intake/Output Intake/Output: Intake & Output 10/24/24 10/25/24 10/26/24 10/27/24 23:59 23:59 23:59 23:59 Intake Total 2500.3 2277.0 2183.9 1252.3 Output Total 1350 2000 2700 1150 Balance 1150.3 277.0 -516.1 102.3 Meds/Results Medications: Active Medications Generic Name Dose Route Start Last Admin Trade Name Freq PRN Reason Stop Dose Admin Acetaminophen 650 mg 10/23/24 11:38 10/26/24 21:35 Acetaminophen Elixir 325 Mg/10.15 Ml Udc PO 650 mg Q6H PRN Administration Mild Pain (1-3) or Fever Albuterol/Ipratropium 3 ml 10/22/24 08:35 Ipratropium 0.5 Mg/Albuterol Sulfate 2.5 Mg Ampul.Neb 3 Ml INHALATION Q6HRT PRN Wheezing Atorvastatin Calcium 20 mg 10/21/24 21:40 10/26/24 21:35 Atorvastatin 20 Mg Tablet FEED TUBE 20 mg HS ALEJANDRO Administration Dextrose 12.5 gm 10/21/24 22:44 Dextrose 50% 25 Gm/50 Ml Syringe IV PUSH PRN PRN Hypoglycemia Protocol Enoxaparin Sodium 40 mg 10/22/24 09:00 10/27/24 08:23 Enoxaparin 40 Mg/0.4 Ml Syringe SUB-Q 40 mg DAILY ALEJANDRO Administration Glucagon 1 mg 10/21/24 22:44 Glucagon For Inj 1 Mg Vial IM PRN PRN Hypoglycemia Protocol Glucose 15 gm 10/21/24 22:44 Glucose Oral Gel 15 Gm Of Glucse In 37.5 Gm Tube PO PRN PRN Hypoglycemia Protocol Hydralazine HCl 20 mg 10/26/24 22:55 10/27/24 12:04 Hydralazine Hcl 20 Mg/Ml Vial IV PUSH 20 mg Q4HR PRN Administration SBP > 160 Dextrose 1,000 mls @ 100 mls/hr 10/21/24 22:44 Dextrose 5% 1,000 Ml IVPB PRN PRN Hypoglycemia Protocol Piperacillin/Tazobactam/Dextrose 3.375 gm in 50 mls @ 100 mls/hr 10/22/24 12:00 10/27/24 12:30 Zosyn 3.375 Gm/Ns 50 Ml IVPB Infused Q6HR ALEJANDRO Infusion Propofol 100 mls @ 0 mls/hr 10/24/24 08:00 10/27/24 09:00 Diprivan IV CONT 0 mcg/kg/min .Q0M ALEJANDRO 0 mls/hr Titration Protocol Insulin Aspart 2 - 5 units 10/22/24 06:00 10/27/24 12:01 Insulin Aspart (*Bkc) 100 Units/Ml SUB-Q Not Given Q6HR ALEJANDRO Protocol Losartan Potassium 50 mg 10/27/24 09:00 10/27/24 08:23 Losartan Potassium 50 Mg Tablet FEED TUBE 50 mg DAILY ALEJANDRO Administration Multi-Ingred Cream/Lotion/Oil/Oint 1 applic 10/22/24 09:00 10/27/24 08:23 Mineral Oil/White Petrolatum Ointment EACH EYE 1 applic Q12HR ALEJANDRO Administration Pantoprazole Sodium 40 mg 10/21/24 21:00 10/27/24 08:23 Pantoprazole Sodium Iv 40 Mg Vial IV PUSH 40 mg Q12HR ALEJANDRO Administration Sodium Chloride 10 ml 10/22/24 14:00 10/27/24 13:44 Central Line Flush IV PUSH 10 ml Q8HR ALEJANDRO Administration Sodium Chloride 20 ml 10/22/24 07:50 Central Line Flush IV PUSH PRN PRN after blood draws Radiology Results: ITS Impressions Chest X-Ray 10/25/24 06:22 IMPRESSION: 1. No acute cardiopulmonary disease. Head CT 12/09/24 10:34 IMPRESSION: No acute intracranial findings. Venous Doppler Study 10/27/24 12:58 IMPRESSION: Negative bilateral lower extremity venous US. No deep vein thrombosis. Labs Labs: Laboratory Results - last 24 hr 10/26/24 10/27/24 10/27/24 17:22 00:14 04:11 WBC 17.6 H RBC 3.38 L Hgb 10.2 L Hct 32.3 L MCV 95.6 MCH 30.2 MCHC 31.6 L RDW 15.7 H Plt Count 377 H MPV 11.4 H Puncture Site ABG pH ABG pCO2 ABG pO2 ABG PO2/FiO2 Ratio ABG HCO3 ABG O2 Saturation ABG O2 Content ABG Base Excess A-a Gradient Oxyhemoglobin Carboxyhemoglobin Methemoglobin Reduced Hemoglobin Total Hemoglobin O2 Delivery Device O2 Liters/Min Minute Volume Vent Rate Vent Mode FiO2 Tidal Volume PEEP Peak Inspir Pressure Pressure Support Sodium Potassium Chloride Carbon Dioxide Anion Gap BUN Creatinine Estim Creat Clear Calc Estimated GFR Glucose POC Capillary Glucose 140 H 112 H Calcium Phosphorus Magnesium Total Bilirubin AST ALT Alkaline Phosphatase Total Creatine Kinase Total Protein Albumin 10/27/24 10/27/24 10/27/24 04:59 05:24 11:33 WBC RBC Hgb Hct MCV MCH MCHC RDW Plt Count MPV Puncture Site Not Reportable ABG pH 7.460 H ABG pCO2 36.9 ABG pO2 104.3 H ABG PO2/FiO2 Ratio 3.48 ABG HCO3 25.7 ABG O2 Saturation 98.1 ABG O2 Content 15.1 L ABG Base Excess 1.9 A-a Gradient 66.2 Oxyhemoglobin 97.8 Carboxyhemoglobin 0.3 Methemoglobin 0.1 Reduced Hemoglobin 1.8 Total Hemoglobin 10.9 L O2 Delivery Device Ventilator O2 Liters/Min Not Reportable Minute Volume Not Reportable Vent Rate 16 Vent Mode Cmv FiO2 30 Tidal Volume 360 PEEP 5 Peak Inspir Pressure Not Reportable Pressure Support Not Reportable Sodium 148 H Potassium 3.6 Chloride 116 H Carbon Dioxide 27 Anion Gap 5 BUN 25 H Creatinine 1.10 Estim Creat Clear Calc 47 Estimated GFR > 60 Glucose 120 H POC Capillary Glucose 117 H Calcium 8.8 Phosphorus 3.4 Magnesium 2.5 H Total Bilirubin 0.8 AST 55 ALT 30 Alkaline Phosphatase 87 Total Creatine Kinase 75 Total Protein 6.0 L Albumin 3.1 L
[2024-10-27] MEDS: dexmedeTOMIDine 400 MCG/100 ML 400 MCG/100 ML BAG IV CONT (16:14)
[2024-10-27 17:58] LABS: Glucose Point of Care 138 mg/dl (65-105)
[2024-10-27] MEDS: ATORVASTATIN 20 MG TABLET FEED TUBE (20:45)
[2024-10-28] VITALS (24 sets, daily range): BP systolic 91–166; BP diastolic 37–92; PULSE 55–98; RESP 18–25; TEMP 37.7–38; O2SAT 95–100
[2024-10-28 00:01] LABS: Glucose Point of Care 123 mg/dl (65-105)
[2024-10-28] MEDS: PIPERACILLN/TAZ 3.375GM/NS50ML 3.375 GM/50 ML BAG IVPB ×5 (00:48→23:57)
[2024-10-28 03:55] LABS: Basophils Percent Auto 0.3 % (0.2-1.2); Eosinophils Percent Auto 0.2 % (0-4.4); Hematocrit 30.1 % (42.0-52.0); Hemoglobin 9.7 g/dL (14.0-18.0); Immature Granulocyte Absolute 0.27 K/mm3 (0.00-0.031); Lymphocytes Absolute Auto 1.57 K/mm3 (0.9-3.2); Lymphocytes Percent Auto 11.6 % (18.3-44.2); Mean Corpuscular HGB Conc 32.2 g/dl (32-36); Mean Corpuscular Hemoglobin 30.3 pg (26-34); Mean Corpuscular Volume 94.1 fl (80-100); Mean Platelet Volume 10.5 fl (7.4-10.4); Monocytes Absolute Auto 1.4 K/mm3 (0.1-0.6); Monocytes Percent Auto 10.5 % (2.6-8.5); Neutrophils Absolute Auto 10.2 K/mm3 (1.3-6.7); Neutrophils Percent Auto 75.4 % (45.5-73.1); Platelet Count Result 354 k/mm3 (150-375); Red Cell Distribution Width 15.8 % (11.5-14.5); White Blood Count 13.5 K/mm3 (4.5-10.0)
[2024-10-28 04:08] LABS: Alanine Aminotransferase 34 U/L (6-50); Albumin Level 2.9 g/dL (3.5-5.1); Alkaline Phosphatase 91 U/L (38-126); Anion Gap 1 mmol/L (4-12); Aspartate Amino Transferase 45 U/L (17-59); Bilirubin,Total 0.9 mg/dL (0.2-1.3); Blood Urea Nitrogen 33 mg/dL (9-20); Calcium 8.6 mg/dL (8.4-10.2); Carbon Dioxide 28 mmol/L (22-30); Chloride 116 mmol/L (98-107); Estimated CRCL calculation 37 ml/min; Estimated Glomerular Filt Rate 49; Glucose 118 mg/dL (65-110); Magnesium 2.5 mg/dL (1.6-2.3); Phosphorus 4.5 mg/dL (2.5-4.5); Potassium 3.4 mmol/L (3.4-5.0); Sodium 145 mmol/L (137-145); Triglycerides 174 mg/dL (<150)
[2024-10-28 04:53] LABS: Alveolar/Arterial O2 Gradient 60.7 mmHg; Base Excess ABG 0.9 mEq/l (+/-2.0); Fractional Inspired Oxygen 30 %; HCO3 ABG 23.8 mEq/l (22.0-26.0); Oxygen Content ABG 15.2 %vol (16.0-22.0); Oxygen Saturation ABG 98.5 % (95.0-100.0); Oxyhemoglobin 98.2 % THb (90.0-100.0); PCO2 ABG 32.1 mmHg (35.0-45.0); PO2 ABG 115.5 mmHg (80.0-100.0); PO2 FiO2 Ratio Arterial Blood 3.85 %; Total Hemoglobin 10.9 g/dL (12.0-18.0); pH ABG 7.488 (7.350-7.450)
[2024-10-28 04:54] LABS: Arterial Blood Gas PEEP 5 cmH2O; Arterial Blood Gas Tidal Volume 360 ml; Arterial Blood Gas Vent Mode CMV; Arterial Blood Gas Ventilator rate 16 /MIN; Device VENTILATOR; Modified Allen's Test Pass; Site Drawn RIGHT RADIAL
[2024-10-28] MEDS: CENTRAL LINE FLUSH 10 ML IV PUSH ×3 (05:19→21:24)
[2024-10-28] MEDS: KCL 40 MEQ/WATER 100 ML 100 ML 25 ML IVPB (05:19)
[2024-10-28] MEDS: ENOXAPARIN 40 MG/0.4 ML SYRINGE SUB-Q (08:51)
[2024-10-28] MEDS: LOSARTAN POTASSIUM 50 MG TABLET FEED TUBE (08:51)
[2024-10-28] MEDS: LACTATED RINGERS 1,000 ML 100 ML IV CONT (08:51)
[2024-10-28] MEDS: POTASSIUM CHLORIDE 20 MEQ PACKET (FOR LIQUID) 40 MEQ FEED TUBE (08:51)
[2024-10-28] MEDS: PANTOPRAZOLE SODIUM IV 40 MG VIAL IV PUSH ×2 (08:52→21:24)
--- NOTE | 2024-10-28 08:53 | P.PNINT_ITS ---
Progress Note: A&P Assessment and Plan (1) Acute respiratory failure: Code(s): J96.00 - Acute respiratory failure, unspecified whether with hypoxia or hypercapnia Status: Acute Assessment and Plan: Acute Respiratory failure secondary to cardiac arrest, pulmonary edema, questionable aspiration pneumonia Continue full mechanical ventilation support to prevent hypoxemia/hypercarbia and end organ damage. Low tidal volume ventilation strategy to prevent volutrauma Patient is more awake, alert, follows simple commands -off all sedation Continue Bronchodilators -will place patient on SBT and evaluate for extubation Chest x-ray and ABGs reviewed (2) Cardiac arrest: Code(s): I46.9 - Cardiac arrest, cause unspecified Status: Acute Assessment and Plan: PE a cardiac arrest which converted to VFib and later patient was and complete heart block Status post temporary transvenous pacemaker placement Mild elevation of troponin likely secondary to cardiac arrest and respiratory failure Continue statin. Patient is allergic to aspirin. No information available from family regarding the nature of allergy Echo reviewed Cardiology is following Resume ARB 10/27: Cardiology removed Transvenous pacemaker since patient is not requiring any pacemaker support (3) Sepsis: Code(s): A41.9 - Sepsis, unspecified organism Status: Acute Assessment and Plan: Patient met criteria for sepsis. Chest x-ray was clear and did not show any sign of aspiration. CT scan has been delayed due to patient being unstable on p resentation His UA was abnormal Blood cultures negative Urine culture is growing Enterococcus which is pansensitive Continue Zosyn (4) Heart block AV third degree: Code(s): I44.2 - Atrioventricular block, complete Status: Acute Assessment and Plan: Status post transvenous pacemaker placement which is currently on standby patient's rate is above set pacemaker rate 10/27 pacemaker removed by Cardiology (5) Anoxic brain injury: Code(s): G93.1 - Anoxic brain damage, not elsewhere classified Status: Acute Assessment and Plan: Patient was comatose post resuscitation Head CT was negative for any acute intracranial change Patient had a PEA arrest which later converted to VFib and on arrival was bradycardic and hypotensive Patient completed TTM protocol and now has been reviewed 10/24 patient was tachypneic and asynchronous with the ventilator. He was started low-dose propofol for safe mechanical ventilation 10/25 on holding sedation patient is still not following commands or doing purposeful movements. He does withdraw to pain. He turns around this had and has a blank stare. 10/26 sedation holiday. No significant change in neurological exam 10/26: Head CT with no acute intracranial findings Continue to hold sedation and monitor neurological status -discontinue propofol, -off Precedex -10/28: patient more awake, alert, nods to questions and follows simple commands (6) Acute hypokalemia: Code(s): E87.6 - Hypokalemia Status: Acute Assessment and Plan: Will replace potassium (7) Congestive heart failure: Code(s): I50.9 - Heart failure, unspecified Status: Acute Assessment and Plan: Bilateral pitting edema on exam which is improving Good urine output -cardiology following -continue atorvastatin, losartan -cardiology following Summary 1. Complete two-dimensional, color flow and Doppler transthoracic echocardiogram is performed. 2. Technically difficult study with limited views. 3. The left ventricle is normal in size with mildly reduced systolic function. The left ventricular ejection fraction is visually estimated to be 40-45%. 4. The aortic valve is not well visualized however did gradients across the valve suggests moderate aortic stenosis. 5. There is small pericardial effusion. 6. Dilated inferior vena cava with <50% collapse upon inspiration consistent with significantly elevated right atrial pressure, 15 mmHg. (8) Hypotension: Code(s): I95.9 - Hypotension, unspecified Status: Acute Assessment and Plan: RESOLVED Patient was initially hypertensive likely secondary to bradycardia and was on epinephrine drip which was weaned off. Continue to monitor (9) Metabolic acidosis: Code(s): E87.20 - Acidosis, unspecified Status: Acute Assessment and Plan: Hyperchloremic metabolic acidosis. Improving. Monitor Hypernatremia: Continue free water flushes for now Will start D5 0.45 normal saline for 1000 mL (10) Hyperglycemia: Code(s): R73.9 - Hyperglycemia, unspecified Status: Acute Assessment and Plan: Sliding scale insulin and Accu-Cheks (11) Hypertension: Code(s): I10 - Essential (primary) hypertension Status: Acute Assessment and Plan: Patient has history of hypertension but now blood pressure is soft on sedation. P.r.n. hydralazine Continue losartan. Plan DVT prophylaxis -Lovenox Stress ulcer prophylaxis -PPI Nutrition -tolerating tube feeds, will hold for possible extubation Code Status - Full Code 10/23 I spoke to patient's stepdaughter Olivia by phone and updated her with patient's current status including respiratory failure, cardiac arrest, complete heart block requiring transvenous pacemaker, anoxic brain injury. I also answer question updated with current treatment plan including holding sedation and re- evaluating his neurological status over next 24-48 hours. She is going to discuss with her mother regarding goals of care and code status. She told me that patient does not have any biological children and his has limited cognitive ability Total Critical Care Time - 33 minutes Due to a high probability of clinically significant, life threatening deterioration, the patient required my highest level of preparedness to intervene emergently and I personally spent this critical care time directly and personally managing the patient. This critical care time included obtaining a history; examining the patient; pulse oximetry; ordering and review of studies; arranging urgent treatment with development of a management plan; evaluation of patient's response to treatment; frequent reassessment; and discussions with other providers. It was exclusive of separately billable procedures and treating other patients and teaching time. Please see Assessment and Plan section and the rest of the note for further information on patient assessment and treatment Subjective Date/time seen: 10/28/24 08:53 Interval history: Reason for consult: Cardiac arrest, acute respiratory failure, high-grade AV block, anoxic brain injury, 10/28/2024: Patient seen and examined the ICU, i remains intubated on CMV mode of ventilation, peep of 5, 35% FiO2. Is off all sedation, opens his eyes, follows simple commands, nods to questions. Denies any pain. Urine output has been low overnight, creatinine slightly elevated, sodium levels trending down, 145 this morning. Patient remains febrile with a T-max of 100.4?, hemodynamically stable Review of Systems Review of Systems: ROS unobtainable: Yes unobtainable due to endotracheal tube, unobtainable due to medical condition and unobtainable due to mental status Exam Narrative: General: Pt is , intubated, on mechanical ventilation, in no acute distress Lungs/Chest: Trachea central clear BS B/L, No crackles or wheezing. Cardiac: RRR. Normal S1 S2. No murmurs Circulation: Pedal pulses are intact and symmetrical but weak Abdomen: Present bowel sounds. Soft. NT. ND. Rectal tube in place Extremities: No clubbing, cyanosis, Warm. Bilateral pitting edema present : Romero in place Neurologic: Intubated, off all sedation, opens eyes, follows simple commands in all extremities, nods to questions Objective Data Vital Signs Vital Signs: Vital Signs - 24 hr 10/27/24 09:00 10/27/24 10:00 10/27/24 10:00 Temperature 100.5 F H Pulse Rate 78 73 73 Respiratory Rate 22 H 24 H Blood Pressure 169/64 H Pulse Oximetry 99 Oxygen Delivery Fraction of Inspired Oxygen 10/27/24 11:29 10/27/24 12:00 10/27/24 12:00 Temperature 100.1 F H Pulse Rate 68 80 70 Respiratory Rate 22 H Blood Pressure 181/73 H Pulse Oximetry 100 99 Oxygen Delivery Mechanical Ventilation Fraction of Inspired Oxygen 30 10/27/24 12:00 10/27/24 12:00 10/27/24 14:00 Temperature 100.2 F H Pulse Rate 91 Respiratory Rate 26 H Blood Pressure 159/77 H Pulse Oximetry 99 98 Oxygen Delivery Mechanical Ventilation Fraction of Inspired Oxygen 30 30 10/27/24 14:00 10/27/24 14:03 10/27/24 16:00 Temperature 100.2 F H Pulse Rate 91 82 94 Respiratory Rate 24 H Blood Pressure 170/78 H Pulse Oximetry 99 99 Oxygen Delivery Mechanical Ventilation Fraction of Inspired Oxygen 30 10/27/24 16:00 10/27/24 16:00 10/27/24 16:00 Temperature Pulse Rate 86 Respiratory Rate Blood Pressure Pulse Oximetry 99 Oxygen Delivery Mechanical Ventilation Fraction of Inspired Oxygen 30 30 10/27/24 16:12 10/27/24 16:14 10/27/24 18:00 Temperature Pulse Rate 78 73 72 Respiratory Rate 22 H 22 H Blood Pressure Pulse Oximetry 99 Oxygen Delivery Mechanical Ventilation Fraction of Inspired Oxygen 30 10/27/24 18:00 10/27/24 18:00 10/27/24 20:00 Temperature 100.2 F H Pulse Rate 72 72 67 Respiratory Rate 18 18 Blood Pressure 127/53 L Pulse Oximetry 99 100 Oxygen Delivery Mechanical Ventilation Fraction of Inspired Oxygen 30 10/27/24 20:00 10/27/24 20:00 10/27/24 20:00 Temperature 100.3 F H Pulse Rate 68 63 63 Respiratory Rate 20 20 Blood Pressure 127/61 Pulse Oximetry 100 Oxygen Delivery Fraction of Inspired Oxygen 10/27/24 20:00 10/27/24 20:13 10/27/24 22:00 Temperature Pulse Rate 67 68 Respiratory Rate 20 Blood Pressure Pulse Oximetry 100 Oxygen Delivery Mechanical Ventilation Fraction of Inspired Oxygen 30 30 10/27/24 22:00 10/27/24 22:00 10/27/24 22:57 Temperature 100.2 F H Pulse Rate 66 63 66 Respiratory Rate 18 Blood Pressure 138/68 Pulse Oximetry 100 100 Oxygen Delivery Mechanical Ventilation Fraction of Inspired Oxygen 30 10/27/24 23:51 10/27/24 23:52 10/28/24 00:00 Temperature 100.4 F H Pulse Rate 74 63 Respiratory Rate 22 H 19 Blood Pressure 136/60 Pulse Oximetry 99 100 Oxygen Delivery Mechanical Ventilation Fraction of Inspired Oxygen 30 30 10/28/24 00:00 10/28/24 00:01 10/28/24 02:00 Temperature Pulse Rate 60 62 61 Respiratory Rate 22 H Blood Pressure Pulse Oximetry Oxygen Delivery Fraction of Inspired Oxygen 10/28/24 02:00 10/28/24 02:00 10/28/24 02:10 Temperature 100.2 F H Pulse Rate 61 64 67 Respiratory Rate 20 25 H Blood Pressure 91/49 L Pulse Oximetry 100 100 Oxygen Delivery Mechanical Ventilation Fraction of Inspired Oxygen 30 10/28/24 03:00 10/28/24 03:25 10/28/24 04:00 Temperature 99.9 F H Pulse Rate 69 55 L 67 Respiratory Rate 19 20 25 H Blood Pressure 128/62 Pulse Oximetry 100 Oxygen Delivery Fraction of Inspired Oxygen 10/28/24 04:00 10/28/24 04:00 10/28/24 04:00 Temperature Pulse Rate 67 59 L Respiratory Rate 25 H Blood Pressure Pulse Oximetry 100 Oxygen Delivery Mechanical Ventilation Fraction of Inspired Oxygen 30 30 10/28/24 04:55 10/28/24 06:00 10/28/24 06:00 Temperature 100.0 F H Pulse Rate 64 73 68 Respiratory Rate 22 H Blood Pressure 157/72 H Pulse Oximetry 100 100 Oxygen Delivery Mechanical Ventilation Fraction of Inspired Oxygen 30 Intake/Output Intake/Output: Intake & Output 10/25/24 10/26/24 10/27/24 10/28/24 23:59 23:59 23:59 23:59 Intake Total 2277.0 2183.9 2315.3 951.7 Output Total 19990 2150 400 Balance 277.0 -516.1 165.3 551.7 Meds/Results Medications: Active Medications Generic Name Dose Route Start Last Admin Trade Name Freq PRN Reason Stop Dose Admin Acetaminophen 650 mg 10/23/24 11:38 10/26/24 21:35 Acetaminophen Elixir 325 Mg/10.15 Ml Udc PO 650 mg Q6H PRN Administration Mild Pain (1-3) or Fever Albuterol/Ipratropium 3 ml 10/22/24 08:35 Ipratropium 0.5 Mg/Albuterol Sulfate 2.5 Mg Ampul.Neb 3 Ml INHALATION Q6HRT PRN Wheezing Atorvastatin Calcium 20 mg 10/21/24 21:40 10/27/24 20:45 Atorvastatin 20 Mg Tablet FEED TUBE 20 mg HS ALEJANDRO Administration Dextrose 12.5 gm 10/21/24 22:44 Dextrose 50% 25 Gm/50 Ml Syringe IV PUSH PRN PRN Hypoglycemia Protocol Enoxaparin Sodium 40 mg 10/22/24 09:00 10/27/24 08:23 Enoxaparin 40 Mg/0.4 Ml Syringe SUB-Q 40 mg DAILY ALEJANDRO Administration Glucagon 1 mg 10/21/24 22:44 Glucagon For Inj 1 Mg Vial IM PRN PRN Hypoglycemia Protocol Glucose 15 gm 10/21/24 22:44 Glucose Oral Gel 15 Gm Of Glucse In 37.5 Gm Tube PO PRN PRN Hypoglycemia Protocol Hydralazine HCl 20 mg 10/26/24 22:55 10/27/24 12:04 Hydralazine Hcl 20 Mg/Ml Vial IV PUSH 20 mg Q4HR PRN Administration SBP > 160 Dextrose 1,000 mls @ 100 mls/hr 10/21/24 22:44 Dextrose 5% 1,000 Ml IVPB PRN PRN Hypoglycemia Protocol Piperacillin/Tazobactam/Dextrose 3.375 gm in 50 mls @ 100 mls/hr 10/22/24 12:00 10/28/24 05:49 Zosyn 3.375 Gm/Ns 50 Ml IVPB Infused Q6HR ALEJANDRO Infusion Dexmedetomidine HCl 400 mcg in 100 mls @ 3.99 mls/hr 10/27/24 15:45 10/28/24 03:25 Precedex 400 Mcg/100 Ml IV CONT Infused .Q25H4M ALEJANDRO Titration Protocol 0.2 MCG/KG/HR Lactated Ringer's 1,000 mls @ 100 mls/hr 10/28/24 07:35 Lr - Lactated Ringers Iv IV CONT 10/28/24 17:34 .Q10H ALEJANDRO Insulin Aspart 2 - 5 units 10/22/24 06:00 10/28/24 06:25 Insulin Aspart (*Bkc) 100 Units/Ml SUB-Q Not Given Q6HR ALEJANDRO Protocol Losartan Potassium 50 mg 10/27/24 09:00 10/27/24 08:23 Losartan Potassium 50 Mg Tablet FEED TUBE 50 mg DAILY ALEJANDRO Administration Multi-Ingred Cream/Lotion/Oil/Oint 1 applic 10/22/24 09:00 10/27/24 20:46 Mineral Oil/White Petrolatum Ointment EACH EYE 1 applic Q12HR ALEJANDRO Administration Pantoprazole Sodium 40 mg 10/21/24 21:00 10/27/24 20:45 Pantoprazole Sodium Iv 40 Mg Vial IV PUSH 40 mg Q12HR ALEJANDRO Administration Sodium Chloride 10 ml 10/22/24 14:00 10/28/24 05:19 Central Line Flush IV PUSH 10 ml Q8HR ALEJANDRO Administration Sodium Chloride 20 ml 10/22/24 07:50 Central Line Flush IV PUSH PRN PRN after blood draws Radiology Results: ITS Impressions Head CT 10/26/24 10:34 IMPRESSION: No acute intracranial findings. Venous Doppler Study 10/27/24 12:58 IMPRESSION: Negative bilateral lower extremity venous US. No deep vein thrombosis. Chest X-Ray 10/28/24 06:25 Impression: Clear lungs. Support tubes, as above. Labs Labs: Laboratory Results - last 24 hr 10/27/24 10/27/24 10/27/24 11:33 17:50 23:59 WBC RBC Hgb Hct MCV MCH MCHC RDW Plt Count MPV Immature Gran % (Auto) Neut % (Auto) Lymph % (Auto) [place] % (Auto) Eos % (Auto) Baso % (Auto) Lymph # (Auto) [place] # (Auto) Eos # (Auto) Baso # (Auto) Abs Immat Gran (auto) Absolute Neuts (auto) Absolute Nucleated RBC Nucleated RBC % Puncture Site ABG pH ABG pCO2 ABG pO2 ABG PO2/FiO2 Ratio ABG HCO3 ABG O2 Saturation ABG O2 Content ABG Base Excess A-a Gradient Oxyhemoglobin Total Hemoglobin O2 Delivery Device O2 Liters/Min Minute Volume Vent Rate Vent Mode FiO2 Tidal Volume PEEP Peak Inspir Pressure Pressure Support Sodium Potassium Chloride Carbon Dioxide Anion Gap BUN Creatinine Estim Creat Clear Calc Estimated GFR Glucose POC Capillary Glucose 117 H 138 H 123 H Calcium Phosphorus Magnesium Total Bilirubin AST ALT Alkaline Phosphatase Total Protein Albumin Triglycerides 10/28/24 10/28/24 03:43 03:45 WBC 13.5 H RBC 3.20 L Hgb 9.7 L Hct 30.1 L MCV 94.1 MCH 30.3 MCHC 32.2 RDW 15.8 H Plt Count 354 MPV 10.5 H Immature Gran % (Auto) 2.0 H Neut % (Auto) 75.4 H Lymph % (Auto) 11.6 L [place] % (Auto) 10.5 H Eos % (Auto) 0.2 Baso % (Auto) 0.3 Lymph # (Auto) 1.57 [place] # (Auto) 1.4 H Eos # (Auto) 0.0 Baso # (Auto) 0.0 Abs Immat Gran (auto) 0.27 H Absolute Neuts (auto) 10.2 H Absolute Nucleated RBC 0.000 Nucleated RBC % 0.0 Puncture Site Right radial ABG pH 7.488 H ABG pCO2 32.1 L ABG pO2 115.5 H ABG PO2/FiO2 Ratio 3.85 ABG HCO3 23.8 ABG O2 Saturation 98.5 ABG O2 Content 15.2 L ABG Base Excess 0.9 A-a Gradient 60.7 Oxyhemoglobin 98.2 Total Hemoglobin 10.9 L O2 Delivery Device Ventilator O2 Liters/Min Not Reportable Minute Volume Not Reportable Vent Rate 16 Vent Mode Cmv FiO2 30 Tidal Volume 360 PEEP 5 Peak Inspir Pressure Not Reportable Pressure Support Not Reportable Sodium 145 Potassium 3.4 Chloride 116 H Carbon Dioxide 28 Anion Gap 1 L BUN 33 H Creatinine 1.40 H Estim Creat Clear Calc 37 Estimated GFR 49 L Glucose 118 H POC Capillary Glucose Calcium 8.6 Phosphorus 4.5 Magnesium 2.5 H Total Bilirubin 0.9 AST 45 ALT 34 Alkaline Phosphatase 91 Total Protein 6.0 L Albumin 2.9 L Triglycerides 174 H Quality VTE Prophylaxis VTE prophylaxis: mechanical ordered
[2024-10-28] MEDS: DEXTROSE 5%/0.45% SOD CHL 1,000 ML 100 ML IV CONT (09:15)
--- NOTE | 2024-10-28 12:41 | PCFNICU ---
ICU Rounding Note: Pt current nutrition is Vital AF 1.2 @ goal rate 55 ml/h ON HOLD for breathing trial. Nutrition recommendation: Resume TF if pt is not extubated; if extubated, await speech recommendations for diet orders Last recorded weight is 81.2 kg. Bowel Motility: +1 BM 10/28/24, liquid stool output per [facility] Labs Reviewed: Hgb 9.7, Hct 30.1, Alb 2.9, GFR 49, BUN 33, Cre 1.4, Glu 118 Meds Noted: Sedation is off. Lovenox, novolog, protonix Skin: No skin issues noted currently Additional Notes: Breathing trial today, hopefully to be extubated. Continue to monitor and recommend. Following daily in ICU rounds. Will monitor weight, labs, skin, oral intake, meds every Saturday and Saturday. .
[2024-10-28] MEDS: hydrALAZINE HCL 20 MG/ML VIAL 10 MG IV PUSH ×2 (13:23→17:46)
[2024-10-28 14:51] LABS: Glucose Point of Care 124 mg/dl (65-105)
--- NOTE | 2024-10-28 14:53 | P.PNNEUR_ITS ---
Subjective Date/time seen: 10/28/24 14:53 Interval history: Status post hypoxic ischemic insult resulted in encephalopathy seen by Dr. ross, October 26, 2024. Most recent lab shows mild leukocytosis, very mildly abnormal BMP negative x-ray of the chest, negative CT scan of the head on 10/26, at present receiving no sedation but neurologically definitely more awake more alert though exactly does not follow the instruction but eyes are open follows with eyes and spontaneously moving his head all these findings suggestive of gradual neurological status improvement and treatment will be continued as such. Objective Data Vital Signs Vital Signs: Vital Signs - 24 hr 10/27/24 16:00 10/27/24 16:00 10/27/24 16:00 Temperature 37.9 C H Pulse Rate 94 86 Respiratory Rate 24 H Blood Pressure 170/78 H Pulse Oximetry 99 99 Oxygen Delivery Mechanical Ventilation Oxygen Flow Rate Fraction of Inspired Oxygen 30 10/27/24 16:00 10/27/24 16:12 10/27/24 16:14 Temperature Pulse Rate 78 73 Respiratory Rate 22 H Blood Pressure Pulse Oximetry 99 Oxygen Delivery Mechanical Ventilation Oxygen Flow Rate Fraction of Inspired Oxygen 30 30 10/27/24 18:00 10/27/24 18:00 10/27/24 18:00 Temperature 37.9 C H Pulse Rate 72 72 72 Respiratory Rate 22 H 18 Blood Pressure 127/53 L Pulse Oximetry 99 Oxygen Delivery Oxygen Flow Rate Fraction of Inspired Oxygen 10/27/24 20:00 10/27/24 20:00 10/27/24 20:00 Temperature Pulse Rate 67 68 63 Respiratory Rate 18 20 Blood Pressure Pulse Oximetry 100 Oxygen Delivery Mechanical Ventilation Oxygen Flow Rate Fraction of Inspired Oxygen 30 10/27/24 20:00 10/27/24 20:00 10/27/24 20:13 Temperature 37.9 C H Pulse Rate 63 67 Respiratory Rate 20 Blood Pressure 127/61 Pulse Oximetry 100 100 Oxygen Delivery Mechanical Ventilation Oxygen Flow Rate Fraction of Inspired Oxygen 30 30 10/27/24 22:00 10/27/24 22:00 10/27/24 22:00 Temperature 37.9 C H Pulse Rate 68 66 63 Respiratory Rate 20 18 Blood Pressure 138/68 Pulse Oximetry 100 Oxygen Delivery Oxygen Flow Rate Fraction of Inspired Oxygen 10/27/24 22:57 10/27/24 23:51 10/27/24 23:52 Temperature Pulse Rate 66 74 Respiratory Rate 22 H Blood Pressure Pulse Oximetry 100 99 Oxygen Delivery Mechanical Ventilation Mechanical Ventilation Oxygen Flow Rate Fraction of Inspired Oxygen 30 30 30 10/28/24 00:00 10/28/24 00:00 10/28/24 00:01 Temperature 38.0 C H Pulse Rate 63 60 62 Respiratory Rate 19 22 H Blood Pressure 136/60 Pulse Oximetry 100 Oxygen Delivery Oxygen Flow Rate Fraction of Inspired Oxygen 10/28/24 02:00 10/28/24 02:00 10/28/24 02:00 Temperature 37.9 C H Pulse Rate 61 61 64 Respiratory Rate 20 25 H Blood Pressure 91/49 L Pulse Oximetry 100 Oxygen Delivery Oxygen Flow Rate Fraction of Inspired Oxygen 10/28/24 02:10 10/28/24 03:00 10/28/24 03:25 Temperature Pulse Rate 67 69 55 L Respiratory Rate 19 20 Blood Pressure Pulse Oximetry 100 Oxygen Delivery Mechanical Ventilation Oxygen Flow Rate Fraction of Inspired Oxygen 30 10/28/24 04:00 10/28/24 04:00 10/28/24 04:00 Temperature 37.7 C H Pulse Rate 67 67 Respiratory Rate 25 H 25 H Blood Pressure 128/62 Pulse Oximetry 100 100 Oxygen Delivery Mechanical Ventilation Oxygen Flow Rate Fraction of Inspired Oxygen 30 30 10/28/24 04:00 10/28/24 04:55 10/28/24 06:00 Temperature Pulse Rate 59 L 64 73 Respiratory Rate Blood Pressure Pulse Oximetry 100 Oxygen Delivery Mechanical Ventilation Oxygen Flow Rate Fraction of Inspired Oxygen 30 10/28/24 06:00 10/28/24 08:00 10/28/24 08:00 Temperature 37.8 C H Pulse Rate 68 66 Respiratory Rate 22 H Blood Pressure 157/72 H Pulse Oximetry 100 99 Oxygen Delivery Mechanical Ventilation Oxygen Flow Rate Fraction of Inspired Oxygen 10/28/24 08:00 10/28/24 08:00 10/28/24 08:02 Temperature 37.8 C H Pulse Rate 70 66 Respiratory Rate 22 H Blood Pressure 152/70 H Pulse Oximetry 95 97 Oxygen Delivery Mechanical Ventilation Oxygen Flow Rate Fraction of Inspired Oxygen 30 30 10/28/24 10:00 10/28/24 10:00 10/28/24 10:28 Temperature Pulse Rate 72 70 77 Respiratory Rate 24 H Blood Pressure 146/53 H Pulse Oximetry 100 100 Oxygen Delivery Mechanical Ventilation Oxygen Flow Rate Fraction of Inspired Oxygen 30 10/28/24 12:00 10/28/24 12:00 10/28/24 12:00 Temperature Pulse Rate 75 Respiratory Rate Blood Pressure Pulse Oximetry 100 Oxygen Delivery Mechanical Ventilation Oxygen Flow Rate Fraction of Inspired Oxygen 30 10/28/24 12:00 10/28/24 12:30 10/28/24 12:30 Temperature 37.8 C H Pulse Rate 71 84 Respiratory Rate 22 H 20 Blood Pressure 164/76 H Pulse Oximetry 100 99 100 Oxygen Delivery Nasal Cannula Nasal Cannula Oxygen Flow Rate 2 2 Fraction of Inspired Oxygen 10/28/24 12:45 Temperature Pulse Rate Respiratory Rate Blood Pressure 166/71 H Pulse Oximetry Oxygen Delivery Oxygen Flow Rate Fraction of Inspired Oxygen Intake/Output Intake/Output: Intake & Output 10/25/24 10/26/24 10/27/24 10/28/24 23:59 23:59 23:59 23:59 Intake Total 2277.0 2183.9 2315.3 951.7 Output Total 1999 2700 2150 400 Balance 277.0 -516.1 165.3 551.7 Meds/Results Medications: Active Medications Generic Name Dose Route Start Last Admin Trade Name Freq PRN Reason Stop Dose Admin Acetaminophen 650 mg 10/23/24 11:38 10/26/24 21:35 Acetaminophen Elixir 325 Mg/10.15 Ml Udc PO 650 mg Q6H PRN Administration Mild Pain (1-3) or Fever Albuterol/Ipratropium 3 ml 10/22/24 08:35 Ipratropium 0.5 Mg/Albuterol Sulfate 2.5 Mg Ampul.Neb 3 Ml INHALATION Q6HRT PRN Wheezing Atorvastatin Calcium 20 mg 10/21/24 21:40 10/27/24 20:45 Atorvastatin 20 Mg Tablet FEED TUBE 20 mg HS ALEJANDRO Administration Dextrose 12.5 gm 10/21/24 22:44 Dextrose 50% 25 Gm/50 Ml Syringe IV PUSH PRN PRN Hypoglycemia Protocol Enoxaparin Sodium 80 mg 10/28/24 21:00 Enoxaparin 80 Mg/0.8 Ml Syringe SUB-Q Q12HR ALEJANDRO Glucagon 1 mg 10/21/24 22:44 Glucagon For Inj 1 Mg Vial IM PRN PRN Hypoglycemia Protocol Glucose 15 gm 10/21/24 22:44 Glucose Oral Gel 15 Gm Of Glucse In 37.5 Gm Tube PO PRN PRN Hypoglycemia Protocol Hydralazine HCl 10 mg 10/28/24 12:58 12/11/24 13:23 Hydralazine Hcl 20 Mg/Ml Vial IV PUSH 10 mg Q4H PRN Administration Blood Pressure - High Dextrose 1,000 mls @ 100 mls/hr 10/21/24 22:44 Dextrose 5% 1,000 Ml IVPB PRN PRN Hypoglycemia Protocol Piperacillin/Tazobactam/Dextrose 3.375 gm in 50 mls @ 100 mls/hr 10/22/24 12:00 10/28/24 13:29 Zosyn 3.375 Gm/Ns 50 Ml IVPB 100 mls/hr Q6HR ALEJANDRO Administration Dexmedetomidine HCl 400 mcg in 100 mls @ 3.99 mls/hr 10/27/24 15:45 10/28/24 03:25 Precedex 400 Mcg/100 Ml IV CONT Infused .Q25H4M ALEJANDRO Titration Protocol 0.2 MCG/KG/HR Dextrose/Sodium Chloride 1,000 mls @ 100 mls/hr 10/28/24 09:05 10/28/24 09:15 Dextrose 5% Sodium Chloride 0.45% IV CONT 10/28/24 19:04 100 mls/hr .Q10H ALEJANDRO Administration Insulin Aspart 2 - 5 units 10/22/24 06:00 10/28/24 13:18 Insulin Aspart (*Bkc) 100 Units/Ml SUB-Q Not Given Q6HR ALEJANDRO Protocol Losartan Potassium 50 mg 10/27/24 09:00 10/28/24 08:51 Losartan Potassium 50 Mg Tablet FEED TUBE 50 mg DAILY ALEJANDRO Administration Multi-Ingred Cream/Lotion/Oil/Oint 1 applic 10/22/24 09:00 10/28/24 08:52 Mineral Oil/White Petrolatum Ointment EACH EYE Not Given Q12HR ALEJANDRO Pantoprazole Sodium 40 mg 10/21/24 21:00 10/28/24 08:52 Pantoprazole Sodium Iv 40 Mg Vial IV PUSH 40 mg Q12HR ALEJANDRO Administration Sodium Chloride 10 ml 10/22/24 14:00 10/28/24 05:19 Central Line Flush IV PUSH 10 ml Q8HR ALEJANDRO Administration Sodium Chloride 20 ml 10/22/24 07:50 Central Line Flush IV PUSH PRN PRN after blood draws Radiology Results: ITS Impressions Head CT 10/26/24 10:34 IMPRESSION: No acute intracranial findings. Venous Doppler Study 10/27/24 12:58 IMPRESSION: Negative bilateral lower extremity venous US. No deep vein thrombosis. Chest X-Ray 10/28/24 06:25 Impression: Clear lungs. Support tubes, as above. Labs Labs: Laboratory Results - last 24 hr 10/27/24 10/27/24 10/28/24 17:50 23:59 03:43 WBC RBC Hgb Hct MCV MCH MCHC RDW Plt Count MPV Immature Gran % (Auto) Neut % (Auto) Lymph % (Auto) [place] % (Auto) Eos % (Auto) Baso % (Auto) Lymph # (Auto) [place] # (Auto) Eos # (Auto) Baso # (Auto) Abs Immat Gran (auto) Absolute Neuts (auto) Absolute Nucleated RBC Nucleated RBC % Puncture Site Right radial ABG pH 7.488 H ABG pCO2 32.1 L ABG pO2 115.5 H ABG PO2/FiO2 Ratio 3.85 ABG HCO3 23.8 ABG O2 Saturation 98.5 ABG O2 Content 15.2 L ABG Base Excess 0.9 A-a Gradient 60.7 Oxyhemoglobin 98.2 Total Hemoglobin 10.9 L O2 Delivery Device Ventilator O2 Liters/Min Not Reportable Minute Volume Not Reportable Vent Rate 16 Vent Mode Cmv FiO2 30 Tidal Volume 360 PEEP 5 Peak Inspir Pressure Not Reportable Pressure Support Not Reportable Sodium 145 Potassium 3.4 Chloride 116 H Carbon Dioxide 28 Anion Gap 1 L BUN 33 H Creatinine 1.40 H Estim Creat Clear Calc 37 Estimated GFR 49 L Glucose 118 H POC Capillary Glucose 138 H 123 H Calcium 8.6 Phosphorus 4.5 Magnesium 2.5 H Total Bilirubin 0.9 AST 45 ALT 34 Alkaline Phosphatase 91 Total Protein 6.0 L Albumin 2.9 L Triglycerides 174 H 10/28/24 10/28/24 03:45 13:13 WBC 13.5 H RBC 3.20 L Hgb 9.7 L Hct 30.1 L MCV 94.1 MCH 30.3 MCHC 32.2 RDW 15.8 H Plt Count 354 MPV 10.5 H Immature Gran % (Auto) 2.0 H Neut % (Auto) 75.4 H Lymph % (Auto) 11.6 L [place] % (Auto) 10.5 H Eos % (Auto) 0.2 Baso % (Auto) 0.3 Lymph # (Auto) 1.57 [place] # (Auto) 1.4 H Eos # (Auto) 0.0 Baso # (Auto) 0.0 Abs Immat Gran (auto) 0.27 H Absolute Neuts (auto) 10.2 H Absolute Nucleated RBC 0.000 Nucleated RBC % 0.0 Puncture Site ABG pH ABG pCO2 ABG pO2 ABG PO2/FiO2 Ratio ABG HCO3 ABG O2 Saturation ABG O2 Content ABG Base Excess A-a Gradient Oxyhemoglobin Total Hemoglobin O2 Delivery Device O2 Liters/Min Minute Volume Vent Rate Vent Mode FiO2 Tidal Volume PEEP Peak Inspir Pressure Pressure Support Sodium Potassium Chloride Carbon Dioxide Anion Gap BUN Creatinine Estim Creat Clear Calc Estimated GFR Glucose POC Capillary Glucose 124 H Calcium Phosphorus Magnesium Total Bilirubin AST ALT Alkaline Phosphatase Total Protein Albumin Triglycerides
[2024-10-28 17:59] LABS: Glucose Point of Care 131 mg/dl (65-105)
[2024-10-28] MEDS: ENOXAPARIN 80 MG/0.8 ML SYRINGE SUB-Q (21:24)
--- NOTE | 2024-10-28 23:47 | PC.NURSE ---
Assumed care of patient from SHARA Blackwood.
[2024-10-29] VITALS (14 sets, daily range): BP systolic 134–177; BP diastolic 51–99; PULSE 60–93; RESP 17–27; TEMP 37.3–37.8; O2SAT 96–99
[2024-10-29 00:05] LABS: Glucose Point of Care 104 mg/dl (65-105)
--- NOTE | 2024-10-29 00:24 | PC.NURSE ---
Updated patient on his location, his 's location, how he got to the hospital, plan of care and other general questions. Patient calm, verbalized understanding but continues to ask about his 's situation.
[2024-10-29] MEDS: hydrALAZINE HCL 20 MG/ML VIAL 10 MG IV PUSH ×4 (01:39→18:04)
[2024-10-29 03:48] LABS: Basophils Absolute Auto 0.1 K/mm3 (0.0-0.1); Basophils Percent Auto 0.4 % (0.2-1.2); Eosinophils Absolute Auto 0.1 K/mm3 (0-0.3); Eosinophils Percent Auto 0.5 % (0-4.4); Hematocrit 33.8 % (42.0-52.0); Hemoglobin 10.7 g/dL (14.0-18.0); Immature Granulocyte Absolute 0.88 K/mm3 (0.00-0.031); Immature Granulocyte Percent A 4.3 % (0-0.5); Lymphocytes Absolute Auto 2.15 K/mm3 (0.9-3.2); Lymphocytes Percent Auto 10.4 % (18.3-44.2); Mean Corpuscular HGB Conc 31.7 g/dl (32-36); Mean Corpuscular Hemoglobin 29.6 pg (26-34); Mean Corpuscular Volume 93.4 fl (80-100); Mean Platelet Volume 10.3 fl (7.4-10.4); Monocytes Absolute Auto 1.8 K/mm3 (0.1-0.6); Monocytes Percent Auto 8.9 % (2.6-8.5); Neutrophils Absolute Auto 15.6 K/mm3 (1.3-6.7); Neutrophils Percent Auto 75.5 % (45.5-73.1); Platelet Count Result 479 k/mm3 (150-375); Red Blood Count 3.62 M/mm3 (4.6-6.20); Red Cell Distribution Width 15.6 % (11.5-14.5); White Blood Count 20.6 K/mm3 (4.5-10.0)
[2024-10-29 04:00] LABS: Alanine Aminotransferase 35 U/L (6-50); Albumin Level 3.2 g/dL (3.5-5.1); Alkaline Phosphatase 100 U/L (38-126); Anion Gap 5 mmol/L (4-12); Aspartate Amino Transferase 45 U/L (17-59); Blood Urea Nitrogen 26 mg/dL (9-20); Calcium 8.9 mg/dL (8.4-10.2); Carbon Dioxide 26 mmol/L (22-30); Chloride 121 mmol/L (98-107); Estimated CRCL calculation 40 ml/min; Estimated Glomerular Filt Rate 53; Glucose 102 mg/dL (65-110); Magnesium 2.5 mg/dL (1.6-2.3); Phosphorus 3.7 mg/dL (2.5-4.5); Potassium 3.7 mmol/L (3.4-5.0); Sodium 152 mmol/L (137-145)
[2024-10-29] MEDS: PIPERACILLN/TAZ 3.375GM/NS50ML 3.375 GM/50 ML BAG IVPB ×3 (05:01→18:05)
[2024-10-29] MEDS: CENTRAL LINE FLUSH 10 ML IV PUSH ×3 (05:05→20:27)
[2024-10-29] MEDS: PANTOPRAZOLE SODIUM IV 40 MG VIAL IV PUSH ×2 (08:03→20:27)
[2024-10-29] MEDS: ENOXAPARIN 80 MG/0.8 ML SYRINGE SUB-Q ×2 (08:03→20:27)
[2024-10-29] MEDS: DEXTROSE 5% 1,000 ML 1,000 ML 75 ML IV CONT (08:25)
[2024-10-29 10:06] LABS: Add Urine Microscopic? YES; Appearance Urine Cloudy (Clear); Bilirubin Urine Negative (Negative); Blood Urine 2+ (Negative); Color Urine Yellow (Yellow); Glucose Urine UA Negative (Negative); Ketones Urine Trace mg/dL (Negative); Leukocyte Esterase Ur 1+ LEU/UL (Negative); Nitrate Urine Negative (Negative); Protein Urine 2+ mg/dL (Negative); Specific Grav Ur 1.019 (1.001-1.035); Urobilinogen Urine 0.2 mg/dL (<2.0)
[2024-10-29 10:07] LABS: RBC Urine 21-50 /hpf (0-2)
[2024-10-29 10:08] LABS: Squamous Epithelial Cell Urine Occasional /hpf (Few)
[2024-10-29 10:09] LABS: Bacteria Urine 2+ /hpf
--- NOTE | 2024-10-29 11:08 | P.PNINT_ITS ---
Progress Note: A&P Assessment and Plan (1) Acute respiratory failure: Code(s): J96.00 - Acute respiratory failure, unspecified whether with hypoxia or hypercapnia Status: Acute Assessment and Plan: Acute Respiratory failure secondary to cardiac arrest, pulmonary edema, questionable aspiration pneumonia Continue full mechanical ventilation support to prevent hypoxemia/hypercarbia and end organ damage. Low tidal volume ventilation strategy to prevent volutrauma Patient is more awake, alert, follows simple commands -off all sedation Continue Bronchodilators -10/28: successfully extubated, currently on 2 L nasal cannula For (2) Cardiac arrest: Code(s): I46.9 - Cardiac arrest, cause unspecified Status: Acute Assessment and Plan: PE a cardiac arrest which converted to VFib and later patient was and complete heart block Status post temporary transvenous pacemaker placement Mild elevation of troponin likely secondary to cardiac arrest and respiratory failure Continue statin. Patient is allergic to aspirin. No information available from family regarding the nature of allergy Echo reviewed Cardiology is following Resume ARB 10/27: Cardiology removed Transvenous pacemaker since patient is not requiring any pacemaker support Continues to have episodes of V-tach, was in a flutter yesterday, currently in AFib rate controlled -continue therapeutic Lovenox, once he is able to take p.o. will switch it to Eliquis (3) Sepsis: Code(s): A41.9 - Sepsis, unspecified organism Status: Acute Assessment and Plan: Patient met criteria for sepsis. Chest x-ray was clear and did not show any sign of aspiration. CT scan has been delayed due to patient being unstable on presentation His UA was abnormal Blood cultures negative Urine culture is growing Enterococcus which is pansensitive Continue Zosyn -patient still febrile, 10/27 -venous Dopplers were negative for DVT, 10/29: Ordered blood cultures, UA, urine culture (4) Heart block AV third degree: Code(s): I44.2 - Atrioventricular block, complete Status: Acute Assessment and Plan: Status post transvenous pacemaker placement which is currently on standby patient's rate is above set pacemaker rate 10/27 pacemaker removed by Cardiology -currently in AFib/atrial flutter, rate controlled -continue therapeutic Lovenox -hands of V-tach, discussed with director of institutional sales, will hold amiodarone for now given that he had high degree AV block on admission (5) Anoxic brain injury: Code(s): G93.1 - Anoxic brain damage, not elsewhere classified Status: Acute Assessment and Plan: Patient was comatose post resuscitation Head CT was negative for any acute intracranial change Patient had a PEA arrest which later converted to VFib and on arrival was bradycardic and hypotensive Patient completed TTM protocol and now has been reviewed 10/24 patient was tachypneic and asynchronous with the ventilator. He was started low-dose propofol for safe mechanical ventilation 10/25 on holding sedation patient is still not following commands or doing purposeful movements. He does withdraw to pain. He turns around this had and has a blank stare. 10/26 sedation holiday. No significant change in neurological exam 10/26: Head CT with no acute intracranial findings Continue to hold sedation and monitor neurological status -discontinue propofol, -off Precedex -10/28: patient more awake, alert, nods to questions and follows simple commands (6) Acute hypokalemia: Code(s): E87.6 - Hypokalemia Status: Acute Assessment and Plan: Potassium has normalized (7) Congestive heart failure: Code(s): I50.9 - Heart failure, unspecified Status: Acute Assessment and Plan: Bilateral pitting edema on exam which is improving Good urine output -cardiology following -continue atorvastatin, losartan -cardiology following Summary 1. Complete two-dimensional, color flow and Doppler transthoracic echocardiogram is performed. 2. Technically difficult study with limited views. 3. The left ventricle is normal in size with mildly reduced systolic function. The left ventricular ejection fraction is visually estimated to be 40-45%. 4. The aortic valve is not well visualized however did gradients across the valve suggests moderate aortic stenosis. 5. There is small pericardial effusion. 6. Dilated inferior vena cava with <50% collapse upon inspiration consistent with significantly elevated right atrial pressure, 15 mmHg. (8) Hypotension: Code(s): I95.9 - Hypotension, unspecified Status: Acute Assessment and Plan: RESOLVED Patient was initially hypertensive likely secondary to bradycardia and was on epinephrine drip which was weaned off. Continue to monitor (9) Metabolic acidosis: Code(s): E87.20 - Acidosis, unspecified Status: Acute Assessment and Plan: Hyperchloremic metabolic acidosis. Improving. Monitor Hypernatremia: Continue free water flushes for now 10/29: Started on D5% IV fluids, monitor sodium levels (10) Hyperglycemia: Code(s): R73.9 - Hyperglycemia, unspecified Status: Acute Assessment and Plan: Sliding scale insulin and Accu-Cheks (11) Hypertension: Code(s): I10 - Essential (primary) hypertension Status: Acute Assessment and Plan: Patient has history of hypertension but now blood pressure is soft on sedation. P.r.n. hydralazine Continue losartan. Plan DVT prophylaxis -Lovenox Stress ulcer prophylaxis -PPI Nutrition -tolerating tube feeds, will hold for possible extubation Code Status - Full Code Total Critical Care Time - 32 minutes Discussed with cardiology 10/23 Fr. Moser spoke to patient's stepdaughter Olivia by phone and updated her with patient's current status including respiratory failure, cardiac arrest, complete heart block requiring transvenous pacemaker, anoxic brain injury. I also answer question updated with current treatment plan including holding sedation and re-evaluating his neurological status over next 24-48 hours. She is going to discuss with her mother regarding goals of care and code status. She told me that patient does not have any biological children and his has limited cognitive ability Due to a high probability of clinically significant, life threatening deterioration, the patient required my highest level of preparedness to intervene emergently and I personally spent this critical care time directly and personally managing the patient. This critical care time included obtaining a history; examining the patient; pulse oximetry; ordering and review of studies; arranging urgent treatment with development of a management plan; evaluation of patient's response to treatment; frequent reassessment; and discussions with other providers. It was exclusive of separately billable procedures and treating other patients and teaching time. Please see Assessment and Plan section and the rest of the note for further information on patient assessment and treatment Subjective Date/time seen: 10/29/24 11:08 Interval history: Reason for consult: Cardiac arrest, acute respiratory failure, high-grade AV block, anoxic brain injury, 10/28: Extubated 10/29/2024: Patient seen examined the ICU, remains on room air with adequate O2 sats, in AFib, rate controlled, patient had some non-sustained episodes of V- tach through the night and this morning. Urine output has been adequate in response diuresis. Sodium levels are elevated 152 this morning. WBC count increased to 20.6. T-max of 100.2. Patient follows commands in all extremities, green asked about pain in the chest, abdomen, legs, he answered yes to everything but is not consistent. Denies any trouble with breathing. States he is hungry. Patient seems to be confused Review of Systems Review of Systems: All systems reviewed & are unremarkable except as noted in HPI and below Exam Narrative: General: On room air, in no acute distress Lungs/Chest: Trachea central clear BS B/L, No crackles or wheezing. Cardiac: RRR. Normal S1 S2. No murmurs Circulation: Pedal pulses are intact and symmetrical but weak Abdomen: Present bowel sounds. Soft. NT. ND. Rectal tube in place Extremities: No clubbing, cyanosis, Warm. Bilateral pitting edema much improved : Romero in place Neurologic: On room air, awake, alert, follows simple commands, remains confused, patient did know he was at the hospital and who the president was. Objective Data Vital Signs Vital Signs: Vital Signs - 24 hr 10/28/24 12:00 10/28/24 12:00 10/28/24 12:00 Temperature Pulse Rate 75 Respiratory Rate Blood Pressure Pulse Oximetry 100 Oxygen Delivery Mechanical Ventilation Oxygen Flow Rate Fraction of Inspired Oxygen 30 10/28/24 12:00 10/28/24 12:30 10/28/24 12:30 Temperature 100.1 F H Pulse Rate 71 84 Respiratory Rate 22 H 20 Blood Pressure 164/76 H Pulse Oximetry 100 99 100 Oxygen Delivery Nasal Cannula Nasal Cannula Oxygen Flow Rate 2 2 Fraction of Inspired Oxygen 10/28/24 12:45 10/28/24 13:30 10/28/24 14:00 Temperature Pulse Rate 65 Respiratory Rate Blood Pressure 166/71 H 129/37 L Pulse Oximetry Oxygen Delivery Oxygen Flow Rate Fraction of Inspired Oxygen 10/28/24 14:00 10/28/24 15:51 10/28/24 16:00 Temperature 100 F H Pulse Rate 65 70 Respiratory Rate 22 H 21 H Blood Pressure 148/51 H 158/73 H Pulse Oximetry 99 100 100 Oxygen Delivery Nasal Cannula Oxygen Flow Rate 2 Fraction of Inspired Oxygen 10/28/24 16:00 10/28/24 18:00 10/28/24 18:00 Temperature Pulse Rate 70 79 91 Respiratory Rate 21 H Blood Pressure 143/53 H Pulse Oximetry 96 Oxygen Delivery Oxygen Flow Rate Fraction of Inspired Oxygen 10/28/24 19:59 10/28/24 20:00 10/28/24 20:00 Temperature 100 F H Pulse Rate 91 91 98 Respiratory Rate 24 H 18 Blood Pressure 161/92 H Pulse Oximetry 99 99 Oxygen Delivery Nasal Cannula Oxygen Flow Rate 2 Fraction of Inspired Oxygen 10/28/24 22:00 10/28/24 22:00 10/29/24 00:00 Temperature 100.2 F H Pulse Rate 75 75 75 Respiratory Rate 18 18 Blood Pressure 159/66 H Pulse Oximetry 99 99 Oxygen Delivery Nasal Cannula Oxygen Flow Rate 1 Fraction of Inspired Oxygen 10/29/24 00:00 10/29/24 00:00 10/29/24 02:00 Temperature 100.1 F H Pulse Rate 89 82 88 Respiratory Rate 20 Blood Pressure 158/82 H Pulse Oximetry 98 Oxygen Delivery Oxygen Flow Rate Fraction of Inspired Oxygen 10/29/24 02:00 10/29/24 04:00 10/29/24 04:00 Temperature 99.7 F H 99.6 F Pulse Rate 82 93 75 Respiratory Rate 20 17 18 Blood Pressure 158/82 H 175/84 H Pulse Oximetry 98 98 99 Oxygen Delivery Room Air Oxygen Flow Rate Fraction of Inspired Oxygen 10/29/24 04:00 10/29/24 05:00 10/29/24 06:00 Temperature 99.7 F H Pulse Rate 88 84 82 Respiratory Rate 27 H Blood Pressure 160/82 H 153/71 H Pulse Oximetry Oxygen Delivery Oxygen Flow Rate Fraction of Inspired Oxygen 10/29/24 06:00 10/29/24 08:00 10/29/24 08:00 Temperature 99.9 F H Pulse Rate 82 79 79 Respiratory Rate 23 H 23 H Blood Pressure 153/64 H Pulse Oximetry 96 Oxygen Delivery Room Air Oxygen Flow Rate Fraction of Inspired Oxygen 10/29/24 09:16 Temperature Pulse Rate Respiratory Rate Blood Pressure Pulse Oximetry 97 Oxygen Delivery Room Air Oxygen Flow Rate Fraction of Inspired Oxygen 21 Intake/Output Intake/Output: Intake & Output 10/26/24 10/27/24 10/28/24 10/29/24 23:59 23:59 23:59 23:59 Intake Total 2183.9 2315.3 1051.7 100 Output Total 2700 2150 1300 750 Balance -516.1 165.3 -248.3 -650 Meds/Results Medications: Active Medications Generic Name Dose Route Start Last Admin Trade Name Freq PRN Reason Stop Dose Admin Acetaminophen 650 mg 10/23/24 11:38 10/26/24 21:35 Acetaminophen Elixir 325 Mg/10.15 Ml Udc PO 650 mg Q6H PRN Administration Mild Pain (1-3) or Fever Albuterol/Ipratropium 3 ml 10/22/24 08:35 Ipratropium 0.5 Mg/Albuterol Sulfate 2.5 Mg Ampul.Neb 3 Ml INHALATION Q6HRT PRN Wheezing Atorvastatin Calcium 20 mg 10/21/24 21:40 10/28/24 20:28 Atorvastatin 20 Mg Tablet FEED TUBE Not Given HS ALEJANDRO Dextrose 12.5 gm 10/21/24 22:44 Dextrose 50% 25 Gm/50 Ml Syringe IV PUSH PRN PRN Hypoglycemia Protocol Enoxaparin Sodium 80 mg 10/28/24 21:00 10/29/24 08:03 Enoxaparin 80 Mg/0.8 Ml Syringe SUB-Q 80 mg Q12HR ALEJANDRO Administration Glucagon 1 mg 10/21/24 22:44 Glucagon For Inj 1 Mg Vial IM PRN PRN Hypoglycemia Protocol Glucose 15 gm 10/21/24 22:44 Glucose Oral Gel 15 Gm Of Glucse In 37.5 Gm Tube PO PRN PRN Hypoglycemia Protocol Hydralazine HCl 10 mg 10/28/24 12:58 10/29/24 09:19 Hydralazine Hcl 20 Mg/Ml Vial IV PUSH 10 mg Q4H PRN Administration Blood Pressure - High Dextrose 1,000 mls @ 100 mls/hr 10/21/24 22:44 Dextrose 5% 1,000 Ml IVPB PRN PRN Hypoglycemia Protocol Piperacillin/Tazobactam/Dextrose 3.375 gm in 50 mls @ 100 mls/hr 10/22/24 12:00 10/29/24 05:40 Zosyn 3.375 Gm/Ns 50 Ml IVPB Infused Q6HR ALEJANDRO Infusion Dexmedetomidine HCl 400 mcg in 100 mls @ 3.99 mls/hr 10/27/24 15:45 10/28/24 15:55 Precedex 400 Mcg/100 Ml IV CONT Not Given .Q25H4M ALEJANDRO Protocol 0.2 MCG/KG/HR Dextrose 1,000 mls @ 75 mls/hr 10/29/24 08:05 10/29/24 08:25 Dextrose 5% 1,000 Ml IV CONT 10/29/24 21:24 75 mls/hr .[id number] ALEJANDRO Administration Insulin Aspart 2 - 5 units 10/22/24 06:00 10/29/24 05:05 Insulin Aspart (*Bkc) 100 Units/Ml SUB-Q Not Given Q6HR ALEJANDRO Protocol Losartan Potassium 50 mg 10/27/24 09:00 10/28/24 08:51 Losartan Potassium 50 Mg Tablet FEED TUBE 50 mg DAILY ALEJANDRO Administration Multi-Ingred Cream/Lotion/Oil/Oint 1 applic 10/22/24 09:00 10/29/24 08:03 Mineral Oil/White Petrolatum Ointment EACH EYE Not Given Q12HR ALEJANDRO Pantoprazole Sodium 40 mg 10/21/24 21:00 10/29/24 08:03 Pantoprazole Sodium Iv 40 Mg Vial IV PUSH 40 mg Q12HR ALEJANDRO Administration Sodium Chloride 10 ml 10/22/24 14:00 10/29/24 05:05 Central Line Flush IV PUSH 10 ml Q8HR ALEJANDRO Administration Sodium Chloride 20 ml 10/22/24 07:50 Central Line Flush IV PUSH PRN PRN after blood draws Radiology Results: ITS Impressions Head CT 10/26/24 10:34 IMPRESSION: No acute intracranial findings. Venous Doppler Study 10/27/24 12:58 IMPRESSION: Negative bilateral lower extremity venous US. No deep vein thrombosis. Chest X-Ray 10/29/24 06:47 Impression: Possible minimal central pulmonary edema. Right IJ line. Labs Labs: Laboratory Results - last 24 hr 10/28/24 10/28/24 10/28/24 13:13 17:40 23:53 WBC RBC Hgb Hct MCV MCH MCHC RDW Plt Count MPV Immature Gran % (Auto) Neut % (Auto) Lymph % (Auto) [place] % (Auto) Eos % (Auto) Baso % (Auto) Lymph # (Auto) [place] # (Auto) Eos # (Auto) Baso # (Auto) Abs Immat Gran (auto) Absolute Neuts (auto) Absolute Nucleated RBC Nucleated RBC % Sodium Potassium Chloride Carbon Dioxide Anion Gap BUN Creatinine Estim Creat Clear Calc Estimated GFR Glucose POC Capillary Glucose 124 H 131 H 104 Calcium Phosphorus Magnesium Total Bilirubin AST ALT Alkaline Phosphatase Total Protein Albumin Urine Color Urine Appearance Urine pH Ur Specific [place] Urine Protein Urine Glucose (UA) Urine Ketones Ur Blood (Man) Urine Nitrate Urine Bilirubin Urine Urobilinogen Ur Leukocyte Esterase Urine RBC Urine WBC Ur Squamous Epith Cells Urine Bacteria 10/29/24 10/29/24 03:43 09:15 WBC 20.6 H RBC 3.62 L Hgb 10.7 L Hct 33.8 L MCV 93.4 MCH 29.6 MCHC 31.7 L RDW 15.6 H Plt Count 479 H MPV 10.3 Immature Gran % (Auto) 4.3 H Neut % (Auto) 75.5 H Lymph % (Auto) 10.4 L [place] % (Auto) 8.9 H Eos % (Auto) 0.5 Baso % (Auto) 0.4 Lymph # (Auto) 2.15 [place] # (Auto) 1.8 H Eos # (Auto) 0.1 Baso # (Auto) 0.1 Abs Immat Gran (auto) 0.88 H Absolute Neuts (auto) 15.6 H Absolute Nucleated RBC 0.000 Nucleated RBC % 0.0 Sodium 152 H Potassium 3.7 Chloride 121 H Carbon Dioxide 26 Anion Gap 5 BUN 26 H Creatinine 1.30 Estim Creat Clear Calc 40 Estimated GFR 53 L Glucose 102 POC Capillary Glucose Calcium 8.9 Phosphorus 3.7 Magnesium 2.5 H Total Bilirubin 1.0 AST 45 ALT 35 Alkaline Phosphatase 100 Total Protein 7.0 Albumin 3.2 L Urine Color Yellow Urine Appearance Cloudy H Urine pH 5.0 Ur Specific [place] 1.019 Urine Protein 2+ H Urine Glucose (UA) Negative Urine Ketones Trace H Ur Blood (Man) 2+ H Urine Nitrate Negative Urine Bilirubin Negative Urine Urobilinogen 0.2 Ur Leukocyte Esterase 1+ H Urine RBC 21-50 H Urine WBC 4-6 H Ur Squamous Epith Cells Occasional Urine Bacteria 2+ H Quality VTE Prophylaxis VTE prophylaxis: mechanical ordered
[2024-10-29] MEDS: LOSARTAN POTASSIUM 50 MG TABLET FEED TUBE (11:50)
[2024-10-29 12:09] LABS: Glucose Point of Care 111 mg/dl (65-105)
--- NOTE | 2024-10-29 12:27 | PCSTNOTE ---
Please refer to the Bedside Swallow Evaluation in the EMR. Please note, silent aspiration cannot be ruled out at bedside. The above pt, admitted with an MN, subsequent anoxia brain injury and prolonged intubation x8 days, was seen for a swallow evaluation at bedside. Medical history includes: HTN, rectal CA, anemia, & DJD (shoulder & knee). At this time, the pt is alert but very confused; perseverative and impulsive; Pt lacks awareness of current situation and not able to relate any PMH. Pt was able to dry swallow on command (despite very dry mouth) and exhibited a clear, slightly breathy vocal quality prior to oral trials Oral mucosa is dry; pt is edentulous; no dentures are present. A cursory oral peripheral exam revealed lingual and labial structures to be within functional limits; pt could somewhat follow commands &/or imitate. Pt was positioned upright in the bed for an optimal feeding position. He was tested with thin liquids, pudding, applesauce in controlled amounts; thin liquids were also tested via cup sips w/ which ST assisted; The oral stages appeared WNL. No oral leakage or pocketing was noted. During the pharyngeal stage, swallow reflex appeared prompt & laryngeal elevation adequate;however, after the 3rd trial of cup sipping, coughing and choking occurred. No other difficulty was exhibited; however, testing was stopped and a modified barium swallow (MBS) was recommended in order to further assess swallowing ability, determine a safe diet, as well as an appropriate POC. Recommendation: NPO until MBS. Thank you for this referral.
[2024-10-29 13:46] LABS: PCO2 ABG 32.6 mmHg (35.0-45.0); PO2 ABG 104.2 mmHg (80.0-100.0); pH ABG 7.483 (7.350-7.450)
[2024-10-29 13:47] LABS: Base Excess ABG 0.9 mEq/l (+/-2.0); HCO3 ABG 23.9 mEq/l (22.0-26.0); Oxygen Saturation ABG 98.2 % (95.0-100.0); Total Hemoglobin 11.1 g/dL (12.0-18.0)
--- NOTE | 2024-10-29 13:47 | PCFNICU ---
ICU Rounding Note: Pt current nutrition is Pureed, Level 4 with Moderately thick liquids, Level 3. Nutrition recommendation: Ensure Compact BID. Last recorded weight is 74.7 kg, down from 78.9 kg on admit. Bowel Motility: FMS Labs Reviewed:Mg 2.5, GFR 53, BUN 26, NA 152 Meds Noted:Lovenox, Protonix, Zosyn, NovoLog. Skin: WNL Additional Notes: Patient extubated on 10/28. MBS today recommending Pureed, Level 4 diet with Moderately thick liquids, Level 3. Recommend adding diet supplements for additional kcal and protein needs. Following daily in ICU rounds. Will monitor weight, labs, skin, oral intake, meds every 3 days.
[2024-10-29 13:48] LABS: Alveolar/Arterial O2 Gradient 71.4 mmHg; Carboxyhemoglobin 0.3 % THb (0-2.0); Methemoglobin ABG 0.3 %THb (0-1.5); Oxygen Content ABG 15.4 %vol (16.0-22.0); Oxyhemoglobin 97.5 % THb (90.0-100.0); PO2 FiO2 Ratio Arterial Blood 3.47 %; Reduced Hemoglobin 1.9 %THb (0-5.0)
[2024-10-29 13:49] LABS: Fractional Inspired Oxygen 30 %
[2024-10-29 13:50] LABS: Device VENTILATOR
[2024-10-29 13:53] LABS: Arterial Blood Gas PEEP 5 cmH2O; Arterial Blood Gas Pressure Support 8 cmH2O; Arterial Blood Gas Vent Mode PRESSURE SUPPORT
--- NOTE | 2024-10-29 14:44 | PCSTNOTE ---
Addendum entered by HANNY Abrams 10/30/24 12:02: The pt was seated for a lateral view; the pt is very pleasant but confused moving around during testing often going in and out of fluoro. He was presented with thin liquids, mildly thick liquids, moderately thick liquids, pudding consistency, and a crumbled cracker; all via spoon and in 1/2 to 1 tsp amounts. The oral stages were essentially intact; however, due to impulsivity, he appeared to lose oral control with a portion of liquid contents spilling prematurely into the pharynx. He also did not have dentures present therefore edentulous. No pocketing or leakage occurred; pt demonstrated the following during the pharyngeal stage: reduced laryngeal elevation as evidenced by mild (& intermittent) pyriform sinus residue & laryngeal penetration of thin liquids, mildly thick liquids, (could not rule out penetration with crumbled cracker); reduced laryngeal closure as evidenced by aspiration during the swallow of thin liquids. The pt made no effort to clear aspirate via a cough or throat clear. Tongue base retraction was slightly weak resulting in mild instances of vallecular residue but the pt was able to clear those contents with a dry swallow. Impressions: severe dysphagia characterized by silent aspiration of thin liquids. Recommendations: Puree diet with moderately thick liquids; & ST to tx dysphagia Original Note: Please refer to the Modified Barium Swallow Evaluation in the EMR. The pt was seated for a lateral view; the pt is pleasant but very confused moving around during testing often going in and out of fluoro. He was presented with thin liquids, mildly thick liquids, moderately thick liquids, pudding consistency, and a crumbled cracker; all via spoon and in 1/2 to 1 tsp amounts. The oral stages were essentially intact; however, due to impulsivity, he appeared to lose oral control with a portion of liquid contents spilling prematurely into the pharynx. No pocketing or leakage occurred; pt demonstrated the following during the pharyngeal stage: reduced laryngeal elevation as evidenced by mild (& intermittent) pyriform sinus residue & laryngeal penetration of thin liquids, mildly thick liquids, (could not rule out penetration with crumbled cracker); reduced laryngeal closure as evidenced by aspiration during the swallow of thin liquids. The pt made no effort to clear aspirate via a cough or throat clear. Tongue base retraction was slightly weak resulting in mild instances of vallecular residue but the pt was able to clear those contents with a dry swallow. Impressions: severe dysphagia characterized by silent aspiration of thin liquids. Recommendations: Puree diet with moderately thick liquids; & ST to tx dysphagia
--- NOTE | 2024-10-29 17:40 | PC.NURSE ---
Notified Dr Mclean of PT continued HTN. Last BP at 1730 was 171/54. Hydralazine not ordered to be given yet. Received order to give PRN hydralazine early. Order read back and verified.
[2024-10-29 18:38] LABS: Glucose Point of Care 138 mg/dl (65-105)
[2024-10-29] MEDS: ATORVASTATIN 20 MG TABLET FEED TUBE (20:27)
[2024-10-30] VITALS (12 sets, daily range): BP systolic 147–182; BP diastolic 55–84; PULSE 59–100; RESP 22–26; TEMP 37.5–37.7; O2SAT 71–100
[2024-10-30] MEDS: PIPERACILLN/TAZ 3.375GM/NS50ML 3.375 GM/50 ML BAG IVPB ×4 (00:33→17:17)
[2024-10-30 02:30] LABS: Glucose Point of Care 109 mg/dl (65-105)
[2024-10-30] MEDS: hydrALAZINE HCL 20 MG/ML VIAL 10 MG IV PUSH ×2 (05:01→14:33)
[2024-10-30] MEDS: CENTRAL LINE FLUSH 10 ML IV PUSH (05:03)
[2024-10-30 06:08] LABS: Glucose Point of Care 110 mg/dl (65-105)
[2024-10-30] MEDS: PANTOPRAZOLE SODIUM IV 40 MG VIAL IV PUSH ×2 (08:20→22:00)
[2024-10-30] MEDS: LOSARTAN POTASSIUM 50 MG TABLET FEED TUBE (08:20)
[2024-10-30] MEDS: ENOXAPARIN 80 MG/0.8 ML SYRINGE SUB-Q ×2 (08:20→22:00)
[2024-10-30 08:42] LABS: Triglycerides 189 mg/dL (<150)
--- NOTE | 2024-10-30 11:06 | PC.NURSE ---
Patient central line removed intact without complications. HOB flat for 30 minutes. Restraints removed at 1000. Patient up to chair in room with micki steady. Patient remains pleasantly confused. Chair alarm in place.
[2024-10-30 12:09] LABS: Glucose Point of Care 131 mg/dl (65-105)
--- NOTE | 2024-10-30 12:25 | PCNFU ---
Nutrition Follow-Up Complete: Suboptimal Energy Intake as related to mechanical ventilation as evidenced by NPO. Goal: Meet estimated nutritional needs. Patient is starting to progress towards goal. We will continue current goal. Pt current nutrition is Pureed Level 4 diet with Moderately Thick liquids, Level 3. Last recorded weight is 71.8 kg, down from admit weight of 78.9 kg on admit. Bowel Motility: FMS Labs Reviewed: TG 189 Meds Noted:NovoLog, Protonix, Zosyn, Lovenox Skin: WNL Additional Notes: Patient remains on a Pureed, Level 4 diet with Moderately thick liquids, Level 3. Oral intake has been poor. Diet supplements changed from Ensure compact to Nutritional Ice Cream TID for additional 300 kcal and 9 gm protein. PO intake encouraged. Agree with diet orders. Will monitor weight, labs, skin, oral intake, meds every 3 days.
--- NOTE | 2024-10-30 13:18 | P.PNCA_ITS ---
Progress Note: A&P Assessment and Plan (1) Heart block AV third degree: Code(s): I44.2 - Atrioventricular block, complete Status: Acute Plan 79-year-old man with CAD, hypertension, and hyperlipidemia who presented to the emergency room post cardiac arrest post ROSC 1. OHCA 2. CHB with junctional escape rhythm 3. Aflutter 4. NSTEMI Trops: 0.546, 0.848 5. Hypoxic ischemic insult/encephalopathy 6. Cardiomyopathy 7. NSVT s/p temporary transvenous pacemaker; removed 10/27 as no pacing was required - No evidence of high grade AV block since then - Will start him on low dose metoprolol 25 mg BID and monitor his rhythm. With the frequent ventricular ectopy and NSVT, I think he requires low dose AV gabriella sheree. He may need a PPM if there are changes in his rhythm on a BB - Keep K > 4 and Mg > 2 - Anticoagulation for Fib/flutter - Will discuss a cardiac catheterization with him when he is no longer confused or with next of kin when available. Will wait till saturday to discuss further - Continue Losartan at current dose - Will switch to succinate if he is able to tolerate BB - MRA/SGLT2 to be initiated later Subjective Date/time seen: 10/30/24 13:18 Interval history: Mr Avendano has been extubated Awake, follows simple commands, remains confused though tele: Review of Systems Review of Systems: ROS unobtainable: Yes unobtainable due to endotracheal tube Exam Const: Other: Intubated, sedated, paralyzed Eyes: Other: pupils are equal Neck: Neck: no JVD Resp: Auscultation: rhonchi Cardio: Rate: regular rate Rhythm: regular rhythm Heart sounds: no mur murs Objective Data Vital Signs Vital Signs: Vital Signs - 24 hr 10/29/24 14:00 10/29/24 14:00 10/29/24 15:46 Temperature Pulse Rate 81 69 Respiratory Rate 22 H Blood Pressure 152/70 H Pulse Oximetry 98 Oxygen Delivery Room Air 10/29/24 16:00 10/29/24 16:00 10/29/24 18:00 Temperature 37.7 C H Pulse Rate 60 92 83 Respiratory Rate 22 H Blood Pressure 164/60 H Pulse Oximetry 97 Oxygen Delivery 10/29/24 18:00 10/29/24 20:00 10/29/24 20:00 Temperature 37.3 C Pulse Rate 80 71 Respiratory Rate 19 22 H Blood Pressure 177/56 H 164/99 H Pulse Oximetry 98 97 Oxygen Delivery Room Air 10/29/24 20:00 10/29/24 22:00 10/29/24 22:00 Temperature Pulse Rate 83 74 74 Respiratory Rate 19 Blood Pressure 152/51 H Pulse Oximetry 96 Oxygen Delivery 10/30/24 00:00 10/30/24 00:00 10/30/24 00:00 Temperature 37.6 C Pulse Rate 70 79 Respiratory Rate 22 H Blood Pressure 153/84 H Pulse Oximetry 95 Oxygen Delivery Room Air 10/30/24 02:00 10/30/24 04:00 10/30/24 04:00 Temperature Pulse Rate 69 59 L Respiratory Rate Blood Pressure Pulse Oximetry Oxygen Delivery Room Air 10/30/24 04:00 10/30/24 06:00 10/30/24 08:00 Temperature 37.5 C 37.7 C H Pulse Rate 68 76 72 Respiratory Rate 24 H 23 H Blood Pressure 182/59 H 175/80 H Pulse Oximetry 97 99 Oxygen Delivery 10/30/24 08:00 10/30/24 08:00 10/30/24 10:00 Temperature Pulse Rate 82 79 Respiratory Rate Blood Pressure Pulse Oximetry Oxygen Delivery Room Air 10/30/24 10:35 10/30/24 12:00 10/30/24 12:00 Temperature Pulse Rate 74 Respiratory Rate Blood Pressure Pulse Oximetry Oxygen Delivery Room Air Room Air 10/30/24 12:00 Temperature 37.7 C H Pulse Rate 74 Respiratory Rate 26 H Blood Pressure 148/55 H Pulse Oximetry 94 Oxygen Delivery Intake/Output Intake/Output: Intake & Output 10/27/24 10/28/24 10/29/24 10/30/24 23:59 23:59 23:59 23:59 Intake Total 2315.3 1051.7 440 720 Output Total 2150 1300 1500 1200 Balance 165.3 -248.3 -1060 -480 Meds/Results Medications: Active Medications Generic Name Dose Route Start Last Admin Trade Name Freq PRN Reason Stop Dose Admin Acetaminophen 650 mg 10/23/24 11:38 10/26/24 21:35 Acetaminophen Elixir 325 Mg/10.15 Ml Udc PO 650 mg Q6H PRN Administration Mild Pain (1-3) or Fever Albuterol/Ipratropium 3 ml 10/22/24 08:35 Ipratropium 0.5 Mg/Albuterol Sulfate 2.5 Mg Ampul.Neb 3 Ml INHALATION Q6HRT PRN Wheezing Atorvastatin Calcium 20 mg 10/21/24 21:40 10/29/24 20:27 Atorvastatin 20 Mg Tablet FEED TUBE 20 mg HS ALEJANDRO Administration Dextrose 12.5 gm 10/21/24 22:44 Dextrose 50% 25 Gm/50 Ml Syringe IV PUSH PRN PRN Hypoglycemia Protocol Enoxaparin Sodium 80 mg 10/28/24 21:00 10/30/24 08:20 Enoxaparin 80 Mg/0.8 Ml Syringe SUB-Q 80 mg Q12HR ALEJANDRO Administration Glucagon 1 mg 10/21/24 22:44 Glucagon For Inj 1 Mg Vial IM PRN PRN Hypoglycemia Protocol Glucose 15 gm 10/21/24 22:44 Glucose Oral Gel 15 Gm Of Glucse In 37.5 Gm Tube PO PRN PRN Hypoglycemia Protocol Hydralazine HCl 10 mg 10/28/24 12:58 10/30/24 05:01 Hydralazine Hcl 20 Mg/Ml Vial IV PUSH 10 mg Q4H PRN Administration Blood Pressure - High Dextrose 1,000 mls @ 100 mls/hr 10/21/24 22:44 Dextrose 5% 1,000 Ml IVPB PRN PRN Hypoglycemia Protocol Piperacillin/Tazobactam/Dextrose 3.375 gm in 50 mls @ 100 mls/hr 10/22/24 12:00 10/30/24 12:56 Zosyn 3.375 Gm/Ns 50 Ml IVPB Infused Q6HR ALEJANDRO Infusion Insulin Aspart 2 - 5 units 10/22/24 06:00 10/30/24 12:15 Insulin Aspart (*Bkc) 100 Units/Ml SUB-Q Not Given Q6HR ALEJANDRO Protocol Losartan Potassium 50 mg 10/27/24 09:00 10/30/24 08:20 Losartan Potassium 50 Mg Tablet FEED TUBE 50 mg DAILY ALEJANDRO Administration Pantoprazole Sodium 40 mg 10/21/24 21:00 10/30/24 08:20 Pantoprazole Sodium Iv 40 Mg Vial IV PUSH 40 mg Q12HR ALEJANDRO Administration Radiology Results: ITS Impressions Head CT 10/26/24 10:34 IMPRESSION: No acute intracranial findings. Venous Doppler Study 10/27/24 12:58 IMPRESSION: Negative bilateral lower extremity venous US. No deep vein thrombosis. Chest X-Ray 10/29/24 06:47 Impression: Possible minimal central pulmonary edema. Right IJ line. Modified Barium Swallow 10/29/24 14:00 IMPRESSION: Pharyngeal dysphagia with silent laryngeal penetration and aspiration. Please correlate with speech pathologist findings and specific feeding recommendations. Labs Labs: Laboratory Results - last 24 hr 10/28/24 10/29/24 10/30/24 11:41 18:04 00:30 Puncture Site Not Reportable ABG pH 7.483 H ABG pCO2 32.6 L ABG pO2 104.2 H ABG PO2/FiO2 Ratio 3.47 ABG HCO3 23.9 ABG O2 Saturation 98.2 ABG O2 Content 15.4 L ABG Base Excess 0.9 A-a Gradient 71.4 Oxyhemoglobin 97.5 Carboxyhemoglobin 0.3 Methemoglobin 0.3 Reduced Hemoglobin 1.9 Total Hemoglobin 11.1 L O2 Delivery Device Ventilator O2 Liters/Min Not Reportable Minute Volume Not Reportable Vent Rate Not Reportable Vent Mode Pressure support FiO2 30 Tidal Volume Not Reportable PEEP 5 Peak Inspir Pressure Not Reportable Pressure Support 8 POC Capillary Glucose 138 H 109 H Triglycerides 10/30/24 10/30/24 10/30/24 05:07 08:16 12:07 Puncture Site ABG pH ABG pCO2 ABG pO2 ABG PO2/FiO2 Ratio ABG HCO3 ABG O2 Saturation ABG O2 Content ABG Base Excess A-a Gradient Oxyhemoglobin Carboxyhemoglobin Methemoglobin Reduced Hemoglobin Total Hemoglobin O2 Delivery Device O2 Liters/Min Minute Volume Vent Rate Vent Mode FiO2 Tidal Volume PEEP Peak Inspir Pressure Pressure Support POC Capillary Glucose 110 H 131 H Triglycerides 189 H
--- NOTE | 2024-10-30 15:01 | PM.IMPN ---
Progress Note: A&P Assessment and Plan (1) Acute respiratory failure: Code(s): J96.00 - Acute respiratory failure, unspecified whether with hypoxia or hypercapnia Status: Acute Assessment and Plan: Acute Respiratory failure secondary to cardiac arrest, pulmonary edema, questionable aspiration pneumonia was intubated adn placed on ventilator on admission. 10/28:extubated down to o2 via nc Now on RA (2) Cardiac arrest: Code(s): I46.9 - Cardiac arrest, cause unspecified Status: Acute Assessment and Plan: PEA cardiac arrest which converted to VFib and later patient was in complete heart block Status post temporary transvenous pacemaker placement Mild elevation of troponin likely secondary to cardiac arrest and respiratory failure Continue statin. Patient is allergic to aspirin. No information available from family regarding the nature of allergy Echo reviewed Cardiology is following Resume ARB 10/27: Cardiology removed Transvenous pacemaker since patient is not requiring any pacemaker support Continues to have episodes of V-tach, was in a flutter yesterday, currently in AFib rate controlled continue therapeutic Lovenox, once he is able to take p.o. switch to eliquis (3) Sepsis: Code(s): A41.9 - Sepsis, unspecified organism Status: Acute Assessment and Plan: Patient met criteria for sepsis. Chest x-ray was clear and did not show any sign of aspiration. CT scan has been delayed due to patient being unstable on presentation His UA was abnormal Blood cultures negative Urine culture is growing Enterococcus which is pansensitive Continue Zosyn -patient still febrile, 10/27 -venous Dopplers were negative for DVT, 10/29: Ordered blood cultures, UA, urine culture as remains milely febrile. (4) Heart block AV third degree: Code(s): I44.2 - Atrioventricular block, complete Status: Acute Assessment and Plan: Status post transvenous pacemaker placement which is currently on standby patient's rate is above set pacemaker rate 10/27 pacemaker removed by Cardiology -currently in AFib/atrial flutter, rate controlled -continue therapeutic Lovenox -hands of V-tach, discussed with flow trader, will hold amiodarone for now given that he had high degree AV block on admission started on BB now per Cardiology (5) Anoxic brain injury: Code(s): G93.1 - Anoxic brain damage, not elsewhere classified Status: Acute Assessment and Plan: Patient was comatose post resuscitation Head CT was negative for any acute intracranial change Patient had a PEA arrest which later converted to VFib and on arrival was bradycardic and hypotensive Patient completed TTM protocol and now has been reviewed 10/24 patient was tachypneic and asynchronous with the ventilator. He was started low-dose propofol for safe mechanical ventilation 10/25 on holding sedation patient is still not following commands or doing purposeful movements. He does withdraw to pain. He turns around this had and has a blank stare. 10/26 sedation holiday. No significant change in neurological exam 10/26: Head CT with no acute intracranial findings Continue to hold sedation and monitor neurological status -discontinue propofol, -off Precedex -10/28: patient more awake, alert, nods to questions and follows simple commands Continues to have some confusion (6) Acute hypokalemia: Code(s): E87.6 - Hypokalemia Status: Acute Assessment and Plan: Potassium has normalized (7) Congestive heart failure: Code(s): I50.9 - Heart failure, unspecified Status: Acute Assessment and Plan: Bilateral pitting edema on exam which is improving Good urine output -cardiology following -continue atorvastatin, losartan -cardiology following Summary 1. Complete two-dimensional, color flow and Doppler transthoracic echocardiogram is performed. 2. Technically difficult study with limited views. 3. The left ventricle is normal in size with mildly reduced systolic function. The left ventricular ejection fraction is visually estimated to be 40-45%. 4. The aortic valve is not well visualized however did gradients across the valve suggests moderate aortic stenosis. 5. There is small pericardial effusion. 6. Dilated inferior vena cava with <50% collapse upon inspiration consistent with significantly elevated right atrial pressure, 15 mmHg. (8) Hypotension: Code(s): I95.9 - Hypotension, unspecified Status: Acute Assessment and Plan: RESOLVED Patient was initially hypertensive likely secondary to bradycardia and was on epinephrine drip which was weaned off. Continue to monitor (9) Metabolic acidosis: Code(s): E87.20 - Acidosis, unspecified Status: Acute Assessment and Plan: Hyperchloremic metabolic acidosis. Improving. Monitor Hypernatremia: Continue free water flushes for now 10/29: Started on D5% IV fluids, monitor sodium levels recheck pending (10) Hyperglycemia: Code(s): R73.9 - Hyperglycemia, unspecified Status: Acute Assessment and Plan: Sliding scale insulin and Accu-Cheks (11) Hypertension: Code(s): I10 - Essential (primary) hypertension Status: Acute Assessment and Plan: Patient has history of hypertension. P.r.n. hydralazine Continue losartan. Plan DVT prophylaxis -Lovenox Stress ulcer prophylaxis -PPI Nutrition -on pureed diet Code Status - Full Code Subjective Date/time seen: 10/30/24 15:01 Interval history: chart reviewed. working with therapy. confusion persists, discussed with nursing staff. Review of Systems Review of Systems: All systems reviewed & are unremarkable except as noted in HPI and below Exam Narrative: General: On room air, in no acute distress Lungs/Chest: Trachea central clear BS B/L, No crackles or wheezing. Cardiac: RRR. Normal S1 S2. No murmurs Circulation: Pedal pulses are intact and symmetrical but weak Abdomen: Present bowel sounds. Soft. NT. ND. Rectal tube in place Extremities: No clubbing, cyanosis, Warm. Bilateral pitting edema much improved : Romero in place Neurologic: On room air, awake, alert, follows simple commands, remains confused, patient did know he was at the hospital and could tell me his birthday Objective Data Vital Signs Vital Signs: Vital Signs - 24 hr 10/29/24 15:46 10/29/24 16:00 10/29/24 16:00 Temperature 99.8 F H Pulse Rate 60 92 Respiratory Rate 22 H Blood Pressure 164/60 H Pulse Oximetry 97 Oxygen Delivery Room Air 10/29/24 18:00 10/29/24 18:00 10/29/24 20:00 Temperature 99.2 F Pulse Rate 83 80 71 Respiratory Rate 19 22 H Blood Pressure 177/56 H 164/99 H Pulse Oximetry 98 97 Oxygen Delivery 10/29/24 20:00 10/29/24 20:00 10/29/24 22:00 Temperature Pulse Rate 83 74 Respiratory Rate Blood Pressure Pulse Oximetry Oxygen Delivery Room Air 10/29/24 22:00 10/30/24 00:00 10/30/24 00:00 Temperature 99.6 F Pulse Rate 74 70 Respiratory Rate 19 22 H Blood Pressure 152/51 H 153/84 H Pulse Oximetry 96 95 Oxygen Delivery Room Air 10/30/24 00:00 10/30/24 02:00 10/30/24 04:00 Temperature Pulse Rate 79 69 Respiratory Rate Blood Pressure Pulse Oximetry Oxygen Delivery Room Air 10/30/24 04:00 10/30/24 04:00 10/30/24 06:00 Temperature 99.5 F Pulse Rate 59 L 68 76 Respiratory Rate 24 H Blood Pressure 182/59 H Pulse Oximetry 97 Oxygen Delivery 10/30/24 08:00 10/30/24 08:00 10/30/24 08:00 Temperature 99.9 F H Pulse Rate 72 82 Respiratory Rate 23 H Blood Pressure 175/80 H Pulse Oximetry 99 Oxygen Delivery Room Air 10/30/24 10:00 10/30/24 10:35 10/30/24 12:00 Temperature Pulse Rate 79 Respiratory Rate Blood Pressure Pulse Oximetry Oxygen Delivery Room Air Room Air 10/30/24 12:00 10/30/24 12:00 10/30/24 14:00 Temperature 99.8 F H Pulse Rate 74 74 78 Respiratory Rate 26 H Blood Pressure 148/55 H Pulse Oximetry 94 Oxygen Delivery Intake/Output Intake/Output: Intake & Output 10/27/24 10/28/24 10/29/24 10/30/24 23:59 23:59 23:59 23:59 Intake Total 2315.3 1051.7 440 720 Output Total 2150 1300 1500 1200 Balance 165.3 -248.3 -1060 -480 Meds/Results Medications: Active Medications Generic Name Dose Route Start Last Admin Trade Name Freq PRN Reason Stop Dose Admin Acetaminophen 650 mg 10/23/24 11:38 10/26/24 21:35 Acetaminophen Elixir 325 Mg/10.15 Ml Udc PO 650 mg Q6H PRN Administration Mild Pain (1-3) or Fever Albuterol/Ipratropium 3 ml 10/22/24 08:35 Ipratropium 0.5 Mg/Albuterol Sulfate 2.5 Mg Ampul.Neb 3 Ml INHALATION Q6HRT PRN Wheezing Atorvastatin Calcium 20 mg 10/21/24 21:40 10/29/24 20:27 Atorvastatin 20 Mg Tablet FEED TUBE 20 mg HS ALEJANDRO Administration Dextrose 12.5 gm 10/21/24 22:44 Dextrose 50% 25 Gm/50 Ml Syringe IV PUSH PRN PRN Hypoglycemia Protocol Enoxaparin Sodium 80 mg 10/28/24 21:00 10/30/24 08:20 Enoxaparin 80 Mg/0.8 Ml Syringe SUB-Q 80 mg Q12HR ALEJANDRO Administration Glucagon 1 mg 10/21/24 22:44 Glucagon For Inj 1 Mg Vial IM PRN PRN Hypoglycemia Protocol Glucose 15 gm 10/21/24 22:44 Glucose Oral Gel 15 Gm Of Glucse In 37.5 Gm Tube PO PRN PRN Hypoglycemia Protocol Hydralazine HCl 10 mg 10/28/24 12:58 10/30/24 14:33 Hydralazine Hcl 20 Mg/Ml Vial IV PUSH 10 mg Q4H PRN Administration Blood Pressure - High Dextrose 1,000 mls @ 100 mls/hr 10/21/24 22:44 Dextrose 5% 1,000 Ml IVPB PRN PRN Hypoglycemia Protocol Piperacillin/Tazobactam/Dextrose 3.375 gm in 50 mls @ 100 mls/hr 10/22/24 12:00 10/30/24 12:56 Zosyn 3.375 Gm/Ns 50 Ml IVPB Infused Q6HR ALEJANDRO Infusion Insulin Aspart 2 - 5 units 10/22/24 06:00 10/30/24 12:15 Insulin Aspart (*Bkc) 100 Units/Ml SUB-Q Not Given Q6HR ALEJANDRO Protocol Losartan Potassium 50 mg 10/27/24 09:00 10/30/24 08:20 Losartan Potassium 50 Mg Tablet FEED TUBE 50 mg DAILY ALEJANDRO Administration Pantoprazole Sodium 40 mg 10/21/24 21:00 10/30/24 08:20 Pantoprazole Sodium Iv 40 Mg Vial IV PUSH 40 mg Q12HR ALEJANDRO Administration Radiology Results: ITS Impressions Head CT 10/26/24 10:34 IMPRESSION: No acute intracranial findings. Venous Doppler Study 10/27/24 12:58 IMPRESSION: Negative bilateral lower extremity venous US. No deep vein thrombosis. Chest X-Ray 10/29/24 06:47 Impression: Possible minimal central pulmonary edema. Right IJ line. Modified Barium Swallow 10/29/24 14:00 IMPRESSION: Pharyngeal dysphagia with silent laryngeal penetration and aspiration. Please correlate with speech pathologist findings and specific feeding recommendations. Labs Labs: Laboratory Results - last 24 hr 10/29/24 10/30/24 10/30/24 18:04 00:30 05:07 POC Capillary Glucose 138 H 109 H 110 H Triglycerides 10/30/24 10/30/24 08:16 12:07 POC Capillary Glucose 131 H Triglycerides 189 H
[2024-10-30 15:57] LABS: Hemoglobin 11.2 g/dL (14.0-18.0); Mean Corpuscular Hemoglobin 29.8 pg (26-34); Mean Corpuscular Volume 93.1 fl (80-100); Mean Platelet Volume 10.5 fl (7.4-10.4); Platelet Count Result 477 k/mm3 (150-375); Red Blood Count 3.76 M/mm3 (4.6-6.20); Red Cell Distribution Width 15.3 % (11.5-14.5); White Blood Count 21.6 K/mm3 (4.5-10.0)
[2024-10-30 16:07] LABS: Alanine Aminotransferase 27 U/L (6-50); Albumin Level 3.3 g/dL (3.5-5.1); Alkaline Phosphatase 86 U/L (38-126); Anion Gap 9 mmol/L (4-12); Aspartate Amino Transferase 36 U/L (17-59); Bilirubin,Total 0.9 mg/dL (0.2-1.3); Blood Urea Nitrogen 18 mg/dL (9-20); Calcium 8.6 mg/dL (8.4-10.2); Carbon Dioxide 20 mmol/L (22-30); Chloride 118 mmol/L (98-107); Creatine Kinase 64 U/L (55-170); Estimated CRCL calculation 43 ml/min; Estimated Glomerular Filt Rate 58; Glucose 122 mg/dL (65-110); Magnesium 2.3 mg/dL (1.6-2.3); Potassium 3.1 mmol/L (3.4-5.0); Sodium 147 mmol/L (137-145)
[2024-10-30 16:59] LABS: Glucose Point of Care 120 mg/dl (65-105)
[2024-10-30 17:07] LABS: Eosinophils Absolute Manual 0.43 K/mm3 (0.02-0.50); Eosinophils Percent Manual 2 % (0-4); Lymphocytes Absolute Manual 2.16 K/mm3 (1.1-4.5); Monocytes Absolute Manual 0.86 K/mm3 (0.1-0.90); Monocytes Percent Manual 4 % (3-9); Neutrophils Percent Manual 84 % (46-73); Total Cells Counted 100
[2024-10-30 17:08] LABS: Platelet Estimate Increased (Adequate); Schistocytes None Seen
[2024-10-30 17:09] LABS: Anisocytosis 2+
[2024-10-30] MEDS: POTASSIUM CHLORIDE 20 MEQ ER TABLET 40 MEQ PO (17:16)
[2024-10-30] MEDS: ACETAMINOPHEN ELIXIR 325 MG/10.15 ML UDC 650 MG PO (17:17)
[2024-10-30] MEDS: ATORVASTATIN 20 MG TABLET FEED TUBE (22:00)
[2024-10-31] VITALS (16 sets, daily range): BP systolic 125–166; BP diastolic 55–83; PULSE 64–100; RESP 12–27; TEMP 36.6–37.9; O2SAT 98–100
[2024-10-31] MEDS: PIPERACILLN/TAZ 3.375GM/NS50ML 3.375 GM/50 ML BAG IVPB ×3 (01:18→11:27)
[2024-10-31 04:14] LABS: Hemoglobin 10.7 g/dL (14.0-18.0); Mean Corpuscular HGB Conc 32.4 g/dl (32-36); Mean Corpuscular Hemoglobin 30.1 pg (26-34); Mean Platelet Volume 10.7 fl (7.4-10.4); Platelet Count Result 469 k/mm3 (150-375); Red Blood Count 3.55 M/mm3 (4.6-6.20); Red Cell Distribution Width 15.1 % (11.5-14.5); White Blood Count 22.1 K/mm3 (4.5-10.0)
[2024-10-31 04:34] LABS: Alanine Aminotransferase 30 U/L (6-50); Albumin Level 3.4 g/dL (3.5-5.1); Alkaline Phosphatase 98 U/L (38-126); Anion Gap 6 mmol/L (4-12); Aspartate Amino Transferase 43 U/L (17-59); Bilirubin,Total 0.9 mg/dL (0.2-1.3); Blood Urea Nitrogen 15 mg/dL (9-20); Calcium 8.7 mg/dL (8.4-10.2); Carbon Dioxide 24 mmol/L (22-30); Chloride 120 mmol/L (98-107); Estimated CRCL calculation 43 ml/min; Estimated Glomerular Filt Rate 58; Glucose 98 mg/dL (65-110); Magnesium 2.4 mg/dL (1.6-2.3); Potassium 3.3 mmol/L (3.4-5.0); Sodium 150 mmol/L (137-145)
[2024-10-31 04:38] LABS: Basophils Absolute Manual 0.22 K/mm3 (0.0-0.1); Basophils Percent Manual 1 % (0-1); Eosinophils Absolute Manual 0.22 K/mm3 (0.02-0.50); Eosinophils Percent Manual 1 % (0-4); Lymphocytes Absolute Manual 2.87 K/mm3 (1.1-4.5); Monocytes Percent Manual 5 % (3-9); Neutrophils Percent Manual 80 % (46-73); Total Cells Counted 100
[2024-10-31 04:39] LABS: Anisocytosis 1+; Platelet Estimate Increased (Adequate); Schistocytes None Seen; Smudge Cells PRESENT
[2024-10-31] MEDS: PANTOPRAZOLE SODIUM IV 40 MG VIAL IV PUSH ×2 (08:58→20:59)
[2024-10-31] MEDS: ENOXAPARIN 80 MG/0.8 ML SYRINGE SUB-Q ×2 (08:58→21:00)
[2024-10-31] MEDS: LOSARTAN POTASSIUM 50 MG TABLET FEED TUBE (08:58)
[2024-10-31] MEDS: hydrALAZINE HCL 20 MG/ML VIAL 10 MG IV PUSH ×2 (09:23→18:10)
[2024-10-31] MEDS: DEXTROSE 5% 1,000 ML 1,000 ML 100 ML IV CONT ×2 (11:07→21:32)
[2024-10-31] MEDS: POTASSIUM CHLORIDE 20 MEQ ER TABLET 40 MEQ PO ×2 (11:08→18:09)
[2024-10-31 11:36] LABS: Glucose Point of Care 150 mg/dl (65-105)
--- NOTE | 2024-10-31 13:17 | P.PNIM_ITS ---
Progress Note: A&P Assessment and Plan (1) Acute respiratory failure: Code(s): J96.00 - Acute respiratory failure, unspecified whether with hypoxia or hypercapnia Status: Acute Assessment and Plan: Acute Respiratory failure secondary to cardiac arrest, pulmonary edema, questionable aspiration pneumonia was intubated adn placed on ventilator on admission. 10/28:extubated down to o2 via nc Now on RA Chest x-ray clear (2) Cardiac arrest: Code(s): I46.9 - Cardiac arrest, cause unspecified Status: Acute Assessment and Plan: PEA cardiac arrest which converted to VFib and later patient was in complete heart block Status post temporary transvenous pacemaker placement Mild elevation of troponin likely secondary to cardiac arrest and respiratory failure Continue statin. Patient is allergic to aspirin. No information available from family regarding the nature of allergy Echo reviewed Cardiology is following Resume ARB 10/27: Cardiology removed Transvenous pacemaker since patient is not requiring any pacemaker support Continues to have episodes of V-tach, was in a flutter yesterday, currently in AFib rate controlled continue therapeutic Lovenox, once he is able to take p.o. switch to eliquis (3) Sepsis: Code(s): A41.9 - Sepsis, unspecified organism Status: Acute Assessment and Plan: Patient met criteria for sepsis. Chest x-ray was clear and did not show any sign of aspiration. CT scan has been delayed due to patient being unstable on presentation His UA was abnormal Blood cultures negative Urine culture is growing Enterococcus which is pansensitive Continue Zosyn -patient still febrile, 10/27 -venous Dopplers were negative for DVT, 10/29: Ordered blood cultures, UA, urine culture as remains milely febrile. Any diarrhea will check C diff Remains on Zosyn since 10/22/2024. Will stop this finished course (4) Heart block AV third degree: Code(s): I44.2 - Atrioventricular block, complete Status: Acute Assessment and Plan: Status post transvenous pacemaker placement which is currently on standby patient's rate is above set pacemaker rate 10/27 pacemaker removed by Cardiology -currently in AFib/atrial flutter, rate controlled -continue therapeutic Lovenox -hands of V-tach, discussed with rn rehabilitation, will hold amiodarone for now given that he had high degree AV block on admission started on BB now per Cardiology (5) Anoxic brain injury: Code(s): G93.1 - Anoxic brain damage, not elsewhere classified Status: Acute Assessment and Plan: Patient was comatose post resuscitation Head CT was negative for any acute intracranial change Patient had a PEA arrest which later converted to VFib and on arrival was bradycardic and hypotensive Patient completed TTM protocol and now has been reviewed 10/24 patient was tachypneic and asynchronous with the ventilator. He was star lily low-dose propofol for safe mechanical ventilation 10/25 on holding sedation patient is still not following commands or doing purposeful movements. He does withdraw to pain. He turns around this had and has a blank stare. 10/26 sedation holiday. No significant change in neurological exam 10/26: Head CT with no acute intracranial findings Continue to hold sedation and monitor neurological status -discontinue propofol, -off Precedex -10/28: patient more awake, alert, nods to questions and follows simple commands Continues to have some confusion (6) Acute hypokalemia: Code(s): E87.6 - Hypokalemia Status: Acute Assessment and Plan: Potassium has normalized (7) Congestive heart failure: Code(s): I50.9 - Heart failure, unspecified Status: Acute Assessment and Plan: Bilateral pitting edema on exam which is improving Good urine output -cardiology following -continue atorvastatin, losartan -cardiology following Summary 1. Complete two-dimensional, color flow and Doppler transthoracic echocardiogram is performed. 2. Technically difficult study with limited views. 3. The left ventricle is normal in size with mildly reduced systolic function. The left ventricular ejection fraction is visually estimated to be 40-45%. 4. The aortic valve is not well visualized however did gradients across the valve suggests moderate aortic stenosis. 5. There is small pericardial effusion. 6. Dilated inferior vena cava with <50% collapse upon inspiration consistent with significantly elevated right atrial pressure, 15 mmHg. (8) Hypotension: Code(s): I95.9 - Hypotension, unspecified Status: Acute Assessment and Plan: RESOLVED Patient was initially hypertensive likely secondary to bradycardia and was on epinephrine drip which was weaned off. Continue to monitor (9) Metabolic acidosis: Code(s): E87.20 - Acidosis, unspecified Status: Acute Assessment and Plan: Hyperchloremic metabolic acidosis. Improving. Monitor Hypernatremia: Continue free water flushes for now 12/12: Started on D5% IV fluids, monitor sodium levels recheck reviewed Start D5 water Replace potassium (10) Hyperglycemia: Code(s): R73.9 - Hyperglycemia, unspecified Status: Acute Assessment and Plan: Sliding scale insulin and Accu-Cheks (11) Hypertension: Code(s): I10 - Essential (primary) hypertension Status: Acute Assessment and Plan: Patient has history of hypertension. P.r.n. hydralazine Continue losartan. Plan DVT prophylaxis -Lovenox Stress ulcer prophylaxis -PPI Nutrition -on pureed diet Code Status - Full Code Subjective Date/time seen: 10/31/24 13:17 Interval history: Patient continues to remain confused. Has loose stools. Remains mildly febrile. No nausea vomiting Review of Systems Review of Systems: All systems reviewed & are unremarkable except as noted in HPI and below Exam Narrative: General: On room air, in no acute distress Lungs/Chest: Trachea central clear BS B/L, No crackles or wheezing. Cardiac: RRR. Normal S1 S2. No murmurs Circulation: Pedal pulses are intact and symmetrical but weak Abdomen: Present bowel sounds. Soft. NT. ND. Rectal tube in place Extremities: No clubbing, cyanosis, Warm. Bilateral pitting edema much improved : Romero in place Neurologic: On room air, awake, alert, follows simple commands, remains confused, patient did know he was at the hospital and could tell me his birthday Objective Data Vital Signs Vital Signs: Vital Signs - 24 hr 10/30/24 14:00 10/30/24 15:06 10/30/24 16:00 Temperature 99.7 F H Pulse Rate 78 96 Respiratory Rate 26 H Blood Pressure 147/71 H Pulse Oximetry 71 L Oxygen Delivery Room Air Fraction of Inspired Oxygen 10/30/24 16:00 10/30/24 16:00 10/30/24 18:00 Temperature Pulse Rate 76 82 Respiratory Rate Blood Pressure Pulse Oximetry Oxygen Delivery Room Air Fraction of Inspired Oxygen 10/30/24 20:00 10/30/24 20:00 10/30/24 20:00 Temperature 99.9 F H Pulse Rate 82 80 80 Respiratory Rate 26 H 23 H Blood Pressure 161/70 H Pulse Oximetry 71 L 100 Oxygen Delivery Room Air Fraction of Inspired Oxygen 21 10/30/24 22:00 10/31/24 00:00 10/31/24 00:00 Temperature Pulse Rate 100 100 100 Respiratory Rate 23 H Blood Pressure Pulse Oximetry 100 Oxygen Delivery Room Air Fraction of Inspired Oxygen 10/31/24 00:00 10/31/24 02:00 10/31/24 04:00 Temperature 100 F H Pulse Rate 78 68 100 Respiratory Rate 12 23 H Blood Pressure 129/67 Pulse Oximetry 98 100 Oxygen Delivery Room Air Fraction of Inspired Oxygen 21 10/31/24 04:00 10/31/24 04:00 10/31/24 06:00 Temperature 100.2 F H Pulse Rate 69 65 72 Respiratory Rate 15 Blood Pressure 160/67 H Pulse Oximetry 100 Oxygen Delivery Fraction of Inspired Oxygen 10/31/24 08:00 10/31/24 09:18 10/31/24 10:00 Temperature Pulse Rate 72 94 Respiratory Rate Blood Pressure 164/79 H Pulse Oximetry Oxygen Delivery Fraction of Inspired Oxygen Intake/Output Intake/Output: Intake & Output 10/28/24 10/29/24 10/30/24 10/31/24 23:59 23:59 23:59 23:59 Intake Total 1051.7 440 1427 300 Output Total 1300 1500 1900 1350 Balance -248.3 -1060 -473 -1050 Meds/Results Medications: Active Medications Generic Name Dose Route Start Last Admin Trade Name Freq PRN Reason Stop Dose Admin Acetaminophen 650 mg 10/23/24 11:38 10/30/24 17:17 Acetaminophen Elixir 325 Mg/10.15 Ml Udc PO 650 mg Q6H PRN Administration Mild Pain (1-3) or Fever Albuterol/Ipratropium 3 ml 10/22/24 08:35 Ipratropium 0.5 Mg/Albuterol Sulfate 2.5 Mg Ampul.Neb 3 Ml INHALATION Q6HRT PRN Wheezing Atorvastatin Calcium 20 mg 10/31/24 21:00 Atorvastatin 20 Mg Tablet BY MOUTH HS ALEJANDRO Dextrose 12.5 gm 10/21/24 22:44 Dextrose 50% 25 Gm/50 Ml Syringe IV PUSH PRN PRN Hypoglycemia Protocol Enoxaparin Sodium 80 mg 10/28/24 21:00 10/31/24 08:58 Enoxaparin 80 Mg/0.8 Ml Syringe SUB-Q 80 mg Q12HR ALEJANDRO Administration Glucagon 1 mg 10/21/24 22:44 Glucagon For Inj 1 Mg Vial IM PRN PRN Hypoglycemia Protocol Glucose 15 gm 10/21/24 22:44 Glucose Oral Gel 15 Gm Of Glucse In 37.5 Gm Tube PO PRN PRN Hypoglycemia Protocol Hydralazine HCl 10 mg 10/28/24 12:58 10/31/24 09:23 Hydralazine Hcl 20 Mg/Ml Vial IV PUSH 10 mg Q4H PRN Administration Blood Pressure - High Dextrose 1,000 mls @ 100 mls/hr 10/21/24 22:44 Dextrose 5% 1,000 Ml IVPB PRN PRN Hypoglycemia Protocol Piperacillin/Tazobactam/Dextrose 3.375 gm in 50 mls @ 100 mls/hr 10/22/24 12:00 10/31/24 11:27 Zosyn 3.375 Gm/Ns 50 Ml IVPB 100 mls/hr Q6HR ALEJANDRO Administration Dextrose 1,000 mls @ 100 mls/hr 10/31/24 10:25 10/31/24 11:07 Dextrose 5% 1,000 Ml IV CONT 100 mls/hr .Q10H ALEJANDRO Administration Insulin Aspart 2 - 5 units 10/22/24 06:00 10/31/24 11:33 Insulin Aspart (*Bkc) 100 Units/Ml SUB-Q Not Given Q6HR ALEJANDRO Protocol Losartan Potassium 50 mg 11/01/24 09:00 Losartan Potassium 50 Mg Tablet BY MOUTH DAILY [facility] Metoprolol Tartrate 25 mg 10/31/24 17:00 Metoprolol Tartrate 25 Mg Tablet PO BID [facility] Miscellaneous Information 1 each 10/31/24 00:01 Zosyn Needs To Be Renewed Or It Will Automatically Discontinue `11/01. XX 11/30/24 00:00 CLARIFY [facility] Pantoprazole Sodium 40 mg 10/21/24 21:00 10/31/24 08:58 Pantoprazole Sodium Iv 40 Mg Vial IV PUSH 40 mg Q12HR ALEJANDRO Administration Radiology Results: ITS Impressions Head CT 10/26/24 10:34 IMPRESSION: No acute intracranial findings. Venous Doppler Study 10/27/24 12:58 IMPRESSION: Negative bilateral lower extremity venous US. No deep vein thrombosis. Modified Barium Swallow 10/29/24 14:00 IMPRESSION: Pharyngeal dysphagia with silent laryngeal penetration and aspiration. Please correlate with speech pathologist findings and specific feeding recommendations. Chest X-Ray 10/31/24 12:55 IMPRESSION: 1. No acute cardiopulmonary disease. Labs Labs: Laboratory Results - last 24 hr 10/30/24 10/30/24 10/31/24 15:52 16:57 04:08 WBC 21.6 H 22.1 H RBC 3.76 L 3.55 L Hgb 11.2 L 10.7 L Hct 35.0 L 33.0 L MCV 93.1 93.0 MCH 29.8 30.1 MCHC 32.0 32.4 RDW 15.3 H 15.1 H Plt Count 477 H 469 H MPV 10.5 H 10.7 H Immature Gran % (Auto) Not Reportable Not Reportable Neut % (Auto) Not Reportable Not Reportable Lymph % (Auto) Not Reportable Not Reportable [place] % (Auto) Not Reportable Not Reportable Eos % (Auto) Not Reportable Not Reportable Baso % (Auto) Not Reportable Not Reportable Lymph # (Auto) Not Reportable Not Reportable [place] # (Auto) Not Reportable Not Reportable Eos # (Auto) Not Reportable Not Reportable Baso # (Auto) Not Reportable Not Reportable Abs Immat Gran (auto) Not Reportable Not Reportable Absolute Neuts (auto) Not Reportable Not Reportable Absolute Nucleated RBC Not Reportable Not Reportable Total Counted 100 100 Neutrophils % (Manual) 84 H 80 H Lymphocytes % (Manual) 10.0 L 13.0 L Monocytes % (Manual) 4 5 Eosinophils % (Manual) 2 1 Basophils % (Manual) 1 Nucleated RBC % Not Reportable Not Reportable Abs Lymphs (Manual) 2.16 2.87 Abs Monocytes (Manual) 0.86 1.10 H Absolute Eos (Manual) 0.43 0.22 Abs Basophils (Manual) 0.22 H Smudge Cells Present Platelet Estimate Increased Increased Anisocytosis 2+ 1+ Schistocytes None seen None seen Sodium 147 H 150 H Potassium 3.1 L 3.3 L Chloride 118 H 120 H Carbon Dioxide 20 L 24 Anion Gap 9 6 BUN 18 15 Creatinine 1.20 1.20 Estim Creat Clear Calc 43 43 Estimated GFR 58 L 58 L Glucose 122 H 98 POC Capillary Glucose 120 H Calcium 8.6 8.7 Magnesium 2.3 2.4 H Total Bilirubin 0.9 0.9 AST 36 43 ALT 27 30 Alkaline Phosphatase 86 98 Total Creatine Kinase 64 Total Protein 7.0 7.0 Albumin 3.3 L 3.4 L 10/31/24 11:32 WBC RBC Hgb Hct MCV MCH MCHC RDW Plt Count MPV Immature Gran % (Auto) Neut % (Auto) Lymph % (Auto) [place] % (Auto) Eos % (Auto) Baso % (Auto) Lymph # (Auto) [place] # (Auto) Eos # (Auto) Baso # (Auto) Abs Immat Gran (auto) Absolute Neuts (auto) Absolute Nucleated RBC Total Counted Neutrophils % (Manual) Lymphocytes % (Manual) Monocytes % (Manual) Eosinophils % (Manual) Basophils % (Manual) Nucleated RBC % Abs Lymphs (Manual) Abs Monocytes (Manual) Absolute Eos (Manual) Abs Basophils (Manual) Smudge Cells Platelet Estimate Anisocytosis Schistocytes Sodium Potassium Chloride Carbon Dioxide Anion Gap BUN Creatinine Estim Creat Clear Calc Estimated GFR Glucose POC Capillary Glucose 150 H Calcium Magnesium Total Bilirubin AST ALT Alkaline Phosphatase Total Creatine Kinase Total Protein Albumin
[2024-10-31 13:53] LABS: Toxigenic C. Diff NEGATIVE (NEGATIVE)
[2024-10-31 15:42] LABS: Anion Gap 3 mmol/L (4-12); Blood Urea Nitrogen 15 mg/dL (9-20); Calcium 8.2 mg/dL (8.4-10.2); Carbon Dioxide 25 mmol/L (22-30); Chloride 118 mmol/L (98-107); Estimated CRCL calculation 43 ml/min; Estimated Glomerular Filt Rate 58; Glucose 107 mg/dL (65-110); Potassium 3.3 mmol/L (3.4-5.0); Sodium 146 mmol/L (137-145)
[2024-10-31 18:51] LABS: Glucose Point of Care 122 mg/dl (65-105)
[2024-10-31] MEDS: METOPROLOL TARTRATE 25 MG TABLET PO (20:59)
[2024-10-31] MEDS: ATORVASTATIN 20 MG TABLET BY MOUTH (20:59)
[2024-11-01] VITALS (18 sets, daily range): BP systolic 101–165; BP diastolic 43–78; PULSE 56–79; RESP 16–27; TEMP 36.5–37.1; O2SAT 97–100
[2024-11-01 00:55] LABS: Glucose Point of Care 101 mg/dl (65-105)
[2024-11-01 07:24] LABS: Glucose Point of Care 119 mg/dl (65-105)
[2024-11-01 08:19] LABS: Hematocrit 30.8 % (42.0-52.0); Hemoglobin 9.9 g/dL (14.0-18.0); Mean Corpuscular HGB Conc 32.1 g/dl (32-36); Mean Corpuscular Hemoglobin 30.2 pg (26-34); Mean Corpuscular Volume 93.9 fl (80-100); Mean Platelet Volume 11.2 fl (7.4-10.4); Platelet Count Result 424 k/mm3 (150-375); Red Blood Count 3.28 M/mm3 (4.6-6.20); White Blood Count 20.2 K/mm3 (4.5-10.0)
[2024-11-01 08:50] LABS: Band Neutrophils Percent 4 % (0-6); Lymphocytes Absolute Manual 1.01 K/mm3 (1.1-4.5); Lymphocytes Percent Manual 5 % (18-44); Monocytes Percent Manual 1 % (3-9); Neutrophils Absolute Manual 18.98 K/mm3 (1.3-6.7); Neutrophils Percent Manual 90 % (46-73); Platelet Estimate Increased (Adequate); Total Cells Counted 100
[2024-11-01 08:51] LABS: Anisocytosis 1+; Schistocytes None Seen
[2024-11-01] MEDS: DEXTROSE 5% 1,000 ML 1,000 ML 100 ML IV CONT (09:36)
[2024-11-01] MEDS: PANTOPRAZOLE SODIUM IV 40 MG VIAL IV PUSH ×2 (09:36→20:10)
[2024-11-01] MEDS: METOPROLOL TARTRATE 25 MG TABLET PO ×2 (09:36→20:09)
[2024-11-01] MEDS: ENOXAPARIN 80 MG/0.8 ML SYRINGE 75 MG SUB-Q ×2 (09:36→20:10)
[2024-11-01] MEDS: LOSARTAN POTASSIUM 50 MG TABLET BY MOUTH (09:37)
[2024-11-01 10:00] LABS: Alanine Aminotransferase 26 U/L (6-50); Alkaline Phosphatase 66 U/L (38-126); Anion Gap 6 mmol/L (4-12); Aspartate Amino Transferase 40 U/L (17-59); Bilirubin,Total 0.8 mg/dL (0.2-1.3); Blood Urea Nitrogen 12 mg/dL (9-20); Calcium 8.3 mg/dL (8.4-10.2); Carbon Dioxide 21 mmol/L (22-30); Chloride 115 mmol/L (98-107); Estimated CRCL calculation 51 ml/min; Estimated Glomerular Filt Rate > 60; Glucose 112 mg/dL (65-110); Magnesium 2.3 mg/dL (1.6-2.3); Potassium 3.7 mmol/L (3.4-5.0); Sodium 142 mmol/L (137-145); Triglycerides 190 mg/dL (<150)
[2024-11-01 11:52] LABS: Glucose Point of Care 106 mg/dl (65-105)
--- NOTE | 2024-11-01 14:37 | P.PNIM_ITS ---
Progress Note: A&P Assessment and Plan (1) Acute respiratory failure: Code(s): J96.00 - Acute respiratory failure, unspecified whether with hypoxia or hypercapnia Status: Acute Assessment and Plan: Acute Respiratory failure secondary to cardiac arrest, pulmonary edema, questionable aspiration pneumonia was intubated adn placed on ventilator on admission. 10/28:extubated down to o2 via nc Now on RA Chest x-ray clear (2) Cardiac arrest: Code(s): I46.9 - Cardiac arrest, cause unspecified Status: Acute Assessment and Plan: PEA cardiac arrest which converted to VFib and later patient was in complete heart block Status post temporary transvenous pacemaker placement Mild elevation of troponin likely secondary to cardiac arrest and respiratory failure Continue statin. Patient is allergic to aspirin. No information available from family regarding the nature of allergy Echo reviewed Cardiology is following Resume ARB 10/27: Cardiology removed Transvenous pacemaker since patient is not requiring any pacemaker support Continues to have episodes of V-tach, was in a flutter yesterday, currently in AFib rate controlled continue therapeutic Lovenox, once he is able to take p.o. switch to eliquis (3) Sepsis: Code(s): A41.9 - Sepsis, unspecified organism Status: Acute Assessment and Plan: Patient met criteria for sepsis. Chest x-ray was clear and did not show any sign of aspiration. CT scan has been delayed due to patient being unstable on presentation His UA was abnormal Blood cultures negative Urine culture is growing Enterococcus which is pansensitive Continue Zosyn -patient still febrile, 10/27 -venous Dopplers were negative for DVT, 10/29: Ordered blood cultures, UA, urine culture as remains milely febrile. Any diarrhea will check C diff Remains on Zosyn since 10/22/2024. Will stop this finished course (4) Heart block AV third degree: Code(s): I44.2 - Atrioventricular block, complete Status: Acute Assessment and Plan: Status post transvenous pacemaker placement which is currently on standby patient's rate is above set pacemaker rate 10/27 pacemaker removed by Cardiology -currently in AFib/atrial flutter, rate controlled -continue therapeutic Lovenox -hands of V-tach, discussed with firefighter type one, will hold amiodarone for now given that he had high degree AV block on admission started on BB now per Cardiology (5) Anoxic brain injury: Code(s): G93.1 - Anoxic brain damage, not elsewhere classified Status: Acute Assessment and Plan: Patient was comatose post resuscitation Head CT was negative for any acute intracranial change Patient had a PEA arrest which later converted to VFib and on arrival was bradycardic and hypotensive Patient completed TTM protocol and now has been reviewed 10/24 patient was tachypneic and asynchronous with the ventilator. He was star lily low-dose propofol for safe mechanical ventilation 10/25 on holding sedation patient is still not following commands or doing purposeful movements. He does withdraw to pain. He turns around this had and has a blank stare. 10/26 sedation holiday. No significant change in neurological exam 10/26: Head CT with no acute intracranial findings Continue to hold sedation and monitor neurological status -discontinue propofol, -off Precedex -10/28: patient more awake, alert, nods to questions and follows simple commands Continues to have some confusion (6) Acute hypokalemia: Code(s): E87.6 - Hypokalemia Status: Acute Assessment and Plan: Potassium has normalized (7) Congestive heart failure: Code(s): I50.9 - Heart failure, unspecified Status: Acute Assessment and Plan: Bilateral pitting edema on exam which is improving Good urine output -cardiology following -continue atorvastatin, losartan -cardiology following Summary 1. Complete two-dimensional, color flow and Doppler transthoracic echocardiogram is performed. 2. Technically difficult study with limited views. 3. The left ventricle is normal in size with mildly reduced systolic function. The left ventricular ejection fraction is visually estimated to be 40-45%. 4. The aortic valve is not well visualized however did gradients across the valve suggests moderate aortic stenosis. 5. There is small pericardial effusion. 6. Dilated inferior vena cava with <50% collapse upon inspiration consistent with significantly elevated right atrial pressure, 15 mmHg. (8) Hypotension: Code(s): I95.9 - Hypotension, unspecified Status: Acute Assessment and Plan: RESOLVED Patient was initially hypertensive likely secondary to bradycardia and was on epinephrine drip which was weaned off. Continue to monitor (9) Metabolic acidosis: Code(s): E87.20 - Acidosis, unspecified Status: Acute Assessment and Plan: Hyperchloremic metabolic acidosis. Improving. Monitor Hypernatremia: Continue free water flushes for now 12/12: Started on D5% IV fluids, monitor sodium levels recheck reviewed Start D5 water 10/31 now resolved. and this will be stopped Replace potassium (10) Hyperglycemia: Code(s): R73.9 - Hyperglycemia, unspecified Status: Acute Assessment and Plan: Sliding scale insulin and Accu-Cheks (11) Hypertension: Code(s): I10 - Essential (primary) hypertension Status: Acute Assessment and Plan: Patient has history of hypertension. P.r.n. hydralazine Continue losartan. Plan DVT prophylaxis -Lovenox Stress ulcer prophylaxis -PPI Nutrition -on pureed diet insomnia: add seroquel at night Code Status - Full Code Subjective Date/time seen: 11/01/24 14:37 Interval history: No overnight events. Patient remains confused. On room air. Has not been sleeping at night. Review of Systems Review of Systems: All systems reviewed & are unremarkable except as noted in HPI and below Exam Narrative: General: On room air, in no acute distress Lungs/Chest: Trachea central clear BS B/L, No crackles or wheezing. Cardiac: RRR. Normal S1 S2. No murmurs Circulation: Pedal pulses are intact and symmetrical but weak Abdomen: Present bowel sounds. Soft. NT. ND. Rectal tube in place Extremities: No clubbing, cyanosis, Warm. Bilateral pitting edema much improved : Romero in place Neurologic: On room air, awake, alert, follows simple commands, remains confused Objective Data Vital Signs Vital Signs: Vital Signs - 24 hr 10/31/24 16:00 10/31/24 16:00 10/31/24 16:00 Temperature 97.8 F Pulse Rate 64 78 Respiratory Rate 14 Blood Pressure 153/55 H Pulse Oximetry 99 Oxygen Delivery Room Air 10/31/24 18:00 10/31/24 18:08 10/31/24 20:00 Temperature Pulse Rate 67 68 Respiratory Rate Blood Pressure 166/75 H Pulse Oximetry Oxygen Delivery 10/31/24 20:00 10/31/24 20:59 10/31/24 21:00 Temperature 97.9 F Pulse Rate 69 73 Respiratory Rate 27 H Blood Pressure 156/57 H Pulse Oximetry 98 98 Oxygen Delivery Room Air 10/31/24 22:00 11/01/24 00:00 11/01/24 00:00 Temperature Pulse Rate 64 69 74 Respiratory Rate 23 H Blood Pressure 156/78 H Pulse Oximetry 98 Oxygen Delivery 11/01/24 00:20 11/01/24 02:00 11/01/24 04:00 Temperature Pulse Rate 66 72 Respiratory Rate Blood Pressure Pulse Oximetry 99 Oxygen Delivery Room Air 11/01/24 04:00 11/01/24 04:00 11/01/24 06:00 Temperature 98.3 F Pulse Rate 71 58 L Respiratory Rate 17 Blood Pressure 101/59 L Pulse Oximetry 97 Oxygen Delivery Room Air 11/01/24 08:00 11/01/24 08:00 11/01/24 09:36 Temperature 98.6 F Pulse Rate 60 62 65 Respiratory Rate 27 H 22 H Blood Pressure 165/64 H Pulse Oximetry 97 98 Oxygen Delivery 11/01/24 12:00 Temperature 98.4 F Pulse Rate 60 Respiratory Rate 20 Blood Pressure 150/55 H Pulse Oximetry 100 Oxygen Delivery Intake/Output Intake/Output: Intake & Output 10/29/24 10/30/24 10/31/24 11/01/24 23:59 23:59 23:59 23:59 Intake Total 440 1427 1940 1240 Output Total 1500 1900 2350 1200 [facility] -1060 -473 -410 40 Meds/Results Medications: Active Medications Generic Name Dose Route Start Last Admin Trade Name Freq PRN Reason Stop Dose Admin Acetaminophen 650 mg 10/23/24 11:38 10/30/24 17:17 Acetaminophen Elixir 325 Mg/10.15 Ml Udc PO 650 mg Q6H PRN Administration Mild Pain (1-3) or Fever Albuterol/Ipratropium 3 ml 10/22/24 08:35 Ipratropium 0.5 Mg/Albuterol Sulfate 2.5 Mg Ampul.Neb 3 Ml INHALATION Q6HRT PRN Wheezing Atorvastatin Calcium 20 mg 10/31/24 21:00 10/31/24 20:59 Atorvastatin 20 Mg Tablet BY MOUTH 20 mg HS ALEJANDRO Administration Dextrose 12.5 gm 10/21/24 22:44 Dextrose 50% 25 Gm/50 Ml Syringe IV PUSH PRN PRN Hypoglycemia Protocol Enoxaparin Sodium 75 mg 11/01/24 09:00 11/01/24 09:36 Enoxaparin 80 Mg/0.8 Ml Syringe SUB-Q 75 mg Q12HR ALEJANDRO Administration Glucagon 1 mg 10/21/24 22:44 Glucagon For Inj 1 Mg Vial IM PRN PRN Hypoglycemia Protocol Glucose 15 gm 10/21/24 22:44 Glucose Oral Gel 15 Gm Of Glucse In 37.5 Gm Tube PO PRN PRN Hypoglycemia Protocol Hydralazine HCl 10 mg 10/28/24 12:58 10/31/24 18:10 Hydralazine Hcl 20 Mg/Ml Vial IV PUSH 10 mg Q4H PRN Administration Blood Pressure - High Dextrose 1,000 mls @ 100 mls/hr 10/21/24 22:44 Dextrose 5% 1,000 Ml IVPB PRN PRN Hypoglycemia Protocol Insulin Aspart 2 - 5 units 10/22/24 06:00 11/01/24 13:16 Insulin Aspart (*Bkc) 100 Units/Ml SUB-Q Not Given Q6HR ALEJANDRO Protocol Losartan Potassium 50 mg 11/01/24 09:00 11/01/24 09:37 Losartan Potassium 50 Mg Tablet BY MOUTH 50 mg DAILY ALEJANDRO Administration Metoprolol Tartrate 25 mg 10/31/24 21:00 11/01/24 09:36 Metoprolol Tartrate 25 Mg Tablet PO 25 mg Q12HR ALEJANDRO Administration Pantoprazole Sodium 40 mg 10/21/24 21:00 11/01/24 09:36 Pantoprazole Sodium Iv 40 Mg Vial IV PUSH 40 mg Q12HR ALEJANDRO Administration Radiology Results: ITS Impressions Head CT 10/26/24 10:34 IMPRESSION: No acute intracranial findings. Venous Doppler Study 10/27/24 12:58 IMPRESSION: Negative bilateral lower extremity venous US. No deep vein thrombosis. Modified Barium Swallow 10/29/24 14:00 IMPRESSION: Pharyngeal dysphagia with silent laryngeal penetration and aspiration. Please correlate with speech pathologist findings and specific feeding recommendations. Chest X-Ray 10/31/24 12:55 IMPRESSION: 1. No acute cardiopulmonary disease. Labs Labs: Laboratory Results - last 24 hr 10/31/24 10/31/24 11/01/24 15:29 18:22 00:22 WBC RBC Hgb Hct MCV MCH MCHC RDW Plt Count MPV Immature Gran % (Auto) Neut % (Auto) Lymph % (Auto) [place] % (Auto) Eos % (Auto) Baso % (Auto) Lymph # (Auto) [place] # (Auto) Eos # (Auto) Baso # (Auto) Abs Immat Gran (auto) Absolute Neuts (auto) Absolute Nucleated RBC Total Counted Neutrophils % (Manual) Band Neutrophils % Lymphocytes % (Manual) Monocytes % (Manual) Nucleated RBC % Abs Neuts (Manual) Abs Lymphs (Manual) Abs Monocytes (Manual) Platelet Estimate Anisocytosis Schistocytes Sodium 146 H Potassium 3.3 L Chloride 118 H Carbon Dioxide 25 Anion Gap 3 L BUN 15 Creatinine 1.20 Estim Creat Clear Calc 43 Estimated GFR 58 L Glucose 107 POC Capillary Glucose 122 H 101 Calcium 8.2 L Magnesium Total Bilirubin AST ALT Alkaline Phosphatase Total Protein Albumin Triglycerides 11/01/24 11/01/24 11/01/24 07:21 08:12 11:46 WBC 20.2 H RBC 3.28 L Hgb 9.9 L Hct 30.8 L MCV 93.9 MCH 30.2 MCHC 32.1 RDW 15.0 H Plt Count 424 H MPV 11.2 H Immature Gran % (Auto) Not Reportable Neut % (Auto) Not Reportable Lymph % (Auto) Not Reportable [place] % (Auto) Not Reportable Eos % (Auto) Not Reportable Baso % (Auto) Not Reportable Lymph # (Auto) Not Reportable [place] # (Auto) Not Reportable Eos # (Auto) Not Reportable Baso # (Auto) Not Reportable Abs Immat Gran (auto) Not Reportable Absolute Neuts (auto) Not Reportable Absolute Nucleated RBC Not Reportable Total Counted 100 Neutrophils % (Manual) 90 H Band Neutrophils % 4 Lymphocytes % (Manual) 5 L Monocytes % (Manual) 1 L Nucleated RBC % Not Reportable Abs Neuts (Manual) 18.98 H Abs Lymphs (Manual) 1.01 L Abs Monocytes (Manual) 0.20 Platelet Estimate Increased Anisocytosis 1+ Schistocytes None seen Sodium 142 Potassium 3.7 Chloride 115 H Carbon Dioxide 21 L Anion Gap 6 BUN 12 Creatinine 1.00 Estim Creat Clear Calc 51 Estimated GFR > 60 Glucose 112 H POC Capillary Glucose 119 H 106 H Calcium 8.3 L Magnesium 2.3 Total Bilirubin 0.8 AST 40 ALT 26 Alkaline Phosphatase 66 Total Protein 6.0 L Albumin 3.0 L Triglycerides 190 H
--- NOTE | 2024-11-01 14:43 | ECG_ITS ---
Test Date: 2024-11-01 16:13:00 Measurements Intervals [place] Rate: 56 P: 71 VT: 168 QRS: -9 QRSD: 86 T: 94 QT: 456 QTc: 444 Interpretive Statements SINUS BRADYCARDIA WITH OCCASIONAL SUPRAVENTRICULAR PREMATURE COMPLEXES SEPTAL MYOCARDIAL INFARCTION [40+ ms Q WAVE IN V1/V2], PROBABLY OLD Compared to ECG 10/22/2024 03:46:12 Myocardial infarct finding now present Sinus rhythm no longer present Ventricular premature complex(es) no longer present Intraventricular conduction delay no longer present Electronically Signed On 11-01-2024 21:59:42 OBJECT ORIENTED PROGRAMMER by Alexa Cortez M.D.
--- NOTE | 2024-11-01 17:22 | PC.NURSE ---
Patient's arrived around 4pm stating that she had driven herself to the hospital tonight and had difficulty navigating corners and requested asssistance puting in her new dentures and would also like something to eat. During this admission the has had multiple occurrences in which transportation had to be arranged on her behalf as she was unable to drive home due to her dementia and poor eyesight. Olivia the daughter was contacted this evening to arrange for someone to ensure she gets home safely, whether a cab, uber, or family. She stated she had just got home from work and was unaware that Jennyfer had even left the house or that she was coming to visit. A cab voucher from the roundhouse supervisor was arranged on her behalf as family is unable to. Escalated to charge nurse and roundhouse supervisor. Patient was transferred to room 206-1 @ 1650. Report given to Marlene Martini RN and all patient belongings and chart sent to receiving unit.
[2024-11-01 17:34] LABS: Glucose Point of Care 101 mg/dl (65-105)
[2024-11-01] MEDS: ATORVASTATIN 20 MG TABLET BY MOUTH (20:09)
[2024-11-01] MEDS: QUEtiapine FUMARATE 12.5 MG TABLET PO (21:57)
[2024-11-01 23:51] LABS: Glucose Point of Care 94 mg/dl (65-105)
[2024-11-02] VITALS (12 sets, daily range): BP systolic 118–158; BP diastolic 60–90; PULSE 45–103; RESP 16–22; TEMP 36.6–37.2; O2SAT 93–99
[2024-11-02 05:38] LABS: Glucose Point of Care 92 mg/dl (65-105)
[2024-11-02 05:46] LABS: Hematocrit 33.5 % (42.0-52.0); Hemoglobin 10.5 g/dL (14.0-18.0); Mean Corpuscular HGB Conc 31.3 g/dl (32-36); Mean Corpuscular Hemoglobin 29.2 pg (26-34); Mean Corpuscular Volume 93.1 fl (80-100); Mean Platelet Volume 11.3 fl (7.4-10.4); Platelet Count Result 495 k/mm3 (150-375); Red Cell Distribution Width 14.6 % (11.5-14.5); White Blood Count 24.4 K/mm3 (4.5-10.0)
[2024-11-02 06:04] LABS: Alanine Aminotransferase 29 U/L (6-50); Albumin Level 3.2 g/dL (3.5-5.1); Alkaline Phosphatase 88 U/L (38-126); Anion Gap 5 mmol/L (4-12); Aspartate Amino Transferase 39 U/L (17-59); Bilirubin,Total 0.8 mg/dL (0.2-1.3); Blood Urea Nitrogen 11 mg/dL (9-20); Calcium 8.4 mg/dL (8.4-10.2); Carbon Dioxide 23 mmol/L (22-30); Chloride 113 mmol/L (98-107); Estimated CRCL calculation 47 ml/min; Estimated Glomerular Filt Rate > 60; Glucose 85 mg/dL (65-110); Magnesium 2.3 mg/dL (1.6-2.3); Potassium 3.3 mmol/L (3.4-5.0); Sodium 141 mmol/L (137-145)
[2024-11-02 08:23] LABS: Band Neutrophils Percent 8 % (0-6); Eosinophils Absolute Manual 0.24 K/mm3 (0.02-0.50); Eosinophils Percent Manual 1 % (0-4); Lymphocytes Absolute Manual 1.95 K/mm3 (1.1-4.5); Lymphocytes Percent Manual 8 % (18-44); Monocytes Absolute Manual 0.48 K/mm3 (0.1-0.90); Monocytes Percent Manual 2 % (3-9); Neutrophils Absolute Manual 21.22 K/mm3 (1.3-6.7); Neutrophils Percent Manual 79 % (46-73); Platelet Estimate Increased (Adequate); Schistocytes None Seen; Total Cells Counted 100
[2024-11-02] MEDS: ENOXAPARIN 80 MG/0.8 ML SYRINGE 75 MG SUB-Q ×2 (10:07→20:18)
[2024-11-02] MEDS: METOPROLOL TARTRATE 25 MG TABLET PO ×2 (10:08→20:17)
[2024-11-02] MEDS: PANTOPRAZOLE SODIUM IV 40 MG VIAL IV PUSH ×2 (10:08→20:18)
[2024-11-02] MEDS: POTASSIUM CHLORIDE 20 MEQ ER TABLET 40 MEQ PO (10:08)
[2024-11-02] MEDS: LOSARTAN POTASSIUM 50 MG TABLET BY MOUTH (10:09)
--- NOTE | 2024-11-02 11:29 | PCNFU ---
Nutrition Follow-Up Complete: Suboptimal Energy Intake as related to mechanical ventilation as evidenced by NPO - resolved, pt has been on a pureed diet for 3 days now. Goal:Meet estimated nutritional needs. Pt is progressing towards goal. Pt current nutrition is pureed, level 3 moderately thick liquids, Nutrition ice cream BID. Nutrition recommendation: continue with current plan of care. Last recorded weight is 70.4 kg. Bowel Motility: +BM 11/02 Labs Reviewed: Hgb:10.5, HCT:33.5, alb:3.2, K:3.3 Meds Noted: protonix, novolog Skin: WNL Additional Notes: Pt continues on a pureed diet, level 3 liquids. Intake 25-50%, improved some. Pt is consuming the nutritional ice cream cups for an additional 300kcals, 9g protein. Encourage po intake of meals and supplements. Agree with orders. Will monitor weight, labs, skin, oral intake, Follow up in 5 days.
[2024-11-02 12:17] LABS: Glucose Point of Care 77 mg/dl (65-105)
--- NOTE | 2024-11-02 12:53 | PM.IMPN ---
Progress Note: A&P Assessment and Plan (1) Acute respiratory failure: Code(s): J96.00 - Acute respiratory failure, unspecified whether with hypoxia or hypercapnia Status: Acute Assessment and Plan: Acute Respiratory failure secondary to cardiac arrest, pulmonary edema, questionable aspiration pneumonia was intubated adn placed on ventilator on admission. 10/28:extubated down to o2 via nc Now on RA Chest x-ray clear (2) Cardiac arrest: Code(s): I46.9 - Cardiac arrest, cause unspecified Status: Acute Assessment and Plan: PEA cardiac arrest which converted to VFib and later patient was in complete heart block Status post temporary transvenous pacemaker placement Mild elevation of troponin likely secondary to cardiac arrest and respiratory failure Continue statin. Patient is allergic to aspirin. No information available from family regarding the nature of allergy Echo reviewed Cardiology is following Resume ARB 10/27: Cardiology removed transvenous pacemaker since patient is not requiring any pacemaker support Continues to have episodes of V-tach, was in a flutter yesterday, currently in AFib rate controlled continue therapeutic Lovenox, once he is able to take p.o. switch to eliquis cardiology recommends transfer to [facility] for ICD implantation which will be indicated due to be v fib arrest (3) Sepsis: Code(s): A41.9 - Sepsis, unspecified organism Status: Acute Assessment and Plan: Patient met criteria for sepsis. Chest x-ray was clear and did not show any sign of aspiration. CT scan has been delayed due to patient being unstable on presentation His UA was abnormal Blood cultures negative Urine culture is growing Enterococcus which is pansensitive Continue Zosyn -patient still febrile, 10/27 -venous Dopplers were negative for DVT, 10/29: Ordered blood cultures, UA, urine culture as remains milely febrile. Any diarrhea will check C diff Remains on Zosyn since 10/22/2024. Will stop this finished course Leukocytosis still persistent. Patient however remains afebrile will continue to monitor (4) Heart block AV third degree: Code(s): I44.2 - Atrioventricular block, complete Status: Acute Assessment and Plan: Status post transvenous pacemaker placement which is currently on standby patient's rate is above set pacemaker rate 10/27 pacemaker removed by Cardiology -currently in AFib/atrial flutter, rate controlled -continue therapeutic Lovenox -hands of V-tach, discussed with calender roll press operator, will hold amiodarone for now given that he had high degree AV block on admission started on BB now per Cardiology (5) Anoxic brain injury: Code(s): G93.1 - Anoxic brain damage, not elsewhere classified Status: Acute Assessment and Plan: Patient was comatose post resuscitation Head CT was negative for any acute intracranial change Patient had a PEA arrest which later converted to VFib and on arrival was bradycardic and hypotensive Patient completed TTM protocol and now has been reviewed 10/24 patient was tachypneic and asynchronous with the ventilator. He was started low-dose propofol for safe mechanical ventilation 10/25 on holding sedation patient is still not following commands or doing purposeful movements. He does withdraw to pain. He turns around this had and has a blank stare. 10/26 sedation holiday. No significant change in neurological exam 10/26: Head CT with no acute intracranial findings Continue to hold sedation and monitor neurological status -discontinue propofol, -off Precedex -10/28: patient more awake, alert, nods to questions and follows simple commands Continues to have some confusion Will get MRI brain to further evaluate (6) Acute hypokalemia: Code(s): E87.6 - Hypokalemia Status: Acute Assessment and Plan: Potassium has normalized (7) Congestive heart failure: Code(s): I50.9 - Heart failure, unspecified Status: Acute Assessment and Plan: Bilateral pitting edema on exam which is improving Good urine output -cardiology following -continue atorvastatin, losartan -cardiology following Summary 1. Complete two-dimensional, color flow and Doppler transthoracic echocardiogram is performed. 2. Technically difficult study with limited views. 3. The left ventricle is normal in size with mildly reduced systolic function. The left ventricular ejection fraction is visually estimated to be 40-45%. 4. The aortic valve is not well visualized however did gradients across the valve suggests moderate aortic stenosis. 5. There is small pericardial effusion. 6. Dilated inferior vena cava with <50% collapse upon inspiration consistent with significantly elevated right atrial pressure, 15 mmHg. (8) Hypotension: Code(s): I95.9 - Hypotension, unspecified Status: Acute Assessment and Plan: RESOLVED Patient was initially hypertensive likely secondary to bradycardia and was on epinephrine drip which was weaned off. Continue to monitor (9) Metabolic acidosis: Code(s): E87.20 - Acidosis, unspecified Status: Acute Assessment and Plan: Hyperchloremic metabolic acidosis. Improving. Monitor Hypernatremia: Continue free water flushes for now 10/29: Started on D5% IV fluids, monitor sodium levels recheck reviewed Start D5 water 10/31 now resolved. and this will be stopped Replace potassium (10) Hyperglycemia: Code(s): R73.9 - Hyperglycemia, unspecified Status: Acute Assessment and Plan: Sliding scale insulin and Accu-Cheks (11) Hypertension: Code(s): I10 - Essential (primary) hypertension Status: Acute Assessment and Plan: Patient has history of hypertension. P.r.n. hydralazine Continue losartan. Plan DVT prophylaxis -Lovenox Stress ulcer prophylaxis -PPI Nutrition -on pureed diet insomnia: add seroquel at night Code Status - Full Code Subjective Date/time seen: 11/02/24 12:53 Interval history: patient continues to be confused, no new complaints. Did not sleep well last night Review of Systems Review of Systems: All systems reviewed & are unremarkable except as noted in HPI and below Exam Narrative: General: On room air, in no acute distress Lungs/Chest: Trachea central clear BS B/L, No crackles or wheezing. Cardiac: RRR. Normal S1 S2. No murmurs Circulation: Pedal pulses are intact and symmetrical Abdomen: Present bowel sounds. Soft. NT. ND. Extremities: No clubbing, cyanosis, Warm. No edema : Romero in place Neurologic: awake, alert, follows simple commands, remains confused Objective Data Vital Signs Vital Signs: Vital Signs - 24 hr 11/01/24 14:00 11/01/24 16:00 11/01/24 16:00 Temperature Pulse Rate 58 L 59 L 59 L Respiratory Rate 18 Blood Pressure Pulse Oximetry 98 Oxygen Delivery Room Air 11/01/24 16:00 11/01/24 17:01 11/01/24 18:00 Temperature 97.7 F Pulse Rate 68 68 65 Respiratory Rate 18 16 Blood Pressure 150/72 H Pulse Oximetry 98 98 Oxygen Delivery 11/01/24 20:00 11/01/24 20:00 11/01/24 20:00 Temperature 98.7 F Pulse Rate 56 L 64 68 Respiratory Rate 18 18 Blood Pressure 165/43 H Pulse Oximetry 99 99 Oxygen Delivery Room Air 11/01/24 20:09 11/01/24 22:00 11/01/24 23:34 Temperature Pulse Rate 64 79 64 Respiratory Rate 18 Blood Pressure Pulse Oximetry 99 Oxygen Delivery Room Air 11/01/24 23:52 11/02/24 00:00 11/02/24 02:00 Temperature 97.8 F Pulse Rate 71 69 73 Respiratory Rate 18 Blood Pressure 164/56 H Pulse Oximetry 97 Oxygen Delivery 11/02/24 04:00 11/02/24 04:00 11/02/24 04:00 Temperature 97.9 F Pulse Rate 90 77 Respiratory Rate 19 Blood Pressure 155/79 H Pulse Oximetry 99 Oxygen Delivery Room Air 11/02/24 06:00 11/02/24 08:00 11/02/24 10:08 Temperature 98.7 F Pulse Rate 67 74 82 Respiratory Rate 16 Blood Pressure 118/60 Pulse Oximetry 96 Oxygen Delivery 11/02/24 12:00 Temperature 98.9 F Pulse Rate 77 Respiratory Rate 18 Blood Pressure 152/61 H Pulse Oximetry 93 Oxygen Delivery Intake/Output Intake/Output: Intake & Output 10/30/24 10/31/24 11/01/24 11/02/24 23:59 23:59 23:59 23:59 Intake Total 1427 1940 1720 375 Output Total 1900 2350 1650 Balance -473 -410 70 375 Meds/Results Medications: Active Medications Generic Name Dose Route Start Last Admin Trade Name Freq PRN Reason Stop Dose Admin Acetaminophen 650 mg 10/23/24 11:38 10/30/24 17:17 Acetaminophen Elixir 325 Mg/10.15 Ml Udc PO 650 mg Q6H PRN Administration Mild Pain (1-3) or Fever Albuterol/Ipratropium 3 ml 10/22/24 08:35 Ipratropium 0.5 Mg/Albuterol Sulfate 2.5 Mg Ampul.Neb 3 Ml INHALATION Q6HRT PRN Wheezing Atorvastatin Calcium 20 mg 10/31/24 21:00 11/01/24 20:09 Atorvastatin 20 Mg Tablet BY MOUTH 20 mg HS ALEJANDRO Administration Dextrose 12.5 gm 10/21/24 22:44 Dextrose 50% 25 Gm/50 Ml Syringe IV PUSH PRN PRN Hypoglycemia Protocol Enoxaparin Sodium 75 mg 11/01/24 09:00 11/02/24 10:07 Enoxaparin 80 Mg/0.8 Ml Syringe SUB-Q 75 mg Q12HR ALEJANDRO Administration Glucagon 1 mg 10/21/24 22:44 Glucagon For Inj 1 Mg Vial IM PRN PRN Hypoglycemia Protocol Glucose 15 gm 10/21/24 22:44 Glucose Oral Gel 15 Gm Of Glucse In 37.5 Gm Tube PO PRN PRN Hypoglycemia Protocol Hydralazine HCl 10 mg 10/28/24 12:58 10/31/24 18:10 Hydralazine Hcl 20 Mg/Ml Vial IV PUSH 10 mg Q4H PRN Administration Blood Pressure - High Dextrose 1,000 mls @ 100 mls/hr 10/21/24 22:44 Dextrose 5% 1,000 Ml IVPB PRN PRN Hypoglycemia Protocol Insulin Aspart 2 - 5 units 11/01/24 17:00 11/02/24 10:06 Insulin Aspart (*Bkc) 100 Units/Ml SUB-Q Not Given TIDWM ALEJANDRO Protocol Losartan Potassium 50 mg 11/01/24 09:00 11/02/24 10:09 Losartan Potassium 50 Mg Tablet BY MOUTH 50 mg DAILY ALEJANDRO Administration Metoprolol Tartrate 25 mg 10/31/24 21:00 11/02/24 10:08 Metoprolol Tartrate 25 Mg Tablet PO 25 mg Q12HR ALEJANDRO Administration Pantoprazole Sodium 40 mg 10/21/24 21:00 11/02/24 10:08 Pantoprazole Sodium Iv 40 Mg Vial IV PUSH 40 mg Q12HR ALEJANDRO Administration Quetiapine Fumarate 12.5 mg 11/01/24 21:00 11/01/24 21:57 Quetiapine Fumarate 12.5 Mg Tablet PO 12.5 mg HS ALEJANDRO Administration Radiology Results: ITS Impressions Head CT 10/26/24 10:34 IMPRESSION: No acute intracranial findings. Venous Doppler Study 10/27/24 12:58 IMPRESSION: Negative bilateral lower extremity venous US. No deep vein thrombosis. Modified Barium Swallow 10/29/24 14:00 IMPRESSION: Pharyngeal dysphagia with silent laryngeal penetration and aspiration. Please correlate with speech pathologist findings and specific feeding recommendations. Chest X-Ray 10/31/24 12:55 IMPRESSION: 1. No acute cardiopulmonary disease. Labs Labs: Laboratory Results - last 24 hr 11/01/24 11/01/24 11/02/24 16:41 23:39 05:20 WBC 24.4 H RBC 3.60 L Hgb 10.5 L Hct 33.5 L MCV 93.1 MCH 29.2 MCHC 31.3 L RDW 14.6 H Plt Count 495 H MPV 11.3 H Immature Gran % (Auto) Not Reportable Neut % (Auto) Not Reportable Lymph % (Auto) Not Reportable [place] % (Auto) Not Reportable Eos % (Auto) Not Reportable Baso % (Auto) Not Reportable Lymph # (Auto) Not Reportable [place] # (Auto) Not Reportable Eos # (Auto) Not Reportable Baso # (Auto) Not Reportable Abs Immat Gran (auto) Not Reportable Absolute Neuts (auto) Not Reportable Absolute Nucleated RBC Not Reportable Total Counted 100 Neutrophils % (Manual) 79 H Band Neutrophils % 8 H Lymphocytes % (Manual) 8 L Monocytes % (Manual) 2 L Eosinophils % (Manual) 1 Nucleated RBC % Not Reportable Abs Neuts (Manual) 21.22 H Abs Lymphs (Manual) 1.95 Abs Monocytes (Manual) 0.48 Absolute Eos (Manual) 0.24 Platelet Estimate Increased Schistocytes None seen Sodium 141 Potassium 3.3 L Chloride 113 H Carbon Dioxide 23 Anion Gap 5 BUN 11 Creatinine 1.10 Estim Creat Clear Calc 47 Estimated GFR > 60 Glucose 85 POC Capillary Glucose 101 94 Calcium 8.4 Magnesium 2.3 Total Bilirubin 0.8 AST 39 ALT 29 Alkaline Phosphatase 88 Total Protein 6.0 L Albumin 3.2 L 11/02/24 11/02/24 05:34 11:34 WBC RBC Hgb Hct MCV MCH MCHC RDW Plt Count MPV Immature Gran % (Auto) Neut % (Auto) Lymph % (Auto) [place] % (Auto) Eos % (Auto) Baso % (Auto) Lymph # (Auto) [place] # (Auto) Eos # (Auto) Baso # (Auto) Abs Immat Gran (auto) Absolute Neuts (auto) Absolute Nucleated RBC Total Counted Neutrophils % (Manual) Band Neutrophils % Lymphocytes % (Manual) Monocytes % (Manual) Eosinophils % (Manual) Nucleated RBC % Abs Neuts (Manual) Abs Lymphs (Manual) Abs Monocytes (Manual) Absolute Eos (Manual) Platelet Estimate Schistocytes Sodium Potassium Chloride Carbon Dioxide Anion Gap BUN Creatinine Estim Creat Clear Calc Estimated GFR Glucose POC Capillary Glucose 92 77 Calcium Magnesium Total Bilirubin AST ALT Alkaline Phosphatase Total Protein Albumin
--- NOTE | 2024-11-02 15:56 | PC.NURSE ---
Becky from [facility] transfer center given update.
[2024-11-02 17:49] LABS: Glucose Point of Care 91 mg/dl (65-105)
--- NOTE | 2024-11-02 18:48 | PC.NURSE ---
This patient, Juan Alberto Herndon, was transferred to [facility] on 11/02/24 at 1848. Personal belongings sent with patient. Report given to SHARA Mondragon. Appropriate documentation sent with patient.
--- NOTE | 2024-11-02 18:58 | PC.NURSE ---
This patient, Juan Alberto Herndon, was received from [ IMU] on 11/02/24 at 1858. Patient/family oriented to unit policies and routines
--- NOTE | 2024-11-02 19:24 | ADMGEN ---
This patient, Juan Alberto Herndon, was admitted to Medical Room 246-. Patient/family oriented to hospital policies and general routines including ID bracelet, bed and alarms, visiting hours, pain management, procedures, bathroom and other care routines, personal items, smoking policy, room service/diet, and visiting hours. Information on how to activate the Rapid Response Team has been discussed. Patient/Family are encouraged to report perceived risks to care and to ask questions if they do not understand what they are told or what they should do.
[2024-11-02] MEDS: ATORVASTATIN 20 MG TABLET BY MOUTH (20:17)
[2024-11-02] MEDS: QUEtiapine FUMARATE 12.5 MG TABLET PO (20:17)
[2024-11-02 20:43] LABS: Add Urine Microscopic? YES; Appearance Urine Cloudy (Clear); Bacteria Urine None Seen /hpf; Bilirubin Urine Negative (Negative); Blood Urine Negative (Negative); Color Urine Yellow (Yellow); Glucose Urine UA Negative (Negative); Ketones Urine Trace mg/dL (Negative); Leukocyte Esterase Ur Negative LEU/UL (Negative); Nitrate Urine Negative (Negative); Protein Urine 1+ mg/dL (Negative); RBC Urine 0-2 /hpf (0-2); Specific Grav Ur 1.014 (1.001-1.035); Squamous Epithelial Cell Urine None Seen /hpf (Few); Urobilinogen Urine 0.2 mg/dL (<2.0); WBC Urine 0-5 /hpf (0-3)
[2024-11-03] VITALS (10 sets, daily range): BP systolic 146–162; BP diastolic 50–93; PULSE 53–85; RESP 14–20; TEMP 36.6–36.7; O2SAT 98–99
[2024-11-03 03:32] LABS: Glucose Point of Care 96 mg/dl (65-105)
[2024-11-03 06:14] LABS: Glucose Point of Care 83 mg/dl (65-105)
[2024-11-03 06:25] LABS: Triglycerides 146 mg/dL (<150)
[2024-11-03 08:10] LABS: Alanine Aminotransferase 27 U/L (6-50); Albumin Level 3.2 g/dL (3.5-5.1); Alkaline Phosphatase 82 U/L (38-126); Anion Gap 5 mmol/L (4-12); Aspartate Amino Transferase 56 U/L (17-59); Bilirubin,Total 0.7 mg/dL (0.2-1.3); Blood Urea Nitrogen 15 mg/dL (9-20); Calcium 8.5 mg/dL (8.4-10.2); Carbon Dioxide 22 mmol/L (22-30); Chloride 117 mmol/L (98-107); Estimated CRCL calculation 43 ml/min; Estimated Glomerular Filt Rate 58; Glucose 85 mg/dL (65-110); Magnesium 2.4 mg/dL (1.6-2.3); Potassium 3.6 mmol/L (3.4-5.0); Sodium 144 mmol/L (137-145)
[2024-11-03 09:05] LABS: Hematocrit 34.5 % (42.0-52.0); Hemoglobin 10.7 g/dL (14.0-18.0); Mean Corpuscular Hemoglobin 29.6 pg (26-34); Mean Corpuscular Volume 95.6 fl (80-100); Platelet Count Result 550 k/mm3 (150-375); Red Blood Count 3.61 M/mm3 (4.6-6.20); Red Cell Distribution Width 14.7 % (11.5-14.5); White Blood Count 24.2 K/mm3 (4.5-10.0)
[2024-11-03 09:37] LABS: Anisocytosis 1+; Band Neutrophils Percent 6 % (0-6); Eosinophils Absolute Manual 0.24 K/mm3 (0.02-0.50); Eosinophils Percent Manual 1 % (0-4); Lymphocytes Absolute Manual 2.17 K/mm3 (1.1-4.5); Lymphocytes Percent Manual 9 % (18-44); Monocytes Absolute Manual 1.45 K/mm3 (0.1-0.90); Monocytes Percent Manual 6 % (3-9); Neutrophils Absolute Manual 20.32 K/mm3 (1.3-6.7); Neutrophils Percent Manual 78 % (46-73); Platelet Estimate Increased (Adequate); Schistocytes None Seen; Total Cells Counted 100
[2024-11-03] MEDS: LOSARTAN POTASSIUM 50 MG TABLET BY MOUTH (09:46)
[2024-11-03] MEDS: METOPROLOL TARTRATE 25 MG TABLET PO ×2 (09:47→20:48)
[2024-11-03] MEDS: ENOXAPARIN 80 MG/0.8 ML SYRINGE 75 MG SUB-Q ×2 (09:56→20:49)
[2024-11-03] MEDS: PANTOPRAZOLE SODIUM IV 40 MG VIAL IV PUSH ×2 (09:57→20:48)
[2024-11-03 13:12] LABS: Glucose Point of Care 128 mg/dl (65-105)
--- NOTE | 2024-11-03 13:44 | P.PNIM_ITS ---
Progress Note: A&P Assessment and Plan (1) Acute respiratory failure: Code(s): J96.00 - Acute respiratory failure, unspecified whether with hypoxia or hypercapnia Status: Acute Assessment and Plan: Acute Respiratory failure secondary to cardiac arrest, pulmonary edema, questionable aspiration pneumonia was intubated adn placed on ventilator on admission. 10/28:extubated down to o2 via nc Now on RA Chest x-ray clear (2) Cardiac arrest: Code(s): I46.9 - Cardiac arrest, cause unspecified Status: Acute Assessment and Plan: PEA cardiac arrest which converted to VFib and later patient was in complete heart block Status post temporary transvenous pacemaker placement Mild elevation of troponin likely secondary to cardiac arrest and respiratory failure Continue statin. Patient is allergic to aspirin. No information available from family regarding the nature of allergy Echo reviewed Cardiology is following Resume ARB 10/27: Cardiology removed transvenous pacemaker since patient is not requiring any pacemaker support Continues to have episodes of V-tach, was in a flutter yesterday, currently in AFib rate controlled continue therapeutic Lovenox, once he is able to take p.o. switch to eliquis cardiology recommends transfer to [facility] for ICD implantation which will be indicated due to be v fib arrest. Patient has been accepted at [facility] and awaiting bed placement (3) Sepsis: Code(s): A41.9 - Sepsis, unspecified organism Status: Acute Assessment and Plan: Patient met criteria for sepsis. Chest x-ray was clear and did not show any sign of aspiration. CT scan has been delayed due to patient being unstable on presentation His UA was abnormal Blood cultures negative Urine culture is growing Enterococcus which is pansensitive Continue Zosyn -patient still febrile, 10/27 -venous Dopplers were negative for DVT, 10/29: Ordered blood cultures, UA, urine culture as remains milely febrile. Any diarrhea will check C diff Remains on Zosyn since 10/22/2024. Will stop this finished course Leukocytosis still persistent. Patient however remains afebrile will continue to monitor, having liquidy diarrhea. though cdiff negative, will start empiric vancomycin. monitor and trend wbc count (4) Heart block AV third degree: Code(s): I44.2 - Atrioventricular block, complete Status: Acute Assessment and Plan: Status post transvenous pacemaker placement which is currently on standby patient's rate is above set pacemaker rate 10/27 pacemaker removed by Cardiology -currently in AFib/atrial flutter, rate controlled -continue therapeutic Lovenox -hands of V-tach, discussed with stave block roller, will hold amiodarone for now given that he had high degree AV block on admission started on BB now per Cardiology (5) Anoxic brain injury: Code(s): G93.1 - Anoxic brain damage, not elsewhere classified Status: Acute Assessment and Plan: Patient was comatose post resuscitation Head CT was negative for any acute intracranial change Patient had a PEA arrest which later converted to VFib and on arrival was bradycardic and hypotensive Patient completed TTM protocol and now has been reviewed 10/24 patient was tachypneic and asynchronous with the ventilator. He was star lily low-dose propofol for safe mechanical ventilation 10/25 on holding sedation patient is still not following commands or doing purposeful movements. He does withdraw to pain. He turns around this had and has a blank stare. 10/26 sedation holiday. No significant change in neurological exam 10/26: Head CT with no acute intracranial findings Continue to hold sedation and monitor neurological status -discontinue propofol, -off Precedex -10/28: patient more awake, alert, nods to questions and follows simple commands Continues to have some confusion will need palcement for rehabilaition. MRI could not be done as could not verify his prior history (6) Acute hypokalemia: Code(s): E87.6 - Hypokalemia Status: Acute Assessment and Plan: Potassium has normalized (7) Congestive heart failure: Code(s): I50.9 - Heart failure, unspecified Status: Acute Assessment and Plan: Bilateral pitting edema on exam which is improving Good urine output -cardiology following -continue atorvastatin, losartan -cardiology following Summary 1. Complete two-dimensional, color flow and Doppler transthoracic echocardiogram is performed. 2. Technically difficult study with limited views. 3. The left ventricle is normal in size with mildly reduced systolic function. The left ventricular ejection fraction is visually estimated to be 40-45%. 4. The aortic valve is not well visualized however did gradients across the valve suggests moderate aortic stenosis. 5. There is small pericardial effusion. 6. Dilated inferior vena cava with <50% collapse upon inspiration consistent with significantly elevated right atrial pressure, 15 mmHg. (8) Hypotension: Code(s): I95.9 - Hypotension, unspecified Status: Acute Assessment and Plan: RESOLVED Patient was initially hypertensive likely secondary to bradycardia and was on epinephrine drip which was weaned off. Continue to monitor (9) Metabolic acidosis: Code(s): E87.20 - Acidosis, unspecified Status: Acute Assessment and Plan: Hyperchloremic metabolic acidosis. Improving. Monitor Hypernatremia: Continue free water flushes for now 10/29: Started on D5% IV fluids, monitor sodium levels recheck reviewed Start D5 water 10/31 now resolved. and this will be stopped Replace potassium (10) Hyperglycemia: Code(s): R73.9 - Hyperglycemia, unspecified Status: Acute Assessment and Plan: Sliding scale insulin and Accu-Cheks (11) Hypertension: Code(s): I10 - Essential (primary) hypertension Status: Acute Assessment and Plan: Patient has history of hypertension. P.r.n. hydralazine Continue losartan. Plan DVT prophylaxis -Lovenox Stress ulcer prophylaxis -PPI Nutrition -on pureed diet insomnia: add seroquel at night Code Status - Full Code Subjective Date/time seen: 11/03/24 13:44 Interval history: Patient continues to be confused. Has liquidy stool. wbc count still high. remains afebrile. awaiting trasnfer Review of Systems Review of Systems: All systems reviewed & are unremarkable except as noted in HPI and below Exam Narrative: General: On room air, in no acute distress Lungs/Chest: Trachea central clear BS B/L, No crackles or wheezing. Cardiac: RRR. Normal S1 S2. No murmurs Circulation: Pedal pulses are intact and symmetrical Abdomen: Present bowel sounds. Soft. NT. ND. Extremities: No clubbing, cyanosis, Warm. No edema : Romero in place Neurologic: awake, alert, follows simple commands, remains confused Objective Data Vital Signs Vital Signs: Vital Signs - 24 hr 11/02/24 14:00 11/02/24 16:00 11/02/24 16:00 Temperature 98.9 F Pulse Rate 74 82 45 L Respiratory Rate 22 H Blood Pressure 149/90 H Pulse Oximetry 95 Oxygen Delivery Fraction of Inspired Oxygen 11/02/24 19:48 11/02/24 20:00 11/02/24 20:00 Temperature 98.8 F Pulse Rate 103 H 103 H 94 Respiratory Rate 18 18 Blood Pressure 158/63 H Pulse Oximetry 95 95 Oxygen Delivery Room Air Fraction of Inspired Oxygen 21 11/03/24 00:00 11/03/24 04:00 11/03/24 05:30 Temperature 98.1 F Pulse Rate 53 L 76 53 L Respiratory Rate 18 Blood Pressure 146/93 H Pulse Oximetry 99 Oxygen Delivery Fraction of Inspired Oxygen 11/03/24 08:00 11/03/24 08:00 11/03/24 09:47 Temperature 98 F Pulse Rate 74 85 85 Respiratory Rate 19 Blood Pressure 148/82 H Pulse Oximetry 98 Oxygen Delivery Fraction of Inspired Oxygen 11/03/24 10:00 Temperature Pulse Rate 85 Respiratory Rate 19 Blood Pressure Pulse Oximetry 98 Oxygen Delivery Room Air Fraction of Inspired Oxygen 21 Intake/Output Intake/Output: Intake & Output 10/31/24 11/01/24 11/02/24 11/03/24 23:59 23:59 23:59 23:59 Intake Total 1940 1720 600 170 Output Total 2350 1650 300 300 Balance -410 70 300 -130 Meds/Results Medications: Active Medications Generic Name Dose Route Start Last Admin Trade Name Freq PRN Reason Stop Dose Admin Acetaminophen 650 mg 10/23/24 11:38 10/30/24 17:17 Acetaminophen Elixir 325 Mg/10.15 Ml Udc PO 650 mg Q6H PRN Administration Mild Pain (1-3) or Fever Albuterol/Ipratropium 3 ml 10/22/24 08:35 Ipratropium 0.5 Mg/Albuterol Sulfate 2.5 Mg Ampul.Neb 3 Ml INHALATION Q6HRT PRN Wheezing Atorvastatin Calcium 20 mg 10/31/24 21:00 11/02/24 20:17 Atorvastatin 20 Mg Tablet BY MOUTH 20 mg HS ALEJANDRO Administration Dextrose 12.5 gm 10/21/24 22:44 Dextrose 50% 25 Gm/50 Ml Syringe IV PUSH PRN PRN Hypoglycemia Protocol Enoxaparin Sodium 75 mg 11/01/24 09:00 11/03/24 09:56 Enoxaparin 80 Mg/0.8 Ml Syringe SUB-Q 75 mg Q12HR ALEJANDRO Administration Glucagon 1 mg 10/21/24 22:44 Glucagon For Inj 1 Mg Vial IM PRN PRN Hypoglycemia Protocol Glucose 15 gm 10/21/24 22:44 Glucose Oral Gel 15 Gm Of Glucse In 37.5 Gm Tube PO PRN PRN Hypoglycemia Protocol Hydralazine HCl 10 mg 10/28/24 12:58 10/31/24 18:10 Hydralazine Hcl 20 Mg/Ml Vial IV PUSH 10 mg Q4H PRN Administration Blood Pressure - High Dextrose 1,000 mls @ 100 mls/hr 10/21/24 22:44 Dextrose 5% 1,000 Ml IVPB PRN PRN Hypoglycemia Protocol Insulin Aspart 2 - 5 units 11/01/24 17:00 11/03/24 09:46 Insulin Aspart (*Bkc) 100 Units/Ml SUB-Q Not Given TIDWM ALEJANDRO Protocol Losartan Potassium 50 mg 11/01/24 09:00 11/03/24 09:46 Losartan Potassium 50 Mg Tablet BY MOUTH 50 mg DAILY ALEJANDRO Administration Metoprolol Tartrate 25 mg 10/31/24 21:00 11/03/24 09:47 Metoprolol Tartrate 25 Mg Tablet PO 25 mg Q12HR ALEJANDRO Administration Pantoprazole Sodium 40 mg 10/21/24 21:00 11/03/24 09:57 Pantoprazole Sodium Iv 40 Mg Vial IV PUSH 40 mg Q12HR ALEJANDRO Administration Quetiapine Fumarate 12.5 mg 11/01/24 21:00 11/02/24 20:17 Quetiapine Fumarate 12.5 Mg Tablet PO 12.5 mg HS ALEJANDRO Administration Radiology Results: ITS Impressions Head CT 10/26/24 10:34 IMPRESSION: No acute intracranial findings. Venous Doppler Study 10/27/24 12:58 IMPRESSION: Negative bilateral lower extremity venous US. No deep vein thrombosis. Modified Barium Swallow 10/29/24 14:00 IMPRESSION: Pharyngeal dysphagia with silent laryngeal penetration and aspiration. Please correlate with speech pathologist findings and specific feeding recommendations. Chest X-Ray 10/31/24 12:55 IMPRESSION: 1. No acute cardiopulmonary disease. Labs Labs: Laboratory Results - last 24 hr 11/02/24 11/02/24 11/02/24 17:44 20:28 23:37 WBC RBC Hgb Hct MCV MCH MCHC RDW Plt Count MPV Immature Gran % (Auto) Neut % (Auto) Lymph % (Auto) [place] % (Auto) Eos % (Auto) Baso % (Auto) Lymph # (Auto) [place] # (Auto) Eos # (Auto) Baso # (Auto) Abs Immat Gran (auto) Absolute Neuts (auto) Absolute Nucleated RBC Total Counted Neutrophils % (Manual) Band Neutrophils % Lymphocytes % (Manual) Monocytes % (Manual) Eosinophils % (Manual) Nucleated RBC % Abs Neuts (Manual) Abs Lymphs (Manual) Abs Monocytes (Manual) Absolute Eos (Manual) Platelet Estimate Anisocytosis Schistocytes Sodium Potassium Chloride Carbon Dioxide Anion Gap BUN Creatinine Estim Creat Clear Calc Estimated GFR Glucose POC Capillary Glucose 91 96 Calcium Magnesium Total Bilirubin AST ALT Alkaline Phosphatase Total Protein Albumin Triglycerides Urine Color Yellow Urine Appearance Cloudy H Urine pH 5.0 Ur Specific [place] 1.014 Urine Protein 1+ H Urine Glucose (UA) Negative Urine Ketones Trace H Ur Blood (Man) Negative Urine Nitrate Negative Urine Bilirubin Negative Urine Urobilinogen 0.2 Leukocyte Esterase Rfl Negative Urine RBC 0-2 Urine WBC 0-5 Ur Squamous Epith Cells None seen Urine Bacteria None seen Urine Casts 3-5 11/03/24 11/03/24 11/03/24 06:04 06:08 06:11 WBC 24.2 H RBC 3.61 L Hgb 10.7 L Hct 34.5 L MCV 95.6 MCH 29.6 MCHC 31.0 L RDW 14.7 H Plt Count 550 H MPV 12.0 H Immature Gran % (Auto) Not Reportable Neut % (Auto) Not Reportable Lymph % (Auto) Not Reportable [place] % (Auto) Not Reportable Eos % (Auto) Not Reportable Baso % (Auto) Not Reportable Lymph # (Auto) Not Reportable [place] # (Auto) Not Reportable Eos # (Auto) Not Reportable Baso # (Auto) Not Reportable Abs Immat Gran (auto) Not Reportable Absolute Neuts (auto) Not Reportable Absolute Nucleated RBC Not Reportable Total Counted 100 Neutrophils % (Manual) 78 H Band Neutrophils % 6 Lymphocytes % (Manual) 9 L Monocytes % (Manual) 6 Eosinophils % (Manual) 1 Nucleated RBC % Not Reportable Abs Neuts (Manual) 20.32 H Abs Lymphs (Manual) 2.17 Abs Monocytes (Manual) 1.45 H Absolute Eos (Manual) 0.24 Platelet Estimate Increased Anisocytosis 1+ Schistocytes None seen Sodium 144 Potassium 3.6 Chloride 117 H Carbon Dioxide 22 Anion Gap 5 BUN 15 Creatinine 1.20 Estim Creat Clear Calc 43 Estimated GFR 58 L Glucose 85 POC Capillary Glucose 83 Calcium 8.5 Magnesium 2.4 H Total Bilirubin 0.7 AST 56 ALT 27 Alkaline Phosphatase 82 Total Protein 7.0 Albumin 3.2 L Triglycerides 146 Urine Color Urine Appearance Urine pH Ur Specific [place] Urine Protein Urine Glucose (UA) Urine Ketones Ur Blood (Man) Urine Nitrate Urine Bilirubin Urine Urobilinogen Leukocyte Esterase Rfl Urine RBC Urine WBC Ur Squamous Epith Cells Urine Bacteria Urine Casts 11/03/24 13:09 WBC RBC Hgb Hct MCV MCH MCHC RDW Plt Count MPV Immature Gran % (Auto) Neut % (Auto) Lymph % (Auto) [place] % (Auto) Eos % (Auto) Baso % (Auto) Lymph # (Auto) [place] # (Auto) Eos # (Auto) Baso # (Auto) Abs Immat Gran (auto) Absolute Neuts (auto) Absolute Nucleated RBC Total Counted Neutrophils % (Manual) Band Neutrophils % Lymphocytes % (Manual) Monocytes % (Manual) Eosinophils % (Manual) Nucleated RBC % Abs Neuts (Manual) Abs Lymphs (Manual) Abs Monocytes (Manual) Absolute Eos (Manual) Platelet Estimate Anisocytosis Schistocytes Sodium Potassium Chloride Carbon Dioxide Anion Gap BUN Creatinine Estim Creat Clear Calc Estimated GFR Glucose POC Capillary Glucose 128 H Calcium Magnesium Total Bilirubin AST ALT Alkaline Phosphatase Total Protein Albumin Triglycerides Urine Color Urine Appearance Urine pH Ur Specific [place] Urine Protein Urine Glucose (UA) Urine Ketones Ur Blood (Man) Urine Nitrate Urine Bilirubin Urine Urobilinogen Leukocyte Esterase Rfl Urine RBC Urine WBC Ur Squamous Epith Cells Urine Bacteria Urine Casts
[2024-11-03 16:37] LABS: Glucose Point of Care 117 mg/dl (65-105)
[2024-11-03] MEDS: VANCOMYCIN HCL 125 MG ORAL CAPSULE PO ×2 (17:51→23:58)
[2024-11-03] MEDS: ATORVASTATIN 20 MG TABLET BY MOUTH (20:48)
[2024-11-03] MEDS: QUEtiapine FUMARATE 25 MG TABLET PO (20:48)
[2024-11-04] VITALS (9 sets, daily range): BP systolic 145–164; BP diastolic 68–80; PULSE 67–81; RESP 16–18; TEMP 36.5–36.7; O2SAT 98–100
[2024-11-04 00:53] LABS: Glucose Point of Care 123 mg/dl (65-105)
[2024-11-04 05:47] LABS: Basophils Absolute Auto 0.1 K/mm3 (0.0-0.1); Basophils Percent Auto 0.5 % (0.2-1.2); Eosinophils Absolute Auto 0.5 K/mm3 (0-0.3); Eosinophils Percent Auto 2.6 % (0-4.4); Hematocrit 32.2 % (42.0-52.0); Immature Granulocyte Absolute 0.36 K/mm3 (0.00-0.031); Immature Granulocyte Percent A 1.9 % (0-0.5); Lymphocytes Absolute Auto 2.08 K/mm3 (0.9-3.2); Lymphocytes Percent Auto 11.2 % (18.3-44.2); Mean Corpuscular HGB Conc 31.1 g/dl (32-36); Mean Corpuscular Hemoglobin 29.2 pg (26-34); Mean Corpuscular Volume 93.9 fl (80-100); Mean Platelet Volume 11.6 fl (7.4-10.4); Monocytes Absolute Auto 1.3 K/mm3 (0.1-0.6); Monocytes Percent Auto 6.9 % (2.6-8.5); Neutrophils Absolute Auto 14.4 K/mm3 (1.3-6.7); Neutrophils Percent Auto 76.9 % (45.5-73.1); Platelet Count Result 539 k/mm3 (150-375); Red Blood Count 3.43 M/mm3 (4.6-6.20); Red Cell Distribution Width 14.7 % (11.5-14.5); White Blood Count 18.7 K/mm3 (4.5-10.0)
[2024-11-04 06:00] LABS: Alanine Aminotransferase 29 U/L (6-50); Alkaline Phosphatase 89 U/L (38-126); Anion Gap 5 mmol/L (4-12); Aspartate Amino Transferase 36 U/L (17-59); Bilirubin,Total 0.6 mg/dL (0.2-1.3); Blood Urea Nitrogen 12 mg/dL (9-20); Calcium 8.3 mg/dL (8.4-10.2); Carbon Dioxide 23 mmol/L (22-30); Chloride 117 mmol/L (98-107); Estimated CRCL calculation 43 ml/min; Estimated Glomerular Filt Rate 58; Glucose 91 mg/dL (65-110); Magnesium 2.4 mg/dL (1.6-2.3); Potassium 3.2 mmol/L (3.4-5.0); Sodium 145 mmol/L (137-145)
[2024-11-04 06:13] LABS: Glucose Point of Care 95 mg/dl (65-105)
[2024-11-04] MEDS: VANCOMYCIN HCL 125 MG ORAL CAPSULE PO ×3 (06:16→17:16)
[2024-11-04 07:59] LABS: Glucose Point of Care 92 mg/dl (65-105)
[2024-11-04] MEDS: METOPROLOL TARTRATE 25 MG TABLET PO ×2 (09:44→20:39)
[2024-11-04] MEDS: PANTOPRAZOLE 40 MG TABLET PO (09:44)
[2024-11-04] MEDS: LOSARTAN POTASSIUM 50 MG TABLET BY MOUTH (09:45)
[2024-11-04] MEDS: POTASSIUM CHLORIDE 20 MEQ ER TABLET 40 MEQ PO (09:45)
[2024-11-04] MEDS: ENOXAPARIN 80 MG/0.8 ML SYRINGE 75 MG SUB-Q ×2 (09:45→20:39)
--- NOTE | 2024-11-04 11:25 | PM.IMPN ---
Progress Note: A&P Assessment and Plan (1) Cardiac arrest: Code(s): I46.9 - Cardiac arrest, cause unspecified Status: Acute Assessment and Plan: Patient admitted to the ICU after out of hospital cardiac arrest. EMS was able to regain ROSC after 2 rounds of epi then 2 shocks for VFib and 300 mg amiodarone. Patient intubated in the field. In the ED, EKG showed third-degree AVB. Patient was HoTN and epinephrine drip started but he remained bradycardic. Patient taken to the cardiac woodworking shop laborer for emergent placement of transvenous pacer through the right groin. Temporary pacemaker placed on hold since HR above threshold and not capturing well. This was eventually removed on 10/27. Mild elevation of troponin likely secondary to cardiac arrest and respiratory failure Echo was technically difficult with normal LV size but reduced EF 40-45%, moderate , small pericardial effusion and elevated RAP. Cardiology consulted and appreciate their input. Holding ARB due to low blood pressure Continue statin. Patient is allergic to aspirin. ARB resumed. Able to restart metoprolol. Continues to have episodes of NSVT Continue therapeutic Lovenox Cardiology recommends transfer to higher level of care for ICD implantation which will be indicated due to the VFib arrest. Patient has been accepted at [facility] and awaiting bed placement. Called and they could not provide a estimate for transfer. Re-consult Cardiology for other locations that this procedure could be performed. (2) Acute respiratory failure: Code(s): J96.00 - Acute respiratory failure, unspecified whether with hypoxia or hypercapnia Status: Acute Assessment and Plan: Patient with cardiac arrest and subsequent acute respiratory failure requiring intubation in the field. CXR (10/21) showing bibasilar prominent bronchovascular markings which may indicate atelectasis versus early PNA. ABG on admission 7.35/35/493 on MV. Patient able to be weaned down and ultimately extubated on 10/28. Now on room air. CXR 10/31 was clear (3) Sepsis: Code(s): A41.9 - Sepsis, unspecified organism Status: Acute Assessment and Plan: Patient met criteria for sepsis. Admission CXR as above. Repeat CXR now clear. He continued to have fevers. MRSA nasal swab negative. WBC elevated on admission and was up to 31K then up/down. BCx negative. UCx growing enterococcus >100K colonies sensitive to Ampicillin treated with abx. Venous Dopplers were negative for DVT . Repeat cultures obtained 10/29 but urine and blood cultures negative. Completed a course of abx. C diff negative on 10/31. WBC up to 24K and with persistent diarrhea. He was started on oral Vanco and received 2 doses overnight. WBC better today (but could be coincidence). Will monitor stool output and WBC. Continue oral Vanco for now (4) Heart block AV third degree: Code(s): I44.2 - Atrioventricular block, complete Status: Acute Assessment and Plan: As above. Patient with 3rd degree AVB status post transvenous pacemaker placement 10/21. Patient's heart rate was exceeding the set rate and also not capturing so turning off. 10/27 pacemaker removed by Cardiology Managed by cardiology. Also with AFib/Flutter now. Anticoagulation added. AFib/flutter is rate controlled with metoprolol Continue therapeutic Lovenox (5) Anoxic brain injury: Code(s): G93.1 - Anoxic brain damage, not elsewhere classified Status: Acute Assessment and Plan: Patient was comatose post resuscitation. Head CT was negative for any acute intracranial change Patient had a PEA arrest which later converted to VFib and on arrival was bradycardic and hypotensive Patient was started on TTM protocol. He completed 24 hours and was rewarmed 10/26: Head CT with no acute intracranial findings. 10/26: EEG showing abnormal EEG due to pacer diffuse background slowing suggestive of generalized encephalopathy. No focal or paroxysmal abnormalities were noted. Patient became more awake and alert and ultimately able to be extubated. MRI could not be done as could not verify his prior history He continues to have confusion (6) Congestive heart failure: Code(s): I50.9 - Heart failure, unspecified Status: Acute Assessment and Plan: Patient with evidence of CHF. Low EF and mild edema related to cardiac arrest. Most recent CXR clear. Cardiology following Continue atorvastatin, losartan, metoprolol (7) Hypotension: Code(s): I95.9 - Hypotension, unspecified Status: Acute Assessment and Plan: Patient was initially hypotensive likely secondary to cardiac arrest and bradycardia and was placed on epinephrine drip. Epi drip was weaned off. RESOLVED (8) Hyperglycemia: Code(s): R73.9 - Hyperglycemia, unspecified Status: Acute Assessment and Plan: A1c 5.2%. Patient hyperglycemic related to above. Sliding scale insulin ordered (9) Hypertension: Code(s): I10 - Essential (primary) hypertension Status: Acute Assessment and Plan: Patient has history of hypertension. P.r.n. hydralazine Continue losartan and metoprolol Plan DVT prophylaxis -Lovenox Stress ulcer prophylaxis -PPI Nutrition -on pureed diet insomnia: added seroquel at night Code Status - Full Code Subjective Date/time seen: 11/04/24 11:25 Interval history: 79yo male with hx of HTN, CAD and rectal cancer admitted to the ICU after out of hospital cardiac arrest. Assuming care. Chart reviewed. Patient is alert but confused. He is eating okay. He denies CP, SOB, LH or dizziness. He is 'ready to get out of here'. Review of Systems Review of Systems: ROS unobtainable: Yes unobtainable due to mental status Exam Narrative: AF 97.7 164/68 78 18 98% ra Gen - NARD Chest - CTA bilaerally, nml RR CV - irregularly irregular. Rate controlled. Tele showing sinus arrhythmias, PVCs and NSVT Abd - Soft, ND, +BS - Fecal cont system secured with brown liquid stool in bag Ext - hands are in mittens. No pedal edema. 2+ PT pulses. Neuro - alert. oriented to location (not name of hosp) only. Psych - calm and cooperative Skin - Warm and dry. heels intact Objective Data Vital Signs Vital Signs: Vital Signs - 24 hr 11/03/24 12:00 11/03/24 16:00 11/03/24 16:00 Temperature Pulse Rate 63 82 71 Respiratory Rate 14 Blood Pressure 162/63 H Pulse Oximetry 99 Oxygen Delivery Fraction of Inspired Oxygen 11/03/24 20:00 11/03/24 20:00 11/03/24 20:27 Temperature 97.8 F Pulse Rate 77 64 77 Respiratory Rate 20 20 Blood Pressure 155/50 H Pulse Oximetry 99 99 Oxygen Delivery Room Air Fraction of Inspired Oxygen 21 11/04/24 00:00 11/04/24 04:00 11/04/24 05:55 Temperature 97.7 F Pulse Rate 72 77 81 Respiratory Rate 18 Blood Pressure 164/68 H Pulse Oximetry 98 Oxygen Delivery Fraction of Inspired Oxygen 11/04/24 08:00 11/04/24 09:44 11/04/24 09:53 Temperature Pulse Rate 67 78 Respiratory Rate Blood Pressure Pulse Oximetry Oxygen Delivery Room Air Fraction of Inspired Oxygen Intake/Output Intake/Output: Intake & Output 11/01/24 11/02/24 11/03/24 11/04/24 23:59 23:59 23:59 23:59 Intake Total 7115 015 7699 240 Output Total 1650 457 944 6473 Balance 70 300 900 -760 Meds/Results Medications: Active Medications Generic Name Dose Route Start Last Admin Trade Name Freq PRN Reason Stop Dose Admin Acetaminophen 650 mg 10/23/24 11:38 10/30/24 17:17 Acetaminophen Elixir 325 Mg/10.15 Ml Udc PO 650 mg Q6H PRN Administration Mild Pain (1-3) or Fever Albuterol/Ipratropium 3 ml 10/22/24 08:35 Ipratropium 0.5 Mg/Albuterol Sulfate 2.5 Mg Ampul.Neb 3 Ml INHALATION Q6HRT PRN Wheezing Atorvastatin Calcium 20 mg 10/31/24 21:00 11/03/24 20:48 Atorvastatin 20 Mg Tablet BY MOUTH 20 mg HS ALEJANDRO Administration Dextrose 12.5 gm 10/21/24 22:44 Dextrose 50% 25 Gm/50 Ml Syringe IV PUSH PRN PRN Hypoglycemia Protocol Enoxaparin Sodium 75 mg 11/01/24 09:00 11/04/24 09:45 Enoxaparin 80 Mg/0.8 Ml Syringe SUB-Q 75 mg Q12HR ALEJANDRO Administration Glucagon 1 mg 10/21/24 22:44 Glucagon For Inj 1 Mg Vial IM PRN PRN Hypoglycemia Protocol Glucose 15 gm 10/21/24 22:44 Glucose Oral Gel 15 Gm Of Glucse In 37.5 Gm Tube PO PRN PRN Hypoglycemia Protocol Hydralazine HCl 10 mg 10/28/24 12:58 10/31/24 18:10 Hydralazine Hcl 20 Mg/Ml Vial IV PUSH 10 mg Q4H PRN Administration Blood Pressure - High Dextrose 1,000 mls @ 100 mls/hr 10/21/24 22:44 Dextrose 5% 1,000 Ml IVPB PRN PRN Hypoglycemia Protocol Insulin Aspart 2 - 5 units 11/01/24 17:00 11/04/24 09:36 Insulin Aspart (*Bkc) 100 Units/Ml SUB-Q Not Given TIDWM [facility] Protocol Losartan Potassium 50 mg 11/01/24 09:00 11/04/24 09:45 Losartan Potassium 50 Mg Tablet BY MOUTH 50 mg DAILY ALEJANDRO Administration Metoprolol Tartrate 25 mg 10/31/24 21:00 11/04/24 09:44 Metoprolol Tartrate 25 Mg Tablet PO 25 mg Q12HR ALEJANDRO Administration Pantoprazole Sodium 40 mg 11/04/24 09:00 11/04/24 09:44 Pantoprazole 40 Mg Tablet PO 40 mg QAM ALEJANDRO Administration Quetiapine Fumarate 25 mg 11/03/24 21:00 11/03/24 20:48 Quetiapine Fumarate 25 Mg Tablet PO 25 mg HS ALEJANDRO Administration Vancomycin HCl 125 mg 11/03/24 18:00 11/04/24 06:16 Vancomycin Hcl 125 Mg Oral Capsule PO 11/13/24 12:01 125 mg Q6HR ALEJANDRO Administration Radiology Results: ITS Impressions Head CT 10/26/24 10:34 IMPRESSION: No acute intracranial findings. Venous Doppler Study 10/27/24 12:58 IMPRESSION: Negative bilateral lower extremity venous US. No deep vein thrombosis. Modified Barium Swallow 10/29/24 14:00 IMPRESSION: Pharyngeal dysphagia with silent laryngeal penetration and aspiration. Please correlate with speech pathologist findings and specific feeding recommendations. Chest X-Ray 10/31/24 12:55 IMPRESSION: 1. No acute cardiopulmonary disease. Labs Labs: Laboratory Results - last 24 hr 11/03/24 11/03/24 11/04/24 13:09 16:26 00:11 WBC RBC Hgb Hct MCV MCH MCHC RDW Plt Count MPV Immature Gran % (Auto) Neut % (Auto) Lymph % (Auto) [place] % (Auto) Eos % (Auto) Baso % (Auto) Lymph # (Auto) [place] # (Auto) Eos # (Auto) Baso # (Auto) Abs Immat Gran (auto) Absolute Neuts (auto) Absolute Nucleated RBC Nucleated RBC % Sodium Potassium Chloride Carbon Dioxide Anion Gap BUN Creatinine Estim Creat Clear Calc Estimated GFR Glucose POC Capillary Glucose 128 H 117 H 123 H Calcium Magnesium Total Bilirubin AST ALT Alkaline Phosphatase Total Protein Albumin 11/04/24 11/04/24 11/04/24 05:14 06:02 07:51 WBC 18.7 H RBC 3.43 L Hgb 10.0 L Hct 32.2 L MCV 93.9 MCH 29.2 MCHC 31.1 L RDW 14.7 H Plt Count 539 H MPV 11.6 H Immature Gran % (Auto) 1.9 H Neut % (Auto) 76.9 H Lymph % (Auto) 11.2 L [place] % (Auto) 6.9 Eos % (Auto) 2.6 Baso % (Auto) 0.5 Lymph # (Auto) 2.08 [place] # (Auto) 1.3 H Eos # (Auto) 0.5 H Baso # (Auto) 0.1 Abs Immat Gran (auto) 0.36 H Absolute Neuts (auto) 14.4 H Absolute Nucleated RBC 0.000 Nucleated RBC % 0.0 Sodium 145 Potassium 3.2 L Chloride 117 H Carbon Dioxide 23 Anion Gap 5 BUN 12 Creatinine 1.20 Estim Creat Clear Calc 43 Estimated GFR 58 L Glucose 91 POC Capillary Glucose 95 92 Calcium 8.3 L Magnesium 2.4 H Total Bilirubin 0.6 AST 36 ALT 29 Alkaline Phosphatase 89 Total Protein 6.0 L Albumin 3.0 L
[2024-11-04 12:00] LABS: Glucose Point of Care 115 mg/dl (65-105)
--- NOTE | 2024-11-04 13:53 | PM.PNCARD ---
Progress Note: A&P Assessment and Plan (1) Cardiac arrest: Code(s): I46.9 - Cardiac arrest, cause unspecified Status: Acute (2) Heart block AV third degree: Code(s): I44.2 - Atrioventricular block, complete Status: Acute (3) Congestive heart failure: Code(s): I50.9 - Heart failure, unspecified Status: Acute (4) Acute hypokalemia: Code(s): E87.6 - Hypokalemia Status: Acute (5) Hypoxic ischemic encephalopathy: Code(s): P91.60 - Hypoxic ischemic encephalopathy [HIE], unspecified Status: Acute (6) NSVT (nonsustained ventricular tachycardia): Code(s): I47.29 - Other ventricular tachycardia Status: Acute (7) Atrial fib/flutter, transient: Code(s): I48.91 - Unspecified atrial fibrillation; I48.92 - Unspecified atrial flutter Status: Acute Plan Assessment: 79-year-old man with CAD, hypertension, and hyperlipidemia who presented to the emergency room post cardiac arrest post ROSC 1. [facility]CA- PEA cardiac arrest which converted to VFib and later patient was in complete heart block 2. CHB with junctional escape rhythm-needed temporary pacemaker which has since been removed on 10/27/2024 has no pacing was required; no evidence of high-grade AV block since then 3. A fib/flutter 4. NSTEMI Trops: 0.546, 0.848 5. Hypoxic ischemic insult/encephalopathy- extubated and answering questions appropriately 6. Cardiomyopathy-LVEF is 40-45% on echo during this admission 7. NSVT-could be secondary to underlying hypokalemia which needs to be corrected 8. Moderate aortic stenosis 9. Hypokalemia- potassium is 3.2 today Plan -Continue metoprolol for nonsustained ventricular tachycardia. If he has changes in his rhythm while he is on a beta-sheree, he would need a permanent pacemaker -Continue losartan 50 mg daily -Continue statin -Follow-up echo in 6 months for moderate aortic stenosis -Check and replace electrolytes as needed keeping potassium more than 4 and magnesium more than 2. His potassium is only 3.2 today and increased ectopy could be the result of this -Recommend cardiac catheterization to evaluate ischemia given the V Fib at the time of cardiac arrest, EP consult for evaluating need for permanent pacemaker and ICD given complete heart block with junctional rhythm and ventricular fibrillation at the time of cardiac arrest respectively. Patient has been accepted for transfer at [facility] and awaiting bed -Continue anticoagulation for AFib/flutter -Continue losartan at current dose -MRA/SGLT2 to be initiated later -Cardiology will continue to follow please call us for any questions Subjective Date/time seen: 11/04/24 13:53 Interval history: Date of service 11/04/2024 time Interval history: Mr Avendano had non sustained ventricular tachycardia this morning. Telemetry shows an 8 beat run and a 5 beat run of NSVT around noon today. Patient denies any chest pain, shortness of breath, dizziness, lightheadedness, palpitations. He is sitting in bed and eating his food comfortably. He wants to know where his is. There is a sitter in his room because he was pulling his lines. Telemetry: shows sinus rhythm with occasional PVCs. Review of previous strips show an 8 beat and 5 beat run of nonsustained ventricular tachycardia around noon today. Review of Systems Review of Systems: All systems reviewed & are unremarkable except as noted in HPI and below Exam Const: General: no acute distress and awake HENMT: Head: normocephalic and atraumatic Eyes: Other: pupils are equal Neck: Neck: no JVD Resp: Auscultation: rhonchi Cardio: Rate: regular rate Rhythm: regular rhythm Heart sounds: no murmurs Objective Data Vital Signs Vital Signs: Vital Signs - 24 hr 11/03/24 16:00 11/03/24 16:00 11/03/24 20:00 Temperature Pulse Rate 82 71 77 Respiratory Rate 14 20 Blood Pressure 162/63 H Pulse Oximetry 99 99 Oxygen Delivery Room Air Fraction of Inspired Oxygen 21 11/03/24 20:00 11/03/24 20:27 11/04/24 00:00 Temperature 36.6 C Pulse Rate 64 77 72 Respiratory Rate 20 Blood Pressure 155/50 H Pulse Oximetry 99 Oxygen Delivery Fraction of Inspired Oxygen 11/04/24 04:00 11/04/24 05:55 11/04/24 08:00 Temperature 36.5 C Pulse Rate 77 81 67 Respiratory Rate 18 Blood Pressure 164/68 H Pulse Oximetry 98 Oxygen Delivery Fraction of Inspired Oxygen 11/04/24 09:44 11/04/24 09:53 11/04/24 12:00 Temperature Pulse Rate 78 70 Respiratory Rate Blood Pressure Pulse Oximetry Oxygen Delivery Room Air Fraction of Inspired Oxygen Intake/Output Intake/Output: Intake & Output 11/01/24 11/02/24 11/03/24 11/04/24 23:59 23:59 23:59 23:59 Intake Total 3388 753 0165 240 Output Total 1650 513 669 8736 Balance 70 300 900 -760 Meds/Results Medications: Active Medications Generic Name Dose Route Start Last Admin Trade Name Freq PRN Reason Stop Dose Admin Acetaminophen 650 mg 10/23/24 11:38 10/30/24 17:17 Acetaminophen Elixir 325 Mg/10.15 Ml Udc PO 650 mg Q6H PRN Administration Mild Pain (1-3) or Fever Albuterol/Ipratropium 3 ml 10/22/24 08:35 Ipratropium 0.5 Mg/Albuterol Sulfate 2.5 Mg Ampul.Neb 3 Ml INHALATION Q6HRT PRN Wheezing Atorvastatin Calcium 20 mg 10/31/24 21:00 11/03/24 20:48 Atorvastatin 20 Mg Tablet BY MOUTH 20 mg HS ALEJANDRO Administration Dextrose 12.5 gm 10/21/24 22:44 Dextrose 50% 25 Gm/50 Ml Syringe IV PUSH PRN PRN Hypoglycemia Protocol Enoxaparin Sodium 75 mg 11/01/24 09:00 11/04/24 09:45 Enoxaparin 80 Mg/0.8 Ml Syringe SUB-Q 75 mg Q12HR ALEJANDRO Administration Glucagon 1 mg 10/21/24 22:44 Glucagon For Inj 1 Mg Vial IM PRN PRN Hypoglycemia Protocol Glucose 15 gm 10/21/24 22:44 Glucose Oral Gel 15 Gm Of Glucse In 37.5 Gm Tube PO PRN PRN Hypoglycemia Protocol Hydralazine HCl 10 mg 10/28/24 12:58 10/31/24 18:10 Hydralazine Hcl 20 Mg/Ml Vial IV PUSH 10 mg Q4H PRN Administration Blood Pressure - High Dextrose 1,000 mls @ 100 mls/hr 10/21/24 22:44 Dextrose 5% 1,000 Ml IVPB PRN PRN Hypoglycemia Protocol Insulin Aspart 2 - 5 units 11/01/24 17:00 11/04/24 11:57 Insulin Aspart (*Bkc) 100 Units/Ml SUB-Q Not Given TIDWM ALEJANDRO Protocol Losartan Potassium 50 mg 11/01/24 09:00 11/04/24 09:45 Losartan Potassium 50 Mg Tablet BY MOUTH 50 mg DAILY ALEJANDRO Administration Metoprolol Tartrate 25 mg 10/31/24 21:00 11/04/24 09:44 Metoprolol Tartrate 25 Mg Tablet PO 25 mg Q12HR ALEJANDRO Administration Pantoprazole Sodium 40 mg 11/04/24 09:00 11/04/24 09:44 Pantoprazole 40 Mg Tablet PO 40 mg QAM ALEJANDRO Administration Quetiapine Fumarate 25 mg 11/03/24 21:00 11/03/24 20:48 Quetiapine Fumarate 25 Mg Tablet PO 25 mg HS ALEJANDRO Administration Vancomycin HCl 125 mg 11/03/24 18:00 11/04/24 12:07 Vancomycin Hcl 125 Mg Oral Capsule PO 11/13/24 12:01 125 mg Q6HR ALEJANDRO Administration Radiology Results: ITS Impressions Head CT 10/26/24 10:34 IMPRESSION: No acute intracranial findings. Venous Doppler Study 10/27/24 12:58 IMPRESSION: Negative bilateral lower extremity venous US. No deep vein thrombosis. Modified Barium Swallow 10/29/24 14:00 IMPRESSION: Pharyngeal dysphagia with silent laryngeal penetration and aspiration. Please correlate with speech pathologist findings and specific feeding recommendations. Chest X-Ray 10/31/24 12:55 IMPRESSION: 1. No acute cardiopulmonary disease. Labs Labs: Laboratory Results - last 24 hr 11/03/24 11/04/24 11/04/24 16:26 00:11 05:14 WBC 18.7 H RBC 3.43 L Hgb 10.0 L Hct 32.2 L MCV 93.9 MCH 29.2 MCHC 31.1 L RDW 14.7 H Plt Count 539 H MPV 11.6 H Immature Gran % (Auto) 1.9 H Neut % (Auto) 76.9 H Lymph % (Auto) 11.2 L [place] % (Auto) 6.9 Eos % (Auto) 2.6 Baso % (Auto) 0.5 Lymph # (Auto) 2.08 [place] # (Auto) 1.3 H Eos # (Auto) 0.5 H Baso # (Auto) 0.1 Abs Immat Gran (auto) 0.36 H Absolute Neuts (auto) 14.4 H Absolute Nucleated RBC 0.000 Nucleated RBC % 0.0 Sodium 145 Potassium 3.2 L Chloride 117 H Carbon Dioxide 23 Anion Gap 5 BUN 12 Creatinine 1.20 Estim Creat Clear Calc 43 Estimated GFR 58 L Glucose 91 POC Capillary Glucose 117 H 123 H Calcium 8.3 L Magnesium 2.4 H Total Bilirubin 0.6 AST 36 ALT 29 Alkaline Phosphatase 89 Total Protein 6.0 L Albumin 3.0 L 11/04/24 11/04/24 11/04/24 06:02 07:51 11:54 WBC RBC Hgb Hct MCV MCH MCHC RDW Plt Count MPV Immature Gran % (Auto) Neut % (Auto) Lymph % (Auto) [place] % (Auto) Eos % (Auto) Baso % (Auto) Lymph # (Auto) [place] # (Auto) Eos # (Auto) Baso # (Auto) Abs Immat Gran (auto) Absolute Neuts (auto) Absolute Nucleated RBC Nucleated RBC % Sodium Potassium Chloride Carbon Dioxide Anion Gap BUN Creatinine Estim Creat Clear Calc Estimated GFR Glucose POC Capillary Glucose 95 92 115 H Calcium Magnesium Total Bilirubin AST ALT Alkaline Phosphatase Total Protein Albumin
[2024-11-04 17:10] LABS: Glucose Point of Care 108 mg/dl (65-105)
[2024-11-04] MEDS: ATORVASTATIN 20 MG TABLET BY MOUTH (20:39)
[2024-11-04] MEDS: QUEtiapine FUMARATE 25 MG TABLET PO (20:40)
--- NOTE | 2024-11-04 21:30 | PC.NURSE ---
Pt transferred to [facility] per [facility]. Family, spouse aware.
--- NOTE | 2024-11-05 06:59 | P.TS_ITS ---
Transfer Discharge Sum: Prov Provider Date of admission: 10/21/24 19:26 Primary care physician: Hannah Sabillon DO Admitting clinician: Storm Villegas MD Consults: 10/21/24 19:27 Consult to Physician Routine Comment: Consulting Provider: Bowen Cam[place] Reason for consultation: 3rd degree AV block Has provider been notified: Yes 10/21/24 19:30 Consult to Physician Routine Comment: Consulting Provider: Nuno Moser Reason for consultation: Cardiac arrest Has provider been notified: Yes 10/26/24 07:00 Consult to Physician Routine Comment: Consulting Provider: Johnathan Medina housecalls nurse/MD group to consult: Neurology Reason for consultation: Anoxic Brain Injury Has provider been notified: Yes DS: Admitting Diagnosis Discharge Date 11/04/24 Admitting Diagnosis Cardiac Arrest DS: Discharge Diagnosis Discharge Diagnosis (1) Cardiac arrest: Code(s): I46.9 - Cardiac arrest, cause unspecified Status: Acute (2) Acute respiratory failure: Code(s): J96.00 - Acute respiratory failure, unspecified whether with hypoxia or hypercapnia Status: Acute (3) Sepsis: Code(s): A41.9 - Sepsis, unspecified organism Status: Acute (4) Heart block AV third degree: Code(s): I44.2 - Atrioventricular block, complete Status: Acute (5) Anoxic brain injury: Code(s): G93.1 - Anoxic brain damage, not elsewhere classified Status: Acute (6) Congestive heart failure: Code(s): I50.9 - Heart failure, unspecified Status: Acute (7) Hypotension: Code(s): I95.9 - Hypotension, unspecified Status: Acute (8) Hyperglycemia: Code(s): R73.9 - Hyperglycemia, unspecified Status: Acute (9) Hypertension: Code(s): I10 - Essential (primary) hypertension Status: Acute Transfer Discharge Sum: Med Medications Active and Home Medications: Home Medications albuterol sulfate 90 mcg/actuation breath activated powder inhaler 1 inh inhalation Q4-6H PRN Shortness Of Breath Or Wheezing 02/26/22 [History Confirmed 10/22/24] allopurinol 100 mg tablet 100 mg PO DAILY 02/26/22 [History Confirmed 10/21/24] amlodipine 10 mg tablet 10 mg PO DAILY 02/26/22 [History Confirmed 10/22/24] atorvastatin 20 mg tablet 20 mg PO DAILY 02/26/22 [History Confirmed 10/21/24] pantoprazole 40 mg tablet,delayed release 40 mg PO QAM 02/26/22 [History Confirmed 10/21/24] buprenorphine HCl 75 mcg buccal film ([place]) 75 mcg buccal Q12H 10/21/24 [History Confirmed 10/21/24] finasteride 5 mg tablet 5 mg PO DAILY 10/21/24 [History Confirmed 10/21/24] gabapentin 300 mg capsule 300 mg PO BID 10/21/24 [History Confirmed 10/21/24] losartan 50 mg tablet 50 mg PO DAILY 10/21/24 [History Confirmed 10/21/24] methocarbamol 500 mg tablet 500 mg PO Q8H PRN Spasms 10/21/24 [History Confirmed 10/21/24] montelukast 10 mg tablet 10 mg PO DAILY 10/21/24 [History Confirmed 10/21/24] trazodone 100 mg tablet 100 mg PO QHS PRN Insomnia 10/21/24 [History Confirmed 10/21/24] doxazosin 2 mg tablet 2 mg PO QHS 10/22/24 [History Confirmed 10/22/24] Transfer Discharge Sum: Hosp Hospital Course Hospital course: Juan Alberto Herndon is a 79yo male with hx of HTN, CAD and rectal cancer admitted to the ICU after having an out of hospital cardiac arrest. Please see H&P for details. The following issues were addressed: (1) Cardiac arrest: Patient was admitted to the ICU after out of hospital cardiac arrest. EMS was able to regain ROSC after 2 rounds of epinephrine then 2 shocks for VFib and 300 mg amiodarone. Patient intubated in the field. In the ED, EKG showed third- degree AVB. Patient was HoTN and epinephrine drip started but he remained bradycardic. Patient taken to the cardiac microbiology laboratory manager for emergent placement of transvenous pacer through the right groin. Temporary pacemaker held since HR was above threshold and not capturing well. This was eventually removed on 10/27. He had a mild elevation of troponin likely secondary to cardiac arrest and respiratory failure. Echo was technically difficult with normal LV size but reduced EF 40-45%, moderate , small pericardial effusion and elevated RAP. Cardiology consulted and appreciate their input. We held ARB due to low blood pressure but continued statin therapy. Patient is allergic to aspirin. Able to restart metoprolol. He continued to have episodes of NSVT. Cardiology re commended transfer to higher level of care for ICD implantation which will be indicated due to the VFib arrest. (2) Acute respiratory failure: Patient with cardiac arrest and subsequent acute respiratory failure requiring intubation in the field. CXR (10/21) showed bibasilar prominent bronchovascular markings which may indicate atelectasis versus early PNA. ABG on admission 7.35/35/493 on MV. Patient able to be weaned down and ultimately extubated on 10/28. Now on room air. CXR 10/31 was clear (3) Sepsis: Patient met criteria for sepsis. Admission CXR as above. Repeat CXR now clear. He continued to have fevers. MRSA nasal swab negative. WBC elevated on admission and was up to 31K then up/down. BCx negative. UCx growing enterococcus >100K colonies sensitive to Ampicillin treated with abx. Venous Dopplers were negative for DVT . Repeat cultures obtained 10/29 but urine and blood cultures negative. Completed a course of abx. C diff negative on 10/31. WBC up to 24K and with persistent diarrhea. He was started on oral Vanco and received 2 doses overnight. WBC better the next day (but could be coincidence). (4) Heart block AV third degree: As above. Patient with 3rd degree AVB status post transvenous pacemaker placement 10/21. Patient's heart rate was exceeding the set rate and also not capturing so turning off. Pacemaker was removed by Cardiology on 10/27. Managed by cardiology. Also with AFib/Flutter now. Anticoagulation added. AFib/flutter is rate controlled with metoprolol. We continued therapeutic Lovenox (5) Anoxic brain injury: Patient was comatose post resuscitation. Head CT was negative for any acute intracranial change. Patient had a PEA arrest which later converted to VFib and on arrival was bradycardic and hypotensive. Patient was started on TTM protocol. He completed 24 hours and was rewarmed. Repeat Head CT 10/26 with no acute intracranial findings. EEG 10/26 showing abnormal EEG due to pacer diffuse background slowing suggestive of generalized encephalopathy. No focal or paroxysmal abnormalities were noted. Patient became more awake and alert and ultimately able to be extubated. MRI could not be done as could not verify his prior history. He continued to have confusion. (6) Congestive heart failure: Patient with evidence of CHF. Low EF and mild edema related to cardiac arrest. Most recent CXR clear. Cardiology following. We continued atorvastatin, losartan, metoprolol. (7) Hypotension: Patient was initially hypotensive likely secondary to cardiac arrest and bradycardia and was placed on epinephrine drip. Drip was weaned off. (8) Hyperglycemia: A1c 5.2%. Patient hyperglycemic related to above. Monitored with sliding scale insulin (9) Hypertension: Patient has history of hypertension. BP was treated appropriately Patient was accepted at [facility] and was transferred in stable condition. Time Spent with Patient Time attestation: Total time spent providing and/or coordinating transfer services:34 minutes Total time spent: Greater than 30 minutes Exam Narrative: AF 97.7 164/68 78 18 98% ra Gen - NARD Chest - CTA bilaerally, nml RR CV - irregularly irregular. Rate controlled. Tele showing sinus arrhythmias, PVCs and NSVT Abd - Soft, ND, +BS - Fecal cont system secured with brown liquid stool in bag Ext - hands are in mittens. No pedal edema. 2+ PT pulses. Neuro - alert. oriented to location (not name of hosp) only. Psych - calm and cooperative Skin - Warm and dry. heels intact DS: Data Data Completed and Pending Labs on day of discharge: Labs from last 24 hours 11/04/24 11/04/24 11/04/24 17:04 11:54 07:51 POC Capillary Glucose 108 H 115 H 92
== END 2024-11-04 21:29 | disposition short-term general hospital (02) | DRG 260 ==
LOC: ANHED 19:07 → ANHICU 20:14 → ANHIMU 11-01 16:50 → ANH2MED 11-02 19:03
PROVIDERS: Internal Medicine; Nurse Practitioner; Student in an Organized Health Care Education/Training Program; Admitting Provider Internal Medicine; Emergency Provider Preventive Medicine Aerospace Medicine; PCP Family Medicine; Visit Provider Internal Medicine
PROC: 02HK3JZ Insertion of Pacemaker Lead into Right Ventricle, Percutaneous Approach (ICD-10-PCS; CPT 33210; principal; 2024-10-21 19:35)
DX: I46.9 Cardiac arrest, cause unspecified (principal); A41.9 Sepsis, unspecified organism; J96.01 Acute respiratory failure with hypoxia; J69.0 Pneumonitis due to inhalation of food and vomit; J18.9 Pneumonia, unspecified organism; G93.1 Anoxic brain damage, not elsewhere classified; N39.0 Urinary tract infection, site not specified; P91.60 Hypoxic ischemic encephalopathy [HIE], unspecified; I42.9 Cardiomyopathy, unspecified; E87.0 Hyperosmolality and hypernatremia; I49.01 Ventricular fibrillation; I44.2 Atrioventricular block, complete; B95.2 Enterococcus as the cause of diseases classified elsewhere; I11.0 Hypertensive heart disease with heart failure; I50.9 Heart failure, unspecified; R73.9 Hyperglycemia, unspecified; I25.10 Atherosclerotic heart disease of native coronary artery without angina pectoris; D64.9 Anemia, unspecified; M19.90 Unspecified osteoarthritis, unspecified site; E87.6 Hypokalemia; E83.51 Hypocalcemia; M17.0 Bilateral primary osteoarthritis of knee; E78.5 Hyperlipidemia, unspecified; Z85.048 Personal history of other malignant neoplasm of rectum, rectosigmoid junction, and anus; I35.0 Nonrheumatic aortic (valve) stenosis
CPT/HCPCS: 33210; 36415; 36556; 36600; 70450; 71045; 80048; 80053; 80143; 80179; 80307; 81001; 82077; 82375; 82550; 82805; 82948; 83036; 83050; 83605; 83735; 83880; 84100; 84145; 84439; 84443; 84478; 84480; 84484; 85018; 85025; 85027; 86140; 87040; 87086; 87181; 87493; 87637; 87641; 92526; 92610; 92611; 92950; 93005; 93306; 93970; 94002; 94003; 95816; 96374; 97110; 97161; 97166; 97530; 97535; 99291; A9270; C1751; C1894; J0171; J0360; J1644; J1650; J1815; J2003; J2250; J2470; J2543; J2704; J3010; J3475; J3480; J7030; J7060; J7070; J7120